=== PATIENT | male | born 1965 | race Two or more races ===

== ENCOUNTER → 2020-04-17 12:30 | Outpatient (BNVA) | payer MEDICARE, MEDICAID, SELFPAY | PROVIDERS: PCP Physician Assistant; Referring Provider Physician Assistant; Visit Provider Internal Medicine | DX: Z45.02 Encounter for adjustment and management of automatic implantable cardiac defibrillator (principal); I48.19 Other persistent atrial fibrillation; Z86.79 Personal history of other diseases of the circulatory system | CPT/HCPCS: 99212 ==

== ENCOUNTER 2020-05-18 08:01 | Outpatient (REF) | payer MEDICARE, MEDICAID, SELFPAY ==
[2020-05-18 09:14] LABS: Anion Gap 20 (12-20); Blood Urea Nitrogen 22 mg/dL (9-16); Calcium 8.1 mg/dL (8.4-10.2); Carbon Dioxide 22 mmol/L (22-29); Chloride 105 mmol/L (96-108); Estimated Glomerular Filt Rate 57; Potassium 4.5 mmol/l (3.3-5.1); Sodium 142 mmol/L (135-145); Total Protein 6.9 g/dL (6.5-8.0)
[2020-05-18 10:32] LABS: Creatinine Urine 186.35 mg/dL
== END 2020-05-18 08:02 | disposition home or self-care (01) ==
LOC: HO.LAB 08:01
PROVIDERS: PCP Physician Assistant; Visit Provider Internal Medicine Hypertension Specialist
DX: N18.30 Chronic kidney disease, stage 3 unspecified (principal)
CPT/HCPCS: 80051; 82310; 82565; 84155; 84520

== ENCOUNTER 2020-05-22 09:37 | Emergency (ER) | payer MEDICARE, MEDICAID, SELFPAY ==
[2020-05-22 09:56] VITALS: BP 128/76; PULSE 78; RESP 17; O2SAT 97; BMI 45.8
--- NOTE | 2020-05-22 10:46 | ED_ITS ---
HPI - Dental/Oral General Chief complaint: Dental/Oral Stated complaint: DENTAL PAIN Time Seen by Provider: 05/22/20 10:46 Source: patient Mode of arrival: ambulatory Limitations: language barrier History of Present Illness HPI Narrative: 54 y/o male with multiple medical conditions including DM, CMP s/p ICD placement, afib, HTN, HLD, obesity, neuropathy presenting with right sided upper and lower dental pain for the last 3 days. He thinks he cracked a lower right molar and he has had issues with that tooth several times in the past. He recently moved here and does not have a dentist. He has been taking Tylenol without relief. He was unable to sleep last night due to the pain. He denies fever, chills, difficulty swallowing, facial swelling. He states the pain is worse when trying to eat. MD Complaint: tooth pain Teeth map: 1. painful, cracked tooth 2. tender tooth Onset (ago): day(s) (3) Duration: constant Severity: severe Relieving factors: nothing Exacerbating factors: chewing Context: history of dental caries and poor dental care Treatment prior to arrival: none Related Data Home Medications Medication Instructions Recorded Confirmed cane #1 ea 03/23/20 04/17/20 albuterol sulfate 90 mcg/actuation INHALATION 04/17/20 05/03/20 aerosol inhaler albuterol sulfate 90 mcg/actuation 2 puff INHALATION Q6H PRN 05/03/20 05/03/20 aerosol inhaler insulin aspart U-100 100 unit/mL unit SUBCUT TID ml 05/03/20 05/03/20 (3 mL) subcutaneous pen insulin glargine U-300 conc 300 unit SUBCUT DAILY ml 05/03/20 05/03/20 unit/mL (1.5 mL) subcutaneous pen Previous Rx's Medication Instructions Recorded digoxin 250 mcg (0.25 mg) tablet 250 mcg PO DAILY 90 Days #90 tab 05/03/20 famotidine 20 mg tablet 20 mg PO DAILY 90 Days #90 tab 05/03/20 fluticasone 250 mcg-salmeterol 50 1 inh INHALATION BID 30 Days #60 ea 05/03/20 mcg/dose blistr powdr for inhalation furosemide 40 mg tablet 40 mg PO BID 90 Days #180 tab 05/03/20 gabapentin 300 mg capsule 300 mg PO QAM #90 cap 05/03/20 gabapentin 600 mg tablet 600 mg PO DAILY 90 Days #90 tab 05/03/20 lisinopril 20 mg tablet 20 mg PO DAILY 90 Days #90 tab 05/03/20 metoprolol succinate 50 mg 50 mg PO DAILY 90 Days #90 tab 05/03/20 tablet,extended release 24 hr miscellaneous medical supply 2 ea MISCELLANEOUS DAILY #2 ea 05/03/20 rivaroxaban 15 mg tablet 15 mg PO DAILY 90 Days #90 tab 05/03/20 atorvastatin 10 mg tablet 10 mg PO DAILY 90 Days #90 tab 05/08/20 blood sugar diagnostic #100 ea 05/16/20 comp.stocking,thigh,long,x-lrg #2 ea 05/16/20 acetaminophen [Tylenol Arthritis 650 mg PO Q8H PRN #30 tab 05/22/20 Pain] clindamycin HCl 300 mg PO Q8H #21 cap 05/22/20 tramadol 50 mg PO Q8H PRN #10 tab 05/22/20 Allergies Allergy/AdvReac Type Severity Reaction Status Date / Time Penicillins [PENICILLINS] Allergy Severe RASH Verified 05/03/20 17:59 penicillin V Allergy Unknown rash Verified 05/03/20 17:59 Review of Systems Review of Systems: Constitutional: No Fever, No Chills ENT/Mouth: No sore throat, No Rhinorrhea, No Swallowing Difficulty, +dental pain Cardiovascular: No Chest Pain, No SOB Respiratory: No Cough, No Sputum Gastrointestinal: No Nausea, No Vomiting Musculoskeletal: No joint pain, No Myalgias Skin: No Skin Lesions, No rash Neuro: No Weakness, No Numbness, No Dizziness, + Headache (from pain) Psych: No Anxiety/Panic, No Depression Heme/Lymph: No Lymphadenopathy PMFSH Past Medical History Attestation statement: The following information was validated with the patient. Medical History Asthma Chronic kidney disease, unspecified Essential hypertension GERD (gastroesophageal reflux disease) History of cardiomyopathy FAIZAN (obstructive sleep apnea) Persistent atrial fibrillation Type 2 diabetes mellitus with unspecified complications Surgical History Presence of implantable cardioverter-defibrillator (ICD) Family History Family History Father Cardiac disease Mother Cardiac disease Social History Social History Smoking Status: Current some day smoker Advance Directives: No Advance Directives Information Provided: No Physical Exam Vital Signs: Vital Signs: Last Vital Signs Pulse 78 05/22/20 09:56 Resp 17 05/22/20 09:56 BP 128/76 05/22/20 09:56 Pulse Ox 97 05/22/20 09:56 Body Mass Index 45.8 Appearance: Alert. Oriented X3. No acute distress. HEENT: normal facial inspection, no facial swelling. lower right molar with tenderness and mild gingival swelling, no palpable abscess, silver filling in place, no appreciated fracture. Upper right molars with tenderness, normal gingival. No abscess. Poor dentiion overall, moist mucus membranes, uvula midline. posterior oropharynx normal. Respiratory: No respiratory distress. Skin: Skin warm and dry. Normal skin color. Normal skin turgor. No rashes. Extremities: atraumatic, +LE edema Neuro: Oriented X 3. Non-focal. Course Course Course Narrative: 54 y/o presenting with upper and lower right sided dental pain - no appreciable abscess on exam but tenderness to upper and lower molars. Will give Tramadol and abx in the event infection is starting. He was given list of local dentists and expressed the importance of follow up with dental. He agrees to make calls today to be evaluated. Stable for d/c. MDM - Dental/Oral Differential Diagnosis Differential diagnosis: Likely gingival abscess, dental caries, toothache, dental abscess, fracture of tooth and aphthous ulcer Discharge Plan Discharge Clinical Impression: Toothache Patient Disposition: Home, Self-Care Instructions: Toothache (ED) Additional Instructions: It is important that you follow up with a dentist FABY. A list of local dentists has been provided to you. Take prescribed medications as needed for pain. If you develop facial swelling, fevers, worsening pain or any other concerning symptom come back to the ER for further evaluation. Prescriptions: New tramadol 50 mg tablet 50 mg PO Q8H PRN (Reason: pain) Qty: 10 RF: 0 clindamycin HCl 300 mg capsule 300 mg PO Q8H Qty: 21 RF: 0 acetaminophen [Tylenol Arthritis Pain] 650 mg tablet extended release 650 mg PO Q8H PRN (Reason: pain) Qty: 30 RF: 0 No Action (DME) cane Device See Rx Instructions .ROUTE .MEDSUPPLY Qty: 1 RF: 0 atorvastatin 10 mg tablet 10 mg PO DAILY 90 Days Qty: 90 RF: 1 (DME) FreeStyle Test Strip See Rx Instructions .ROUTE .MEDSUPPLY Qty: 100 RF: 0 (DME) comp.stocking,thigh,long,x-lrg Misc See Rx Instructions .ROUTE .MEDSUPPLY Qty: 2 RF: 0 albuterol sulfate [ProAir HFA] 90 mcg/actuation HFA aerosol inhaler 2 puff inhalation Q6H PRNRF: 0 miscellaneous medical supply Misc 2 ea miscellaneous DAILY Qty: 2 RF: 0 digoxin 250 mcg (0.25 mg) tablet 250 mcg PO DAILY 90 Days Qty: 90 RF: 1 famotidine 20 mg tablet 20 mg PO DAILY 90 Days Qty: 90 RF: 1 fluticasone propion-salmeterol [Advair Diskus] 250-50 mcg/dose blister with device 1 inh inhalation BID 30 Days Qty: 60 RF: 3 furosemide [Lasix] 40 mg tablet 40 mg PO BID 90 Days Qty: 180 RF: 1 gabapentin 600 mg tablet 600 mg PO DAILY 90 Days Qty: 90 RF: 1 gabapentin 300 mg capsule 300 mg PO QAM Qty: 90 RF: 1 lisinopril 20 mg tablet 20 mg PO DAILY 90 Days Qty: 90 RF: 1 metoprolol succinate 50 mg tablet extended release 24 hr 50 mg PO DAILY 90 Days Qty: 90 RF: 1 rivaroxaban 15 mg tablet 15 mg PO DAILY 90 Days Qty: 90 RF: 1 albuterol sulfate 90 mcg/actuation HFA aerosol inhaler inhalation RF: 0 insulin aspart U-100 100 unit/mL (3 mL) insulin pen subcut TID RF: 0 insulin glargine U-300 conc 300 unit/mL (1.5 mL) insulin pen subcut DAILY RF: 0 Print Language: Japanese
== END 2020-05-22 11:15 | disposition home or self-care (01) ==
PROVIDERS: Emergency Provider Emergency Medicine; PCP Physician Assistant
DX: K08.89 Other specified disorders of teeth and supporting structures (principal); E11.22 Type 2 diabetes mellitus with diabetic chronic kidney disease; I12.9 Hypertensive chronic kidney disease with stage 1 through stage 4 chronic kidney disease, or unspecified chronic kidney disease; N18.9 Chronic kidney disease, unspecified; Z95.810 Presence of automatic (implantable) cardiac defibrillator; Z79.4 Long term (current) use of insulin; Z79.899 Other long term (current) drug therapy; F17.200 Nicotine dependence, unspecified, uncomplicated
CPT/HCPCS: 99283

== ENCOUNTER → 2020-06-21 09:01 | Outpatient (REF) | payer MEDICARE, MEDICAID, SELFPAY ==
--- NOTE | 2020-06-21 09:28 | ECG_ITS ---
Hook-up date: 2020-06-21 10:55:00 Duration: 25:35:00 Test Indications: AFIB Medications: [id number] QRS complexes 2853 Ventricular ectopics which represent 2 % of total QRS comp. * Supraventricular ectopics which represent % of total QRS comp. * Paced QRS complexs which represent % of total QRS comp. VENTRICULAR ECTOPY 2312 Isolated 6 Bigeminal Cycles 177 Couplets 49 Runs 187 Beats in Runs 16 Beats LONGEST at 59 BPM at 07:41:52 2020-06-22 4 Beats FASTEST at 119 BPM at 23:13:12 2020-06-21 SUPRAVENTRICULAR ECTOPY * Isolated * Couplets * Runs * Beats in Runs * Beats LONGEST at * BPM at :: -- * Beats FASTEST at * BPM at :: -- HEART RATES 67 MIN at 05:01:46 2020-06-22 92 AVG 141 MAX at 11:16:41 2020-06-21 LONGEST RR 1.1600 secs at 05:35:55 2020-06-22 S-T LEVELS Channel 1 - 128 mm at 10:55:00 2020-06-21 - 128 mm at 10:55:00 2020-06-21 Channel 2 - 128 mm at 10:55:00 2020-06-21 - 128 mm at 10:55:00 2020-06-21 Channel 3 - 128 mm at 03:01:41 -- - 128 mm at 03:01:41 Underlying rhythm is atrial fibrillation; Average ventricular rate 92/min; range 67-141/min; About 22% of the time, rate >100/min; Occasional ventricular pacing noted (2%); some of these seem to be paced beats; no significant runs; Patient did not report any symptoms in the diary Referred By: Arielle Carrillo Overread By: ARIELLE CARRILLO
--- NOTE | 2020-06-21 09:28 | CA_ITS ---
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 Technically limited study despite use of definity 2. Normal LV systolic function 3. Limited evaluation of cardiac valves with normal cardiac valvular Doppler 4. Normal RV systolic pressure 5. No pericardial effusion Findings Left Ventricle The left ventricle was not well visualized. Normal left ventricular cavity size. The left ventricular systolic function is normal. The visually estimated ejection fraction is between 55-60%. Diastolic function is indeterminate on the basis of available data. Right Ventricle The right ventricle was not well visualized. Atria The left atrium is likely dilated. Interatrial shunt cannot be excluded. The right atrium was not well visualized. Aortic Valve The aortic valve was not well visualized. There is no aortic valve stenosis. There is no aortic valve regurgitation. Mitral Valve The mitral valve was not well visualized. There is no mitral valve regurgitation. There is no mitral valve stenosis. Pulmonic Valve The pulmonic valve was not well visualized. Tricuspid Valve The tricuspid valve was not well visualized. The right ventricular systolic pressure is normal. Great Vessels The aorta was not well visualized. The pulmonary artery was not well visualized. Venous The inferior vena cava is normal in size and collapses greater than 50% with inspiration. Pericardium/Pleural There is no evidence of pericardial effusion. Prior Study Comparison No significant change compared to prior study dated: 08/19/2019. Measurements 2D Linear Measurements IVSd: 1.06 0.6-0.9/0.6-1.0 cm LVIDd: 5.39 3.9-5.3/4.2-5.9 cm LVIDd Index: 2.16 2.4-3.2/2.2-3.1 cm/m2 LVIDs: 3.56 2.0-3.6 cm LVPWd: 1.07 0.7-1.1 cm Ao Root: 4.40 2.1-3.5 cm LA Diam: 3.80 2.7-3.8/3.0-4.0 cm LAIDs Index: 1.52 1.5-2.3 cm/m2 LV Mass: 279.41 67-162/88-224 g LV Mass Index: 111.77 43-95/49-115 g/m2 LVOT Diam: 2.40 3.0+(-)1.3 cm Mitral Valve MV Pk E: 0.66 MV Decel Time: 137.00 E'Lateral: 13.10 E'Medial: 6.48 E/E' Med: 10.10 E/E' Lat: 5.00 PHT: 40.00 MVA PHT: 5.50 Decel [place]: 4.77 Aortic Valve AoV Pk Cruz: 1.05 AoV Mn Cruz: 0.65 AoV VTI: 0.20 AoV Pk Grad: 4.00 Aov Mn Grad: 2.00 RHONDA Cont.VTI: 2.95 LVOT LVOT Pk Cruz: 0.52 LVOT Mn Cruz: 0.35 LVOT VTI: 0.13 LVOT Pk Grad: 1.00 LVOT Mn Grad: 1.00 LVOT Diam: 2.40 LVOT Area: 4.52 Diastolic Function MV Pk E: 0.66 E'Medial: 6.48 E/E' Med: 10.10 E' Laterial: 13.10 E/E' Lat: 5.00 Tricuspid Valve TR Pk Cruz: 1.87 TR Pk Grad: 14.00 RA Press: 3.00 RVSP: 17.00 Great Vessels Aorta Ao Root-2D: 4.40 2.0-3.7 cm Ao Asc: 3.80 2.1-3.4 cm Pulmonary Valve PV Pk Cruz: 0.77 Peak PV Grad: 2.00 Updated in Other Vendor System with Status of Final Juan José Rosado MD electronically signed on 06/21/2020 3:36:47 PM with status of Final
[2020-06-21 09:55] LABS: MANUAL DIFF FLAG NO
[2020-06-21 10:09] LABS: Basophils Absolute Auto 0.1 X10*3/uL (0.0-0.2); Basophils Percent Auto 0.9 % (0-2); Eosinophils Absolute Auto 0.4 X10*3/uL (0.0-0.4); Eosinophils Percent Auto 3.8 % (0-4); Hematocrit 47.8 % (42-52); Hemoglobin 15.8 g/dl (14.0-18.0); Imm Gran Abs Auto 0.06 X10*3/uL (0.00-0.03); Imm Gran Pct Auto 0.6 % (0.0-0.4); Lymphocytes Absolute Auto 2.8 X10*3/uL (1.2-4.9); Lymphocytes Percent Auto 29.4 % (20-40); Mean Corpuscular HGB Conc 33.1 g/dl (31.0-36.0); Mean Corpuscular Hemoglobin 31.9 pg (27.0-33.0); Mean Corpuscular Volume 96.6 fL (80-98); Mean Platelet Volume 10.3 fL (9.4-12.4); Monocytes Absolute Auto 0.8 X10*3/uL (0.1-1.2); Monocytes Percent Auto 8.7 % (2-11); Neutrophils Absolute Auto 5.4 X10*3/uL (2.0-8.3); Neutrophils Percent Auto 56.6 % (45-73); Platelet Count 293 X10*3/uL (160-400); Red Blood Count 4.95 X10*6/uL (4.60-5.80); Red Cell Distribution Width 12.6 % (11.0-16.0); White Blood Count 9.5 X10*3/uL (4.8-10.8)
[2020-06-21 11:07] LABS: Creatinine Urine 288.53 mg/dL; Protein/Creatinine Ratio, Ur 0.13 (<0.2); Total Protein Urine Random 37 mg/dL (<12)
[2020-06-21 11:12] LABS: Alanine Aminotransferase 24 U/L (0-40); Albumin Level 3.9 g/dL (3.5-5.0); Alkaline Phosphatase 81 U/L (39-117); Anion Gap 17 (12-20); Aspartate Amino Transferase 22 U/L (5-37); Bilirubin Total 0.8 mg/dL (0.0-1.0); Blood Urea Nitrogen 23 mg/dL (9-16); Calcium 8.7 mg/dL (8.4-10.2); Carbon Dioxide 26 mmol/L (22-29); Chloride 103 mmol/L (96-108); Cholesterol 124 mg/dL; Estimated Glomerular Filt Rate 55; Glucose Fasting 166 mg/dL (60-99); HDL Cholesterol 41 mg/dL; LDL Cholesterol Calculated 65 mg/dl; Potassium 4.5 mmol/l (3.3-5.1); Sodium 141 mmol/L (135-145); Triglycerides 90 mg/dL
[2020-06-21 11:31] LABS: TSH reflex Free T4 1.07 mIU/mL (0.32-4.0)
== END ==
LOC: HO.CARD 09:01
PROVIDERS: Absent Provider Physician Assistant; PCP Physician Assistant; Referring Provider Internal Medicine Hypertension Specialist; Visit Provider Internal Medicine
DX: N18.30 Chronic kidney disease, stage 3 unspecified (principal); I48.19 Other persistent atrial fibrillation
CPT/HCPCS: 36415; 80053; 80061; 84156; 84443; 85025; 93225; 93226; 93306; Q9957

== ENCOUNTER → 2020-07-17 13:27 | Outpatient (BNVA) | payer MEDICARE, MEDICAID, SELFPAY | PROVIDERS: PCP Physician Assistant; Visit Provider Internal Medicine | DX: I48.19 Other persistent atrial fibrillation (principal); I42.9 Cardiomyopathy, unspecified; Z95.810 Presence of automatic (implantable) cardiac defibrillator | CPT/HCPCS: 99212 ==

== ENCOUNTER → 2020-07-18 14:09 | Outpatient (BNVA) | payer MEDICARE, MEDICAID, SELFPAY | PROVIDERS: PCP Physician Assistant; Visit Provider Internal Medicine Endocrinology, Diabetes & Metabolism | DX: E11.65 Type 2 diabetes mellitus with hyperglycemia (principal); E11.42 Type 2 diabetes mellitus with diabetic polyneuropathy; E11.21 Type 2 diabetes mellitus with diabetic nephropathy; E11.22 Type 2 diabetes mellitus with diabetic chronic kidney disease; I12.9 Hypertensive chronic kidney disease with stage 1 through stage 4 chronic kidney disease, or unspecified chronic kidney disease; N18.30 Chronic kidney disease, stage 3 unspecified; Z79.4 Long term (current) use of insulin; E66.01 Morbid (severe) obesity due to excess calories; E78.2 Mixed hyperlipidemia; B35.3 Tinea pedis | CPT/HCPCS: 82947; 99202 ==

== ENCOUNTER → 2020-07-27 07:10 | Outpatient (REF) | payer MEDICARE, MEDICAID, SELFPAY ==
--- NOTE | ~2020-07-27 | NM_ITS ---
Myocardial perfusion study Indication: Cardiomyopathy to evaluate for myocardial ischemia Technique: The patient was brought in for a Lexiscan perfusion study on 07/27/2020. Patient performed low-level exercise and was injected 0.4 mg of Lexiscan intravenously. Within a minute of injection, 45 mCi of sestamibi was given intravenously. Images were obtained using the SPECT gamma camera interlaced with the gating device. Images were obtained in supine position. Resting perfusion study was performed on 07/28/2020. Patient was administered 45 mCi of sestamibi intravenously at rest. Images were then obtained in supine position. Images obtained with and without CT attenuation. Total DLP 185 mGy-cm. Images were processed with the software and compared side to side in short axis, horizontal long axis and vertical long axis views. Findings: The stress perfusion study showed non attenuated images show large area of moderate to severely reduced uptake in the inferior wall of the LV myocardium with absent uptake in the basal inferior wall of the LV myocardium. Attenuation corrected images show moderately reduced uptake in the distal anterior, apex and mildly reduced uptake in the distal septum of the LV myocardium.. The gated study shows mildly reduced LV systolic function with calculated LVEF of 48%. LV cavity is normal in size. The gated study shows normal systolic wall thickening and contraction of segments. Resting study shows non attenuated images show no changes in perfusion pattern. Attenuation corrected images show normal uptake of radiotracer in all segments of LV myocardium.. Gating at rest reveals systolic wall motion with ejection fraction at 50%. The findings are consistent with distal anterior, distal septal and apical reversible defect of moderate intensity ischemia.. NM/NM tameka perf SPECT rest & str Impression: 1. Myocardial perfusion imaging study shows distal anterior, distal septal and apical ischemia in mid to distal LAD territory 2. Gated LVEF is 48% 3. Transient ischemic dilatation not present EKG is nondiagnostic for ischemia
--- NOTE | 2020-07-27 07:16 | CA_ITS ---
Acquisition Time: 2020-07-27 07:52:43 Total Exercise Time: 00:02:00 Test Indications: HTN, DM Medications: SEE CHART Protocol: LEXISCAN Max HR: 109 BPM 66% of Pred: 165 BPM Max BP: 140/068 mmHG Max Work Load: 1.0 METS Pharmacological stress test using Lexiscan. Pt tolerated well denies any anginal sx. EKG wit A-fib and isolated PVC's. Non-diagnostic for ischemia. Nuclear images to follow. Normotensive response to exercise. Test reviewed with exercise. Referred By: Porfirio Engle Overread By: Aric Watts
== END ==
LOC: HO.CARD 07:10
PROVIDERS: PCP Physician Assistant; Visit Provider Internal Medicine
DX: I42.9 Cardiomyopathy, unspecified (principal)
CPT/HCPCS: 78452; 93017; A9500; J0280; J2785

== ENCOUNTER 2020-08-04 10:00 | Outpatient (REF) | payer MEDICARE, MEDICAID, SELFPAY ==
[2020-08-04 12:29] LABS: Free T4 (Free Thyroxine) 1.27 ng/dL (0.71-1.85); Vitamin D 25-OH Total 24.8 ng/mL (>30)
[2020-08-04 12:52] LABS: Alanine Aminotransferase 21 U/L (0-40); Albumin Level 4.4 g/dL (3.5-5.0); Alkaline Phosphatase 83 U/L (39-117); Anion Gap 16 (12-20); Aspartate Amino Transferase 17 U/L (5-37); Bilirubin Total 0.6 mg/dL (0.0-1.0); Blood Urea Nitrogen 32 mg/dL (9-16); Carbon Dioxide 25 mmol/L (22-29); Chloride 104 mmol/L (96-108); Estimated Glomerular Filt Rate 42; Glucose Fasting 179 mg/dL (60-99); Potassium 4.5 mmol/L (3.3-5.1); Sodium 140 mmol/L (135-145); Total Protein 7.8 g/dL (6.5-8.0)
[2020-08-04 13:00] LABS: Creatinine Urine 43.86 mg/dL; Microalbum/Creatinine Ratio Ur 11.3 ug/mg cr
[2020-08-04 14:16] LABS: Vitamin B12 757 pg/mL (200-900)
[2020-08-06 00:22] LABS: LDL Cholesterol Direct 66 mg/dL (<100)
== END 2020-08-04 10:01 | disposition home or self-care (01) ==
LOC: HO.LAB 10:00
PROVIDERS: Absent Provider Internal Medicine Endocrinology, Diabetes & Metabolism; PCP Physician Assistant; Visit Provider Nurse Practitioner Family
DX: E11.65 Type 2 diabetes mellitus with hyperglycemia (principal); R94.39 Abnormal result of other cardiovascular function study; I12.9 Hypertensive chronic kidney disease with stage 1 through stage 4 chronic kidney disease, or unspecified chronic kidney disease; E11.22 Type 2 diabetes mellitus with diabetic chronic kidney disease; N18.30 Chronic kidney disease, stage 3 unspecified; I48.91 Unspecified atrial fibrillation; E78.2 Mixed hyperlipidemia; Z95.810 Presence of automatic (implantable) cardiac defibrillator; Z86.79 Personal history of other diseases of the circulatory system
CPT/HCPCS: 36415; 80053; 82043; 82306; 82607; 83721; 84439; 84443; 99212

== ENCOUNTER 2020-08-11 06:15 | Outpatient (REF) | payer MEDICARE, MEDICAID, SELFPAY ==
[2020-08-11 07:21] LABS: MANUAL DIFF FLAG NO
[2020-08-11 07:27] LABS: Basophils Absolute Auto 0.1 X10*3/uL (0.0-0.2); Eosinophils Absolute Auto 0.4 X10*3/uL (0.0-0.4); Eosinophils Percent Auto 4.6 % (0-4); Hematocrit 52.8 % (42-52); Hemoglobin 16.8 g/dl (14.0-18.0); Imm Gran Abs Auto 0.04 X10*3/uL (0.00-0.03); Imm Gran Pct Auto 0.4 % (0.0-0.4); Lymphocytes Absolute Auto 3.1 X10*3/uL (1.2-4.9); Lymphocytes Percent Auto 32.5 % (20-40); Mean Corpuscular HGB Conc 31.8 g/dl (31.0-36.0); Mean Corpuscular Hemoglobin 30.9 pg (27.0-33.0); Mean Corpuscular Volume 97.1 fL (80-98); Mean Platelet Volume 10.3 fL (9.4-12.4); Monocytes Absolute Auto 0.9 X10*3/uL (0.1-1.2); Monocytes Percent Auto 9.7 % (2-11); Neutrophils Percent Auto 51.8 % (45-73); Platelet Count 276 X10*3/uL (160-400); Red Blood Count 5.44 X10*6/uL (4.60-5.80); Red Cell Distribution Width 12.4 % (11.0-16.0); White Blood Count 9.6 X10*3/uL (4.8-10.8)
[2020-08-11 07:45] LABS: INTERNATIONAL NORM RATIO 1.4 (0.9-1.1); Prothrombin Time 16.4 SEC (10.8-13.0)
[2020-08-11 08:27] LABS: Anion Gap 17 (12-20); Blood Urea Nitrogen 26 mg/dL (9-16); Calcium 9.1 mg/dL (8.4-10.2); Carbon Dioxide 26 mmol/L (22-29); Chloride 103 mmol/L (96-108); Estimated Glomerular Filt Rate 49; Glucose Random 169 mg/dL (60-115); Potassium 5.1 mmol/L (3.3-5.1); Sodium 141 mmol/L (135-145)
== END 2020-08-11 06:16 | disposition home or self-care (01) ==
LOC: HO.LAB 06:15
PROVIDERS: PCP Physician Assistant; Visit Provider Nurse Practitioner Family
DX: R94.39 Abnormal result of other cardiovascular function study (principal)
CPT/HCPCS: 36415; 80048; 85025; 85610

== ENCOUNTER 2020-08-29 07:33 | Outpatient (REF) | payer MEDICARE, MEDICAID, SELFPAY ==
[2020-08-29 08:42] LABS: MANUAL DIFF FLAG NO
[2020-08-29 08:48] LABS: Basophils Absolute Auto 0.1 X10*3/uL (0.0-0.2); Basophils Percent Auto 0.9 % (0-2); Eosinophils Absolute Auto 0.3 X10*3/uL (0.0-0.4); Eosinophils Percent Auto 3.3 % (0-4); Hematocrit 51.9 % (42-52); Hematocrit 52.4 % (42-52); Hemoglobin 17.1 g/dl (14.0-18.0); Imm Gran Abs Auto 0.04 X10*3/uL (0.00-0.03); Imm Gran Pct Auto 0.4 % (0.0-0.4); Lymphocytes Absolute Auto 3.2 X10*3/uL (1.2-4.9); Lymphocytes Percent Auto 32.5 % (20-40); Mean Corpuscular HGB Conc 32.4 g/dl (31.0-36.0); Mean Corpuscular HGB Conc 32.9 g/dl (31.0-36.0); Mean Corpuscular Hemoglobin 30.9 pg (27.0-33.0); Mean Corpuscular Hemoglobin 31.4 pg (27.0-33.0); Mean Corpuscular Volume 95.1 fL (80-98); Mean Corpuscular Volume 95.4 fL (80-98); Mean Platelet Volume 10.1 fL (9.4-12.4); Mean Platelet Volume 10.2 fL (9.4-12.4); Monocytes Percent Auto 10.2 % (2-11); Neutrophils Absolute Auto 5.1 X10*3/uL (2.0-8.3); Neutrophils Percent Auto 52.7 % (45-73); Platelet Count 315 X10*3/uL (160-400); Platelet Count 327 X10*3/uL (160-400); Red Blood Count 5.44 X10*6/uL (4.60-5.80); Red Blood Count 5.51 X10*6/uL (4.60-5.80); Red Cell Distribution Width 12.1 % (11.0-16.0); White Blood Count 9.6 X10*3/uL (4.8-10.8); White Blood Count 9.8 X10*3/uL (4.8-10.8)
[2020-08-29 08:54] LABS: INTERNATIONAL NORM RATIO 1.2 (0.9-1.1); Prothrombin Time 13.9 SEC (10.8-13.0)
[2020-08-29 09:20] LABS: Alanine Aminotransferase 17 U/L (0-40); Albumin Level 4.1 g/dL (3.5-5.0); Alkaline Phosphatase 80 U/L (39-117); Anion Gap 16 (12-20); Aspartate Amino Transferase 18 U/L (5-37); Bilirubin Total 0.9 mg/dL (0.0-1.0); Blood Urea Nitrogen 22 mg/dL (9-16); Calcium 8.7 mg/dL (8.4-10.2); Carbon Dioxide 23 mmol/L (22-29); Chloride 106 mmol/L (96-108); Cholesterol 126 mg/dL; Estimated Glomerular Filt Rate 52; Glucose Fasting 91 mg/dL (60-99); HDL Cholesterol 45 mg/dL; LDL Cholesterol Calculated 65 mg/dl; Potassium 4.9 mmol/L (3.3-5.1); Sodium 140 mmol/L (135-145); Total Protein 7.5 g/dL (6.5-8.0); Triglycerides 81 mg/dL
[2020-08-29 09:27] LABS: Creatinine Urine 212.12 mg/dL
== END 2020-08-29 07:34 | disposition home or self-care (01) ==
LOC: HO.LAB 07:33
PROVIDERS: Absent Provider Nurse Practitioner Family; PCP Physician Assistant; Referring Provider Internal Medicine Cardiovascular Disease; Visit Provider Physician Assistant
DX: Z01.818 Encounter for other preprocedural examination (principal); Z12.5 Encounter for screening for malignant neoplasm of prostate; I49.9 Cardiac arrhythmia, unspecified; I10 Essential (primary) hypertension; E11.8 Type 2 diabetes mellitus with unspecified complications
CPT/HCPCS: 36415; 80053; 80061; 82043; 84153; 85025; 85027; 85610

== ENCOUNTER 2020-09-11 12:00 | Day surgery (SDC) | payer MEDICARE, MEDICAID, SELFPAY ==
[2020-09-05 10:18] VITALS: BMI 44.1
--- NOTE | 2020-09-08 13:55 | P.CONAN_ITS ---
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 (Acute) Diabetes type 2, uncontrolled (Acute) FAIZAN (obstructive sleep apnea) (Acute) PVD (peripheral vascular disease) (Acute) Essential hypertension (Acute) Afib (Acute) HLD (hyperlipidemia) (Acute) Type 2 diabetes mellitus with unspecified complications (Acute) History of cardiomyopathy (Acute) Presence of implantable cardioverter-defibrillator (ICD) (Acute) Persistent atrial fibrillation (Acute) Knee osteoarthritis (Acute) Lower extremity edema (Acute) Neuropathy (Acute) Past Medical History Medical History Asthma Chronic kidney disease, unspecified CKD stage 3 due to type 2 diabetes mellitus Diabetes type 2, uncontrolled Diabetic nephropathy associated with type 2 diabetes mellitus Diabetic polyneuropathy associated with type 2 diabetes mellitus Essential hypertension GERD (gastroesophageal reflux disease) History of cardiomyopathy [facility] (current) use of insulin Morbid obesity FAIZAN (obstructive sleep apnea) Persistent atrial fibrillation Tinea pedis of both feet Type 2 diabetes mellitus with unspecified complications Family History Family History Father Cardiac disease Mother Cardiac disease Surgical History Surgical History Presence of implantable cardioverter-defibrillator (ICD) Social History Social History Smoking Status: Current some day smoker Advance Directives Information Provided: No Meds Allergies Allergy/AdvReac Type Severity Reaction Status Date / Time Penicillins [PENICILLINS] Allergy Severe RASH Verified 09/11/20 12:36 Home Medications Medication Instructions Recorded Confirmed Last Taken Type cane #1 ea 03/23/20 08/04/20 Unknown History albuterol sulfate 90 mcg/actuation INHALATION 04/17/20 08/04/20 Unknown History aerosol inhaler metoprolol succinate 50 mg 50 mg PO DAILY 06/15/20 09/05/20 Unknown History tablet,extended release 24 hr gabapentin 600 mg tablet 600 mg PO BEDTIME tab 07/18/20 09/05/20 Unknown History Exam Exam Date and Time: September 08, 2020 1355 Height,Weight and Vital Signs: Height 5 ft 11 in Weight 143.789 kg Pertinent Lab Results Pertinent Lab Results: Laboratory Tests 08/29/20 08/29/20 07:50 07:50 WBC 9.6 Hgb 17.1 Hct 51.9 Plt Count 327 Sodium 140 Potassium 4.9 Chloride 106 Carbon Dioxide 23 BUN 22 H Creatinine 1.42 H Narrative Narrative: EKG 07/2020 afib; LAD; non-specific ST-T wave abnormalities + stress 08/2020 -> Cath 08/16/20: Normal systemic pressures, No gradient was identified across aortic valve, Nml LVEDP, Coronary arteries are angiographically normal; false + stress test Echo 06/2020 Conclusions: - 1. Technically limited study despite use of definity 2. Normal LV systolic function 3. Limited evaluation of cardiac valves with normal cardiac valvular Doppler 4. Normal RV systolic pressure 5. No pericardial effusion Assessment and Plan Assessment Anesthesia Assessment: Chart Reviewed Documented by User: Kim Garza 09/11/20 13:06 [facility] Past Medical History Medical History Asthma Chronic kidney disease, unspecified CKD stage 3 due to type 2 diabetes mellitus Diabetes type 2, uncontrolled Diabetic nephropathy associated with type 2 diabetes mellitus Diabetic polyneuropathy associated with type 2 diabetes mellitus Essential hypertension GERD (gastroesophageal reflux disease) History of cardiomyopathy [facility] (current) use of insulin Morbid obesity FAIZAN (obstructive sleep apnea) Persistent atrial fibrillation Tinea pedis of both feet Type 2 diabetes mellitus with unspecified complications Family History Family History Father Cardiac disease Mother Cardiac disease Surgical History Surgical History Presence of implantable cardioverter-defibrillator (ICD) Social History Social History Smoking Status: Current some day smoker Advance Directives Information Provided: No Meds Allergies Allergy/AdvReac Type Severity Reaction Status Date / Time Penicillins [PENICILLINS] Allergy Severe RASH Verified 09/11/20 12:36 Home Medications Medication Instructions Recorded Confirmed Last Taken Type cane #1 ea 03/23/20 08/04/20 Unknown History albuterol sulfate 90 mcg/actuation INHALATION 04/17/20 08/04/20 Unknown History aerosol inhaler metoprolol succinate 50 mg 50 mg PO DAILY 06/15/20 09/05/20 Unknown History tablet,extended release 24 hr gabapentin 600 mg tablet 600 mg PO BEDTIME tab 07/18/20 09/05/20 Unknown History Exam Airway Mallampati Class: II TM Dist: >3cm Neck ROM: Limited Loose/Missing/Broken Teeth: No Heart: RRR Lungs: CTA Assessment and Plan Assessment Anesthesia Assessment: Anesthesia Plan Discussed and Chart Reviewed Final Anesthetic Review NPO: Yes ASA Class: III Final Preanesthetic Review: Meds/Allgs Chart Reviewed, Consent Obtained/Reviewed and Anes Risks/Benef Reviewed Patient Risk: Intermediate Procedure Risk: Low Anesthetic Plan Anesthetic Plan: MAC: Disposition: Standard PACU
[2020-09-11] VITALS (7 sets, daily range): BP systolic 97–112; BP diastolic 64–74; PULSE 82–96; RESP 16; TEMP 36.6–37; O2SAT 95–99
[2020-09-11 12:51] LABS: Glucose, Whole Blood 114 mg/dL (60-115)
[2020-09-11] MEDS: Lactated Ringers 1,000 ML 20 ML IVCONT (14:00)
--- NOTE | 2020-09-11 15:58 | P.OP_ITS ---
Operative Note Operative Note Date of Service: 09/11/20 Narrative: Date of Service: 08/14/20 Narrative: Procedure: Single chamber ICD implantation generator change Indication: secondary prevention with history of VT and VF, ANABELLA Procedure The risks, benefits, complications, alternatives and expected outcomes were discussed with the patient. Patient was prepped and draped in the usual sterile fashion. After the antibiotic was infused, lidocaine was infiltrated medial to the deltopectoral groove. An incision was made. The incision was extended to the prepectoral fascia using blunt dissection. The previously placed device was removed and the new device was attached to the existing lead. Lead measurements were rechecked. A left prepectoral pocket was fashioned. The lead was attached to the generator. The system was placed in the pocket. T The pin of the lead was beyond the set screws. Hemostasis was verified. The pocket was closed with 3 layers. Steristrips and tegaderm were applied [facility] [employer] Device: ICD Secura VR [id number] serial [id number] RV lead: [id number] [place] Quattro Secure serial [id number] Pacing impedance 475 ohms HV impedance RV 50 ohms HV SVC 60 ohms Threshold 0.75 V at 0.4 ms R waves 4.6 Programmed VVI 40 BPM VF therapy >200 BPM ATP during charging, 35Jx6 VT 171-200 BPM Burst x3, 20J, 35Jx4 Plan Discharge home after 1 hour. Ok to continue all medications and to start xarelto tomorrow evening Post-op Instructions: [facility] Dr. Douglas Rodriguez Pacemaker/ICD Instructions Site Care: Leave dressing on for 5 days. Do not shower or get the area wet for 5 days. Once you remove the dressing, there will be steri-strips in place. Do not peel off, they will fall off. Hand washing is a must when caring for your incision to prevent infections. Avoid touching your incision or using lotions, creams, or ointments until it is healed (2-4 weeks). Follow-up instructions: You have scheduled follow-up at [address] [place] [address] on August 29, 2020 at 10:20 AM. Please call [phone] for the [place] office if any questions Please keep the identification card for the device with you, it will be useful when you go through security during flights. Please plug in your home monitor and leave it at your bedside. Call device company if you need assistance plugging in the monitor. Please tell all your healthcare providers you have a pacemaker, especially before procedures or before a MRI. Call your doctor if you have any redness, swelling, pus from incision site, fever of 101 degrees. If you have any bleeding from the incision site, lie down and put pressure on the incision site for 30 minutes. If this does not resolve, please get transportation to the closest hospital but do not drive yourself.
--- NOTE | 2020-09-11 15:58 | PM.OP ---
Brief Operative Note Date of Service: 09/11/20 Surgeon: Douglas Rodriguez MD Estimated blood loss (mL): 50
== END 2020-09-11 18:32 | disposition home or self-care (01) ==
PROVIDERS: PCP Physician Assistant; Visit Provider Internal Medicine Cardiovascular Disease
PROC: 0JPT0PZ Removal of Cardiac Rhythm Related Device from Trunk Subcutaneous Tissue and Fascia, Open Approach (ICD-10-PCS; CPT 33262; principal; 2020-09-11 13:30)
DX: Z45.02 Encounter for adjustment and management of automatic implantable cardiac defibrillator (principal); I49.9 Cardiac arrhythmia, unspecified; I48.19 Other persistent atrial fibrillation; Z79.01 Long term (current) use of anticoagulants; E11.22 Type 2 diabetes mellitus with diabetic chronic kidney disease; I12.9 Hypertensive chronic kidney disease with stage 1 through stage 4 chronic kidney disease, or unspecified chronic kidney disease; N18.30 Chronic kidney disease, stage 3 unspecified; Z79.4 Long term (current) use of insulin; G47.33 Obstructive sleep apnea (adult) (pediatric); J45.909 Unspecified asthma, uncomplicated; Z79.899 Other long term (current) drug therapy
CPT/HCPCS: 33262; 82947; C1722; J1100; J2250; J2405; J3010; J3370

== ENCOUNTER → 2020-09-12 13:04 | Outpatient (BNVA) | payer MEDICARE, MEDICAID, SELFPAY | PROVIDERS: PCP Physician Assistant; Visit Provider Dietitian, Registered | DX: E11.65 Type 2 diabetes mellitus with hyperglycemia (principal) | CPT/HCPCS: 97802 ==

== ENCOUNTER → 2020-10-17 13:30 | Outpatient (BNVA) | payer MEDICARE, MEDICAID, SELFPAY | PROVIDERS: PCP Physician Assistant; Visit Provider Internal Medicine Endocrinology, Diabetes & Metabolism | DX: E11.65 Type 2 diabetes mellitus with hyperglycemia (principal); E11.21 Type 2 diabetes mellitus with diabetic nephropathy; E11.42 Type 2 diabetes mellitus with diabetic polyneuropathy; E11.22 Type 2 diabetes mellitus with diabetic chronic kidney disease; I12.9 Hypertensive chronic kidney disease with stage 1 through stage 4 chronic kidney disease, or unspecified chronic kidney disease; N18.30 Chronic kidney disease, stage 3 unspecified; Z79.4 Long term (current) use of insulin; E78.2 Mixed hyperlipidemia; E66.01 Morbid (severe) obesity due to excess calories | CPT/HCPCS: 82947; 99212 ==

== ENCOUNTER 2020-10-20 09:03 | Outpatient (REF) | payer MEDICARE, MEDICAID, SELFPAY ==
[2020-10-20 10:35] LABS: Hematocrit 48.8 % (42-52); Mean Corpuscular HGB Conc 32.8 g/dl (31.0-36.0); Mean Corpuscular Hemoglobin 30.5 pg (27.0-33.0); Platelet Count 305 X10*3/uL (160-400); Red Blood Count 5.25 X10*6/uL (4.60-5.80); Red Cell Distribution Width 12.6 % (11.0-16.0)
[2020-10-20 10:53] LABS: Alanine Aminotransferase 25 U/L (0-40); Albumin Level 4.2 g/dL (3.5-5.0); Alkaline Phosphatase 72 U/L (39-117); Anion Gap 14 (12-20); Aspartate Amino Transferase 17 U/L (5-37); Bilirubin Total 0.8 mg/dL (0.0-1.0); Blood Urea Nitrogen 30 mg/dL (9-16); Calcium 9.1 mg/dL (8.4-10.2); Carbon Dioxide 21 mmol/L (22-29); Chloride 107 mmol/L (96-108); Cholesterol 133 mg/dL; Estimated Glomerular Filt Rate 49; Glucose Fasting 93 mg/dL (60-99); HDL Cholesterol 46 mg/dL; LDL Cholesterol Calculated 73 mg/dl; Potassium 4.7 mmol/L (3.3-5.1); Sodium 137 mmol/L (135-145); Total Protein 7.3 g/dL (6.5-8.0); Triglycerides 73 mg/dL
== END 2020-10-20 09:04 | disposition home or self-care (01) ==
LOC: HO.LAB 09:03
PROVIDERS: Nurse Practitioner Family; PCP Physician Assistant; Visit Provider Physician Assistant
DX: I10 Essential (primary) hypertension (principal); E11.65 Type 2 diabetes mellitus with hyperglycemia
CPT/HCPCS: 36415; 80053; 80061; 85027

== ENCOUNTER → 2020-11-28 09:40 | Outpatient (BNVA) | payer MEDICARE, MEDICAID, SELFPAY | PROVIDERS: PCP Physician Assistant; Referring Provider Physician Assistant; Visit Provider Internal Medicine | DX: I48.19 Other persistent atrial fibrillation (principal); I42.8 Other cardiomyopathies; I95.9 Hypotension, unspecified; Z95.810 Presence of automatic (implantable) cardiac defibrillator | CPT/HCPCS: 99212 ==

== ENCOUNTER → 2020-12-05 10:11 | Outpatient (REF) | payer MEDICARE, MEDICAID, SELFPAY ==
--- NOTE | 2020-12-05 13:40 | ECG_ITS ---
Hook-up date: 2020-12-05 10:37:00 Duration: 46:46:00 Test Indications: PERSISTANT ATRIAL FIB Medications: [id number] QRS complexes 641 Ventricular ectopics which represent <1 % of total QRS comp. * Supraventricular ectopics which represent % of total QRS comp. * Paced QRS complexs which represent % of total QRS comp. VENTRICULAR ECTOPY 609 Isolated 0 Bigeminal Cycles 13 Couplets 2 Runs 6 Beats in Runs 3 Beats LONGEST at 77 BPM at 04:11:45 2020-12-06 3 Beats FASTEST at 77 BPM at 04:11:45 2020-12-06 SUPRAVENTRICULAR ECTOPY * Isolated * Couplets * Runs * Beats in Runs * Beats LONGEST at * BPM at :: -- * Beats FASTEST at * BPM at :: -- HEART RATES 65 MIN at 05:50:27 2020-12-06 103 AVG 175 MAX at 14:39:32 2020-12-05 LONGEST RR 1.1280 secs at 05:49:38 2020-12-06 S-T LEVELS Channel 1 - 128 mm at 10:37:00 2020-12-05 - 128 mm at 10:37:00 2020-12-05 Channel 2 - 128 mm at 10:37:00 2020-12-05 - 128 mm at 10:37:00 2020-12-05 Channel 3 - 128 mm at 02:95:61 -- - 128 mm at 02:95:61 Basic rhythm Atrial fibrillation Frequent Atrial fibrillation with rapid ventricular response , 59% of time HR > 100 bpm Occasional Premature ventricular complexes No diary submitted I was requested to read this study on 12/29/2020 Referred By: Porfirio Engle Overread By: VINNY CORONADO MD
== END ==
LOC: HO.CARD 10:11
PROVIDERS: PCP Physician Assistant; Referring Provider Physician Assistant; Visit Provider Internal Medicine
DX: I48.19 Other persistent atrial fibrillation (principal)
CPT/HCPCS: 93226

== ENCOUNTER 2020-12-13 09:37 | Outpatient (REF) | payer MEDICARE, MEDICAID, SELFPAY ==
[2020-12-13 10:43] LABS: Hemoglobin 15.5 g/dl (14.0-18.0); Mean Corpuscular Hemoglobin 30.8 pg (27.0-33.0); Mean Corpuscular Volume 93.3 fL (80-98); Mean Platelet Volume 9.9 fL (9.4-12.4); Platelet Count 286 X10*3/uL (160-400); Red Blood Count 5.04 X10*6/uL (4.60-5.80); Red Cell Distribution Width 13.5 % (11.0-16.0); White Blood Count 9.7 X10*3/uL (4.8-10.8)
[2020-12-13 11:07] LABS: Alanine Aminotransferase 22 U/L (0-40); Albumin Level 3.9 g/dL (3.5-5.0); Alkaline Phosphatase 76 U/L (39-117); Anion Gap 16 (12-20); Aspartate Amino Transferase 14 U/L (5-37); Bilirubin Total 0.7 mg/dL (0.0-1.0); Blood Urea Nitrogen 17 mg/dL (9-16); Calcium 9.3 mg/dL (8.4-10.2); Carbon Dioxide 22 mmol/L (22-29); Chloride 107 mmol/L (96-108); Cholesterol 140 mg/dL; Estimated Glomerular Filt Rate 59; Glucose Fasting 115 mg/dL (60-99); HDL Cholesterol 55 mg/dL; LDL Cholesterol Calculated 70 mg/dl; Potassium 4.6 mmol/L (3.3-5.1); Sodium 140 mmol/L (135-145); Triglycerides 79 mg/dL
[2020-12-13 11:28] LABS: TSH reflex Free T4 0.78 uIU/mL (0.32-4.0)
[2020-12-13 11:58] LABS: Digoxin < 0.3 ng/mL (0.8-2.0)
== END 2020-12-13 09:38 | disposition home or self-care (01) ==
LOC: HO.LAB 09:37
PROVIDERS: PCP Physician Assistant; Visit Provider Internal Medicine
DX: I48.19 Other persistent atrial fibrillation (principal); I10 Essential (primary) hypertension; E11.65 Type 2 diabetes mellitus with hyperglycemia; Z79.899 Other long term (current) drug therapy
CPT/HCPCS: 36415; 80053; 80061; 80162; 84443; 85027

== ENCOUNTER → 2021-01-08 10:04 | Outpatient (BNVA) | payer MEDICARE, MEDICAID, SELFPAY | PROVIDERS: PCP Physician Assistant; Referring Provider Physician Assistant; Visit Provider Internal Medicine | DX: I42.8 Other cardiomyopathies (principal); I48.19 Other persistent atrial fibrillation; I95.9 Hypotension, unspecified; E11.22 Type 2 diabetes mellitus with diabetic chronic kidney disease; E11.42 Type 2 diabetes mellitus with diabetic polyneuropathy; E11.21 Type 2 diabetes mellitus with diabetic nephropathy; I12.9 Hypertensive chronic kidney disease with stage 1 through stage 4 chronic kidney disease, or unspecified chronic kidney disease; N18.30 Chronic kidney disease, stage 3 unspecified; E66.01 Morbid (severe) obesity due to excess calories; Z68.41 Body mass index [BMI] 40.0-44.9, adult; Z95.810 Presence of automatic (implantable) cardiac defibrillator; Z88.0 Allergy status to penicillin; Z79.4 Long term (current) use of insulin; Z79.899 Other long term (current) drug therapy | CPT/HCPCS: 99212 ==

== ENCOUNTER 2021-02-01 18:17 | Emergency (ER) | payer MEDICARE, MEDICAID, SELFPAY ==
--- NOTE | ~2021-02-01 | XR_ITS ---
EXAMINATION: XR CHEST CLINICAL INFORMATION: Dyspnea. COMPARISON: Most recent chest radiograph dated 10/10/2019. TECHNIQUE: Frontal view of the chest was obtained. FINDINGS: Left chest wall AICD with its lead in the right heart. No airspace consolidation. No pleural effusion or pneumothorax. Stable cardiomediastinal silhouette. XR/XR chest 1V IMPRESSION: Unremarkable examination.
[2021-02-01 18:23] VITALS: BP 130/73; PULSE 87; RESP 16; TEMP 37; O2SAT 98; BMI 43.2
[2021-02-01 20:00] VITALS: BP 155/80; PULSE 84; RESP 16; TEMP 37; O2SAT 98
--- NOTE | 2021-02-01 20:10 | ECG_ITS ---
Test Reason : SOB Blood Pressure : / mmHG Vent. Rate : 082 BPM Atrial Rate : 078 BPM P-R Int : 000 ms QRS Dur : 090 ms QT Int : 360 ms P-R-T Axes : 000 -68 023 degrees QTc Int : 420 ms Undetermined rhythm Left axis deviation Nonspecific ST abnormality Abnormal ECG No previous ECGs available Referred By: Generic ED Physician Electronically Signed By:DALJIT TERRY
[2021-02-01 20:25] LABS: MANUAL DIFF FLAG NO
[2021-02-01 20:28] LABS: Basophils Absolute Auto 0.1 X10*3/uL (0.0-0.2); Eosinophils Absolute Auto 0.5 X10*3/uL (0.0-0.4); Hematocrit 48.1 % (42-52); Hemoglobin 16.1 g/dl (14.0-18.0); Imm Gran Abs Auto 0.08 X10*3/uL (0.00-0.03); Imm Gran Pct Auto 0.9 % (0.0-0.4); Lymphocytes Absolute Auto 2.2 X10*3/uL (1.2-4.9); Lymphocytes Percent Auto 24.5 % (20-40); Mean Corpuscular HGB Conc 33.5 g/dl (31.0-36.0); Mean Corpuscular Hemoglobin 31.6 pg (27.0-33.0); Mean Corpuscular Volume 94.5 fL (80-98); Mean Platelet Volume 9.7 fL (9.4-12.4); Monocytes Absolute Auto 1.4 X10*3/uL (0.1-1.2); Monocytes Percent Auto 15.3 % (2-11); Neutrophils Absolute Auto 4.7 X10*3/uL (2.0-8.3); Neutrophils Percent Auto 52.3 % (45-73); Platelet Count 251 X10*3/uL (160-400); Red Blood Count 5.09 X10*6/uL (4.60-5.80); Red Cell Distribution Width 13.8 % (11.0-16.0); White Blood Count 8.9 X10*3/uL (4.8-10.8)
[2021-02-01 20:39] VITALS: BP 122/71; PULSE 77; RESP 16; TEMP 37; O2SAT 99
[2021-02-01 20:49] LABS: COVID-19 Test Negative (Negative); IDNOW Serial# 9DD0AD1C
--- NOTE | 2021-02-01 21:10 | ED.SOB ---
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 In addition, patient denies any GI or symptoms. He states he has continued to use his inhalers as prescribed but notice that his breathing has decreased since ?the rain?. Related Data Home Medications Medication Instructions Recorded Confirmed cane #1 ea 03/23/20 01/08/21 Previous Rx's Medication Instructions Recorded miscellaneous medical supply 2 ea MISCELLANEOUS DAILY #2 ea 05/03/20 blood sugar diagnostic (FreeStyle #100 ea 05/16/20 Test) comp.stocking,thigh,long,x-lrg #2 ea 06/27/20 miscellaneous medical supply 2 ea MISCELLANEOUS DAILY 90 Days 06/27/20 #2 ea blood sugar diagnostic (FreeStyle #120 ea 10/17/20 Lite Strips) insulin aspart U-100 100 unit/mL See Rx Instructions SUBCUT TID 30 10/17/20 (3 mL) subcutaneous pen Days #15 ml insulin glargine U-300 conc 300 60 unit SUBCUT DAILY 30 Days #6 ml 10/17/20 unit/mL (3 mL) subcutaneous pen (Toujeo Max U-300 SoloStar) loperamide 2 mg capsule 2 mg PO BID PRN 30 Days #60 cap 10/24/20 acetaminophen 650 mg 650 mg PO Q8H PRN #30 tab 12/19/20 tablet,extended release (Tylenol Arthritis Pain) atorvastatin 10 mg tablet 10 mg PO DAILY 90 Days #90 tab 12/19/20 cholecalciferol (vitamin D3) 25 25 mcg PO DAILY 30 Days #30 cap 12/19/20 mcg (1,000 unit) capsule famotidine 20 mg tablet 20 mg PO DAILY 90 Days #90 tab 12/19/20 fluticasone 250 mcg-salmeterol 50 1 inh INHALATION BID 30 Days #60 ea 12/19/20 mcg/dose blistr powdr for inhalation (Advair Diskus) furosemide 40 mg tablet (Lasix) 40 mg PO BID 90 Days #180 tab 12/19/20 gabapentin 300 mg capsule 300 mg PO QAM #90 cap 12/19/20 gabapentin 600 mg tablet 600 mg PO BEDTIME 90 Days #90 tab 12/19/20 tramadol 50 mg tablet 50 mg PO Q8H PRN #10 tab 12/19/20 digoxin 125 mcg (0.125 mg) tablet 125 mcg PO DAILY #90 tab 01/11/21 (Digox) dulaglutide 0.75 mg/0.5 mL 0.75 mg SUBCUT QWEEK 30 Days #2.5 01/11/21 subcutaneous pen injector ml (Trulicity) metoprolol tartrate 25 mg tablet 12.5 mg PO BID 90 Days #45 tab 01/11/21 rivaroxaban 15 mg tablet 15 mg PO DAILY 90 Days #90 tab 01/11/21 albuterol sulfate 90 mcg/actuation 2 puff INHALATION Q6H PRN #8.5 g 02/01/21 aerosol inhaler (ProAir HFA) prednisone 20 mg tablet 40 mg PO DAILY 4 Days #8 tab 02/02/21 Allergies Allergy/AdvReac Type Severity Reaction Status Date / Time Penicillins [PENICILLINS] Allergy Severe RASH Verified 01/08/21 10:49 Review of Systems Review of Systems: Pertinent positives and negatives as stated in HPI 10 point review of systems is otherwise negative. FOR[facility], LATER [facility] Past Medical History Source: nursing notes reviewed Medical History Asthma Chronic kidney disease, unspecified CKD stage 3 due to type 2 diabetes mellitus Diabetes type 2, uncontrolled Diabetic nephropathy associated with type 2 diabetes mellitus Diabetic polyneuropathy associated with type 2 diabetes mellitus Essential hypertension GERD (gastroesophageal reflux disease) History of cardiomyopathy senior care (current) use of insulin Morbid obesity FAIZAN (obstructive sleep apnea) Persistent atrial fibrillation Tinea pedis of both feet Type 2 diabetes mellitus with unspecified complications Surgical History Presence of implantable cardioverter-defibrillator (ICD) Family History Family History Father Cardiac disease Mother Cardiac disease Social History Social History Alcohol intake: current Alcohol intake frequency: holidays/special occasions only Patient Tobacco Use Status: Former Tobacco user Use of substances other than those prescribed or required for medical reasons: No Advance Directives: No Advance Directives Information Provided: No Physical Exam Vital Signs: Vital Signs: Last Vital Signs Temp 99.1 F 02/01/21 22:33 Pulse 102 H 02/01/21 23:41 Resp 12 02/01/21 22:33 BP 141/66 H 02/01/21 22:33 Pulse Ox 96 02/01/21 22:33 Body Mass Index 43.2 VITAL SIGNS: Reviewed. GENERAL: Well developed, well nourished, in no acute distress. HEAD: Normocephalic/atraumatic EYES: PERRLA, EOMI OROPHARYNX: no oral lesions noted, posterior pharynx clear LUNGS: Poor air entry, scattered wheeze noted, no rhonchi appreciated. SpO2<99> CARDIOVASCULAR: Regular rate and rhythm without noted murmurs, no JVD or lower extremity edema. ABDOMEN: Obese, Soft, non-tender, non-distended with bowel sounds. MUSCULOSKELETAL: No tenderness, deformities, or effusions noted on gross inspection. EXTREMITIES: No cyanosis, clubbing or edema but stigmata of venous stasis with bronzing/skin thickening SKIN: Inspection of the skin reveals no rashes NEUROLOGIC: Alert and oriented x 4. Strength and sensation to light touch were grossly intact x 4. Course Course Course Narrative: 54-year-old male with history and clinical presentation consistent with asthma exacerbation and low clinical suspicion for CHF exacerbation although it is noted that the BNP is mildly elevated this is in the presence of underlying CKD. On review of all investigations there are no acute findings. Patient received prednisone as well as 2 5 mg albuterol treatments with significant subjective treatment as well as on reauscultation of his lungs there was improved air movement with minimal wheeze noted. Patient is otherwise discharged in stable condition on a short course of steroids, instructed to continue with his Ventolin inhaler over the next 24 hours and follow-up with his primary care provider for re-evaluation. MDM - SOB/Dyspnea Lab Data Result diagrams: 02/01/21 20:19 02/01/21 20:19 Labs: Lab Results 02/01/21 02/01/21 02/01/21 Range/Units 20:19 20:19 20:19 WBC 8.9 (4.8-10.8) X10*3/uL RBC 5.09 (4.60-5.80) X10*6/uL Hgb 16.1 (14.0-18.0) g/dl Hct 48.1 (42-52) % MCV 94.5 (80-98) fL MCH 31.6 (27.0-33.0) pg MCHC 33.5 (31.0-36.0) g/dl RDW 13.8 (11.0-16.0) % Plt Count 251 (160-400) X10*3/uL MPV 9.7 (9.4-12.4) fL Immature Gran % (Auto) 0.9 H (0.0-0.4) % Neut % (Auto) 52.3 (45-73) % Lymph % (Auto) 24.5 (20-40) % Spalding % (Auto) 15.3 H (2-11) % Eos % (Auto) 6.0 H (0-4) % Baso % (Auto) 1.0 (0-2) % Lymph # (Auto) 2.2 (1.2-4.9) X10*3/uL Spalding # (Auto) 1.4 H (0.1-1.2) X10*3/uL Eos # (Auto) 0.5 H (0.0-0.4) X10*3/uL Baso # (Auto) 0.1 (0.0-0.2) X10*3/uL Abs Immat Gran (auto) 0.08 H (0.00-0.03) X10*3/uL Absolute Neuts (auto) 4.7 (2.0-8.3) X10*3/uL Absolute Nucleated RBC 0.000 (0.0-0.012) X10*3/uL Nucleated RBC % (auto) 0.0 (0.0-0.2) /100WBC Sodium 144 (135-145) mmol/L Potassium 4.8 (3.3-5.1) mmol/L Chloride 104 (96-108) mmol/L Carbon Dioxide 32 H (22-29) mmol/L Anion Gap 13 (12-20) BUN 17 H (9-16) mg/dL Creatinine 1.48 H (0.5-1.4) mg/dL Estim Creat Clear Calc 80.9 Estimated GFR 49 Random Glucose 119 H (60-115) mg/dL Calcium 9.7 (8.4-10.2) mg/dL Troponin I High Sens 10.9 (<3.5-35.0) ng/L B-Natriuretic Peptide 121 H (<100) pg/mL COVID-19 (ROX) (Negative) COVID-19 Clin Com 02/01/21 Range/Units 20:19 WBC (4.8-10.8) X10*3/uL RBC (4.60-5.80) X10*6/uL Hgb (14.0-18.0) g/dl Hct (42-52) % MCV (80-98) fL MCH (27.0-33.0) pg MCHC (31.0-36.0) g/dl RDW (11.0-16.0) % Plt Count (160-400) X10*3/uL MPV (9.4-12.4) fL Immature Gran % (Auto) (0.0-0.4) % Neut % (Auto) (45-73) % Lymph % (Auto) (20-40) % Spalding % (Auto) (2-11) % Eos % (Auto) (0-4) % Baso % (Auto) (0-2) % Lymph # (Auto) (1.2-4.9) X10*3/uL Sp[place]ding # (Auto) (0.1-1.2) X10*3/uL Eos # (Auto) (0.0-0.4) X10*3/uL Baso # (Auto) (0.0-0.2) X10*3/uL Abs Immat Gran (auto) (0.00-0.03) X10*3/uL Absolute Neuts (auto) (2.0-8.3) X10*3/uL Absolute Nucleated RBC (0.0-0.012) X10*3/uL Nucleated RBC % (auto) (0.0-0.2) /100WBC Sodium (135-145) mmol/L Potassium (3.3-5.1) mmol/L Chloride (96-108) mmol/L Carbon Dioxide (22-29) mmol/L Anion Gap (12-20) BUN (9-16) mg/dL Creatinine (0.5-1.4) mg/dL Estim Creat Clear Calc Estimated GFR Random Glucose (60-115) mg/dL Calcium (8.4-10.2) mg/dL Troponin I High Sens (<3.5-35.0) ng/L B-Natriuretic Peptide (<100) pg/mL COVID-19 (ROX) Negative (Negative) COVID-19 Clin Com See Note ECG Data Attestation: I personally reviewed and interpreted this ECG as follows: Prior ECG tracings: available for review (07/27/2020 no acute changes on comparison) Interpretation: Atrial fibrillation, HR-82, no STEMI, QRS/QTC are within normal limits. Discharge Plan Discharge Clinical Impression: Asthma exacerbation Patient Disposition: Home, Self-Care Instructions: Prednisone (By mouth), Asthma (ED) Additional Instructions: 1. Reanude todos los medicamentos caseros seg?n lo prescrito. 2. Recomiende que jose cruz un seguimiento con guerra proveedor de atenci?n primaria llamando al consultorio por la ma?sergei para mihai reevaluaci?n y un tratamiento ambulatorio adicional. Regrese a la concepcion de emergencias si anca s?ntomas empeoran de manera aguda. Prescriptions: New prednisone 20 mg tablet 40 mg PO DAILY 4 Days Qty: 8 RF: 0 No Action (DME) cane Device See Rx Instructions .ROUTE .MEDSUPPLY Qty: 1 RF: 0 (DME) FreeStyle Test Strip See Rx Instructions .ROUTE .MEDSUPPLY Qty: 100 RF: 0 acetaminophen [Tylenol Arthritis Pain] 650 mg tablet extended release 650 mg PO Q8H PRN (Reason: pain) Qty: 30 RF: 2 atorvastatin 10 mg tablet 10 mg PO DAILY 90 Days Qty: 90 RF: 1 cholecalciferol (vitamin D3) 25 mcg (1,000 unit) capsule 25 mcg PO DAILY 30 Days Qty: 30 RF: 6 famotidine 20 mg tablet 20 mg PO DAILY 90 Days Qty: 90 RF: 1 fluticasone propion-salmeterol [Advair Diskus] 250-50 mcg/dose blister with device 1 inh inhalation BID 30 Days Qty: 60 RF: 3 furosemide [Lasix] 40 mg tablet 40 mg PO BID 90 Days Qty: 180 RF: 1 gabapentin 300 mg capsule 300 mg PO QAM Qty: 90 RF: 1 gabapentin 600 mg tablet 600 mg PO BEDTIME 90 Days Qty: 90 RF: 1 tramadol 50 mg tablet 50 mg PO Q8H PRN (Reason: pain) Qty: 10 RF: 0 digoxin [Digox] 125 mcg (0.125 mg) tablet 125 mcg PO DAILY Qty: 90 RF: 4 metoprolol tartrate 25 mg tablet 12.5 mg PO BID 90 Days Qty: 45 RF: 4 rivaroxaban 15 mg tablet 15 mg PO DAILY 90 Days Qty: 90 RF: 1 Trulicity 0.75 mg/0.5 mL pen injector 0.75 mg subcut QWEEK 30 Days Qty: 2.5 RF: 3 albuterol sulfate [ProAir HFA] 90 mcg/actuation HFA aerosol inhaler 2 puff inhalation Q6H PRN (Reason: shortness of breath or wheezing) Qty: 8.5 RF: 3 loperamide 2 mg capsule 2 mg PO BID PRN (Reason: loose stool) 30 Days Qty: 60 RF: 0 miscellaneous medical supply Misc 2 ea miscellaneous DAILY Qty: 2 RF: 0 (DME) comp.stocking,thigh,long,x-lrg Misc See Rx Instructions .ROUTE .MEDSUPPLY Qty: 2 RF: 0 miscellaneous medical supply Misc 2 ea miscellaneous DAILY 90 Days Qty: 2 RF: 0 (DME) FreeStyle Lite Strips Strip See Rx Instructions .ROUTE .MEDSUPPLY Qty: 120 RF: 9 insulin aspart U-100 100 unit/mL (3 mL) insulin pen See Rx Instructions subcut TID 30 Days Qty: 15 RF: 6 Toujeo Max U-300 SoloStar 300 unit/mL (3 mL) insulin pen 60 unit subcut DAILY 30 Days Qty: 6 RF: 6 Referrals: Adan Reynaga PA-C [Primary Care Provider] - 2 days Print Language: Telugu
[2021-02-01 21:21] LABS: Anion Gap 13 (12-20); Blood Urea Nitrogen 17 mg/dL (9-16); Calcium 9.7 mg/dL (8.4-10.2); Carbon Dioxide 32 mmol/L (22-29); Chloride 104 mmol/L (96-108); Creatinine Clr Calc Pharmacy 80.9; Estimated Glomerular Filt Rate 49; Glucose Random 119 mg/dL (60-115); Potassium 4.8 mmol/L (3.3-5.1); Sodium 144 mmol/L (135-145)
[2021-02-01 21:26] LABS: B Type Natriuretic Peptide 121 pg/mL (<100); Troponin-I High Sensitivity 10.9 ng/L (<3.5-35.0)
[2021-02-01 22:33] VITALS: BP 141/66; PULSE 82; RESP 12; TEMP 37.3; O2SAT 96
[2021-02-01 22:49] VITALS: PULSE 84; O2SAT 98
[2021-02-01] MEDS: Albuterol Sulfate (0.083%) 2.5 MG/3 ML VIAL.NEB 5 MG INHALE ×2 (22:49→23:40)
[2021-02-01 23:41] VITALS: PULSE 102; O2SAT 99
[2021-02-01] MEDS: predniSONE 20 MG TABLET 40 MG PO (23:50)
== END 2021-02-02 01:13 | disposition home or self-care (01) ==
PROVIDERS: Emergency Provider Student in an Organized Health Care Education/Training Program; PCP Physician Assistant
DX: J45.901 Unspecified asthma with (acute) exacerbation (principal); Z20.822 Contact with and (suspected) exposure to COVID-19; R50.9 Fever, unspecified; E11.22 Type 2 diabetes mellitus with diabetic chronic kidney disease; I12.9 Hypertensive chronic kidney disease with stage 1 through stage 4 chronic kidney disease, or unspecified chronic kidney disease; N18.30 Chronic kidney disease, stage 3 unspecified; I48.19 Other persistent atrial fibrillation; Z79.4 Long term (current) use of insulin
CPT/HCPCS: 36415; 71045; 80048; 83880; 84484; 85025; 87635; 93005; 94640; 94644; 94645; 99284

== ENCOUNTER 2021-02-06 08:39 | Outpatient (REF) | payer MEDICARE, MEDICAID, SELFPAY ==
[2021-02-06 10:37] LABS: Digoxin 0.5 ng/mL (0.8-2.0)
== END 2021-02-06 08:40 | disposition home or self-care (01) ==
LOC: HO.LAB 08:39
PROVIDERS: Absent Provider Internal Medicine; PCP Physician Assistant; Visit Provider Nurse Practitioner Family
DX: I48.19 Other persistent atrial fibrillation (principal); Z79.899 Other long term (current) drug therapy
CPT/HCPCS: 36415; 80162

== ENCOUNTER → 2021-02-16 12:11 | Outpatient (BNVA) | payer MEDICARE, MEDICAID, SELFPAY | PROVIDERS: PCP Physician Assistant; Visit Provider Nurse Practitioner Gerontology | DX: E11.65 Type 2 diabetes mellitus with hyperglycemia (principal); E11.21 Type 2 diabetes mellitus with diabetic nephropathy; E11.42 Type 2 diabetes mellitus with diabetic polyneuropathy; E11.22 Type 2 diabetes mellitus with diabetic chronic kidney disease; I12.9 Hypertensive chronic kidney disease with stage 1 through stage 4 chronic kidney disease, or unspecified chronic kidney disease; N18.30 Chronic kidney disease, stage 3 unspecified; E78.2 Mixed hyperlipidemia; E66.01 Morbid (severe) obesity due to excess calories; Z68.42 Body mass index [BMI] 45.0-49.9, adult; Z79.4 Long term (current) use of insulin | CPT/HCPCS: 82947; 99212 ==

== ENCOUNTER 2021-03-08 09:08 | Outpatient (REF) | payer MEDICARE, MEDICAID, SELFPAY ==
[2021-03-08 10:22] LABS: Anion Gap 12 (12-20); Blood Urea Nitrogen 14 mg/dL (9-16); Calcium 8.7 mg/dL (8.4-10.2); Carbon Dioxide 27 mmol/L (22-29); Chloride 105 mmol/L (96-108); Estimated Glomerular Filt Rate > 60; Glucose Random 116 mg/dL (60-115); Potassium 4.1 mmol/L (3.3-5.1); Sodium 140 mmol/L (135-145)
[2021-03-08 10:24] LABS: Creatinine Urine 245.28 mg/dL; Protein/Creatinine Ratio, Ur 0.15 (<0.2); Total Protein Urine Random 36 mg/dL (<12)
[2021-03-08 11:12] LABS: Prostate Specific Antigen 0.83 ng/mL (<0.05-4.0)
== END 2021-03-08 09:09 | disposition home or self-care (01) ==
LOC: HO.LAB 09:08
PROVIDERS: Nurse Practitioner Family; PCP Physician Assistant; Visit Provider Internal Medicine Hypertension Specialist
DX: E11.22 Type 2 diabetes mellitus with diabetic chronic kidney disease (principal); N18.30 Chronic kidney disease, stage 3 unspecified; Z12.5 Encounter for screening for malignant neoplasm of prostate
CPT/HCPCS: 36415; 80048; 84153; 84156

== ENCOUNTER → 2021-03-13 09:09 | Outpatient (BNVA) | payer MEDICARE, MEDICAID, SELFPAY | PROVIDERS: PCP Physician Assistant; Referring Provider Physician Assistant; Visit Provider Internal Medicine | DX: I48.19 Other persistent atrial fibrillation (principal); I42.8 Other cardiomyopathies; I95.9 Hypotension, unspecified; Z95.810 Presence of automatic (implantable) cardiac defibrillator | CPT/HCPCS: 99212 ==

== ENCOUNTER → 2021-04-13 08:49 | Outpatient (BNVA) | payer MEDICARE, MEDICAID, SELFPAY | PROVIDERS: PCP Physician Assistant; Referring Provider Physician Assistant; Visit Provider Internal Medicine ==

== ENCOUNTER 2021-04-18 08:08 | Day surgery (SDC) | payer MEDICARE, MEDICAID, SELFPAY ==
[2021-04-11 15:39] VITALS: BMI 43.9
--- NOTE | 2021-04-17 14:40 | HO.ANESPROP2 ---
Documented by User: Eunice Kapoor NP 04/17/21 14:47 HPI - Anesthesia Eval Consult details Narrative: 54yo M for Cardioversion Eliquis for afib s/p ICD gen change with MAC 09/2020 [facility] Active Problems Active Problems: All Active Problems (Updated 02/16/21 @ 13:30 by PSATOR Pires) Lower extremity edema (Acute) Knee osteoarthritis (Acute) HLD (hyperlipidemia) (Acute) Afib (Acute) PVD (peripheral vascular disease) (Acute) Abnormal nuclear stress test (Acute) Asthma (Acute) Type 2 diabetes mellitus with hyperglycemia (Acute) NICM (nonischemic cardiomyopathy) (Acute) Hypotension arterial (Acute) Adult general medical exam (Acute) Obesity, morbid, BMI 50 or higher (Acute) Obesity due to excess calories (Acute) Screening for prostate cancer (Acute) Tinea pedis of both feet (Acute) Diabetic polyneuropathy associated with type 2 diabetes mellitus (Acute) Morbid obesity (Acute) Diabetic nephropathy associated with type 2 diabetes mellitus (Acute) CKD stage 3 due to type 2 diabetes mellitus (Acute) jail (current) use of insulin (Acute) Diabetes type 2, uncontrolled (Acute) FAIZAN (obstructive sleep apnea) (Acute) Essential hypertension (Acute) Type 2 diabetes mellitus with unspecified complications (Acute) History of cardiomyopathy (Acute) Presence of implantable cardioverter-defibrillator (ICD) (Acute) Persistent atrial fibrillation (Acute) Past Medical History Medical History (Updated 02/16/21 @ 13:30 by PASTOR Pires) Asthma Chronic kidney disease, unspecified CKD stage 3 due to type 2 diabetes mellitus Diabetes type 2, uncontrolled Diabetic nephropathy associated with type 2 diabetes mellitus Diabetic polyneuropathy associated with type 2 diabetes mellitus Diarrhea Essential hypertension GERD (gastroesophageal reflux disease) History of cardiomyopathy jail (current) use of insulin Morbid obesity Neuropathy Obesity due to excess calories FAIZAN (obstructive sleep apnea) Persistent atrial fibrillation Screening for prostate cancer Tinea pedis of both feet Type 2 diabetes mellitus with unspecified complications Family History Family History Father Cardiac disease Mother Cardiac disease Surgical History Surgical History (Updated 04/11/21 @ 15:26 by Yamila Mendez RN) History of colonoscopy History of surgery Presence of implantable cardioverter-defibrillator (ICD) Social History Social History Housing: Apartment Are you a primary insurance healthcare representative to a significant other at home: No Alcohol intake: former Patient Tobacco Use Status: Former Tobacco user Quit Date: Two months ago Tobacco use type: Cigarette Use of substances other than those prescribed or required for medical reasons: No Have you been hit, kicked, punched, or otherwise hurt by someone within the past year? If so, by whom?: No Are you DNR?: No Advance Directives: No Advance Directives Information Provided: Yes (informational brochure mailed) Advance Directives on File: No Recently lost weight without trying: No Eating poorly because of decreased appetite: No Nutrition Risks: No Nutritional Risk service: No Current occupational status: disabled Meds Allergies Allergy/AdvReac Type Severity Reaction Status Date / Time Penicillins [PENICILLINS] Allergy Severe RASH Verified 04/18/21 08:29 Home Medications Medication Instructions Recorded Confirmed Last Taken Type cane #1 ea 03/23/20 03/13/21 Unknown History metoprolol succinate 25 mg 12.5 mg PO BID 03/13/21 04/11/21 Unknown History tablet,extended release 24 hr Exam Exam Date and Time: April 17, 2021 1440 Height,Weight and Vital Signs: Height 5 ft 11 in Weight 143 kg Pertinent Lab Results Pertinent Lab Results: Laboratory Tests 02/01/21 03/08/21 20:19 09:30 WBC 8.9 Hgb 16.1 Hct 48.1 Plt Count 251 Sodium 140 Potassium 4.1 Chloride 105 Carbon Dioxide 27 BUN 14 Creatinine 1.17 Narrative Narrative: EKG 04/13/21 afib @ 70 RAD low volt QRS Incomp RBBB cannot r/o anterior infarct Cardiac Device Check Details:?Date of service 03/02/2021;?Battery life >10 years; normal lead parameters; no treated VT/VF; atrial fibrillation noted;? normal ICD function. + stress 08/2020 -> Cath 08/16/20: Normal systemic pressures, No gradient was identified across aortic valve, Nml LVEDP, Coronary arteries are angiographically normal; false + stress test Echo 06/2020 Conclusions: - 1. Technically limited study despite use of definity? 2. Normal LV systolic function? 3. Limited evaluation of cardiac valves with normal cardiac ? ? valvular Doppler? 4. Normal RV systolic pressure? 5. No pericardial effusion? ? 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 mellitus Diabetes type 2, uncontrolled Diabetic nephropathy associated with type 2 diabetes mellitus Diabetic polyneuropathy associated with type 2 diabetes mellitus Diarrhea Essential hypertension GERD (gastroesophageal reflux disease) History of cardiomyopathy jail (current) use of insulin Morbid obesity Neuropathy Obesity due to excess calories FAIZAN (obstructive sleep apnea) Persistent atrial fibrillation Screening for prostate cancer Tinea pedis of both feet Type 2 diabetes mellitus with unspecified complications Family History Family History Father Cardiac disease Mother Cardiac disease Family history of problems with anesthesia: No Surgical History Surgical History (Updated 04/11/21 @ 15:26 by Yamila Mendez RN) History of colonoscopy History of surgery Presence of implantable cardioverter-defibrillator (ICD) History of Problems with Anesthesia: No Social History Social History Housing: Apartment Are you a primary insurance healthcare representative to a significant other at home: No Alcohol intake: former Patient Tobacco Use Status: Former Tobacco user Quit Date: Two months ago Tobacco use type: Cigarette Use of substances other than those prescribed or required for medical reasons: No Have you been hit, kicked, punched, or otherwise hurt by someone within the past year? If so, by whom?: No Are you DNR?: No Advance Directives: No Advance Directives Information Provided: Yes (informational brochure mailed) Advance Directives on File: No Recently lost weight without trying: No Eating poorly because of decreased appetite: No Nutrition Risks: No Nutritional Risk service: No Current occupational status: disabled Meds Allergies Allergy/AdvReac Type Severity Reaction Status Date / Time Penicillins [PENICILLINS] Allergy Severe RASH Verified 04/18/21 08:29 Home Medications Medication Instructions Recorded Confirmed Last Taken Type cane #1 ea 03/23/20 03/13/21 Unknown History metoprolol succinate 25 mg 12.5 mg PO BID 03/13/21 04/11/21 Unknown History tablet,extended release 24 hr Exam Airway Mallampati Class: III TM Dist: >3cm Neck ROM: Full Heart: irreg Lungs: cta Assessment and Plan Assessment Anesthesia Assessment: Anesthesia Plan Discussed and Chart Reviewed Final Anesthetic Review Family History of Problems with Anesthesia: No History of Problems with Anesthesia: No NPO: Yes ASA Class: III Final Preanesthetic Review: No Changes in Pt Med Stat, Meds/Allgs Chart Reviewed and Consent Obtained/Reviewed Patient Risk: Intermediate Procedure Risk: Intermediate Anesthetic Plan Anesthetic Plan: MAC: Disposition: Standard PACU
[2021-04-18 08:37] LABS: Glucose, Whole Blood 118 mg/dL (60-115)
[2021-04-18 08:47] VITALS: BP 152/88; PULSE 77; RESP 16; TEMP 36.5; O2SAT 97
[2021-04-18] MEDS: Lactated Ringers 1,000 ML 20 ML IVCONT (09:02)
--- NOTE | 2021-04-18 09:03 | HO.CARDIVERS ---
Cardioversion Procedure Note Cardioversion Date of Procedure: 04/18/2021 Ordering Provider: Anmol Engle Performing Provider: Anmol Engle Indication for Procedure: Atrial fibrillation, uncontrolled rates Pre-Op Diagnosis: Atrial fibrillation Post-Op Diagnosis: Atrial fibrillation History: Difficult to control atrial fibrillation with rapid rate. Due to low blood pressure, unable to titrate medications. Consent: Informed consent obtained. Procedure: After informed consent was obtained, patient was taken to the PACU. The patient was then positioned appropriately. The cardioversion pads were placed in anteroposterior position. Once under anesthesia, 120 joules of synchronized shock was administered. As he remained in atrial fibrillation, attempted again with 150 joules. Still in atrial fibrillation. No further attempts made. Complications: None Impression: Unsuccessful cardioversion. Recommendations: Continue amiodarone. Further plan to be decided.
--- NOTE | 2021-04-18 09:03 | MHC.SHP ---
Pre-Procedural Eval Section A Date of Service: 04/18/21 The patient is an INPATIENT: No Section B Chief Complaint: Afib Details of Present Illness: Uncontrolled atrial fibrillation with symptoms, hence scheduled for cardioversion Relevant Family History (Specify if Yes): No Relevant Social History: None Present Medications: see Short Stay Collaborative assessment Medical History: Significant History (AFib, ICD, cardiomyopathy) Allergies: Allergies Allergy/AdvReac Type Severity Reaction Status Date / Time Penicillins [PENICILLINS] Allergy Severe RASH Verified 04/18/21 08:29 Review of Systems Review of Systems Comment: ROS completed and -ve. Exam Exam Comment: Alert, awake, Oriented x 3; Normal heart/lung sounds; Abd- soft; Neuro intact Plan I have reviewed the history and physical and performed a pertinent physical examination on my patient. No changes have occurred unless specified.
[2021-04-18 09:24] VITALS: BP 113/81; PULSE 78; RESP 24; TEMP 37.1; O2SAT 95
[2021-04-18 09:29] VITALS: BP 132/93; PULSE 81; RESP 20; O2SAT 98
[2021-04-18 09:34] VITALS: BP 123/74; PULSE 77; RESP 20; O2SAT 98
[2021-04-18 09:39] VITALS: BP 112/65; PULSE 68; RESP 20; O2SAT 96
[2021-04-18 09:55] VITALS: BP 120/70; PULSE 71; RESP 17; TEMP 36.6; O2SAT 98
== END 2021-04-18 10:52 | disposition home or self-care (01) ==
PROVIDERS: PCP Physician Assistant; Visit Provider Internal Medicine
PROC: 5A2204Z Restoration of Cardiac Rhythm, Single (ICD-10-PCS; principal; 2021-04-18 09:00)
DX: I48.19 Other persistent atrial fibrillation (principal); Z79.01 Long term (current) use of anticoagulants; I42.8 Other cardiomyopathies; Z95.810 Presence of automatic (implantable) cardiac defibrillator; I95.9 Hypotension, unspecified; J45.909 Unspecified asthma, uncomplicated; E11.22 Type 2 diabetes mellitus with diabetic chronic kidney disease; I12.9 Hypertensive chronic kidney disease with stage 1 through stage 4 chronic kidney disease, or unspecified chronic kidney disease; N18.30 Chronic kidney disease, stage 3 unspecified; Z87.891 Personal history of nicotine dependence; E11.21 Type 2 diabetes mellitus with diabetic nephropathy; E11.42 Type 2 diabetes mellitus with diabetic polyneuropathy; Z79.4 Long term (current) use of insulin; E66.01 Morbid (severe) obesity due to excess calories; Z68.41 Body mass index [BMI] 40.0-44.9, adult; Z88.0 Allergy status to penicillin
CPT/HCPCS: 82947; 92960

== ENCOUNTER → 2021-05-01 09:18 | Outpatient (BNVA) | payer MEDICARE, MEDICAID, SELFPAY | PROVIDERS: PCP Physician Assistant; Referring Provider Physician Assistant; Visit Provider Internal Medicine | DX: I48.19 Other persistent atrial fibrillation (principal); I42.8 Other cardiomyopathies; I95.9 Hypotension, unspecified; G47.33 Obstructive sleep apnea (adult) (pediatric); Z99.89 Dependence on other enabling machines and devices; Z95.810 Presence of automatic (implantable) cardiac defibrillator | CPT/HCPCS: 93005; 99212 ==

== ENCOUNTER 2021-06-05 13:05 | Outpatient (REF) | payer MEDICARE, MEDICAID, SELFPAY ==
[2021-06-05 15:23] LABS: Creatinine Urine 240.09 mg/dL; Microalbum/Creatinine Ratio Ur 139.5 ug/mg cr
[2021-06-05 15:36] LABS: Digoxin 0.3 ng/mL (0.8-2.0)
[2021-06-05 15:53] LABS: Anion Gap 14 (12-20); Blood Urea Nitrogen 14 mg/dL (9-16); Calcium 9.2 mg/dL (8.4-10.2); Carbon Dioxide 25 mmol/L (22-29); Chloride 106 mmol/L (96-108); Estimated Glomerular Filt Rate > 60; Glucose Random 77 mg/dL (60-115); Potassium 4.3 mmol/L (3.3-5.1); Sodium 141 mmol/L (135-145)
== END 2021-06-05 13:06 | disposition home or self-care (01) ==
LOC: HO.LAB 13:05
PROVIDERS: PCP Physician Assistant; Visit Provider Internal Medicine Cardiovascular Disease
DX: I10 Essential (primary) hypertension (principal); E11.8 Type 2 diabetes mellitus with unspecified complications; I48.19 Other persistent atrial fibrillation
CPT/HCPCS: 36415; 80048; 80162; 82043

== ENCOUNTER → 2021-06-22 09:09 | Outpatient (BNVA) | payer MEDICARE, MEDICAID, SELFPAY | PROVIDERS: PCP Physician Assistant; Visit Provider Nurse Practitioner Gerontology | DX: E11.65 Type 2 diabetes mellitus with hyperglycemia (principal); E11.42 Type 2 diabetes mellitus with diabetic polyneuropathy; E11.21 Type 2 diabetes mellitus with diabetic nephropathy; E11.22 Type 2 diabetes mellitus with diabetic chronic kidney disease; I12.9 Hypertensive chronic kidney disease with stage 1 through stage 4 chronic kidney disease, or unspecified chronic kidney disease; N18.30 Chronic kidney disease, stage 3 unspecified; E78.2 Mixed hyperlipidemia; E66.01 Morbid (severe) obesity due to excess calories; Z68.42 Body mass index [BMI] 45.0-49.9, adult; Z79.4 Long term (current) use of insulin | CPT/HCPCS: 82947; 83036; 99212 ==

== ENCOUNTER 2021-09-06 06:51 | Outpatient (REF) | payer MEDICARE, MEDICAID, SELFPAY ==
[2021-09-06 07:21] LABS: Hematocrit 49.5 % (42.0-52.0); Hemoglobin 16.9 g/dl (14.0-18.0); Mean Corpuscular HGB Conc 34.1 g/dl (31.0-36.0); Mean Corpuscular Volume 90.8 fL (80.0-98.0); Mean Platelet Volume 9.7 fL (9.4-12.4); Platelet Count 258 X10*3/uL (160-400); Red Blood Count 5.45 X10*6/uL (4.60-5.80); Red Cell Distribution Width 13.1 % (11.0-16.0); White Blood Count 6.9 X10*3/uL (4.8-10.8)
[2021-09-06 07:43] LABS: Estimated Average Glucose 146 mg/dL; Hemoglobin A1c % 6.7 %
[2021-09-06 07:44] LABS: Alanine Aminotransferase 27 U/L (0-40); Albumin Level 4.1 g/dL (3.5-5.0); Alkaline Phosphatase 80 U/L (39-117); Anion Gap 13 (12-20); Aspartate Amino Transferase 23 U/L (5-37); Bilirubin Total 0.8 mg/dL (0.0-1.0); Blood Urea Nitrogen 14 mg/dL (9-16); Calcium 8.7 mg/dL (8.4-10.2); Carbon Dioxide 24 mmol/L (22-29); Chloride 106 mmol/L (96-108); Cholesterol 109 mg/dL; Estimated Glomerular Filt Rate 54; Glucose Fasting 108 mg/dL (60-99); HDL Cholesterol 37 mg/dL; LDL Cholesterol Calculated 57 mg/dl; Potassium 3.8 mmol/L (3.3-5.1); Sodium 139 mmol/L (135-145); Total Protein 7.3 g/dL (6.5-8.0); Triglycerides 78 mg/dL
[2021-09-06 08:04] LABS: TSH reflex Free T4 3.36 uIU/mL (0.32-4.0)
== END 2021-09-06 06:52 | disposition home or self-care (01) ==
LOC: HO.LAB 06:51
PROVIDERS: PCP Physician Assistant; Visit Provider Physician Assistant
DX: E11.8 Type 2 diabetes mellitus with unspecified complications (principal); I10 Essential (primary) hypertension; I48.91 Unspecified atrial fibrillation
CPT/HCPCS: 36415; 80053; 80061; 83036; 84443; 85027

== ENCOUNTER → 2021-09-21 08:59 | Outpatient (BNVA) | payer MEDICARE, MEDICAID, SELFPAY | PROVIDERS: PCP Physician Assistant; Visit Provider Nurse Practitioner Gerontology | DX: E11.65 Type 2 diabetes mellitus with hyperglycemia (principal); E11.42 Type 2 diabetes mellitus with diabetic polyneuropathy; E11.21 Type 2 diabetes mellitus with diabetic nephropathy; E11.22 Type 2 diabetes mellitus with diabetic chronic kidney disease; I12.9 Hypertensive chronic kidney disease with stage 1 through stage 4 chronic kidney disease, or unspecified chronic kidney disease; N18.30 Chronic kidney disease, stage 3 unspecified; E78.2 Mixed hyperlipidemia; E66.01 Morbid (severe) obesity due to excess calories; Z68.42 Body mass index [BMI] 45.0-49.9, adult; Z79.4 Long term (current) use of insulin | CPT/HCPCS: 82947; 99212 ==

== ENCOUNTER → 2021-10-17 08:00 | Outpatient (BNVA) | payer MEDICARE, MEDICAID, SELFPAY | PROVIDERS: PCP Physician Assistant; Referring Provider Physician Assistant; Visit Provider Internal Medicine | DX: I48.19 Other persistent atrial fibrillation (principal); I42.8 Other cardiomyopathies; I95.9 Hypotension, unspecified; G47.33 Obstructive sleep apnea (adult) (pediatric); Z95.810 Presence of automatic (implantable) cardiac defibrillator; Z99.89 Dependence on other enabling machines and devices | CPT/HCPCS: 93005; 99212 ==

== ENCOUNTER → 2021-10-23 10:15 | Outpatient (BNVA) | payer MEDICARE, MEDICAID, SELFPAY | PROVIDERS: PCP Physician Assistant; Visit Provider Internal Medicine | DX: G47.33 Obstructive sleep apnea (adult) (pediatric) (principal); J45.909 Unspecified asthma, uncomplicated; E66.01 Morbid (severe) obesity due to excess calories; Z99.89 Dependence on other enabling machines and devices; Z68.41 Body mass index [BMI] 40.0-44.9, adult | CPT/HCPCS: 99202 ==

== ENCOUNTER 2021-12-12 07:54 | Outpatient (REF) | payer MEDICARE, MEDICAID, SELFPAY ==
[2021-12-12 09:09] LABS: Hematocrit 47.3 % (42.0-52.0); Hemoglobin 15.7 g/dl (14.0-18.0); Mean Corpuscular HGB Conc 33.2 g/dl (31.0-36.0); Mean Corpuscular Hemoglobin 30.1 pg (27.0-33.0); Mean Corpuscular Volume 90.6 fL (80.0-98.0); Mean Platelet Volume 10.2 fL (9.4-12.4); Platelet Count 280 X10*3/uL (160-400); Red Blood Count 5.22 X10*6/uL (4.60-5.80); White Blood Count 9.2 X10*3/uL (4.8-10.8)
[2021-12-12 09:14] LABS: INTERNATIONAL NORM RATIO 1.3 (0.9-1.1); Prothrombin Time 14.6 SEC (10.0-13.1)
[2021-12-12 09:44] LABS: Alanine Aminotransferase 21 U/L (0-40); Albumin Level 4.1 g/dL (3.5-5.0); Alkaline Phosphatase 81 U/L (39-117); Anion Gap 13 (12-20); Aspartate Amino Transferase 20 U/L (5-37); Bilirubin Total 1.5 mg/dL (0.0-1.0); Blood Urea Nitrogen 16 mg/dL (9-16); Calcium 8.6 mg/dL (8.4-10.2); Carbon Dioxide 26 mmol/L (22-29); Chloride 106 mmol/L (96-108); Estimated Glomerular Filt Rate > 60; Glucose Fasting 108 mg/dL (60-99); Potassium 4.3 mmol/L (3.3-5.1); Sodium 141 mmol/L (135-145); Total Protein 7.2 g/dL (6.5-8.0)
[2021-12-12 10:08] LABS: TSH reflex Free T4 1.14 uIU/mL (0.32-4.0)
[2021-12-14 05:32] LABS: NT-proBNP 708 pg/mL
== END 2021-12-12 07:55 | disposition home or self-care (01) ==
LOC: HO.LAB 07:54
PROVIDERS: PCP Physician Assistant; Visit Provider Physician Assistant
DX: E11.65 Type 2 diabetes mellitus with hyperglycemia (principal); I48.11 Longstanding persistent atrial fibrillation; Z86.79 Personal history of other diseases of the circulatory system; Z79.4 Long term (current) use of insulin; Z79.01 Long term (current) use of anticoagulants
CPT/HCPCS: 36415; 80053; 83880; 84443; 85027; 85610

== ENCOUNTER → 2022-01-23 09:33 | Outpatient (BNVA) | payer MEDICARE, MEDICAID, SELFPAY | PROVIDERS: PCP Physician Assistant; Visit Provider Internal Medicine | DX: G47.33 Obstructive sleep apnea (adult) (pediatric) (principal); J45.909 Unspecified asthma, uncomplicated; E66.01 Morbid (severe) obesity due to excess calories; Z68.41 Body mass index [BMI] 40.0-44.9, adult; Z99.89 Dependence on other enabling machines and devices | CPT/HCPCS: 99212 ==

== ENCOUNTER 2022-03-15 07:44 | Outpatient (REF) | payer MEDICARE, MEDICAID, SELFPAY ==
[2022-03-15 08:32] LABS: Hematocrit 49.9 % (42.0-52.0); Hemoglobin 16.7 g/dl (14.0-18.0); Mean Corpuscular HGB Conc 33.5 g/dl (31.0-36.0); Mean Corpuscular Hemoglobin 30.4 pg (27.0-33.0); Mean Corpuscular Volume 90.9 fL (80.0-98.0); Mean Platelet Volume 10.1 fL (9.4-12.4); Platelet Count 285 X10*3/uL (160-400); Red Blood Count 5.49 X10*6/uL (4.60-5.80); Red Cell Distribution Width 12.5 % (11.0-16.0); White Blood Count 8.5 X10*3/uL (4.8-10.8)
[2022-03-15 08:38] LABS: Estimated Average Glucose 148 mg/dL; Hemoglobin A1c % 6.8 %
[2022-03-15 09:08] LABS: Alanine Aminotransferase 20 U/L (0-40); Albumin Level 4.1 g/dL (3.5-5.0); Alkaline Phosphatase 92 U/L (39-117); Anion Gap 18 (12-20); Aspartate Amino Transferase 21 U/L (5-37); Bilirubin Total 0.6 mg/dL (0.0-1.0); Blood Urea Nitrogen 19 mg/dL (9-16); Calcium 9.7 mg/dL (8.4-10.2); Carbon Dioxide 22 mmol/L (22-29); Chloride 105 mmol/L (96-108); Estimated Glomerular Filt Rate 60; Glucose Fasting 127 mg/dL (60-99); Potassium 4.6 mmol/L (3.3-5.1); Sodium 140 mmol/L (135-145); Total Protein 7.7 g/dL (6.5-8.0)
[2022-03-15 09:22] LABS: Prostate Specific Antigen 3.06 ng/mL (<0.05-4.0)
== END 2022-03-15 07:45 | disposition home or self-care (01) ==
LOC: HO.LAB 07:44
PROVIDERS: Nurse Practitioner Family; PCP Physician Assistant; Visit Provider Physician Assistant
DX: Z12.5 Encounter for screening for malignant neoplasm of prostate (principal); E11.65 Type 2 diabetes mellitus with hyperglycemia; N40.0 Benign prostatic hyperplasia without lower urinary tract symptoms; Z79.4 Long term (current) use of insulin
CPT/HCPCS: 36415; 80053; 83036; 84153; 85027

== ENCOUNTER → 2022-04-22 11:54 | Outpatient (BNVA) | payer MEDICARE, MEDICAID, SELFPAY | PROVIDERS: PCP Physician Assistant; Referring Provider Physician Assistant; Visit Provider Internal Medicine | DX: Z45.02 Encounter for adjustment and management of automatic implantable cardiac defibrillator (principal); I48.19 Other persistent atrial fibrillation; I42.8 Other cardiomyopathies; I95.9 Hypotension, unspecified; G47.33 Obstructive sleep apnea (adult) (pediatric); Z99.89 Dependence on other enabling machines and devices | CPT/HCPCS: 99212 ==

== ENCOUNTER 2022-04-23 07:43 | Outpatient (REF) | payer MEDICARE, MEDICAID, SELFPAY ==
[2022-04-23 08:22] LABS: Hematocrit 46.3 % (42.0-52.0); Hemoglobin 15.6 g/dl (14.0-18.0); Mean Corpuscular HGB Conc 33.7 g/dl (31.0-36.0); Mean Corpuscular Hemoglobin 30.4 pg (27.0-33.0); Mean Corpuscular Volume 90.1 fL (80.0-98.0); Mean Platelet Volume 9.5 fL (9.4-12.4); Platelet Count 298 X10*3/uL (160-400); Red Blood Count 5.14 X10*6/uL (4.60-5.80); Red Cell Distribution Width 12.9 % (11.0-16.0); White Blood Count 8.7 X10*3/uL (4.8-10.8)
[2022-04-23 08:53] LABS: Alanine Aminotransferase 25 U/L (0-40); Albumin Level 4.2 g/dL (3.5-5.0); Alkaline Phosphatase 83 U/L (39-117); Anion Gap 13 (12-20); Aspartate Amino Transferase 19 U/L (5-37); Bilirubin Total 0.6 mg/dL (0.0-1.0); Blood Urea Nitrogen 13 mg/dL (9-16); Calcium 9.4 mg/dL (8.4-10.2); Carbon Dioxide 27 mmol/L (22-29); Chloride 106 mmol/L (96-108); Cholesterol 130 mg/dL; Estimated Glomerular Filt Rate > 60; Glucose Fasting 156 mg/dL (60-99); HDL Cholesterol 44 mg/dL; LDL Cholesterol Calculated 61 mg/dl; Potassium 4.4 mmol/L (3.3-5.1); Sodium 142 mmol/L (135-145); Total Protein 7.5 g/dL (6.5-8.0); Triglycerides 127 mg/dL
[2022-04-23 09:06] LABS: Creatinine Urine 147.47 mg/dL; Microalbum/Creatinine Ratio Ur 192.5 ug/mg cr
[2022-04-23 09:16] LABS: TSH reflex Free T4 0.81 uIU/mL (0.32-4.0)
[2022-04-23 09:18] LABS: Digoxin < 0.3 ng/mL (0.8-2.0)
== END 2022-04-23 07:44 | disposition home or self-care (01) ==
LOC: HO.LAB 07:43
PROVIDERS: PCP Physician Assistant; Visit Provider Internal Medicine
DX: E11.42 Type 2 diabetes mellitus with diabetic polyneuropathy (principal); I48.19 Other persistent atrial fibrillation; E78.2 Mixed hyperlipidemia
CPT/HCPCS: 36415; 80053; 80061; 80162; 82043; 84443; 85027

== ENCOUNTER → 2022-07-12 10:01 | Outpatient (BNVA) | payer MEDICARE, MEDICAID, SELFPAY | PROVIDERS: PCP Physician Assistant; Visit Provider Dietitian, Registered | DX: E11.65 Type 2 diabetes mellitus with hyperglycemia (principal); Z79.4 Long term (current) use of insulin; Z71.3 Dietary counseling and surveillance | CPT/HCPCS: 97802 ==

== ENCOUNTER → 2022-07-25 10:18 | Outpatient (BNVA) | payer MEDICARE, MEDICAID, SELFPAY | PROVIDERS: PCP Physician Assistant; Visit Provider Internal Medicine | DX: G47.33 Obstructive sleep apnea (adult) (pediatric) (principal); J45.909 Unspecified asthma, uncomplicated; E66.01 Morbid (severe) obesity due to excess calories; Z99.89 Dependence on other enabling machines and devices; Z68.41 Body mass index [BMI] 40.0-44.9, adult | CPT/HCPCS: 99212 ==

== ENCOUNTER → 2022-08-23 08:53 | Outpatient (REF) | payer MEDICARE, MEDICAID, SELFPAY ==
--- NOTE | 2022-08-23 08:58 | CA_ITS ---
Transthoracic Echocardiogram Patient (Last, First, Middle): Dhaval Chinchilla R Gender: Male Date of : 05/12/1966 Age: 56 Procedure Date: 08/23/2022 Procedure Type: Transthoracic Echocardiogram Location: OP Height: 177.8 cm Weight: 136.08 kg BSA: 2.48 m2 Heart Rate: bpm BP: 114 / 62 mmHg Program Director Scouting: SB Referring MD: Porfirio Engle MD Symptoms: I48.19 - Other persistent atrial fibrillation Study Quality: Adequate w contrast Conclusions: - Normal left ventricular cavity size. There is mildly increased left ventricular wall thickness. The left ventricular systolic function is low normal. The visually estimated ejection fraction is between 50-55%. - The apex and apical anterior segments are hypokinetic. Wall motion can be due to RV pacing. - Moderately increased right ventricular cavity size. There is mildly decreased right ventricular systolic function. There is a pacemaker wire seen in the right ventricle. Findings Procedure Information Contrast agent, definity, is being given per protocol without apparent complications. The study quality is limited by patients body habitus. Left Ventricle Normal left ventricular cavity size. There is mildly increased left ventricular wall thickness. The left ventricular systolic function is low normal. The visually estimated ejection fraction is between 50-55%. There is evidence of regional wall motion abnormalities. Diastolic function is indeterminate on the basis of available data. Wall Motion Rest Echo Findings The apex and apical anterior segments are hypokinetic. Right Ventricle Moderately increased right ventricular cavity size. There is mildly decreased right ventricular systolic function. There is a pacemaker wire seen in the right ventricle. Atria The left atrium is mildly dilated. Aortic Valve There is a normal trileaflet aortic valve. There is mild calcification of the aortic valve. There is no aortic valve stenosis. There is no aortic valve regurgitation. Mitral Valve The mitral valve appears normal. There is no mitral valve regurgitation. There is no mitral valve stenosis. Pulmonic Valve The pulmonic valve is likely normal. Great Vessels There is mild dilatation of the sinuses of Valsalva measuring 4.00 cm and mild dilatation of the ascending aorta measuring 3.90 cm. Venous The inferior vena cava is normal in size and collapses greater than 50% with inspiration. Pericardium/Pleural There is no evidence of pericardial effusion. Prior Study Comparison Changes noted compared to prior study dated: 06/21/2020. Low normal LV, moderate RV dysfunction. Measurements 2D Linear Measurements IVSd: 1.33 0.6-0.9/0.6-1.0 cm LVIDd: 5.09 3.9-5.3/4.2-5.9 cm LVIDd Index: 2.05 2.4-3.2/2.2-3.1 cm/m2 LVIDs: 3.71 2.0-3.6 cm LVPWd: 0.99 0.7-1.1 cm LA Diam: 4.70 2.7-3.8/3.0-4.0 cm LAIDs Index: 1.90 1.5-2.3 cm/m2 LV Mass: 285.14 67-162/88-224 g LV Mass Index: 114.98 43-95/49-115 g/m2 LVOT Diam: 2.40 3.0+(-)1.3 cm 2D Systolic Function EF 4C: 47.80 >55% EF 2C: 60.80 >55% EF BiP: 56.00 >55% Mitral Valve MV Pk E: 0.77 Aortic Valve AoV Pk Cruz: 0.90 AoV Pk Grad: 3.00 RHONDA: 3.30 LVOT LVOT Pk Cruz: 0.67 LVOT Mn Cruz: 0.46 LVOT VTI: 0.12 LVOT Pk Grad: 2.00 LVOT Mn Grad: 1.00 LVOT Diam: 2.40 LVOT Area: 4.52 Diastolic Function MV Pk E: 0.77 Right Ventricle TAPSE (mm): 20.30 TVS' Cruz: 11.40 Tricuspid Valve RA Press: 3.00 Great Vessels Aorta Sinus of Valsalva: 4.00 2.0-3.5 cm Ao Asc: 3.90 2.1-3.4 cm Pulmonary Valve PV Pk Cruz: 0.74 Peak PV Grad: 2.00 Updated in Other Vendor System with Status of Final Ken Davis MD electronically signed on 08/26/2022 10:49:19 AM with status of Final
== END ==
LOC: HO.CARD 08:53
PROVIDERS: PCP Physician Assistant; Visit Provider Internal Medicine
DX: I48.19 Other persistent atrial fibrillation (principal)
CPT/HCPCS: 93306; Q9957

== ENCOUNTER 2022-10-04 07:46 | Outpatient (REF) | payer OTHER, SELFPAY ==
[2022-10-04 08:22] LABS: Hematocrit 47.9 % (42.0-52.0); Hemoglobin 15.8 g/dl (14.0-18.0); Mean Corpuscular Hemoglobin 30.2 pg (27.0-33.0); Mean Corpuscular Volume 91.4 fL (80.0-98.0); Mean Platelet Volume 10.1 fL (9.4-12.4); Platelet Count 250 X10*3/uL (160-400); Red Blood Count 5.24 X10*6/uL (4.60-5.80); Red Cell Distribution Width 12.8 % (11.0-16.0); White Blood Count 8.6 X10*3/uL (4.8-10.8)
[2022-10-04 08:44] LABS: Creatinine Urine 255.93 mg/dL; Microalbum/Creatinine Ratio Ur 27.7 ug/mg cr
[2022-10-04 09:19] LABS: Alanine Aminotransferase 23 U/L (0-40); Albumin Level 4.1 g/dL (3.5-5.0); Alkaline Phosphatase 73 U/L (39-117); Anion Gap 12 (12-20); Aspartate Amino Transferase 22 U/L (5-37); Bilirubin Total 1.8 mg/dL (0.0-1.0); Blood Urea Nitrogen 16 mg/dL (9-16); Calcium 8.9 mg/dL (8.4-10.2); Carbon Dioxide 26 mmol/L (22-29); Chloride 108 mmol/L (96-108); Cholesterol 109 mg/dL; Estimated Glomerular Filt Rate > 60; Glucose Fasting 73 mg/dL (60-99); HDL Cholesterol 43 mg/dL; LDL Cholesterol Calculated 53 mg/dl; Potassium 4.4 mmol/L (3.3-5.1); Sodium 142 mmol/L (135-145); Total Protein 7.2 g/dL (6.5-8.0); Triglycerides 65 mg/dL
[2022-10-04 10:58] LABS: Free T4 (Free Thyroxine) 1.57 ng/dL (0.71-1.85)
== END 2022-10-04 07:47 | disposition home or self-care (01) ==
LOC: HO.LAB 07:46
PROVIDERS: PCP Physician Assistant; Visit Provider Physician Assistant
DX: E11.65 Type 2 diabetes mellitus with hyperglycemia (principal); E78.2 Mixed hyperlipidemia; E66.01 Morbid (severe) obesity due to excess calories; Z79.4 Long term (current) use of insulin
CPT/HCPCS: 36415; 80053; 80061; 82043; 84439; 84443; 85027

== ENCOUNTER 2022-10-18 10:39 | Outpatient (REF) | payer OTHER, SELFPAY ==
[2022-10-18 12:24] LABS: TSH reflex Free T4 0.05 uIU/mL (0.32-4.0)
[2022-10-18 14:33] LABS: Free T4 (Free Thyroxine) 1.68 ng/dL (0.71-1.85)
== END 2022-10-18 10:40 | disposition home or self-care (01) ==
LOC: HO.LAB 10:39
PROVIDERS: PCP Physician Assistant; Visit Provider Physician Assistant
DX: R94.6 Abnormal results of thyroid function studies (principal)
CPT/HCPCS: 36415; 84439; 84443

== ENCOUNTER 2022-11-06 08:01 | Outpatient (REF) | payer OTHER, SELFPAY ==
--- NOTE | ~2022-11-06 | US_ITS ---
EXAMINATION: US THYROID CLINICAL INFORMATION: Low TSH. COMPARISON: None available. TECHNIQUE: Linear transducer grayscale and color Doppler examination with attention to the region of the thyroid. FINDINGS: SIZE: Measurements of the thyroid lobes and nodules are given in sagittal, anteroposterior and transverse dimensions respectively. Right Thyroid Lobe: 4.1 x 1.9 x 2.0 cm, volume 8.3 mL. Parenchyma: The gland echotexture is homogeneous. Thyroid vascularity is normal. Left Thyroid Lobe: 3.9 x 1.6 x 2.0 cm, volume 6.1 mL. Parenchyma: The gland echotexture is homogeneous. Thyroid vascularity is normal. Isthmus: 0.5 cm in maximum AP dimension. No focal thyroid nodule is seen. NODES: No lymphadenopathy is seen in the tissue surrounding the thyroid gland. US/US thyroid IMPRESSION: Normal sonographic examination of the thyroid gland.
== END 2022-11-06 08:02 | disposition home or self-care (01) ==
LOC: HO.US 08:01
PROVIDERS: PCP Physician Assistant; Visit Provider Physician Assistant
DX: R79.89 Other specified abnormal findings of blood chemistry (principal)
CPT/HCPCS: 76536

== ENCOUNTER 2022-12-19 11:23 | Emergency (ER) | payer OTHER, SELFPAY ==
--- NOTE | ~2022-12-19 | XR_ITS ---
EXAMINATION: THORACIC SPINE AND RIGHT SHOULDER CLINICAL INFORMATION: Pain status post fall from bed COMPARISON: None. TECHNIQUE: Three-view thoracic spine and three-view right shoulder. FINDINGS: There is calcific tendinitis of the right shoulder evident. No acute fracture or dislocation is seen. There is mild narrowing of the glenohumeral joint with marginal spurring. There is some mild right acromioclavicular joint soft tissue swelling with some narrowing of the joint and marginal spurring. No widening of the coracoclavicular space is seen. 3 views of the thoracic spine do not demonstrate any evidence of acute fracture. Pedicles intact. Disc spaces maintained. There is some anterior marginal spurring within the mid and distal thoracic spine. No paraspinal line bulge. AICD seen in place. There is some narrowing of the C4-C5 disc space. XR/XR shoulder RT min 2V IMPRESSION: Calcific tendinitis of the right shoulder with degenerative changes as described. Soft tissue prominence overlying the acromioclavicular joint without widening of the coracoclavicular space which may be related to acute acromioclavicular joint injury without widening of the coracoclavicular space. No significant thoracic spine abnormality appreciated.
--- NOTE | ~2022-12-19 | XR_ITS ---
EXAMINATION: THORACIC SPINE AND RIGHT SHOULDER CLINICAL INFORMATION: Pain status post fall from bed COMPARISON: None. TECHNIQUE: Three-view thoracic spine and three-view right shoulder. FINDINGS: There is calcific tendinitis of the right shoulder evident. No acute fracture or dislocation is seen. There is mild narrowing of the glenohumeral joint with marginal spurring. There is some mild right acromioclavicular joint soft tissue swelling with some narrowing of the joint and marginal spurring. No widening of the coracoclavicular space is seen. 3 views of the thoracic spine do not demonstrate any evidence of acute fracture. Pedicles intact. Disc spaces maintained. There is some anterior marginal spurring within the mid and distal thoracic spine. No paraspinal line bulge. AICD seen in place. There is some narrowing of the C4-C5 disc space. XR/XR thoracic spine 2V IMPRESSION: Calcific tendinitis of the right shoulder with degenerative changes as described. Soft tissue prominence overlying the acromioclavicular joint without widening of the coracoclavicular space which may be related to acute acromioclavicular joint injury without widening of the coracoclavicular space. No significant thoracic spine abnormality appreciated.
--- NOTE | 2022-12-19 12:05 | ED_ITS ---
HPI - General Adult General Chief complaint: Back Pain/Injury Stated complaint: pain back of neck r side shoulder pain Time Seen by Provider: 12/19/22 13:34 Source: patient, RN notes reviewed and old records reviewed Mode of arrival: ambulatory History of Present Illness HPI narrative: 56-year-old male with past medical history of asthma, CKD, diabetes, HTN, GERD, obesity, FAIZAN, AFib on Eliquis, presenting to the ED complaining of right-sided neck and shoulder pain s/p falling off bed 2 days ago after being tangled in CPAP machine. Denies head trauma or LOC. Reports pain with shoulder ROM. Denies urinary incontinence/retention, abdominal pain, chest pain/SOB Onset (ago): day(s) Related Data Previous Rx's Medication Instructions Recorded miscellaneous medical supply 2 ea miscellaneous DAILY #2 ea 05/03/20 comp.stocking,thigh,long,x-lrg #2 ea 06/27/20 miscellaneous medical supply 2 ea miscellaneous DAILY 90 days 06/27/20 #2 ea insulin aspart U-100 100 unit/mL See Rx Instructions subcut TID 30 09/21/21 (3 mL) subcutaneous pen days #15 mL cane #1 ea 10/09/21 Diabetic shoes & 3 pair inserts #1 ea 11/14/21 cholecalciferol (vitamin D3) 25 25 mcg PO DAILY #90 caps 12/13/21 mcg (1,000 unit) capsule tramadol 50 mg tablet 50 mg PO Q8H PRN pain 4 days #12 12/13/21 tabs dulaglutide 1.5 mg/0.5 mL 1.5 mg (0.5 mL) subcut QWEEK 28 07/29/22 subcutaneous pen injector days #2 mL (Trulicity) digoxin 125 mcg (0.125 mg) tablet 125 mcg PO DAILY #90 tabs 09/10/22 albuterol sulfate 90 mcg/actuation 2 puff inhalation Q6H PRN 09/11/22 aerosol inhaler (Ventolin HFA) shortness of breath or wheezing 30 days #8.5 grams clotrimazole 1 % topical cream 1 appl topical BID 30 days #45 09/11/22 grams acetaminophen 650 mg 650 mg PO Q8H pain 90 days #270 09/30/22 tablet,extended release (Tylenol tabs Arthritis Pain) apixaban 5 mg tablet (Eliquis) 5 mg PO BID 90 days #180 tabs 09/30/22 atorvastatin 10 mg tablet 10 mg PO DAILY #90 tabs 09/30/22 famotidine 20 mg tablet 20 mg PO DAILY #90 tabs 09/30/22 furosemide 40 mg tablet (Lasix) 40 mg PO BID 90 days #180 tabs 09/30/22 gabapentin 300 mg capsule 300 mg PO QAM #90 caps 09/30/22 gabapentin 600 mg tablet 600 mg PO BEDTIME 90 days #90 tabs 09/30/22 loperamide 2 mg capsule 2 mg PO BID PRN loose stool 30 09/30/22 days #60 caps metoprolol succinate 25 mg 12.5 mg PO BID #90 tabs 09/30/22 tablet,extended release 24 hr pen needle, diabetic 32 gauge x #100 ea 09/30/22 (BD Ultra-Fine Mara Pen Needle) blood sugar diagnostic (Internet BroadcastingTouch #100 ea 10/14/22 Ultra Test strips) blood-glucose meter (Internet BroadcastingTouch #1 ea 10/14/22 Ultra2 Meter kit) lancets ([employer] BroadcastingTouch UltraSoft #200 ea 10/14/22 Lancets) insulin glargine U-300 conc 300 60 unit (0.2 mL) subcut DAILY 30 11/07/22 unit/mL (3 mL) subcutaneous pen days #6 mL (Toujeo Max U-300 SoloStar) acetaminophen 500 mg tablet 500 mg PO Q6H PRN fever or pain 12/19/22 (Tylenol Extra Strength) #14 tabs cyclobenzaprine 5 mg tablet 5 mg PO Q8H PRN pain (scale score 12/19/22 7-10) 5 days #14 tabs lidocaine 5 % topical patch 1 patch topical DAILY PRN pain #30 12/19/22 (Lidoderm) ea Allergies Allergy/AdvReac Type Severity Reaction Status Date / Time Penicillins [PENICILLINS] Allergy Severe RASH Verified 09/30/22 14:31 Review of Systems Review of Systems: Constitutional: No Fever, No Chills ENT/Mouth: No Ear Pain, No Nasal Congestion, No sore throat, No Rhinorrhea, No Swallowing Difficulty Cardiovascular: No Chest Pain, No SOB Respiratory: No Cough, No Sputum, No Wheezing Gastrointestinal: No Nausea, No Vomiting, No Diarrhea, No Constipation, No Abdominal pain Genitourinary: No Dysuria, No Urinary Frequency, No Urinary Incontinence/retention, No Urgency, No Flank Pain Musculoskeletal: + joint pain, No Myalgias, + Joint Swelling Skin: No Skin Lesions, No rash Neuro: No Weakness, No Numbness, No Paresthesias Yes all other systems are reviewed and are negative Constitutional: Constitutional: Reports as per [facility] Past Medical History Attestation statement: The following information was validated with the patient. Source: old records reviewed Medical History Asthma Chronic kidney disease, unspecified CKD stage 3 due to type 2 diabetes mellitus Diabetes type 2, uncontrolled Diabetic nephropathy associated with type 2 diabetes mellitus Diabetic polyneuropathy associated with type 2 diabetes mellitus Diarrhea Essential hypertension GERD (gastroesophageal reflux disease) History of cardiomyopathy shelter (current) use of insulin Morbid obesity Morbid obesity Neuropathy Obesity due to excess calories FAIZAN (obstructive sleep apnea) Persistent atrial fibrillation Screening for prostate cancer Tinea pedis of both feet Type 2 diabetes mellitus with unspecified complications Surgical History History of colonoscopy History of surgery Presence of implantable cardioverter-defibrillator (ICD) Family History Family History Father Cardiac disease Mother Cardiac disease Social History Social History Housing: Apartment Are you a primary progressive care unit registered nurse to a significant other at home: No Alcohol intake: former Patient Tobacco Use Status: Former Tobacco user Quit Date: Two months ago Tobacco use type: Cigarette e-Cigarette/Vaping Use: Never Used Second Hand Smoke Exposure: No Advance Directives: No service: No Current occupational status: disabled Cognitive needs: Yes (cane) Hearing needs: No Vision needs: Yes (glasses) Physical Exam ED Vital Signs: Vital Signs - 24 hr 12/19/22 12:07 Temperature 97.8 F Pulse Rate 81 Respiratory Rate 18 Blood Pressure 121/77 Pulse Oximetry 97 BMI result Body Mass Index 41.1 Const General: cooperative and no acute distress Orientation/consciousness: patient oriented x3 Limitations: no limitations HENMT Head: Yes normal to inspection and Yes atraumatic Ears: hearing grossly normal bilaterally General nose exam: Normal external nose present Face and sinus: Yes normal facial exam Eyes General: appearance normal, both eyes and all related structures EOM: EOMs intact bilaterally Neck Other: No midline cervical spinous tenderness. Right-sided paraspinal and trapezius muscle tenderness to palpation reproducing subjective complaint Neck: Yes normal visual inspection, Yes no meningeal signs, No anterior neck swelling and No torticollis Chest Chest palpation & inspection: normal inspection of the chest, no crepitus and no tenderness Resp Effort & Inspection: normal respiratory effort and no respiratory distress Cardio Rate: regular rate Heart sounds: S1 normal heart sound present and S2 normal heart sound present Peripheral pulses: Peripheral pulses 2+ throughout GI Inspection: Yes normal to inspection Palpation (GI): Soft to palpation, nontender, no guarding and not rigid Back/Spine/Pelvis Other: No midline cervical/thoracic/lumbar spinous tenderness/step-off or deformity Skin Rashes: no rashes Wounds: no wounds Neuro General: patient oriented x3, tone normal and no meningeal signs Gait exam (Neuro): Normal gait present Extrem Other: Right shoulder with mild swelling, no appreciable deformity, + AC joint tenderness. Decreased abduction and internal rotation secondary to pain. NV intact distally Course Course Course Narrative: This is a rapid medical exam: Additional HPI, ROS, PE not included below will be deferred to primary provider. Patient is a 56-year-old male with history of BPH, FAIZAN, HLD, afib, PVD, asthma, T2DM, nonischemic cardiomyopathy, CKD stage 3, implanted ICD presenting to the emergency department with right lateral neck, shoulder, and upper back pain for 2 days after falling out of bed due to being tangled in CPAP machine. SO denies any loss of consciousness after fall. No midline c-spine or thoracic tenderness to palpation. Rigth paraspinal tenderness to palpation. Plan: x-ray -1426--XR shoulder RT min 2V/XR thoracic spine 2V IMPRESSION: Calcific tendinitis of the right shoulder with degenerative changes as described. ? Soft tissue prominence overlying the acromioclavicular joint without widening of the coracoclavicular space which may be related to acute acromioclavicular joint injury without widening of the coracoclavicular space. ? No significant thoracic spine abnormality appreciated. > sling applied for comfort, recommended follow-up with Orthopedics Procedures Orthopedic Splinting/Casting Injury #1: Side: right Upper Extremity Injury Location: shoulder Upper Extremity Immobilizer: sling/shoulder immobilizer Medical Decision Making Medical Decision Making MDM Narrative: 56-year-old male with past medical history of asthma, CKD, diabetes, HTN, GERD, obesity, FAIZAN, AFib on Eliquis, presenting to the ED complaining of right-sided neck and shoulder pain s/p falling off bed 2 days ago after being tangled in CPAP machine. On exam vital signs stable, NAD, nontoxic appearing, physical exam as noted above. No midline spinous tenderness throughout. Paraspinal tenderness and trapezius muscle tenderness noted. Right shoulder with AC joint tenderness and decreased ROM. Concern for strain vs tendinitis or AC joint separation/rotator cuff injury vs fracture. Low suspicion for ICH, cervical dissection, cauda equina/cord compression, rib fractures X-rays ordered in triage Please refer to course for remaining clinical decision making, interpretation of labs/imaging results, and discussions with consultants and/or family members. Differential Diagnosis Differential Diagnoses: The differential diagnosis associated with the presentation includes As above Independent Interpretation I performed an independent interpretation of an: Plain X-Ray Radiology Impression Discussion of test interpretation with radiology: I have reviewed the radiologist's reading. External Record Review External record reviewed: Inpatient record, Office record, Outpatient record, Prior outpatient labs, Prior outpatient radiology, Primary care record and Outside ED record Tests considered The following testing was considered but not selected: As above Prescription Management I considered prescription management with: Pain Medication Chronic Conditions Patient?s care impacted by: Diabetes, Hypertension and Other (FAIZAN on CPAP) Discharge Plan Discharge Clinical Impression: Calcific shoulder tendinitis, Acromioclavicular (AC) joint injury Patient Disposition: Home, Self-Care Instructions: How to Use a Sling (ED), Calcific Tendinitis (ED) Additional Instructions: Your x-ray shows calcific tendinitis of her shoulder as well as suspicion for an AC joint injury. Wear sling for comfort and stability Ice Take Tylenol for pain In addition Flexeril as a muscle relaxer, take at night as it makes you drowsy, do not drive, drink alcohol or operate machinery while taking Follow up with her doctor and Orthopedics Is symptoms persist or worsen return to the ED Sagastume radiograf?a muestra tendinitis calcificada de sagastume hombro, as? winston la sospecha de mihai lesi?n en la articulaci?n AC. Use un cabestrillo para mayor comodidad y estabilidad. Hielo Doyle Tylenol para el dolor Adem?s, Flexeril winston relajante muscular, t?spain por la noche ya que le provoca somnolencia, no conduzca, micheal alcohol ni maneje maquinaria mientras doyle Seguimiento con sagastume m?dico y Ortopedia Si los s?ntomas persisten o empeoran, regrese al servicio de urgencias. Prescriptions: New acetaminophen [Tylenol Extra Strength] 500 mg tablet 500 mg PO Q6H PRN (Reason: fever or pain) Qty: 14 0RF lidocaine [Lidoderm] 5 % adhesive patch,medicated 1 patch topical DAILY MDD remove after 12 hours PRN (Reason: pain) Qty: 30 0RF Rx Instructions: leave on most painful area for up to 12 hrs cyclobenzaprine 5 mg tablet 5 mg PO Q8H PRN (Reason: pain (scale score 7-10)) 5 Days Qty: 14 0RF No Action (DME) cane Device See Rx Instructions .ROUTE .MEDSUPPLY Qty: 1 0RF Rx Instructions: As directed (DME) Diabetic shoes & 3 pair inserts Diabetic shoes & 3 pair insert kit See Rx Instructions .ROUTE .MEDSUPPLY Qty: 1 0RF Rx Instructions: as directed Trulicity 1.5 mg/0.5 mL pen injector 1.5 mg subcut QWEEK 28 Days Qty: 2 6RF digoxin 125 mcg (0.125 mg) tablet 125 mcg PO DAILY Qty: 90 3RF albuterol sulfate [Ventolin HFA] 90 mcg/actuation HFA aerosol inhaler 2 puff inhalation Q6H PRN (Reason: shortness of breath or wheezing) 30 Days Qty: 8.5 6RF clotrimazole 1 % cream 1 appl topical BID 30 Days Qty: 45 3RF (DME) OneTouch Ultra Test Strip See Rx Instructions .Route Qty: 100 6RF Rx Instructions: As directed (DME) lancets [OneTouch UltraSoft Lancets] [facility] [place] See Rx Instructions .Route Qty: 200 3RF Rx Instructions: As directed (DME) blood-glucose meter [OneTouch Ultra2 Meter] Kit See Rx Instructions .Route Qty: 1 0RF Rx Instructions: As directed Toujeo Max U-300 SoloStar 300 unit/mL (3 mL) insulin pen 60 unit subcut DAILY 30 Days Qty: 6 6RF miscellaneous medical supply [facility] [place] 2 ea miscellaneous DAILY Qty: 2 0RF (DME) comp.stocking,thigh,long,x-lrg [facility] [place] See Rx Instructions .ROUTE .MEDSUPPLY Qty: 2 0RF Rx Instructions: As directed miscellaneous medical supply [facility] 2 ea miscellaneous DAILY 90 Days Qty: 2 0RF tramadol 50 mg tablet 50 mg PO Q8H PRN (Reason: pain) 4 Days Qty: 12 0RF cholecalciferol (vitamin D3) 25 mcg (1,000 unit) capsule 25 mcg PO DAILY Qty: 90 2RF Eliquis 5 mg tablet 5 mg PO BID 90 Days Qty: 180 3RF atorvastatin 10 mg tablet 10 mg PO DAILY Qty: 90 3RF acetaminophen [Tylenol Arthritis Pain] 650 mg tablet extended release 650 mg PO Q8H 90 Days Qty: 270 2RF famotidine 20 mg tablet 20 mg PO DAILY Qty: 90 1RF furosemide [Lasix] 40 mg tablet 40 mg PO BID 90 Days Qty: 180 1RF gabapentin 600 mg tablet 600 mg PO BEDTIME 90 Days Qty: 90 1RF gabapentin 300 mg capsule 300 mg PO QAM Qty: 90 1RF metoprolol succinate 25 mg tablet extended release 24 hr 12.5 mg PO BID Qty: 90 1RF loperamide 2 mg capsule 2 mg PO BID PRN (Reason: loose stool) 30 Days Qty: 60 3RF (DME) pen needle, diabetic [BD Ultra-Fine Mara Pen Needle] 32 gauge x 5/32 needle See Rx Instructions .ROUTE .MEDSUPPLY Qty: 100 4RF Rx Instructions: As directed insulin aspart U-100 100 unit/mL (3 mL) insulin pen See Rx Instructions subcut TID 30 Days Qty: 15 6RF Rx Instructions: 5-7 units before each meal subcut 3 times a day; Referrals: [facility] [place] Orthopedic Surgeons [Provider Group] - 1 week Adan Reynaga PA-C [Primary Care Provider] - Print Language: Norwegian
[2022-12-19 12:07] VITALS: BP 121/77; PULSE 81; RESP 18; TEMP 36.6; O2SAT 97; BMI 41.1
== END 2022-12-19 14:54 | disposition home or self-care (01) ==
PROVIDERS: Emergency Provider Emergency Medicine Emergency Medical Services; PCP Physician Assistant
DX: S49.91XA Unspecified injury of right shoulder and upper arm, initial encounter (principal); M75.31 Calcific tendinitis of right shoulder; M54.50 Low back pain, unspecified; M25.511 Pain in right shoulder; I48.91 Unspecified atrial fibrillation; M54.6 Pain in thoracic spine; X58.XXXA Exposure to other specified factors, initial encounter; Y93.9 Activity, unspecified; Y92.9 Unspecified place or not applicable; Y99.9 Unspecified external cause status; Z87.891 Personal history of nicotine dependence; Z79.899 Other long term (current) drug therapy; Z79.4 Long term (current) use of insulin; Z79.01 Long term (current) use of anticoagulants
CPT/HCPCS: 29105; 72070; 73030; 99283

== ENCOUNTER 2022-12-25 12:27 | Outpatient (AMB) | payer OTHER, SELFPAY ==
[2022-12-25 12:32] VITALS: BP 132/86; PULSE 83; BMI 41.0
--- NOTE | 2022-12-25 12:32 | A.OFFVIS_ITS ---
Intake Vital Signs 12/25/22 12:32 Height 5 ft 11 in Weight 293 lb 10.491 oz BMI 41.0 BP 132/86 Blood Pressure Location Lt brachial Position Sitting Pulse 83 Intake Visit Reasons: 6 mth f/u Intake Note: 6 month follow up w/ EKG Technical Administrator Required: Yes Technical Administrator Language: Glass Inserter Name: Prabhjot [id number] Accompanied by: Self / Same As Patient Allergies Penicillins [PENICILLINS] Allergy (Severe, Verified 12/25/22 12:35) RASH Medication List - Last Reconciled 12/25/22 by Porfirio Engle MD acetaminophen (Tylenol Extra Strength) 500 mg PO Q6H PRN acetaminophen ER (Tylenol Arthritis Pain) 650 mg PO Q8H 90 days albuterol sulfate 90 mcg/actuation (Ventolin HFA) 2 puffs inhalation Q6H PRN 30 days apixaban (Eliquis) 5 mg PO BID 90 days atorvastatin 10 mg PO DAILY blood sugar diagnostic ([employer] Ultra Test strips) As directed blood-glucose meter ([employer] Ultra2 Meter kit) As directed cane As directed cholecalciferol (vitamin D3) 25 mcg PO DAILY clotrimazole 1% 1 appl topical BID 30 days comp.stocking,thigh,long,x-lrg As directed cyclobenzaprine 5 mg PO Q8H PRN [Diabetic shoes & 3 pair inserts as directed] digoxin 125 mcg PO DAILY dulaglutide (Trulicity) 1.5 mg (0.5 mL) subcut QWEEK 28 days famotidine 20 mg PO DAILY furosemide (Lasix) 40 mg PO BID 90 days gabapentin 600 mg PO BEDTIME 90 days gabapentin 300 mg PO QAM insulin aspart U-100 5-7 units before each meal subcut 3 times a day; 30 days insulin glargine U-300 conc (Toujeo Max U-300 SoloStar) 60 units (0.2 mL) subcut DAILY 30 days lancets ([employer] UltraSoft Lancets) As directed lidocaine 5% (Lidoderm) 1 patch topical DAILY PRN MDD remove after 12 hours loperamide 2 mg PO BID PRN metoprolol succinate ER 12.5 mg (1/2 x 25 mg) PO BID miscellaneous medical supply 2 ea miscellaneous DAILY miscellaneous medical supply 2 ea miscellaneous DAILY 90 days pen needle, diabetic (BD Ultra-Fine Mara Pen Needle) As directed tramadol 50 mg PO Q8H PRN 4 days HPI HPI Comments History of Present Illness Details Dhaval returns for follow-up. He has a history of persistent atrial fibrillation. Also history of cardiomyopathy, but improved LVEF. Generally doing well. No complaints like angina or shortness of breath or in fact anything cardiac sounding. Seems to be getting along okay. Many comorbidities but overall stable. 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 Morbid obesity Morbid obesity Neuropathy Obesity due to excess calories FAIZAN (obstructive sleep apnea) Persistent atrial fibrillation Screening for prostate cancer Tinea pedis of both feet Type 2 diabetes mellitus with unspecified complications Surgical History History of colonoscopy History of surgery Presence of implantable cardioverter-defibrillator (ICD) Family History Father Cardiac disease Mother Cardiac disease Social History Housing: Apartment Are you a primary healthcare analyst to a significant other at home: No Alcohol intake: former Patient Tobacco Use Status: Former Tobacco user Quit Date: Two months ago Tobacco use type: Cigarette e-Cigarette/Vaping Use: Never Used Second Hand Smoke Exposure: No service: No Current occupational status: disabled Cognitive needs: Yes (cane) Hearing needs: No Vision needs: Yes (glasses) Review of Systems Const Denies weakness ENT Denies dizziness Card Denies chest pain, Denies chest pain with activity, Denies syncope, Denies rapid heart rate, Denies pedal edema, Denies edema, Denies leg edema, Denies lightheadedness, Denies palpitations, Denies dyspnea, Denies dyspnea on exertion and Denies orthopnea Resp Denies cough, Denies dyspnea and Denies dyspnea on exertion GI Denies hematochezia and Denies change in stool character Musc Denies abnormal gait, Denies muscle cramps, Denies muscle weakness, Denies numbness, Denies radiating pain into limb and Denies tingling Neuro Denies abnormal gait, Denies dizziness, Denies syncope, Denies numbness, Denies tingling and Denies weakness Endo Denies palpitations Physical Exam Vital Signs: Last Vital Signs Pulse 83 12/25/22 12:32 BP 132/86 12/25/22 12:32 BMI result Body Mass Index 41.0 Const General: comfortable and no acute distress Orientation/consciousness: patient oriented x3 HEENT Other: Unremarkable Head: Yes normal to inspection Neck Neck: Yes normal visual inspection Chest Chest palpation & inspection: normal inspection of the chest Resp Auscultation: clear to auscultation bilaterally Cardio Palpation: normal PMI Heart sounds: S1 normal heart sound present, S2 normal heart sound present, no gallops, no murmurs and no rubs GI Palpation (GI): Soft to palpation Back/Spine/Pelvis Other: unremarkable Skin General skin exam: no rashes or lesions noted Neuro General: patient oriented x3 Extrem General: Yes normal to inspection Psych Mental Status: mental status grossly normal Office Procedures EKG Details: EKG with atrial fibrillation at a rate of 83/Min. Incomplete bundle-branch block. Some V pacing. [id number], Complete Assessment & Plan Assessment & Plan (1) Persistent atrial fibrillation: Code(s): I48.19 - Other persistent atrial fibrillation Plan: Failed cardioversion in spite of amiodarone loading. Hence on rate control with low-dose beta-blockers/digoxin. He also has lowish blood pressures and hence not on a higher dose of beta- ann. Continue anticoagulation without changes. (2) NICM (nonischemic cardiomyopathy): Code(s): I42.8 - Other cardiomyopathies Plan: Cardiac catheterization with normal coronaries. In the most recent echocardiogram, LVEF 50-55%. Moderately increased right ventricular size. Mildly depressed function. (3) Hypotension arterial: Code(s): I95.9 - Hypotension, unspecified Plan: Stable. Off lisinopril. (4) Presence of implantable cardioverter-defibrillator (ICD): Code(s): Z95.810 - Presence of automatic (implantable) cardiac defibrillator Plan: Follow remotely. Normal function. (5) FAIZAN on CPAP: Comment: This gentleman does have a history of the obstructive sleep apnea. He is being treated with CPAP, pressure of 13 cm which seems to be adequate. According to his compliance report he is using it very well, There is a mild to moderate Air leak issue. Patient is instructed to tighten his straps and tubing connections at night. Code(s): G47.33 - Obstructive sleep apnea (adult) (pediatric); Z99.89 - Dependence on other enabling machines and devices Plan: Continue CPAP. Orders: Orders Digoxin Today I48.19 - Other persistent atrial fibrillation Medications: Changed From cyclobenzaprine 5 mg PO Q8H 5 days PRN 14 tabs 0RF pain (scale score 7-10) To cyclobenzaprine 5 mg PO Q8H PRN From loperamide 2 mg PO BID 30 days PRN 60 caps 3RF loose stool R19.7 - Diarrhea, unspecified To loperamide 2 mg PO BID PRN R19.7 - Diarrhea, unspecified Coding Level of Care Code Est Pt Level 4 (50785) Diagnoses Persistent atrial fibrillation I48.19 NICM (nonischemic cardiomyopathy) I42.8 Hypotension arterial I95.9 Presence of implantable cardioverter-defibrillator (ICD) Z95.810 FAIZAN on CPAP G47.33; Z99.89 CPT Codes EKG - CPT: 37842-[id number], Complete ([id number])
== END 2022-12-25 12:58 | disposition home or self-care (01) ==
PROVIDERS: Visit Provider Internal Medicine
DX: I48.19 Other persistent atrial fibrillation (principal); I42.8 Other cardiomyopathies; I95.9 Hypotension, unspecified; Z95.810 Presence of automatic (implantable) cardiac defibrillator; G47.33 Obstructive sleep apnea (adult) (pediatric); Z99.89 Dependence on other enabling machines and devices
CPT/HCPCS: 93010; 99214

== ENCOUNTER → 2022-12-25 12:27 | Outpatient (BNVA) | payer OTHER, SELFPAY | PROVIDERS: Visit Provider Internal Medicine | DX: I48.19 Other persistent atrial fibrillation (principal); I42.9 Cardiomyopathy, unspecified; I42.8 Other cardiomyopathies; I95.9 Hypotension, unspecified; G47.33 Obstructive sleep apnea (adult) (pediatric); Z95.810 Presence of automatic (implantable) cardiac defibrillator; Z99.89 Dependence on other enabling machines and devices | CPT/HCPCS: 93005; 99212 ==

== ENCOUNTER 2022-12-30 09:41 | Outpatient (REF) | payer OTHER, SELFPAY ==
[2022-12-30 10:43] LABS: Digoxin < 0.2 ng/mL (0.8-2.0)
== END 2022-12-30 09:42 | disposition home or self-care (01) ==
LOC: HO.LAB 09:41
PROVIDERS: PCP Physician Assistant; Visit Provider Internal Medicine
DX: I48.19 Other persistent atrial fibrillation (principal); Z79.899 Other long term (current) drug therapy
CPT/HCPCS: 36415; 80162

== ENCOUNTER → 2023-01-12 23:59 | Outpatient (BNV) | payer OTHER, SELFPAY ==
--- NOTE | 2023-01-14 13:25 | A.OFFVIS_ITS ---
Intake Intake Visit Reasons: Remote HF Monitoring- Medtronic Allergies Penicillins [PENICILLINS] Allergy (Severe, Verified 12/25/22 12:35) [facility]ASH [facility] Medical History Asthma Chronic kidney disease, unspecified CKD stage 3 due to type 2 diabetes mellitus Diabetes type 2, uncontrolled Diabetic nephropathy associated with type 2 diabetes mellitus Diabetic polyneuropathy associated with type 2 diabetes mellitus Diarrhea Essential hypertension GERD (gastroesophageal reflux disease) History of cardiomyopathy correction (current) use of insulin Morbid obesity Morbid obesity Neuropathy Obesity due to excess calories FAIZAN (obstructive sleep apnea) Persistent atrial fibrillation Screening for prostate cancer Tinea pedis of both feet Type 2 diabetes mellitus with unspecified complications Surgical History History of colonoscopy History of surgery Presence of implantable cardioverter-defibrillator (ICD) Family History Father Cardiac disease Mother Cardiac disease Social History Housing: Apartment Are you a primary director of patient care to a significant other at home: No Alcohol intake: former Patient Tobacco Use Status: Former Tobacco user Quit Date: Two months ago Tobacco use type: Cigarette e-Cigarette/Vaping Use: Never Used Second Hand Smoke Exposure: No service: No Current occupational status: disabled Cognitive needs: Yes (cane) Hearing needs: No Vision needs: Yes (glasses) Office Procedures Cardiac Device Check Cardiac Device Check Details: Date of service- 01/12/2023; based on impedance data and physiological variables, there is no evidence of worsening congestive heart failure. [id number] Cardiac Device Interrogation, cardio physiologic monitor Procedure code (CPT) selection complete Assessment & Plan Assessment & Plan (1) NICM (nonischemic cardiomyopathy): Code(s): I42.8 - Other cardiomyopathies Coding Level of Care Code Procedure Only Diagnoses NICM (nonischemic cardiomyopathy) I42.8 CPT Codes Cardiac Device Check - Cardiac Device 15: [id number] Cardiac Device Interrogation, cardio physiologic monitor ([id number])
== END ==
PROVIDERS: PCP Physician Assistant; Visit Provider Internal Medicine
DX: I42.8 Other cardiomyopathies (principal)
CPT/HCPCS: 93297

== ENCOUNTER → 2023-01-12 23:59 | Outpatient (BNV) | payer OTHER, SELFPAY ==
--- NOTE | 2023-01-14 13:22 | MHC.OFFVIS ---
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 Morbid obesity Morbid obesity Neuropathy Obesity due to excess calories FAIZAN (obstructive sleep apnea) Persistent atrial fibrillation Screening for prostate cancer Tinea pedis of both feet Type 2 diabetes mellitus with unspecified complications Surgical History History of colonoscopy History of surgery Presence of implantable cardioverter-defibrillator (ICD) Family History Father Cardiac disease Mother Cardiac disease Social History Housing: Apartment Are you a primary rn wound care to a significant other at home: No Alcohol intake: former Patient Tobacco Use Status: Former Tobacco user Quit Date: Two months ago Tobacco use type: Cigarette e-Cigarette/Vaping Use: Never Used Second Hand Smoke Exposure: No service: No Current occupational status: disabled Cognitive needs: Yes (cane) Hearing needs: No Vision needs: Yes (glasses) Office Procedures Cardiac Device Check Cardiac Device Check Details: Date of service 01/12/2023; Battery life >9 years; normal lead parameters; no treated VT/VF; listed NSVT episode is still AF/RVR; normal ICD function. [id number] Cardiac Interrogation, implant defibrillator w/interim Procedure code (CPT) selection complete Assessment & Plan Assessment & Plan (1) NICM (nonischemic cardiomyopathy): Code(s): I42.8 - Other cardiomyopathies Coding Level of Care Code Procedure Only Diagnoses NICM (nonischemic cardiomyopathy) I42.8 CPT Codes Cardiac Device Check - Cardiac Device 13: [id number] Cardiac Interrogation, implant defibrillator w/interim ([id number])
== END ==
PROVIDERS: PCP Physician Assistant; Visit Provider Internal Medicine
DX: I42.8 Other cardiomyopathies (principal)
CPT/HCPCS: 93295

== ENCOUNTER → 2023-02-13 23:59 | Outpatient (BNV) | payer OTHER, SELFPAY ==
--- NOTE | 2023-02-16 17:08 | A.OFFVIS_ITS ---
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 Morbid obesity Morbid obesity Neuropathy Obesity due to excess calories FAIZAN (obstructive sleep apnea) Persistent atrial fibrillation Screening for prostate cancer Tinea pedis of both feet Type 2 diabetes mellitus with unspecified complications Surgical History History of colonoscopy History of surgery Presence of implantable cardioverter-defibrillator (ICD) Family History Father Cardiac disease Mother Cardiac disease Social History Housing: Apartment Are you a primary health care aide to a significant other at home: No Alcohol intake: former Patient Tobacco Use Status: Former Tobacco user Quit Date: Two months ago Tobacco use type: Cigarette e-Cigarette/Vaping Use: Never Used Second Hand Smoke Exposure: No service: No Current occupational status: disabled Cognitive needs: Yes (cane) Hearing needs: No Vision needs: Yes (glasses) Office Procedures Cardiac Device Check Cardiac Device Check Details: Date of service- 02/13/2023; based on impedance data and physiological variables, there is no evidence of worsening congestive heart failure. [id number] Cardiac Device Interrogation, cardio physiologic monitor Procedure code (CPT) selection complete Assessment & Plan Assessment & Plan (1) NICM (nonischemic cardiomyopathy): Code(s): I42.8 - Other cardiomyopathies Coding Level of Care Code Procedure Only Diagnoses NICM (nonischemic cardiomyopathy) I42.8 CPT Codes Cardiac Device Check - Cardiac Device 15: [id number] Cardiac Device Interrogation, cardio physiologic monitor ([id number])
== END ==
PROVIDERS: PCP Physician Assistant; Visit Provider Internal Medicine
DX: I42.8 Other cardiomyopathies (principal); Z95.810 Presence of automatic (implantable) cardiac defibrillator
CPT/HCPCS: 93297

== ENCOUNTER 2023-02-19 14:22 | Outpatient (AMB) | payer OTHER, SELFPAY ==
--- NOTE | 2023-02-19 14:36 | A.OFFVIS_ITS ---
Intake Vital Signs 02/19/23 14:40 Height 5 ft 11 in Weight 297 lb BMI 41.4 BP 102/54 L Blood Pressure Location Lt brachial Position Sitting Pulse 78 Pulse Source Pulse Oximeter Pulse Oximetry (%) 98 Oxygen Delivery Method Room Air Intake Visit Reasons: Obstructive sleep apnea Intake Note: pt is here for follow up and states he is using cpap and does not need any supplies at this time, pt needs refill on medication for his nebulizer, he does not remember what this is, but he uses this when he gets increase of phelgm. Biomedical Engineering Technician Required: Yes Biomedical Engineering Technician Name: [id number] jose Allergies Penicillins [PENICILLINS] Allergy (Severe, Verified 02/19/23 15:00) RASH Medication List - Last Reconciled 02/19/23 by Paco Cagle MD acetaminophen (Tylenol Extra Strength) 500 mg PO Q6H PRN acetaminophen ER (Tylenol Arthritis Pain) 650 mg PO Q8H 90 days albuterol sulfate 90 mcg/actuation (Ventolin HFA) 2 puffs inhalation Q6H PRN 30 days apixaban (Eliquis) 5 mg PO BID 90 days atorvastatin 10 mg PO DAILY blood sugar diagnostic ([employer] Ultra Test strips) As directed blood-glucose meter ([employer] Ultra2 Meter kit) As directed cane As directed cholecalciferol (vitamin D3) 25 mcg PO DAILY clotrimazole 1% 1 appl topical BID 30 days comp.stocking,thigh,long,x-lrg As directed cyclobenzaprine 5 mg PO Q8H PRN [Diabetic shoes & 3 pair inserts as directed] digoxin 125 mcg PO DAILY dulaglutide (Trulicity) 1.5 mg (0.5 mL) subcut QWEEK 28 days famotidine 20 mg PO DAILY furosemide (Lasix) 40 mg PO BID 90 days gabapentin 600 mg PO BEDTIME 90 days gabapentin 300 mg PO QAM insulin aspart U-100 5-7 units before each meal subcut 3 times a day; 30 days insulin glargine U-300 conc (Toujeo Max U-300 SoloStar) 60 units (0.2 mL) subcut DAILY 30 days lancets ([employer] UltraSoft Lancets) As directed lidocaine 5% (Lidoderm) 1 patch topical DAILY PRN MDD remove after 12 hours loperamide 2 mg PO BID PRN metoprolol succinate ER 12.5 mg (1/2 x 25 mg) PO BID miscellaneous medical supply 2 ea miscellaneous DAILY miscellaneous medical supply 2 ea miscellaneous DAILY 90 days pen needle, diabetic (BD Ultra-Fine Mara Pen Needle) As directed tramadol 50 mg PO Q8H PRN 4 days Do you need a note to return to daycare/school/sports/work: No HPI Obstructive sleep apnea HPI Details THIS 56 YEARS OLD GENTLEMAN WHO IS MORBIDLY OBESE AND IS A KNOWN CASE OF OBSTRUCTIVE SLEEP APNEA. COMES AFTER 6 MONTHS FOR FOLLOW-UP. HE USES HIS CPAP VERY REGULARLY BUT SOMETIME WHEN HE IS OUT OF TOWN HE DOES NOT TAKE THE CPAP MACHINE WITH HIM. HE USES THE FOR MORE THAN 7 HOURS EVERY NIGHT AND SLEEPS WELL. DENIES DAYTIME SLEEPINESS. HE ALSO HAS VERY MILD INTERMITTENT BRONCHIAL ASTHMA. AND USES ALBUTEROL HFA OR ALBUTEROL SOLUTION BY NEBULIZER ONLY ONCE IN A WHILE. OVERALL HE IS STAYING STABLE, BUT HAS NOT LOST ANY WEIGHT. 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 Diabetes type 2, uncontrolled Asthma GERD (gastroesophageal reflux disease) History of cardiomyopathy FAIZAN (obstructive sleep apnea) Essential hypertension Type 2 diabetes mellitus with unspecified complications Chronic kidney disease, unspecified Persistent atrial fibrillation Neuropathy Surgical History History of surgery History of colonoscopy Presence of implantable cardioverter-defibrillator (ICD) Family History Father Cardiac disease Mother Cardiac disease Social History Housing: Apartment Are you a primary pet care associate to a significant other at home: No Alcohol intake: former Patient Tobacco Use Status: Former Tobacco user Quit Date: Two months ago Tobacco use type: Cigarette e-Cigarette/Vaping Use: Never Used Second Hand Smoke Exposure: No service: No Current occupational status: disabled Cognitive needs: Yes (cane) Hearing needs: No Vision needs: Yes (glasses) Review of Systems Const All systems reviewed & are unremarkable except as noted in HPI and below Eyes Reports no additional complaints ENT Reports no additional complaints Card Denies chest pain, Denies irregular heart rhythm and Denies leg edema Resp Denies cough and Denies wheezing GI Reports no additional complaints Reports no additional complaints Musc Reports back pain (mild) Skin/Breast Reports system reviewed and no additional complaints, except as documented Neuro Reports no additional complaints Aller/Immun Denies wheezing Physical Exam Vital Signs: Last Vital Signs Pulse 78 02/19/23 14:40 BP 102/54 L 02/19/23 14:40 Pulse Ox 98 02/19/23 14:40 Oxygen Delivery Method Room Air 02/19/23 14:40 BMI result Body Mass Index 41.4 Const General: healthy appearing (Except for being overweight), comfortable, no acute distress, alert and awake Orientation/consciousness: patient oriented x3 HEENT Head: Yes normal to inspection General nose exam: No nasal polyps present and No nasal discharge present Face and sinus: Yes sinuses nontender Mouth: oropharynx normal Throat: Yes posterior oropharynx normal Eyes General: appearance normal, both eyes and all related structures Neck Neck: Yes normal visual inspection, Yes no lymphadenopathy, Yes trachea midline and Yes no JVD Thyroid: Thyroid normal Chest Chest palpation & inspection: normal inspection of the chest, normal palpation of entire chest wall and no tenderness Resp Effort & Inspection: normal respiratory effort Auscultation: clear to auscultation bilaterally, no rhonchi and no wheezes Cardio Palpation: normal PMI Rate: regular rate Rhythm: regular rhythm Heart sounds: no gallops and no murmurs Peripheral pulses: Peripheral pulses 2+ throughout GI Palpation (GI): Soft to palpation, Tenderness to palpation present (GI), No hepatosplenomegaly present and Palpable mass present Auscultation: normal bowel sounds Back/Spine/Pelvis Thoracic/Lumbar Spine: thoracic and lumbar spine normal to inspection Skin General skin exam: no rashes or lesions noted Neuro General: patient oriented x3 and no focal motor deficits Cranial nerves: Yes CN's II-XII intact bilaterally Extrem General: Yes normal to inspection, Yes no clubbing, cyanosis or edema and Yes no calf tenderness Psych Appearance: grossly normal and well kempt Speech and movement: Normal speech and movement present Results Reviewed Results Reviewed: Compliance report is reviewed. He has used 26/30 nights, 87% of the nights. Average use per night 6 hours 28 minute. Pressure 13 cm, There is not much air leak. Residual AHI 4.0 Assessment & Plan Assessment & Plan (1) Morbid obesity: Comment: Patient is a known case of morbid obesity. Talked about weight reduction. He has multiple problems including diabetes mellitus. He has had dietary instructions from the dietitian and is trying to adhere to reduced calories intake. Add a good talk and him to try to keep losing weight Code(s): E66.01 - Morbid (severe) obesity due to excess calories (2) FAIZAN on CPAP: Comment: This gentleman does have a history of the obstructive sleep apnea. He is being treated with CPAP, pressure of 13 cm which seems to be adequate. According to his compliance report he is using it very well, There are no specific issues related to the mask or CPAP machine. Patient is instructed to tighten his straps and tubing connections at night. Code(s): G47.33 - Obstructive sleep apnea (adult) (pediatric); Z99.89 - Dependence on other enabling machines and devices (3) Asthma: Comment: History of mild intermittent bronchial asthma. However he denied any active symptoms at present. tx: He may use ProAir 2 puffs Q 4-6 hours p.r.n. Code(s): J45.909 - Unspecified asthma, uncomplicated Medications: New albuterol sulfate 2.5 mg (3 mL) inhalation Q4-6H PRN 90 mL 2RF shortness of breath or wheezing 30 days Coding Level of Care Code Est Pt Level 3 (46948) Diagnoses Morbid obesity E66.01 FAIZAN on CPAP G47.33; Z99.89 Asthma J45.909
[2023-02-19 14:40] VITALS: BP 102/54; PULSE 78; O2SAT 98; BMI 41.4
== END 2023-02-19 15:08 | disposition home or self-care (01) ==
PROVIDERS: PCP Physician Assistant; Visit Provider Internal Medicine
DX: E66.01 Morbid (severe) obesity due to excess calories (principal); G47.33 Obstructive sleep apnea (adult) (pediatric); Z99.89 Dependence on other enabling machines and devices; J45.909 Unspecified asthma, uncomplicated
CPT/HCPCS: 99213

== ENCOUNTER → 2023-02-19 14:22 | Outpatient (BNVA) | payer OTHER, SELFPAY | PROVIDERS: PCP Physician Assistant; Visit Provider Internal Medicine | DX: G47.33 Obstructive sleep apnea (adult) (pediatric) (principal); J45.909 Unspecified asthma, uncomplicated; E66.01 Morbid (severe) obesity due to excess calories; Z99.89 Dependence on other enabling machines and devices; Z68.41 Body mass index [BMI] 40.0-44.9, adult | CPT/HCPCS: 99212 ==

== ENCOUNTER → 2023-03-17 23:59 | Outpatient (BNV) | payer OTHER, SELFPAY ==
--- NOTE | 2023-03-25 13:42 | MHC.OFFVIS ---
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 Diabetes type 2, uncontrolled Asthma GERD (gastroesophageal reflux disease) History of cardiomyopathy FAIZAN (obstructive sleep apnea) Essential hypertension Type 2 diabetes mellitus with unspecified complications Chronic kidney disease, unspecified Persistent atrial fibrillation Neuropathy Surgical History History of surgery History of colonoscopy Presence of implantable cardioverter-defibrillator (ICD) Family History Father Cardiac disease Mother Cardiac disease Social History Housing: Apartment Are you a primary child day care center worker to a significant other at home: No Alcohol intake: former Patient Tobacco Use Status: Former Tobacco user Quit Date: Two months ago Tobacco use type: Cigarette e-Cigarette/Vaping Use: Never Used Second Hand Smoke Exposure: No service: No Current occupational status: disabled Cognitive needs: Yes (cane) Hearing needs: No Vision needs: Yes (glasses) Office Procedures Cardiac Device Check Cardiac Device Check Details: Date of service- 03/17/2023; based on impedance data and physiological variables, there is no evidence of worsening congestive heart failure. [id number] Cardiac Device Interrogation, cardio physiologic monitor Procedure code (CPT) selection complete Assessment & Plan Assessment & Plan (1) Persistent atrial fibrillation: Code(s): I48.19 - Other persistent atrial fibrillation (2) NICM (nonischemic cardiomyopathy): Code(s): I42.8 - Other cardiomyopathies Coding Level of Care Code Procedure Only Diagnoses Persistent atrial fibrillation I48.19 NICM (nonischemic cardiomyopathy) I42.8 CPT Codes Cardiac Device Check - Cardiac Device 15: [id number] Cardiac Device Interrogation, cardio physiologic monitor ([id number])
== END ==
PROVIDERS: PCP Physician Assistant; Visit Provider Internal Medicine
DX: I42.8 Other cardiomyopathies (principal); Z95.810 Presence of automatic (implantable) cardiac defibrillator
CPT/HCPCS: 93297

== ENCOUNTER 2023-03-28 09:09 | Outpatient (REF) | payer OTHER, SELFPAY ==
[2023-03-28 10:18] LABS: Hematocrit 47.4 % (42.0-52.0); Mean Corpuscular HGB Conc 33.8 g/dl (31.0-36.0); Mean Corpuscular Volume 91.9 fL (80.0-98.0); Mean Platelet Volume 10.1 fL (9.4-12.4); Platelet Count 285 X10*3/uL (160-400); Red Blood Count 5.16 X10*6/uL (4.60-5.80); Red Cell Distribution Width 12.3 % (11.0-16.0); White Blood Count 7.4 X10*3/uL (4.8-10.8)
[2023-03-28 10:58] LABS: Alanine Aminotransferase 22 U/L (0-40); Alkaline Phosphatase 73 U/L (39-117); Anion Gap 14 (12-20); Aspartate Amino Transferase 21 U/L (5-37); Blood Urea Nitrogen 15 mg/dL (9-16); Calcium 9.2 mg/dL (8.4-10.2); Carbon Dioxide 24 mmol/L (22-29); Chloride 106 mmol/L (96-108); Cholesterol 125 mg/dL (<200); Estimated Glomerular Filt Rate > 60; Glucose Fasting 120 mg/dL (60-99); HDL Cholesterol 50 mg/dL (>40); LDL Cholesterol Calculated 62 mg/dL (<100); Potassium 3.8 mmol/L (3.3-5.1); Sodium 140 mmol/L (135-145); Total Protein 7.3 g/dL (6.5-8.0); Triglycerides 68 mg/dL (<150)
[2023-03-28 11:03] LABS: Prostate Specific Antigen Scr 1.11 ng/mL (<0.05-4.0)
[2023-03-28 11:14] LABS: TSH reflex Free T4 1.86 uIU/mL (0.32-4.0)
== END 2023-03-28 09:10 | disposition home or self-care (01) ==
LOC: HO.LAB 09:09
PROVIDERS: PCP Physician Assistant; Visit Provider Physician Assistant
DX: E11.22 Type 2 diabetes mellitus with diabetic chronic kidney disease (principal); I12.9 Hypertensive chronic kidney disease with stage 1 through stage 4 chronic kidney disease, or unspecified chronic kidney disease; N18.30 Chronic kidney disease, stage 3 unspecified; E11.65 Type 2 diabetes mellitus with hyperglycemia; E78.2 Mixed hyperlipidemia; R94.6 Abnormal results of thyroid function studies; Z12.5 Encounter for screening for malignant neoplasm of prostate; Z79.4 Long term (current) use of insulin
CPT/HCPCS: 36415; 80053; 80061; 84153; 84443; 85027

== ENCOUNTER 2023-04-02 11:39 | Outpatient (AMB) | payer OTHER, MEDICAID, SELFPAY ==
--- NOTE | 2023-04-02 11:41 | MHC.PC.OV ---
Vital Signs 04/02/23 11:42 Height 5 ft 11 in Weight 295 lb 2 oz BMI 41.2 BP 110/78 Blood Pressure Location Lt brachial Position Sitting Respiration 17 Pulse 76 Pulse Source Pulse Oximeter Pulse Oximetry (%) 99 Oxygen Delivery Method Room Air Intake Visit Reasons: f/u DMII/ HTN Apartment Maintenance Supervisor Required: Yes Apartment Maintenance Supervisor Language: Wolof Accompanied by: Self / Same As Patient Allergies Penicillins [PENICILLINS] Allergy (Severe, Verified 04/02/23 12:03) RASH Medication List - Last Reconciled 04/02/23 by Adan Reynaga PA-C acetaminophen (Tylenol Extra Strength) 500 mg PO Q6H PRN acetaminophen ER (Tylenol Arthritis Pain) 650 mg PO Q8H 90 days albuterol sulfate 90 mcg/actuation (Ventolin HFA) 2 puffs inhalation Q6H PRN 30 days albuterol sulfate 2.5 mg (3 mL) inhalation Q4-6H PRN 30 days apixaban (Eliquis) 5 mg PO BID 90 days atorvastatin 10 mg PO DAILY blood sugar diagnostic ([employer] Ultra Test strips) As directed blood-glucose meter ([employer] Ultra2 Meter kit) As directed cane As directed cholecalciferol (vitamin D3) 25 mcg PO DAILY clotrimazole 1% 1 appl topical BID 30 days comp.stocking,thigh,long,x-lrg As directed cyclobenzaprine 5 mg PO Q8H PRN [Diabetic shoes & 3 pair inserts as directed] digoxin 125 mcg PO DAILY dulaglutide (Trulicity) 1.5 mg (0.5 mL) subcut QWEEK 28 days famotidine 20 mg PO DAILY furosemide (Lasix) 40 mg PO BID 90 days gabapentin 600 mg PO BEDTIME 90 days gabapentin 300 mg PO QAM insulin aspart U-100 5-7 units before each meal subcut 3 times a day; 30 days insulin glargine U-300 conc (Toujeo Max U-300 SoloStar) 84 units subcut DAILY lancets (Wave System[employer] UltraSoft Lancets) As directed lidocaine 5% (Lidoderm) 1 patch topical DAILY PRN MDD remove after 12 hours loperamide 2 mg PO BID PRN metoprolol succinate ER 12.5 mg (1/2 x 25 mg) PO BID miscellaneous medical supply 2 ea miscellaneous DAILY miscellaneous medical supply 2 ea miscellaneous DAILY 90 days pen needle, diabetic (BD Ultra-Fine Mara Pen Needle) As directed tramadol 50 mg PO Q8H PRN 4 days Tobacco use date assessed: 09/30/22 HPI f/u DMII/ HTN HPI Details Patient is a 56-year-old male here today for follow-up visit. .? Patient is Wolof-speaking only used an remote biometrics head. Patient has a past medical history significant for morbid obesity, hypertension, ICD implanted, AFIB, obstructive sleep apnea. .. CHRONIC MEDICAL CONDITIONS--> Obesity:? Has lost weight since last office visit. He reports he has been taking care of himself . ?He is now seeing a dietitian. ? . ? FAIZAN:? Currently using CPAP nightly with good effect.? He reports he is sleeping well at night and his Blood pressure are well controlled here in the office. . Hyperlipidemia: Patient continues on statin therapy without any side effect. Most recent lipid panel showing appropriate total cholesterol and LDL. ? .. ? DM2:? Has lost follow-up with endocrinology as his providers left practice..? Continues on Trulicity 1.5, Toujeo 84 units .?.? He reports his diet has been a bit better and eating late at night., Today's A1c elevated at 7.5 from 6.8. Will increase his Trulicity dose to 3 mg .. AFib:? Patient continues to be followed by Cardiology.??Continues on anticoagulation without any overt signs of bleeding. Patient has recently gotten pacemaker placed.? Denies any overt signs of bleeding or palpitations. 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 Diabetes type 2, uncontrolled Asthma GERD (gastroesophageal reflux disease) History of cardiomyopathy FAIZAN (obstructive sleep apnea) Essential hypertension Type 2 diabetes mellitus with unspecified complications Chronic kidney disease, unspecified Persistent atrial fibrillation Neuropathy Surgical History History of surgery History of colonoscopy Presence of implantable cardioverter-defibrillator (ICD) Family History Father Cardiac disease Mother Cardiac disease Social History Housing: Apartment Are you a primary home care nurse to a significant other at home: No Alcohol intake: former Patient Tobacco Use Status: Former Tobacco user Quit Date: Two months ago Tobacco use type: Cigarette e-Cigarette/Vaping Use: Never Used Second Hand Smoke Exposure: No service: No Current occupational status: disabled Cognitive needs: Yes (cane) Hearing needs: No Vision needs: Yes (glasses) Questionnaire Thrive Questionnaire Date Thrive assessed: 09/30/22 CAROLANN-7 AMB Questionnaire CAROLANN-7 Date CAROLANN - 7 assessed: 09/30/22 Source: Developed by Drs. Pedro Reid, Neeta Dorado, Jasper Bocanegra and colleagues, with an educational lonny from [employer]. Review of Systems Const Denies headache(s) Eyes Denies loss of vision ENT Denies vertigo, Denies dizziness, Denies headache(s) and Denies sore throat Card Denies chest pain, Denies leg edema and Denies lightheadedness Resp Denies cough, Denies hemoptysis and Denies wheezing GI Denies abdominal pain, Denies melena, Denies constipation, Denies diarrhea and Denies vomiting Denies dysuria, Denies urinary frequency and Denies urinary urgency Musc Denies arthralgias, Denies joint swelling, Denies numbness and Denies tingling Neuro Denies Abnormal speech present, Denies behavioral changes, Denies vertigo, Denies dizziness, Denies headache(s), Denies loss of vision, Denies memory loss, Denies numbness and Denies tingling Psych Denies anxiety, Denies behavioral changes, Denies depression, Denies memory loss and Denies panic attacks Basil/Lymph Denies easy bleeding and Denies easy bruising Aller/Immun Denies wheezing Physical exam (Primary Care) Vital Signs: Last Vital Signs Pulse 76 04/02/23 11:42 Resp 17 04/02/23 11:42 BP 110/78 04/02/23 11:42 Pulse Ox 99 04/02/23 11:42 Oxygen Delivery Method Room Air 04/02/23 11:42 BMI result Body Mass Index 41.2 BMI Assessment/Plan discussion: High Tobacco/Smoking Status: Tobacco use Status Tobacco use date assessed 09/30/22 04/02/23 11:41 Patient Tobacco Use Status Former Tobacco user 04/02/23 11:41 Tobacco use type Cigarette 04/02/23 11:41 e-Cigarette/Vaping Use Never Used 04/02/23 11:41 Thrive Assessment: Date of Thrive Assessment Date Thrive assessed 09/30/22 04/02/23 11:41 Const Other: OBESE General: healthy appearing, no acute distress, alert and awake Nutritional Appearance: well nourished Orientation/consciousness: oriented to person, oriented to place and oriented to time HENMT Ears: TM's normal bilaterally General nose exam: Normal nasal mucous membranes and turbinates present Eyes Conjunctivae: conjunctivae normal Sclerae: sclerae normal Pupils: Equal, round and reactive pupils present Neck Neck: Yes no lymphadenopathy and Yes no JVD Thyroid: Thyroid normal Carotids: no bruits Resp Effort & Inspection: normal respiratory effort and not tachypneic Auscultation: no crackles, no rales, no rhonchi and no wheezes Cardio Rate: regular rate Rhythm: regular rhythm Heart sounds: no murmurs and normal S1 and S2 GI Palpation (GI): Soft to palpation, nontender, no hepatomegaly and no splenomegaly Auscultation: normal bowel sounds Skin General skin exam: no rashes or lesions noted and dry skin Neuro General: oriented to person, oriented to place and oriented to time Cranial nerves: Yes Equal, round and reactive pupils present Speech: No Abnormal speech present Gait exam (Neuro): Normal gait present Motor exam (neuro): no tremor noted Extrem Right upper extremity: full ROM Left upper extremity: full ROM Right lower extremity: full ROM; no edema Left lower extremity: full ROM; no edema Psych Mental Status: mental status grossly normal Speech and movement: Normal speech and movement present Affect: normal affect Attitude: cooperative Thought process: Normal thought process present Results AMB Hemoglobin A1c AMB Hemoglobin A1c 7.5 % Last Edit by SELINA Gay on 04/02/23 11:55 Results Reviewed Results Reviewed: Laboratory Last Values Hgb A1c (Clinic) 7.5 % (4.0-6.0) H 04/02/23 11:50 Assessment and Plan Assessment & Plan (1) Type 2 diabetes mellitus with hyperglycemia: Code(s): E11.65 - Type 2 diabetes mellitus with hyperglycemia Qualifiers: Diabetes mellitus assisted insulin use: with assisted use Qualified Code(s): E11.65 - Type 2 diabetes mellitus with hyperglycemia; Z79.4 - MCFP (current) use of insulin Plan: Patient's type 2 diabetes suboptimally controlled. He does report some nighttime snacking. Will increase his Trulicity dose . Has been able to lose weight since last office visit. 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 Continues on anticoagulation without any overt signs of bleeding. He denies any chest discomfort, palpitations or dizziness. (3) Obese: Code(s): E66.9 - Obesity, unspecified Qualifiers: Body mass index: BMI 40.0-44.9 Obesity classification: adult class 3 (BMI >= 40) Obesity type: due to excess calories Serious obesity comorbidity presence: with serious comorbidity Qualified Code(s): E66.01 - Morbid (severe) obesity due to excess calories; Z68.41 - Body mass index [BMI] 40.0-44.9, adult Plan: Patient does understand his BMI is over 30 will continue to work on lifestyle modifications to reduce his weight. (4) FAIZAN on CPAP: Comment: This gentleman does have a history of the obstructive sleep apnea. He is being treated with CPAP, pressure of 13 cm which seems to be adequate. According to his compliance report he is using it very well, There are no specific issues related to the mask or CPAP machine. Patient is instructed to tighten his straps and tubing connections at night. Code(s): G47.33 - Obstructive sleep apnea (adult) (pediatric); Z99.89 - Dependence on other enabling machines and devices Plan: Continues with CPAP on a nightly basis with good effect on his sleep. (5) HLD (hyperlipidemia): Code(s): E78.5 - Hyperlipidemia, unspecified Qualifiers: Hyperlipidemia type: mixed hyperlipidemia Qualified Code(s): E78.2 - Mixed hyperlipidemia Plan: Patient's most recent lipid panel showing acceptable total cholesterol and LDL. Goal LDL to be below 100. Orders: Orders AMB Hemoglobin A1c Today E11.65 - Type 2 diabetes mellitus with hyperglycemia Medications: New dulaglutide (Trulicity) 3 mg (0.5 mL) subcut QWEEK 30 days 2 mL 3RF E11.65 - Type 2 diabetes mellitus with hyperglycemia, Z79.4 - MCFP (current) use of insulin Changed From insulin glargine U-300 conc (Toujeo Max U-300 SoloStar) 84 units subcut DAILY E11.65 - Type 2 diabetes mellitus with hyperglycemia To insulin glargine U-300 conc (Toujeo Max U-300 SoloStar) 84 units (0.28 mL) subcut DAILY 30 days 8.4 mL 3RF E11.65 - Type 2 diabetes mellitus with hyperglycemia From insulin aspart U-100 5-7 units before each meal subcut 3 times a day; 30 days 15 mL 6RF E11.65 - Type 2 diabetes mellitus with hyperglycemia To insulin aspart U-100 10 units (0.1 mL) subcut TID 30 days 15 mL 6RF E11.65 - Type 2 diabetes mellitus with hyperglycemia Refilled albuterol sulfate 2.5 mg (3 mL) inhalation Q4-6H 30 days PRN 90 mL 2RF shortness of breath or wheezing apixaban (Eliquis) 5 mg PO BID 90 days 180 tabs 3RF gabapentin 300 mg PO QAM 90 caps 1RF albuterol sulfate 90 mcg/actuation (Ventolin HFA) 2 puffs inhalation Q6H 30 days PRN 8.5 grams 6RF shortness of breath or wheezing J45.909 - Unspecified asthma, uncomplicated atorvastatin 10 mg PO DAILY 90 tabs 3RF E78.5 - Hyperlipidemia, unspecified furosemide (Lasix) 40 mg PO BID 90 days 180 tabs 1RF G62.9 - Polyneuropathy, unspecified, R60.0 - Localized edema famotidine 20 mg PO DAILY 90 tabs 1RF K21.9 - Gastro-esophageal reflux disease without esophagitis gabapentin 600 mg PO BEDTIME 90 days 90 tabs 1RF G62.9 - Polyneuropathy, unspecified Discontinued dulaglutide (Trulicity) Discontinued Reason: Doctor's Order 1.5 mg (0.5 mL) subcut QWEEK 28 days 2 mL 6RF Coding Level of Care Code Est Pt Level 4 (78520) Diagnoses Type 2 diabetes mellitus with hyperglycemia, with long-term current use of insulin E11.65; Z79.4 Diabetes mellitus assisted insulin use: with intermediate accountant use Longstanding persistent atrial fibrillation I48.11 Atrial fibrillation type: longstanding persistent Class 3 severe obesity due to excess calories with serious comorbidity and body mass index (BMI) of 40.0 to 44.9 in adult E66.01; Z68.41 Body mass index: BMI 40.0-44.9 Obesity classification: adult class 3 (BMI >= 40) Obesity type: due to excess calories Serious obesity comorbidity presence: with serious comorbidity FAIZAN on CPAP G47.33; Z99.89 Mixed hyperlipidemia E78.2 Hyperlipidemia type: mixed hyperlipidemia
[2023-04-02 11:42] VITALS: BP 110/78; PULSE 76; RESP 17; O2SAT 99; BMI 41.2
== END 2023-04-02 13:07 | disposition home or self-care (01) ==
PROVIDERS: Visit Provider Physician Assistant
DX: E11.65 Type 2 diabetes mellitus with hyperglycemia (principal); Z79.4 Long term (current) use of insulin; E66.01 Morbid (severe) obesity due to excess calories; Z68.41 Body mass index [BMI] 40.0-44.9, adult; I48.11 Longstanding persistent atrial fibrillation; G47.33 Obstructive sleep apnea (adult) (pediatric); Z99.89 Dependence on other enabling machines and devices; E78.2 Mixed hyperlipidemia
CPT/HCPCS: 83036; 99214

== ENCOUNTER → 2023-04-18 23:59 | Outpatient (BNV) | payer OTHER, MEDICAID, SELFPAY ==
--- NOTE | 2023-04-18 15:01 | A.OFFVIS_ITS ---
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 Diabetes type 2, uncontrolled Asthma GERD (gastroesophageal reflux disease) History of cardiomyopathy FAIZAN (obstructive sleep apnea) Essential hypertension Type 2 diabetes mellitus with unspecified complications Chronic kidney disease, unspecified Persistent atrial fibrillation Neuropathy Surgical History History of surgery History of colonoscopy Presence of implantable cardioverter-defibrillator (ICD) Family History Father Cardiac disease Mother Cardiac disease Social History Housing: Apartment Are you a primary complex care nurse practitioner to a significant other at home: No Alcohol intake: former Patient Tobacco Use Status: Former Tobacco user Quit Date: Two months ago Tobacco use type: Cigarette e-Cigarette/Vaping Use: Never Used Second Hand Smoke Exposure: No service: No Current occupational status: disabled Cognitive needs: Yes (cane) Hearing needs: No Vision needs: Yes (glasses) Office Procedures Cardiac Device Check Cardiac Device Check Details: Date of service- 04/18/2023; based on impedance data and physiological variables, there is no evidence of worsening congestive heart failure. [id number] Cardiac Device Interrogation, cardio physiologic monitor Procedure code (CPT) selection complete Assessment & Plan Assessment & Plan (1) Persistent atrial fibrillation: Code(s): I48.19 - Other persistent atrial fibrillation (2) NICM (nonischemic cardiomyopathy): Code(s): I42.8 - Other cardiomyopathies Coding Level of Care Code Procedure Only Diagnoses Persistent atrial fibrillation I48.19 NICM (nonischemic cardiomyopathy) I42.8 CPT Codes Cardiac Device Check - Cardiac Device 15: [id number] Cardiac Device Interrogation, cardio physiologic monitor ([id number])
== END ==
PROVIDERS: PCP Physician Assistant; Visit Provider Internal Medicine
DX: I42.8 Other cardiomyopathies (principal)
CPT/HCPCS: 93297

== ENCOUNTER → 2023-04-18 23:59 | Outpatient (BNV) | payer OTHER, MEDICAID, SELFPAY ==
--- NOTE | 2023-04-18 15:03 | A.OFFVIS_ITS ---
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 Diabetes type 2, uncontrolled Asthma GERD (gastroesophageal reflux disease) History of cardiomyopathy FAIZAN (obstructive sleep apnea) Essential hypertension Type 2 diabetes mellitus with unspecified complications Chronic kidney disease, unspecified Persistent atrial fibrillation Neuropathy Surgical History History of surgery History of colonoscopy Presence of implantable cardioverter-defibrillator (ICD) Family History Father Cardiac disease Mother Cardiac disease Social History Housing: Apartment Are you a primary career orientation teacher to a significant other at home: No Alcohol intake: former Patient Tobacco Use Status: Former Tobacco user Quit Date: Two months ago Tobacco use type: Cigarette e-Cigarette/Vaping Use: Never Used Second Hand Smoke Exposure: No service: No Current occupational status: disabled Cognitive needs: Yes (cane) Hearing needs: No Vision needs: Yes (glasses) Office Procedures Cardiac Device Check Cardiac Device Check Details: Date of service 04/18/2023; Battery life >9 years; normal lead parameters; no treated VT/VF; PETROLOGY TEACHER 32%; NSVT episodes are likely AFib only; normal ICD function. [id number] Cardiac Interrogation, implant defibrillator w/interim Procedure code (CPT) selection complete Assessment & Plan Assessment & Plan (1) NICM (nonischemic cardiomyopathy): Code(s): I42.8 - Other cardiomyopathies Coding Level of Care Code Procedure Only Diagnoses NICM (nonischemic cardiomyopathy) I42.8 CPT Codes Cardiac Device Check - Cardiac Device 13: [id number] Cardiac Interrogation, implant defibrillator w/interim ([id number])
== END ==
PROVIDERS: PCP Physician Assistant; Visit Provider Internal Medicine
DX: I42.8 Other cardiomyopathies (principal); Z95.810 Presence of automatic (implantable) cardiac defibrillator
CPT/HCPCS: 93295

== ENCOUNTER 2023-05-06 10:44 | Outpatient (AMB) | payer OTHER, SELFPAY ==
--- NOTE | 2023-05-06 10:59 | A.OFFVIS_ITS ---
Intake Vital Signs 05/06/23 11:00 Height 5 ft 11 in Weight 296 lb 4 oz BMI 41.3 BP 102/68 Blood Pressure Location Lt brachial Position Sitting Pulse 65 Pulse Source Pulse Oximeter Pulse Oximetry (%) 97 Oxygen Delivery Method Room Air Intake Visit Reasons: CKD Licensed Midwife Required: Yes Licensed Midwife Name: Jose Miguel [phone] Accompanied by: Spouse Allergies Penicillins [PENICILLINS] Allergy (Severe, Verified 05/06/23 11:11) RASH HPI HPI Comments History of Present Illness Details Middle aged man with obesity and diabetes mellitus with CKD is here for follow-up. In 2021 serum creatinine was 1.27. Overall is doing well. No new complaints today. No shortness of breath no urinary symptoms. No edema. He is compliant with all his medications. 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 Diabetes type 2, uncontrolled Asthma GERD (gastroesophageal reflux disease) History of cardiomyopathy FAIZAN (obstructive sleep apnea) Essential hypertension Type 2 diabetes mellitus with unspecified complications Chronic kidney disease, unspecified Persistent atrial fibrillation Neuropathy Surgical History History of surgery History of colonoscopy Presence of implantable cardioverter-defibrillator (ICD) Family History Father Cardiac disease Mother Cardiac disease Housing: Apartment Are you a primary home child care provider to a significant other at home: No Alcohol intake: former Patient Tobacco Use Status: Former Tobacco user Quit Date: Two months ago Tobacco use type: Cigarette e-Cigarette/Vaping Use: Never Used Second Hand Smoke Exposure: No service: No Current occupational status: disabled Cognitive needs: Yes (cane) Hearing needs: No Vision needs: Yes (glasses) Review of Systems Const Denies fever(s) and Denies weight loss Card Denies chest pain Resp Denies cough and Denies hemoptysis GI Denies abdominal pain, Denies diarrhea and Denies nausea Musc Denies back pain Neuro Denies focal weakness Physical Exam Vital Signs: Last Vital Signs Pulse 65 05/06/23 11:00 BP 102/68 05/06/23 11:00 Pulse Ox 97 05/06/23 11:00 Oxygen Delivery Method Room Air 05/06/23 11:00 BMI result Body Mass Index 41.3 Const General: comfortable Nutritional Appearance: obese Orientation/consciousness: patient oriented x3 Eyes General: appearance normal, both eyes and all related structures Visual Regalado: normal visual regalado by confrontation Neck Neck: Yes supple and Yes no JVD Resp Effort & Inspection: normal respiratory effort and respiratory effort not decreased Auscultation: rhonchi Cardio Palpation: no palpable S3 and no palpable S4 Heart sounds: no rubs GI Inspection: Yes normal to inspection Palpation (GI): Soft to palpation Percussion: Yes normal to percussion Auscultation: normal bowel sounds General: Yes no CVA tenderness Back/Spine/Pelvis Back: no CVA tenderness Skin General skin exam: no petechiae and no purpura Neuro General: patient oriented x3 and no focal motor deficits Extrem General: No clubbing and No edema Results Reviewed Results Reviewed: All results reviewed. Serum creatinine 0.9. Assessment & Plan Assessment & Plan (1) Obese: Code(s): E66.9 - Obesity, unspecified Qualifiers: Body mass index: BMI 40.0-44.9 Obesity classification: adult class 3 (BMI >= 40) Obesity type: due to excess calories Serious obesity comorbidity presence: with serious comorbidity Qualified Code(s): E66.01 - Morbid (severe) obesity due to excess calories; Z68.41 - Body mass index [BMI] 40.0-44.9, adult (2) FAIZAN on CPAP: Code(s): G47.33 - Obstructive sleep apnea (adult) (pediatric); Z99.89 - Dependence on other enabling machines and devices (3) Type 2 diabetes mellitus with hyperglycemia: Code(s): E11.65 - Type 2 diabetes mellitus with hyperglycemia Qualifiers: Diabetes mellitus continuous churn buttermaker insulin use: with continuous churn buttermaker use Qualified Code(s): E11.65 - Type 2 diabetes mellitus with hyperglycemia; Z79.4 - long term care phlebotomist (current) use of insulin (4) History of cardiomyopathy: Code(s): Z86.79 - Personal history of other diseases of the circulatory system Plan Middle-aged man with CKD in a setting obesity and diabetes mellitus. Back in 2021 he sustained SALEEM. Peak serum creatinine was 1.6. Recent serum creatinine 0.98. This is probably his baseline. He probably has mild CKD/stage II. Goal is to slow the progression of renal disease. Hemoglobin A1c should be maintained as an 7%. We discussed weight loss. Blood pressure be maintained less than 130/80. He should stay on low-sodium diet. We will continue to monitor urine protein excretion and maximize SIMBA inhibition Continue to avoid nephrotoxic agents including NSAIDs and hypotension. She will follow along with the team Coding Level of Care Code Tele New Pt Level 4 (25408) Diagnoses Class 3 severe obesity due to excess calories with serious comorbidity and body mass index (BMI) of 40.0 to 44.9 in adult E66.01; Z68.41 Body mass index: BMI 40.0-44.9 Obesity classification: adult class 3 (BMI >= 40) Obesity type: due to excess calories Serious obesity comorbidity presence: with serious comorbidity FAIZAN on CPAP G47.33; Z99.89 Type 2 diabetes mellitus with hyperglycemia, with long-term current use of insulin E11.65; Z79.4 Diabetes mellitus continuous churn buttermaker insulin use: with continuous churn buttermaker use History of cardiomyopathy Z86.79
[2023-05-06 11:00] VITALS: BP 102/68; PULSE 65; O2SAT 97; BMI 41.3
== END 2023-05-06 11:16 | disposition home or self-care (01) ==
PROVIDERS: PCP Physician Assistant; Visit Provider Internal Medicine Hypertension Specialist
DX: E66.01 Morbid (severe) obesity due to excess calories (principal); Z68.41 Body mass index [BMI] 40.0-44.9, adult; G47.33 Obstructive sleep apnea (adult) (pediatric); Z99.89 Dependence on other enabling machines and devices; E11.65 Type 2 diabetes mellitus with hyperglycemia; Z79.4 Long term (current) use of insulin; Z86.79 Personal history of other diseases of the circulatory system
CPT/HCPCS: 99204

== ENCOUNTER → 2023-05-06 10:44 | Outpatient (BNVA) | payer OTHER, MEDICAID, SELFPAY | PROVIDERS: PCP Physician Assistant; Visit Provider Internal Medicine Hypertension Specialist | DX: E11.22 Type 2 diabetes mellitus with diabetic chronic kidney disease (principal); I12.9 Hypertensive chronic kidney disease with stage 1 through stage 4 chronic kidney disease, or unspecified chronic kidney disease; N18.30 Chronic kidney disease, stage 3 unspecified; E66.01 Morbid (severe) obesity due to excess calories; G47.33 Obstructive sleep apnea (adult) (pediatric); E11.65 Type 2 diabetes mellitus with hyperglycemia; Z79.4 Long term (current) use of insulin; Z68.41 Body mass index [BMI] 40.0-44.9, adult; Z99.89 Dependence on other enabling machines and devices | CPT/HCPCS: 99202 ==

== ENCOUNTER → 2023-05-20 23:59 | Outpatient (BNV) | payer OTHER, SELFPAY ==
--- NOTE | 2023-05-20 18:26 | A.OFFVIS_ITS ---
Intake Intake Visit Reasons: Remote HF Monitoring- [employer] Allergies Penicillins [PENICILLINS] Allergy (Severe, Verified 05/06/23 11:11) RASH [facility] Medical History (Updated 05/06/23 @ 11:20 by Demond Bansal MD) Morbid obesity Obesity due to excess calories Screening for prostate cancer Diarrhea Tinea pedis of both feet Diabetic polyneuropathy associated with type 2 diabetes mellitus Morbid obesity Diabetic nephropathy associated with type 2 diabetes mellitus CKD stage 3 due to type 2 diabetes mellitus USP (current) use of insulin Diabetes type 2, uncontrolled Asthma GERD (gastroesophageal reflux disease) History of cardiomyopathy FAIZAN (obstructive sleep apnea) Essential hypertension Type 2 diabetes mellitus with unspecified complications Chronic kidney disease, unspecified Persistent atrial fibrillation Neuropathy Surgical History History of surgery History of colonoscopy Presence of implantable cardioverter-defibrillator (ICD) Family History Father Cardiac disease Mother Cardiac disease Social History Housing: Apartment Are you a primary career development manager to a significant other at home: No Alcohol intake: former Patient Tobacco Use Status: Former Tobacco user Quit Date: Two months ago Tobacco use type: Cigarette e-Cigarette/Vaping Use: Never Used Second Hand Smoke Exposure: No service: No Current occupational status: disabled Cognitive needs: Yes (cane) Hearing needs: No Vision needs: Yes (glasses) Office Procedures Cardiac Device Check Cardiac Device Check Details: Date of service- 05/20/2023; based on impedance data and physiological variables, there is possible optivol fluid accumulation 16 apr to 13 may 2023. [id number] Cardiac Device Interrogation, cardio physiologic monitor Procedure code (CPT) selection complete Assessment & Plan Assessment & Plan (1) Persistent atrial fibrillation: Code(s): I48.19 - Other persistent atrial fibrillation Plan x Coding Level of Care Code Procedure Only Diagnoses Persistent atrial fibrillation I48.19 CPT Codes Cardiac Device Check - Cardiac Device 15: [id number] Cardiac Device In [facility], cardio physiologic monitor ([id number])
== END ==
PROVIDERS: PCP Physician Assistant; Visit Provider Internal Medicine
DX: I48.19 Other persistent atrial fibrillation (principal); Z95.810 Presence of automatic (implantable) cardiac defibrillator
CPT/HCPCS: 93297

== ENCOUNTER 2023-06-08 10:27 | Emergency (ER) | payer OTHER, SELFPAY ==
[2023-06-08 10:34] VITALS: BP 133/77; PULSE 74; RESP 18; TEMP 36.6; O2SAT 96; BMI 41.5
--- NOTE | 2023-06-08 11:47 | ED_ITS ---
HPI - Back Pain/Injury General Chief Complaint: Back Pain/Injury Stated Complaint: Back pain Time Seen by Provider: 06/08/23 11:40 Source: patient, family, RN notes reviewed and old records reviewed Mode of arrival: ambulatory History of Present Illness HPI Narrative: 57-year-old male with a past medical history of obesity, CKD, asthma, GERD, FAIZAN, HTN, AFib on Eliquis, presenting to the ED complaining of low back pain > left with intermittent radiation down lower extremity x 4 days. Patient states he took a leftover tramadol at home without relief. Denies direct injury, trauma or fall numbness/tingling, weakness, incontinence/retention, abdominal pain MD elicited complaint: back pain Related Data Home Medications Medication Instructions Recorded Confirmed cyclobenzaprine 5 mg tablet 5 mg PO Q8H PRN pain (scale score 12/25/22 04/02/23 7-10) loperamide 2 mg capsule 2 mg PO BID PRN loose stool 12/25/22 04/02/23 Previous Rx's Medication Instructions Recorded miscellaneous medical supply 2 ea miscellaneous DAILY #2 ea 05/03/20 comp.stocking,thigh,long,x-lrg #2 ea 06/27/20 miscellaneous medical supply 2 ea miscellaneous DAILY 90 days 06/27/20 #2 ea cane #1 ea 10/09/21 Diabetic shoes & 3 pair inserts #1 ea 11/14/21 digoxin 125 mcg (0.125 mg) tablet 125 mcg PO DAILY #90 tabs 09/10/22 acetaminophen 650 mg 650 mg PO Q8H pain 90 days #270 09/30/22 tablet,extended release (Tylenol tabs Arthritis Pain) pen needle, diabetic 32 gauge x #100 ea 09/30/22/32 (BD Ultra-Fine Mara Pen Needle) blood-glucose meter (OneTouch #1 ea 10/14/22 Ultra2 Meter kit) lancets (OneTouch UltraSoft #200 ea 10/14/22 Lancets) acetaminophen 500 mg tablet 500 mg PO Q6H PRN fever or pain 12/19/22 (Tylenol Extra Strength) #14 tabs lidocaine 5 % topical patch 1 patch topical DAILY PRN pain #30 12/19/22 (Lidoderm) ea cholecalciferol (vitamin D3) 25 25 mcg PO DAILY #90 caps 01/19/23 mcg (1,000 unit) capsule tramadol 50 mg tablet 50 mg PO Q8H PRN pain 4 days #12 01/21/23 tabs clotrimazole 1 % topical cream 1 appl topical BID 30 days #45 01/23/23 grams albuterol sulfate 2.5 mg/3 mL 2.5 mg (3 mL) inhalation Q4-6H PRN 04/02/23 (0.083 %) solution for nebulization shortness of breath or wheezing 30 days #90 mL albuterol sulfate 90 mcg/actuation 2 puff inhalation Q6H PRN 04/02/23 aerosol inhaler (Ventolin HFA) shortness of breath or wheezing 30 days #8.5 grams apixaban 5 mg tablet (Eliquis) 5 mg PO BID 90 days #180 tabs 04/02/23 atorvastatin 10 mg tablet 10 mg PO DAILY #90 tabs 04/02/23 dulaglutide 3 mg/0.5 mL 3 mg (0.5 mL) subcut QWEEK 30 days 04/02/23 subcutaneous pen injector #2 mL ([facility]) famotidine 20 mg tablet 20 mg PO DAILY #90 tabs 04/02/23 furosemide 40 mg tablet (Lasix) 40 mg PO BID 90 days #180 tabs 04/02/23 gabapentin 300 mg capsule 300 mg PO QAM #90 caps 04/02/23 gabapentin 600 mg tablet 600 mg PO BEDTIME 90 days #90 tabs 04/02/23 insulin aspart U-100 100 unit/mL 10 unit (0.1 mL) subcut TID 30 04/02/23 (3 mL) subcutaneous pen days #15 mL insulin glargine U-300 conc 300 84 unit (0.28 mL) subcut DAILY 30 04/02/23 unit/mL (3 mL) subcutaneous pen days #8.4 mL (Toujeo Max U-300 SoloStar) metoprolol succinate 25 mg 12.5 mg (1/2 x 25 mg) PO BID #90 05/09/23 tablet,extended release 24 hr tabs blood sugar diagnostic (OneTouch #100 ea 05/16/23 Ultra Test strips) acetaminophen 500 mg tablet 500 mg PO Q6H PRN fever or pain 06/08/23 (Tylenol Extra Strength) #14 tabs cyclobenzaprine 10 mg tablet 10 mg PO TID PRN muscle spasm #14 06/08/23 tabs lidocaine 5 % topical patch 1 patch topical DAILY PRN pain #30 06/08/23 (Lidoderm) ea Allergies Allergy/AdvReac Type Severity Reaction Status Date / Time Penicillins [PENICILLINS] Allergy Severe RASH Verified 06/08/23 10:34 Review of Systems Review of Systems: Constitutional: No Fever, No Chills ENT/Mouth: No Ear Pain, No Nasal Congestion, No sore throat, No Rhinorrhea, No Swallowing Difficulty Cardiovascular: No Chest Pain, No SOB Respiratory: No Cough Gastrointestinal: No Nausea, No Vomiting, No Abdominal pain Genitourinary: No Dysuria, No Urinary Frequency, No Hematuria, No Urinary Inco ntinence/retention Musculoskeletal: +joint pain, No Myalgias, No Joint Swelling Skin: No Skin Lesions, No rash Neuro: No Weakness, No Numbness, No Paresthesias Yes all other systems are reviewed and are negative Constitutional: Constitutional: Reports as per [facility] Past Medical History Attestation statement: The following information was validated with the patient. 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 Diabetes type 2, uncontrolled Asthma GERD (gastroesophageal reflux disease) History of cardiomyopathy FAIZAN (obstructive sleep apnea) Essential hypertension Type 2 diabetes mellitus with unspecified complications Chronic kidney disease, unspecified Persistent atrial fibrillation Neuropathy Surgical History History of surgery History of colonoscopy Presence of implantable cardioverter-defibrillator (ICD) Family History Family History Father Cardiac disease Mother Cardiac disease Social History Social History Housing: Apartment Are you a primary care rep to a significant other at home: No Alcohol intake: former Patient Tobacco Use Status: Former Tobacco user Quit Date: Two months ago Tobacco use type: Cigarette e-Cigarette/Vaping Use: Never Used Second Hand Smoke Exposure: No Advance Directives: No Advance Directives Information Provided: Yes service: No Current occupational status: disabled Cognitive needs: Yes (cane) Hearing needs: No Vision needs: Yes (glasses) Physical Exam Vital Signs: Vital Signs: Last Vital Signs Temp 97.9 F 06/08/23 10:34 Pulse 74 06/08/23 10:34 Resp 18 06/08/23 10:34 BP 133/77 06/08/23 10:34 Pulse Ox 96 06/08/23 10:34 O2 Del Method Room Air 06/08/23 10:34 BMI result Body Mass Index 41.5 Const: General: cooperative, healthy appearing and no acute distress Orientation/consciousness: patient oriented x3 Limitations: no limitations HEENT: Head: Yes normal to inspection and Yes atraumatic Ears: hearing grossly normal bilaterally General nose exam: Normal external nose present Face and sinus: Yes normal facial exam Eyes: General: appearance normal, both eyes and all related structures EOM: EOMs intact bilaterally Neck: Neck: Yes normal visual inspection and Yes no meningeal signs Resp: Effort & Inspection: normal respiratory effort and no respiratory distress Cardio: Rate: regular rate GI: Inspection: Yes normal to inspection Palpation (GI): Soft to palpation, nontender, no guarding and not rigid : General: Yes no CVA tenderness Back/Spine/Pelvis: Other: No midline cervical/thoracic/lumbar spinous tenderness/step-off or deformity. + left-sided lumbar paraspinal/MSK tenderness palpation. No erythema/warmth or crepitus Back: no CVA tenderness Skin: Rashes: no rashes Wounds: no wounds Neuro: Other: Strength intact throughout. No saddle anesthesia. Sensation intact to light touch. Neurovascular intact distally General: patient oriented x3, gait normal, tone normal, moves all extremities and no meningeal signs Cranial nerves: Yes CN's II-XII intact bilaterally Gait exam (Neuro): Normal gait present Motor exam (neuro): 5/5 motor strength present throughout Extrem: General: Yes normal to inspection Medications Administered Discontinued Medications Generic Name Dose Route Start Last Admin Trade Name Freq PRN Reason Stop Dose Admin Cyclobenzaprine HCl 10 mg 06/08/23 12:15 06/08/23 12:36 Cyclobenzaprine Hcl 10 Mg Tablet PO 06/08/23 12:16 10 mg ONCE ONE Administration Lidocaine 1 patch 06/08/23 12:15 06/08/23 12:36 Lidocaine 4 % Patch Adh..Patch TRANSDERMA 06/08/23 12:16 1 patch ONCE ONE Administration Protocol Medical Decision Making Medical Decision Making MDM Narrative: 57-year-old male with a past medical history of obesity, CKD, asthma, GERD, FAIZAN, HTN, AFib on Eliquis, presenting to the ED complaining of low back pain > left with intermittent radiation down lower extremity x 4 days. On exam vital signs stable, NAD, nontoxic appearing, physical exam as noted above. No midline spinous tenderness or red flag symptoms. Concern for sciatica vs ? Herniated disc. Lower suspicion for cauda equina/cord compression, epidural abscess, renal stone/pyelo plan: Pain management, PCP follow-up Please refer to course for remaining clinical decision making, interpretation of labs/imaging results, and discussions with consultants and/or family members. Differential Diagnosis Differential Diagnoses: The differential diagnosis associated with the presentation includes As above External Record Review External record reviewed: Inpatient record, Office record, Outpatient record, Prior outpatient labs, Prior outpatient radiology, Primary care record and Outside ED record Tests considered The following testing was considered but not selected: As above Prescription Management I considered prescription management with: Pain Medication Discharge Plan Discharge Clinical Impression: Sciatica Patient Disposition: Home, Self-Care Instructions: Sciatica (ED) Additional Instructions: Your pain is likely musculoskeletal Flexeril is a muscle relaxer, take at night as it makes you drowsy, do not drive, drink alcohol, or operate machinery while taking it Lidoderm patches are numbing patches, apply to painful area In addition take Tylenol at home If symptoms persist or worsen, pain becomes unbearable, you developed urinary retention or incontinence, or weakness return to the ED Es probable que guerra dolor sea musculoesquel?kieran. Flexeril es un relajante muscular, t?spain por la noche ya que produce somnolencia, no conduzca, micheal alcohol ni opere maquinaria mientras lo doyle. Los parches de Lidoderm son parches adormecedores, se aplican en el ?han dolorida. Adem?s, tome Tylenol en casa. Si los s?ntomas persisten o empeoran, el dolor se vuelve insoportable, usted desarrolla retenci?n urinaria o incontinencia, o debilidad, regrese al servicio de urgencias. Prescriptions: New cyclobenzaprine 10 mg tablet 10 mg PO TID PRN (Reason: muscle spasm) Qty: 14 0RF acetaminophen [Tylenol Extra Strength] 500 mg tablet 500 mg PO Q6H PRN (Reason: fever or pain) Qty: 14 0RF lidocaine [Lidoderm] 5 % adhesive patch,medicated 1 patch topical DAILY MDD remove after 12 hours PRN (Reason: pain) Qty: 30 0RF Rx Instructions: leave on most painful area for up to 12 hrs No Action (DME) cane Device See Rx Instructions .ROUTE .MEDSUPPLY Qty: 1 0RF Rx Instructions: As directed (DME) Diabetic shoes & 3 pair inserts Diabetic shoes & 3 pair insert kit See Rx Instructions .ROUTE .MEDSUPPLY Qty: 1 0RF Rx Instructions: as directed digoxin 125 mcg (0.125 mg) tablet 125 mcg PO DAILY Qty: 90 3RF (DME) lancets [OneTouch UltraSoft Lancets] Misc See Rx Instructions .Route Qty: 200 3RF Rx Instructions: As directed (DME) blood-glucose meter [OneTouch Ultra2 Meter] Kit See Rx Instructions .Route Qty: 1 0RF Rx Instructions: As directed cholecalciferol (vitamin D3) 25 mcg (1,000 unit) capsule 25 mcg PO DAILY Qty: 90 2RF tramadol 50 mg tablet 50 mg PO Q8H PRN (Reason: pain) 4 Days Qty: 12 0RF clotrimazole 1 % cream 1 appl topical BID 30 Days Qty: 45 3RF metoprolol succinate 25 mg tablet extended release 24 hr 12.5 mg PO BID Qty: 90 1RF (DME) OneTouch Ultra Test Strip See Rx Instructions .Route Qty: 100 6RF Rx Instructions: As directed acetaminophen [Tylenol Extra Strength] 500 mg tablet 500 mg PO Q6H PRN (Reason: fever or pain) Qty: 14 0RF lidocaine [Lidoderm] 5 % adhesive patch,medicated 1 patch topical DAILY MDD remove after 12 hours PRN (Reason: pain) Qty: 30 0RF Rx Instructions: leave on most painful area for up to 12 hrs miscellaneous medical supply [facility] [place] 2 ea miscellaneous DAILY Qty: 2 0RF (DME) comp.stocking,thigh,long,x-lrg [facility] [place] See Rx Instructions .ROUTE .MEDSUPPLY Qty: 2 0RF Rx Instructions: As directed miscellaneous medical supply [facility] [place] 2 ea miscellaneous DAILY 90 Days Qty: 2 0RF Toujeo Max U-300 SoloStar 300 unit/mL (3 mL) insulin pen 84 unit subcut DAILY 30 Days Qty: 8.4 3RF Trulicity 3 mg/0.5 mL pen injector 3 mg subcut QWEEK 30 Days Qty: 2 3RF albuterol sulfate [Ventolin HFA] 90 mcg/actuation HFA aerosol inhaler 2 puff inhalation Q6H PRN (Reason: shortness of breath or wheezing) 30 Days Qty: 8.5 6RF albuterol sulfate 2.5 mg /3 mL (0.083 %) solution for nebulization 2.5 mg inhalation Q4-6H PRN (Reason: shortness of breath or wheezing) 30 Days Qty: 90 2RF Eliquis 5 mg tablet 5 mg PO BID 90 Days Qty: 180 3RF atorvastatin 10 mg tablet 10 mg PO DAILY Qty: 90 3RF furosemide [Lasix] 40 mg tablet 40 mg PO BID 90 Days Qty: 180 1RF famotidine 20 mg tablet 20 mg PO DAILY Qty: 90 1RF gabapentin 600 mg tablet 600 mg PO BEDTIME 90 Days Qty: 90 1RF gabapentin 300 mg capsule 300 mg PO QAM Qty: 90 1RF insulin aspart U-100 100 unit/mL (3 mL) insulin pen 10 unit subcut TID 30 Days Qty: 15 6RF acetaminophen [Tylenol Arthritis Pain] 650 mg tablet extended release 650 mg PO Q8H 90 Days Qty: 270 2RF (DME) pen needle, diabetic [BD Ultra-Fine Mara Pen Needle] 32 gauge x 5/32 needle See Rx Instructions .ROUTE .MEDSUPPLY Qty: 100 4RF Rx Instructions: As directed cyclobenzaprine 5 mg tablet 5 mg PO Q8H PRN (Reason: pain (scale score 7-10)) loperamide 2 mg capsule 2 mg PO BID PRN (Reason: loose stool) Referrals: [facility] [place] [facility] [place] [facility] Sur[facility] [Provider Group] (as needed) Adan Reynaga PA-C [Primary Care Provider] - 1 week Interventions: ED Discharge Assessment Last Done: 06/08/23 12:54 Discharge Date/Time: 06/08/23 12:54 Print Language: Japanese
[2023-06-08] MEDS: Cyclobenzaprine HCl 10 MG TABLET PO (12:36)
[2023-06-08] MEDS: Lidocaine 4 % Patch ADH..PATCH 1 PATCH TRANSDERMA (12:36)
== END 2023-06-08 12:54 | disposition home or self-care (01) ==
PROVIDERS: Emergency Provider Emergency Medicine; PCP Physician Assistant
DX: M54.30 Sciatica, unspecified side (principal); I12.9 Hypertensive chronic kidney disease with stage 1 through stage 4 chronic kidney disease, or unspecified chronic kidney disease; E11.22 Type 2 diabetes mellitus with diabetic chronic kidney disease; N18.9 Chronic kidney disease, unspecified; I48.91 Unspecified atrial fibrillation; Z79.01 Long term (current) use of anticoagulants; Z79.4 Long term (current) use of insulin
CPT/HCPCS: 99283

== ENCOUNTER → 2023-06-21 23:59 | Outpatient (BNV) | payer OTHER, SELFPAY ==
--- NOTE | 2023-06-23 19:36 | MHC.OFFVIS ---
Intake Intake Visit Reasons: Remote HF Monitoring- [employer] Allergies Penicillins [PENICILLINS] Allergy (Severe, Verified 06/08/23 10:34) [facility] Medical History Morbid obesity Obesity due to excess calories Screening for prostate cancer Diarrhea Tinea pedis of both feet Diabetic polyneuropathy associated with type 2 diabetes mellitus Morbid obesity Diabetic nephropathy associated with type 2 diabetes mellitus CKD stage 3 due to type 2 diabetes mellitus nursing home (current) use of insulin Diabetes type 2, uncontrolled Asthma GERD (gastroesophageal reflux disease) History of cardiomyopathy FAIZAN (obstructive sleep apnea) Essential hypertension Type 2 diabetes mellitus with unspecified complications Chronic kidney disease, unspecified Persistent atrial fibrillation Neuropathy Surgical History History of surgery History of colonoscopy Presence of implantable cardioverter-defibrillator (ICD) Family History Father Cardiac disease Mother Cardiac disease Social History Housing: Apartment Are you a primary intensive care anaesthetist to a significant other at home: No Alcohol intake: former Patient Tobacco Use Status: Former Tobacco user Quit Date: Two months ago Tobacco use type: Cigarette e-Cigarette/Vaping Use: Never Used Second Hand Smoke Exposure: No Advance Directives: No Advance Directives Information Provided: Yes service: No Current occupational status: disabled Cognitive needs: Yes (cane) Hearing needs: No Vision needs: Yes (glasses) Office Procedures Cardiac Device Check Cardiac Device Check Details: Date of service- 06/21/2023; based on impedance data and physiological variables, there is no evidence of worsening congestive heart failure. [id number] Cardiac Device Interrogation, cardio physiologic monitor Procedure code (CPT) selection complete Assessment & Plan Assessment & Plan (1) NICM (nonischemic cardiomyopathy): Code(s): I42.8 - Other cardiomyopathies Plan x Coding Level of Care Code Procedure Only Diagnoses NICM (nonischemic cardiomyopathy) I42.8 CPT Codes Cardiac Device Check - Cardiac Device 15: [id number] Cardiac Device Interrogation, cardio physiologic monitor ([id number])
== END ==
PROVIDERS: PCP Physician Assistant; Visit Provider Internal Medicine
DX: I42.8 Other cardiomyopathies (principal); Z95.810 Presence of automatic (implantable) cardiac defibrillator
CPT/HCPCS: 93297

== ENCOUNTER 2023-07-03 09:48 | Outpatient (AMB) | payer OTHER, MEDICAID, SELFPAY ==
[2023-07-03 09:57] VITALS: BP 106/70; PULSE 54; O2SAT 96; BMI 41.0
--- NOTE | 2023-07-03 09:57 | A.OFFPC_ITS ---
Vital Signs 3 07/03/23 09:57 Height 5 ft 11 in Weight 294 lb 4 oz BMI 41.0 BP 106/70 Blood Pressure Location Lt brachial Position Sitting Pulse 54 Pulse Source Pulse Oximeter Pulse Oximetry (%) 96 Oxygen Delivery Method Room Air Intake Visit Reasons: 3mth f/u Intake Note: The patient is present for a follow-up on DMII and is requesting a referral due to neuropathic pain in the lower extremities. Ice Cream Dispenser Required: Yes Ice Cream Dispenser Language: Mongolian Accompanied by: Spouse Allergies Penicillins [PENICILLINS] Allergy (Severe, Verified 07/03/23 10:23) RASH Medication List - Last Reconciled 07/03/23 by Adan Reynaga PA-C acetaminophen (Tylenol Extra Strength) 500 mg PO Q6H PRN acetaminophen (Tylenol Extra Strength) 500 mg PO Q6H PRN acetaminophen ER (Tylenol Arthritis Pain) 650 mg PO Q8H 90 days albuterol sulfate 90 mcg/actuation (Ventolin HFA) 2 puffs inhalation Q6H PRN 30 days albuterol sulfate 2.5 mg (3 mL) inhalation Q4-6H PRN apixaban (Eliquis) 5 mg PO BID 90 days atorvastatin 10 mg PO DAILY blood-glucose meter (Anda Ultra2 Meter kit) As directed cane As directed cholecalciferol (vitamin D3) 25 mcg PO DAILY clotrimazole 1% 1 appl topical BID 30 days comp.stocking,thigh,long,x-lrg As directed cyclobenzaprine 10 mg PO TID PRN cyclobenzaprine 5 mg PO Q8H PRN [Diabetic shoes & 3 pair inserts as directed] digoxin 125 mcg PO DAILY dulaglutide (Trulicity) 3 mg (0.5 mL) subcut QWEEK 30 days famotidine 20 mg PO DAILY furosemide (Lasix) 40 mg PO BID 90 days gabapentin 300 mg PO QAM gabapentin 600 mg PO BEDTIME 90 days insulin aspart U-100 10 units (0.1 mL) subcut TID 30 days insulin glargine U-300 conc (Toujeo Max U-300 SoloStar) 84 units (0.28 mL) subcut DAILY 30 days lancets (Filip TechnologiesTouch Delica Plus Lancet) test 3 times per day lidocaine 5% (Lidoderm) 1 patch topical DAILY PRN MDD remove after 12 hours lidocaine 5% (Lidoderm) 1 patch topical DAILY PRN 30 days MDD remove after 12 hours loperamide 2 mg PO BID PRN metoprolol succinate ER 12.5 mg (1/2 x 25 mg) PO BID miscellaneous medical supply 2 ea miscellaneous DAILY miscellaneous medical supply 2 ea miscellaneous DAILY 90 days pen needle, diabetic (BD Ultra-Fine Mara Pen Needle) As directed tramadol 50 mg PO Q8H PRN 4 days Tobacco use date assessed: 07/03/23 Dental Screening Dental Screen Date: 07/03/23 Did you have a dental visit in the last 12 months?: No Did you have a dental problem in the last 6 months where you did not have access to dental care?: No Was dental information given to patient?: Yes HPI 3mth f/u 2 HPI0 Details Patient is a 57-year-old male here today for follow-up visit. .? 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 Patient has a past medical history significant for morbid obesity, hypertension, ICD implanted, AFIB, obstructive sleep apnea. .. CHRONIC MEDICAL CONDITIONS--> Obesity:? Has lost weight since last office visit. He reports he has been taking care of himself . ?Seeing a dietitian. ? . ? FAIZAN:? Currently using CPAP nightly with good effect.? He reports he is sleeping well at night and his Blood pressure are well controlled here in the office. . Hyperlipidemia: Patient continues on statin therapy without any side effect. Most recent lipid panel showing appropriate total cholesterol and LDL. ? .. ? DM2:? Has lost follow-up with endocrinology as his providers left practice..? Continues on Trulicity 3mg, Toujeo 84 units .?.? He reports his diet has been a bit better and eating late at night., Today's A1c elevated at 7.3. Continues to have bilateral lower extremity burning and tingling. He is interested in treatment for his diabetic neuropathy. .. AFib:? Patient continues to be followed by Cardiology.??Continues on anticoagulation without any overt signs of bleeding. Patient has recently gotten pacemaker placed.? Denies any overt signs of bleeding or palpitations. [facility] Medical History (Updated 07/03/23 @ 10:37 by Adan Reynaga PA-C) Obesity, morbid, BMI 50 or higher Morbid obesity Obesity due to excess calories Screening for prostate cancer Diarrhea Tinea pedis of both feet Diabetic polyneuropathy associated with type 2 diabetes mellitus Morbid obesity Diabetic nephropathy associated with type 2 diabetes mellitus CKD stage 3 due to type 2 diabetes mellitus senior care (current) use of insulin Diabetes type 2, uncontrolled Asthma GERD (gastroesophageal reflux disease) History of cardiomyopathy FAIZAN (obstructive sleep apnea) Essential hypertension Type 2 diabetes mellitus with unspecified complications Chronic kidney disease, unspecified Persistent atrial fibrillation Neuropathy Surgical History History of surgery History of colonoscopy Presence of implantable cardioverter-defibrillator (ICD) Family History Father Cardiac disease Mother Cardiac disease Social History Housing: Apartment Are you a primary acute care certified nursing assistant to a significant other at home: No Alcohol intake: former Patient Tobacco Use Status: Former Tobacco user Quit Date: Two months ago Tobacco use type: Cigarette e-Cigarette/Vaping Use: Never Used Second Hand Smoke Exposure: No service: No Current occupational status: disabled Cognitive needs: Yes (cane) Hearing needs: No Vision needs: Yes (glasses) Questionnaire PHQ-9 Over the last 2 weeks, how often have you been bothered by any of the following problems? 1. Little interest or pleasure in doing things: not at all 2. Feeling down, depressed, or hopeless: not at all 3. Trouble falling or staying asleep, or sleeping too much: not at all 4. Feeling tired or having little energy: not at all 5. Poor appetite or overeating: not at all 6. Feeling bad about yourself - or that you are a failure or have let yourself or your family down: not at all 7. Trouble concentrating on things, such as reading the newspaper or watching television: not at all 8. Moving or speaking so slowly that other people could have noticed. Or the opposite - being so fidgety or restless that you have been moving around a lot more than usual: not at all 9. Thoughts that you would be better off or of hurting yourself in some way: not at all Total score: 0 Depression Screening Interpretation: Negative Depression Screening Done: Yes 58503 - PHQ-9 Billing: Yes Source: Developed by Drs. Pedro Reid, Jasper Howell and colleagues, with an educational lonny from [employer]. Thrive Questionnaire Date Thrive assessed: 07/03/23 I am a: Patient What is your living situation today?: I have a steady place to live Within the past 12 months, did the food you bought not last and you didn't have the money to get more?: Never true Within the past 12 months, did you worry whether your food would run out before you got money to buy more?: Never true Do you have trouble paying for medicines?: No Do you have trouble getting transportation to medical appointments?: No Do you have trouble paying your heating and electricity bill?: No Do you have trouble taking care of your child, family member or friend?: No Do you have trouble with day-to-day activities such as bathing, preparing meals, shopping, managing finances, etc.?: No Are you currently unemployed and looking for a job?: No Are you interested in more education?: No Please select the resources that you would like help with: None Currently or been in a relationship where the following occur: no concerns reported THRIVE Score: 0 AUDIT C Alcohol Use Questionnaire (AUDIT-C) 1. How often do you have a drink containing alcohol?: Never Total Score: 0 CAROLANN-7 AMB Questionnaire CAROLANN-7 Date CAROLANN - 7 assessed: 07/03/23 Feeling nervous, anxious, or on edge: 0 = Not at all Not being able to stop or control worryin = Not at all Worrying too much about different things: 0 = Not at all Trouble relaxin = Not at all Being so restless that it is hard to sit still: 0 = Not at all Becoming easily annoyed or irritable: 0 = Not at all Feeling afraid as if something awful might happen: 0 = Not at all Total CAROLANN-7 score (0-4 normal; 5-9 mild; 10-14 moderate; 15-21 severe): 0 Source: Developed by Neeta Mtz Kurt Kroenke and colleagues, with an educational lonny from [employer]. CAROLANN-7 Assessment Billing CAROLANN-7 Assessment Tool: CAROLANN-7 Assessment 37941 Review of Systems Const Denies headache(s) Eyes Denies loss of vision ENT Denies vertigo, Denies dizziness, Denies headache(s) and Denies sore throat Card Denies chest pain, Denies leg edema and Denies lightheadedness Resp Denies cough, Denies hemoptysis and Denies wheezing GI Denies abdominal pain, Denies melena, Denies constipation, Denies diarrhea and Denies vomiting Denies dysuria, Denies urinary frequency and Denies urinary urgency Musc Denies arthralgias, Denies joint swelling, Denies numbness and Denies tingling Neuro Denies Abnormal speech present, Denies behavioral changes, Denies vertigo, Denies dizziness, Denies headache(s), Denies loss of vision, Denies memory loss, Denies numbness and Denies tingling Psych Denies anxiety, Denies behavioral changes, Denies depression, Denies memory loss and Denies panic attacks Basil/Lymph Denies easy bleeding and Denies easy bruising Aller/Immun Denies wheezing Physical exam (Primary Care) Vital Signs: Last Vital Signs Pulse 54 07/03/23 09:57 BP 106/70 07/03/23 09:57 Pulse Ox 96 07/03/23 09:57 Oxygen Delivery Method Room Air 07/03/23 09:57 BMI result Body Mass Index 41.0 BMI Assessment/Plan discussion: High Tobacco/Smoking Status: Tobacco use Status Tobacco use date assessed 07/03/23 07/03/23 10:06 Patient Tobacco Use Status Former Tobacco user 07/03/23 10:06 Tobacco use type Cigarette 07/03/23 10:06 e-Cigarette/Vaping Use Never Used 07/03/23 10:06 PHQ-9: PHQ-9 Score PHQ-9: Total score 0 07/03/23 10:25 Depression Screening Interpretation: Negative Thrive Assessment: Date of Thrive Assessment Date Thrive assessed 07/03/23 07/03/23 10:06 Currently or been in a relationship where the following occur: no concerns reported Const General: healthy appearing, no acute distress, alert and awake Nutritional Appearance: well nourished Orientation/consciousness: oriented to person, oriented to place and oriented to time HENMT Ears: TM's normal bilaterally General nose exam: Normal nasal mucous membranes and turbinates present Eyes Conjunctivae: conjunctivae normal Sclerae: sclerae normal Pupils: Equal, round and reactive pupils present Neck Neck: Yes no lymphadenopathy and Yes no JVD Thyroid: Thyroid normal Carotids: no bruits Resp Effort & Inspection: normal respiratory effort and not tachypneic Auscultation: no crackles, no rales, no rhonchi and no wheezes Cardio Rate: regular rate Rhythm: regular rhythm Heart sounds: no murmurs and normal S1 and S2 GI Palpation (GI): Soft to palpation, nontender, no hepatomegaly and no splenomegaly Auscultation: normal bowel sounds Skin General skin exam: no rashes or lesions noted and dry skin Neuro General: oriented to person, oriented to place and oriented to time Cranial nerves: Yes Equal, round and reactive pupils present Speech: No Abnormal speech present Gait exam (Neuro): Normal gait present Motor exam (neuro): no tremor noted Extrem Right upper extremity: full ROM Left upper extremity: full ROM Right lower extremity: full ROM; no edema Left lower extremity: full ROM; no edema Ankle/foot/toe images: 2 1. NOTED BILATERAL LOWER EXTREMITY SKIN DISCOLORATION CONSISTENT WITH PVD Psych Mental Status: mental status grossly normal Speech and movement: Normal speech and movement present Affect: normal affect Attitude: cooperative Thought process: Normal thought process present Results AMB Hemoglobin A1c 2 AMB Hemoglobin A1c 7.3 % Last Edit by SELINA Gay on 07/03/23 10:19 Results Reviewed Results Reviewed: Laboratory Last Values Hgb A1c (Clinic) 7.3 % (4.0-6.0) H 07/03/23 09:56 Assessment and Plan Assessment & Plan (1) Type 2 diabetes mellitus with hyperglycemia: Code(s): E11.65 - Type 2 diabetes mellitus with hyperglycemia Qualifiers: Diabetes mellitus director long term care insulin use: with retirement use Qualified Code(s): E11.65 - Type 2 diabetes mellitus with hyperglycemia; Z79.4 - advanced practice psychiatric nurse (current) use of insulin Plan: Patient's type 2 diabetes suboptimally controlled. A1c today is 7.3 from 7.5. He does report some nighttime snacking. Will not make any adjustments in diabetic medication will continue working on diabetic dietary modifications . 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 Continues on anticoagulation without any overt signs of bleeding. He denies any chest discomfort, palpitations or dizziness. (3) FAIZAN on CPAP: Code(s): G47.33 - Obstructive sleep apnea (adult) (pediatric); Z99.89 - Dependence on other enabling machines and devices Plan: Continues with CPAP on a nightly basis with good effect on his sleep. (4) HLD (hyperlipidemia): Code(s): E78.5 - Hyperlipidemia, unspecified Qualifiers: Hyperlipidemia type: mixed hyperlipidemia Qualified Code(s): E78.2 - Mixed hyperlipidemia Plan: Patient's most recent lipid panel showing acceptable total cholesterol and LDL. Goal LDL to be below 100. (5) Diabetic polyneuropathy associated with type 2 diabetes mellitus: Code(s): E11.42 - Type 2 diabetes mellitus with diabetic polyneuropathy Plan: He does report signs symptoms consistent with diabetic polyneuropathy and [place] extremities. He is willing to see pain management for perhaps trying topical capsaicin treatment (6) Lower extremity edema: Code(s): R60.0 - Localized edema Plan: Does have trace lower extremity edema and discoloration of his skin. Does have peripheral vascular disease. Will supply patient with compression socks (7) NICM (nonischemic cardiomyopathy): Code(s): I42.8 - Other cardiomyopathies Plan: Patient continues follow-up with Cardiology. (8) Sciatica of right side: Code(s): M54.31 - Sciatica, right side Plan: Recently seen at the ER for acute lower back pain with radiculopathy down right lower extremity consistent with right-sided sciatica. Has been using tramadol for his pain with decent relief. Advised on try physical therapy and he agrees and understands (9) Morbid obesity: Comment: Patient is a known case of morbid obesity. Talked about weight reduction. He has multiple problems including diabetes mellitus. He has had dietary instructions from the dietitian and is trying to adhere to reduced calories intake. Add a good talk and him to try to keep losing weight Code(s): E66.01 - Morbid (severe) obesity due to excess calories Plan: He does understand his BMI is over 40 will continue working on dietary modifications to lose weight. Orders: Orders 2 Comprehensive Fritch. Panel Fast Today E11.65 - Type 2 diabetes mellitus with hyperglycemia, Z79.4 - senior care (current) use of insulin Prostate Specific Antigen Scr Today I42.8 - Other cardiomyopathies, Z12.5 - Encounter for screening for malignant neoplasm of prostate PT Evaluation and Treatment Today M54.31 - Sciatica, right side, M54.50 - Low back pain, unspecified AMB Hemoglobin A1c Today E11.65 - Type 2 diabetes mellitus with hyperglycemia Lipid Panel Today I42.8 - Other cardiomyopathies Microalbumin, Random (w Creat) Today E11.65 - Type 2 diabetes mellitus with hyperglycemia, Z79.4 - advanced practice psychiatric nurse (current) use of insulin Referrals 2 Pain Management Referral E11.21 - Type 2 diabetes mellitus with diabetic nephropathy Medications: New 2 compr.stocking,knee,long,x-lrg As directed 2 ea 0RF I73.9 - Peripheral vascular disease, unspecified, R60.0 - Localized edema Coding Level of Care Code Est Pt Level 4 (28266) Diagnoses Type 2 diabetes mellitus with hyperglycemia, with long-term current use of insulin E11.65; Z79.4 Diabetes mellitus director long term care insulin use: with director long term care use Longstanding persistent atrial fibrillation I48.11 Atrial fibrillation type: longstanding persistent FAIZAN on CPAP G47.33; Z99.89 Mixed hyperlipidemia E78.2 Hyperlipidemia type: mixed hyperlipidemia Diabetic polyneuropathy associated with type 2 diabetes mellitus E11.42 Lower extremity edema R60.0 NICM (nonischemic cardiomyopathy) I42.8 Sciatica of right side M54.31 Morbid obesity E66.01 Additional Codes CAROLANN-7 Assessment Billing - CAROLANN-7 Assessment Tool: CAROLANN-7 Assessment [id number] ([id number])
== END 2023-07-03 10:36 | disposition home or self-care (01) ==
PROVIDERS: PCP Physician Assistant; Visit Provider Physician Assistant
DX: E11.65 Type 2 diabetes mellitus with hyperglycemia (principal); Z79.4 Long term (current) use of insulin; I48.11 Longstanding persistent atrial fibrillation; E11.42 Type 2 diabetes mellitus with diabetic polyneuropathy; I42.8 Other cardiomyopathies; E66.01 Morbid (severe) obesity due to excess calories; G47.33 Obstructive sleep apnea (adult) (pediatric); Z99.89 Dependence on other enabling machines and devices; E78.2 Mixed hyperlipidemia; R60.0 Localized edema; M54.31 Sciatica, right side
CPT/HCPCS: 83036; 99214

== ENCOUNTER 2023-07-17 08:51 | Outpatient (AMB) | payer OTHER, SELFPAY ==
--- NOTE | 2023-07-17 08:52 | A.OFFVIS_ITS ---
Intake Vital Signs 07/17/23 09:00 Height 5 ft 11 in Weight 298 lb BMI 41.6 BP 134/76 Blood Pressure Location Lt brachial Position Sitting Respiration 16 Pulse 71 Pulse Source Pulse Oximeter Pulse Oximetry (%) 98 Oxygen Delivery Method Room Air Intake Visit Reasons: Type 2 Diabetes Mellitus W/Diabetic Neuropathy Intake Note: Patient comes in for initial visit was referred by primary care. Reports pain 8/10. Allergies Penicillins [PENICILLINS] Allergy (Severe, Verified 07/17/23 08:52) [facility] HPI HPI Comments History of Present Illness Details Dhaval is very pleasant Telugu speaking 57 years old gentleman who presents in my office with complains on pain in the central lumbar spine with radiation to the right buttock right hip and right thigh to the level of the knee not below that level. He reports that he is suffering from low back pain for many years at least 2 years. He reports that last exacerbation happened 1 month ago when he was carrying on the 2nd floor heavy loads. He is morbidly obese. He reports that laying down aggravates his pain. He reports that when he sits up his pain becomes better. Standing increases his pain. Bending forward aggravates his pain. Bending backwards increase his pain minimally. Because of his pain he can not sleep normally can not do activities of daily living can not take care of himself and can not function normally. He is on permanent disability and run last day of work was 2000. He reports that movements aggravate his pain. Topical medications lidocaine patch and cyclobenzaprine make his pain little bit better. His pain is worse at night and less severe in the morning. In terms of tissue damage he reports his pain is stabbing, searing, hurting, healing sensation. He reports that he had x-ray of the spine but it was x-ray of the thoracic spine he never had an x-ray of the lumbar spine. He never had physical therapy. He never had any injections. His past medical history significant for morbid obesity diabetic polyneuropathy associated with type 2 diabetes chronic kidney insufficiency secondary to diabetes he is on insulin history of asthma, GERD history of cardiomyopathy obstructive sleep apnea essential hypertension atrial fibrillation. He is on Eliquis 5 mg p.o. b.i.d.. Surgical history is significant for implantation of cardioverter defibrillator open (ICD). Social history he lives in apartment denies drinking alcohol former alcohol drinker denies smoking cigarettes quit 2 months ago denies recreational drugs. 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 Diabetes type 2, uncontrolled Asthma GERD (gastroesophageal reflux disease) History of cardiomyopathy FAIZAN (obstructive sleep apnea) Essential hypertension Type 2 diabetes mellitus with unspecified complications Chronic kidney disease, unspecified Persistent atrial fibrillation Neuropathy Surgical History History of surgery History of colonoscopy Presence of implantable cardioverter-defibrillator (ICD) Family History Father Cardiac disease Mother Cardiac disease Social History Housing: Apartment Are you a primary primary care coordinator to a significant other at home: No Alcohol intake: former Patient Tobacco Use Status: Former Tobacco user Quit Date: Two months ago Tobacco use type: Cigarette e-Cigarette/Vaping Use: Never Used Second Hand Smoke Exposure: No service: No Current occupational status: disabled Cognitive needs: Yes (cane) Hearing needs: No Vision needs: Yes (glasses) Review of Systems Const Denies headache(s) Eyes Denies loss of vision ENT Reports Normal hearing present, Denies vertigo, Denies dizziness, Denies headache(s) and Denies sore throat Card Denies chest pain, Denies leg edema and Denies lightheadedness Resp Denies cough, Denies hemoptysis and Denies wheezing GI Denies abdominal pain, Denies melena, Denies constipation, Denies diarrhea and Denies vomiting Denies dysuria, Denies urinary frequency and Denies urinary urgency Musc Denies arthralgias, Denies joint swelling, Denies numbness and Denies tingling Neuro Reports Normal hearing present, Denies Abnormal speech present, Denies behavioral changes, Denies confusion, Denies vertigo, Denies dizziness, Denies headache(s), Denies loss of vision, Denies memory loss, Denies numbness, Denies Sensory deficit (Neuro) and Denies tingling Psych Denies anxiety, Denies behavioral changes, Denies confusion, Denies depression, Denies memory loss and Denies panic attacks Basil/Lymph Denies easy bleeding and Denies easy bruising Aller/Immun Denies wheezing Physical Exam Vital Signs: Last Vital Signs Pulse 71 07/17/23 09:00 Resp 16 07/17/23 09:00 BP 134/76 07/17/23 09:00 Pulse Ox 98 07/17/23 09:00 Oxygen Delivery Method Room Air 07/17/23 09:00 BMI result Body Mass Index 41.6 Const General: no acute distress; No confusion Nutritional Appearance: obese morbidly obese Orientation/consciousness: patient oriented x3 and No confusion Eyes General: appearance normal, both eyes and all related structures Pupils: Equal, round and reactive pupils present EOM: EOMs intact bilaterally Neck Neck: Yes full ROM Chest Chest palpation & inspection: normal inspection of the chest Resp Effort & Inspection: normal respiratory effort, able to speak in complete sentences, normal respiratory pattern, no audible wheezes and no cough GI Inspection: Yes normal to inspection Back/Spine/Pelvis Other: Flexing forward aggravates his pain more than flexing backwards. Loading test is positive bilaterally. Kevyn test is positive on the right. Gaenslen test is positive on the right. Stinchfield test is positive on the right. Fourteen finger test is positive on the right. Able to stand on bilateral tiptoes and bilateral heels without difficulty. Good range of motion of bilateral lower extremities. Wears compression stocking on bilateral lower extremities. Neuro General: patient oriented x3, gait normal and No confusion Cranial nerves: Yes CN's II-XII intact bilaterally, Yes Equal, round and reactive pupils present, Yes Normal hearing present and Yes Ability to bila terally elevate shoulders present Speech: No Abnormal speech present Gait exam (Neuro): Normal gait present Motor exam (neuro): 5/5 motor strength present throughout Sensory Exam: No Sensory deficit (Neuro) Extrem General: No pedal edema Psych Speech and movement: Normal speech and movement present Affect: normal affect Attitude: cooperative Thought process: Normal thought process present Thought content: Normal thought content present Insight: Good insight present (Psych) Judgement: Good judgement present (Psych) Assessment & Plan Assessment & Plan (1) Sciatica of right side: Code(s): M54.31 - Sciatica, right side (2) Spondylosis of lumbar region without myelopathy or radiculopathy: Code(s): M47.816 - Spondylosis without myelopathy or radiculopathy, lumbar region (3) Sacroiliitis: Code(s): M46.1 - Sacroiliitis, not elsewhere classified (4) Chronic right SI joint pain: Code(s): M53.3 - Sacrococcygeal disorders, not elsewhere classified; G89.29 - Other chronic pain (5) Chronic pain syndrome: Code(s): G89.4 - Chronic pain syndrome Plan I will schedule this patient for diagnostic right sacroiliac joint injection. I will see him after the diagnostic SI joint injection. He never had physical therapy. I will schedule him for physical therapy. I explained to him that he needs to apply hard to home exercise program after physical therapy which is only a teaching session. He never had an x-ray of the lumbar spine. I will schedule him for x-ray of the lumbar spine. He would need to do it madeline. If the diagnostic sacroiliac joint injection would not help his pain I will schedule him for MRI of the lumbar spine. He was referred to my office for discussion of diabetic polyneuropathy however he chose to discuss his sciatica pain. Orders: Orders XR lumbar spine 4V min Today M47.816 - Spondylosis without myelopathy or radiculopathy, lumbar region, M54.31 - Sciatica, right side PT Evaluation and Treatment Today G89.29 - Other chronic pain, M46.1 - Sacroiliitis, not elsewhere classified, M47.816 - Spondylosis without myelopathy or radiculopathy, lumbar region, M53.3 - Sacrococcygeal disorders, not elsewhere classified, M54.31 - Sciatica, right side Patient Instructions: I here by testify that I spent 45 minutes in conversation with this patient as well as evaluating his prior records and planning his care and organizing his note. Coding Level of Care Code New Pt Level 4 (73684) Diagnoses Sciatica of right side M54.31 Spondylosis of lumbar region without myelopathy or radiculopathy M47.816 Sacroiliitis M46.1 Chronic right SI joint pain M53.3; G89.29 Chronic pain syndrome G89.4
[2023-07-17 09:00] VITALS: BP 134/76; PULSE 71; RESP 16; O2SAT 98; BMI 41.6
== END 2023-07-17 09:34 | disposition home or self-care (01) ==
PROVIDERS: PCP Physician Assistant; Referring Provider Physician Assistant; Visit Provider Anesthesiology
DX: M54.31 Sciatica, right side (principal); M47.816 Spondylosis without myelopathy or radiculopathy, lumbar region; M46.1 Sacroiliitis, not elsewhere classified; M53.3 Sacrococcygeal disorders, not elsewhere classified; G89.29 Other chronic pain; G89.4 Chronic pain syndrome
CPT/HCPCS: 99204

== ENCOUNTER → 2023-07-17 08:51 | Outpatient (BNVA) | payer OTHER, SELFPAY | PROVIDERS: PCP Physician Assistant; Referring Provider Physician Assistant; Visit Provider Anesthesiology | DX: M54.31 Sciatica, right side (principal); M47.816 Spondylosis without myelopathy or radiculopathy, lumbar region; M46.1 Sacroiliitis, not elsewhere classified; M53.3 Sacrococcygeal disorders, not elsewhere classified; G89.29 Other chronic pain | CPT/HCPCS: 99202 ==

== ENCOUNTER 2023-07-18 08:41 | Outpatient (REF) | payer OTHER, SELFPAY ==
--- NOTE | ~2023-07-18 | XR_ITS ---
EXAMINATION: XR LUMBOSACRAL SPINE WITH OBLIQUES CLINICAL INFORMATION: Low back pain, sciatica right side. COMPARISON: Thoracic spine 12/19/2022. TECHNIQUE: AP, both oblique, and lateral views of the lumbar spine. Lateral view of the lumbosacral junction. 5 views total. FINDINGS: Mild leftward curvature of the lumbar spine. Moderate degenerative changes in the bilateral sacroiliac joints. Degenerative changes on very limited views of the bilateral hips. Sclerotic focus overlying the left femoral head incompletely imaged, possibly related to a soft tissue calcification versus a bony lesion such as a bone island could be evaluated with dedicated views of the left hip. Straightening of the normal lumbar lordosis. Degenerative changes in the imaged lower thoracic spine. Facet arthritis in the lower lumbar spine. The bones are diffusely demineralized. Moderate multilevel lumbar spondylosis. Grade 1 retrolisthesis of L5 on S1 with hypertrophic change and loss of disc space height as well as possible spondylolysis. XR/XR lumbar spine 4V min IMPRESSION: 1. Moderate multilevel lumbar spondylosis. Grade 1 retrolisthesis of L5 on S1 with hypertrophic change and loss of disc space height as well as possible spondylolysis. 2. Facet arthritis in the lower lumbar spine. 3. Sclerotic focus overlying the left femoral head incompletely imaged, possibly related to a soft tissue calcification versus a bony lesion such as a bone island could be evaluated with dedicated views of the left hip.
== END 2023-07-18 08:42 | disposition home or self-care (01) ==
LOC: HO.XRAY 08:41
PROVIDERS: PCP Physician Assistant; Referring Provider Nurse Practitioner Family; Visit Provider Anesthesiology
DX: M54.31 Sciatica, right side (principal); M47.816 Spondylosis without myelopathy or radiculopathy, lumbar region
CPT/HCPCS: 72110

== ENCOUNTER → 2023-07-22 23:59 | Outpatient (BNV) | payer OTHER, SELFPAY ==
--- NOTE | 2023-07-23 11:59 | MHC.OFFVIS ---
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 Diabetes type 2, uncontrolled Asthma GERD (gastroesophageal reflux disease) History of cardiomyopathy FAIZAN (obstructive sleep apnea) Essential hypertension Type 2 diabetes mellitus with unspecified complications Chronic kidney disease, unspecified Persistent atrial fibrillation Neuropathy Surgical History History of surgery History of colonoscopy Presence of implantable cardioverter-defibrillator (ICD) Family History Father Cardiac disease Mother Cardiac disease Social History Housing: Apartment Are you a primary palliative care coordinator to a significant other at home: No Alcohol intake: former Patient Tobacco Use Status: Former Tobacco user Quit Date: Two months ago Tobacco use type: Cigarette e-Cigarette/Vaping Use: Never Used Second Hand Smoke Exposure: No service: No Current occupational status: disabled Cognitive needs: Yes (cane) Hearing needs: No Vision needs: Yes (glasses) Office Procedures Cardiac Device Check Cardiac Device Check Details: Date of service- 07/22/2023; based on impedance data and physiological variables, there is no evidence of worsening congestive heart failure. [id number] Cardiac Device Interrogation, cardio physiologic monitor Procedure code (CPT) selection complete Assessment & Plan Assessment & Plan (1) NICM (nonischemic cardiomyopathy): Code(s): I42.8 - Other cardiomyopathies Plan x Coding Level of Care Code Procedure Only Diagnoses NICM (nonischemic cardiomyopathy) I42.8 CPT Codes Cardiac Device Check - Cardiac Device 15: [id number] Cardiac Device Interrogation, cardio physiologic monitor ([id number])
== END ==
PROVIDERS: PCP Physician Assistant; Visit Provider Internal Medicine
DX: I42.8 Other cardiomyopathies (principal); Z95.810 Presence of automatic (implantable) cardiac defibrillator
CPT/HCPCS: 93297

== ENCOUNTER → 2023-07-22 23:59 | Outpatient (BNV) | payer OTHER, SELFPAY ==
--- NOTE | 2023-07-23 11:55 | MHC.OFFVIS ---
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 Diabetes type 2, uncontrolled Asthma GERD (gastroesophageal reflux disease) History of cardiomyopathy FAIZAN (obstructive sleep apnea) Essential hypertension Type 2 diabetes mellitus with unspecified complications Chronic kidney disease, unspecified Persistent atrial fibrillation Neuropathy Surgical History History of surgery History of colonoscopy Presence of implantable cardioverter-defibrillator (ICD) Family History Father Cardiac disease Mother Cardiac disease Social History Housing: Apartment Are you a primary personal care worker to a significant other at home: No Alcohol intake: former Patient Tobacco Use Status: Former Tobacco user Quit Date: Two months ago Tobacco use type: Cigarette e-Cigarette/Vaping Use: Never Used Second Hand Smoke Exposure: No service: No Current occupational status: disabled Cognitive needs: Yes (cane) Hearing needs: No Vision needs: Yes (glasses) Office Procedures Cardiac Device Check Cardiac Device Check Details: Date of service 07/22/2023; Battery life >9 years; normal lead parameters; no treated VT/VF; in atrial fibrillation; SHARE HOLDER 31%; normal ICD function. [id number] Cardiac Interrogation, implant defibrillator w/interim Procedure code (CPT) selection complete Assessment & Plan Assessment & Plan (1) NICM (nonischemic cardiomyopathy): Code(s): I42.8 - Other cardiomyopathies (2) Afib: Code(s): I48.91 - Unspecified atrial fibrillation Qualifiers: Atrial fibrillation type: longstanding persistent Qualified Code(s): I48.11 - Longstanding persistent atrial fibrillation Plan x Coding Level of Care Code Procedure Only Diagnoses NICM (nonischemic cardiomyopathy) I42.8 Longstanding persistent atrial fibrillation I48.11 Atrial fibrillation type: longstanding persistent CPT Codes Cardiac Device Check - Cardiac Device 13: [id number] Cardiac Interrogation, implant defibrillator w/interim ([id number])
== END ==
PROVIDERS: PCP Physician Assistant; Visit Provider Internal Medicine
DX: I48.11 Longstanding persistent atrial fibrillation (principal); Z95.810 Presence of automatic (implantable) cardiac defibrillator
CPT/HCPCS: 93295

== ENCOUNTER → 2023-08-22 23:59 | Outpatient (BNV) | payer OTHER, SELFPAY ==
--- NOTE | 2023-08-22 12:41 | A.OFFVIS_ITS ---
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 Diabetes type 2, uncontrolled Asthma GERD (gastroesophageal reflux disease) History of cardiomyopathy FAIZAN (obstructive sleep apnea) Essential hypertension Type 2 diabetes mellitus with unspecified complications Chronic kidney disease, unspecified Persistent atrial fibrillation Neuropathy Surgical History History of surgery History of colonoscopy Presence of implantable cardioverter-defibrillator (ICD) Family History Father Cardiac disease Mother Cardiac disease Social History Housing: Apartment Are you a primary progressive care manager to a significant other at home: No Alcohol intake: former Patient Tobacco Use Status: Former Tobacco user Quit Date: Two months ago Tobacco use type: Cigarette e-Cigarette/Vaping Use: Never Used Second Hand Smoke Exposure: No service: No Current occupational status: disabled Cognitive needs: Yes (cane) Hearing needs: No Vision needs: Yes (glasses) Office Procedures Cardiac Device Check Cardiac Device Check Details: Date of service- 08/22/2023; based on impedance data and physiological variables, there is no evidence of worsening congestive heart failure. [id number] Cardiac Device Interrogation, cardio physiologic monitor Procedure code (CPT) selection complete Assessment & Plan Assessment & Plan (1) NICM (nonischemic cardiomyopathy): Code(s): I42.8 - Other cardiomyopathies Plan x Coding Level of Care Code Procedure Only Diagnoses NICM (nonischemic cardiomyopathy) I42.8 CPT Codes Cardiac Device Check - Cardiac Device 15: [id number] Cardiac Device Interrogation, cardio physiologic monitor ([id number])
== END ==
PROVIDERS: PCP Physician Assistant; Visit Provider Internal Medicine
DX: I42.8 Other cardiomyopathies (principal)
CPT/HCPCS: 93297

== ENCOUNTER 2023-09-15 09:57 | Outpatient (AMB) | payer OTHER, SELFPAY ==
--- NOTE | 2023-09-15 10:05 | MHC.OFFVIS ---
"Intake Vital Signs 09/15/23 10:06 Height 5 ft 11 in Weight 302 lb 0.533 oz BMI 42.1 BP 110/64 Blood Pressure Location Lt brachial Position Sitting Pulse 67 Pulse Source Pulse Oximeter Pulse Oximetry (%) 99 Oxygen Delivery Method Room Air Intake Visit Reasons: aamir Intake Note: pt is here for follow up and states he is feeling good, using cpap Vmware Architect Required: No Allergies Penicillins [PENICILLINS] Allergy (Severe, Verified 09/15/23 10:10) RASH Medication List - Last Reconciled 09/15/23 by Paco Cagle MD acetaminophen ER (Tylenol Arthritis Pain) 650 mg PO Q8H 90 days albuterol sulfate 90 mcg/actuation (Ventolin HFA) 2 puffs inhalation Q6H PRN 30 days albuterol sulfate 2.5 mg (3 mL) inhalation Q4-6H PRN apixaban (Eliquis) 5 mg PO BID 90 days atorvastatin 10 mg PO DAILY blood-glucose meter ([employer] Ultra2 Meter kit) As directed cane As directed cholecalciferol (vitamin D3) 25 mcg PO DAILY clotrimazole 1% 1 appl topical BID 30 days compr.stocking,knee,long,x-lrg As directed cyclobenzaprine 5 mg PO Q8H PRN [Diabetic shoes & 3 pair inserts as directed] digoxin 125 mcg PO DAILY dulaglutide (Trulicity) 3 mg (0.5 mL) subcut QWEEK 30 days famotidine 20 mg PO DAILY furosemide (Lasix) 40 mg PO BID 90 days gabapentin 300 mg PO QAM gabapentin 600 mg PO BEDTIME 90 days insulin aspart U-100 10 units (0.1 mL) subcut TID 30 days insulin glargine U-300 conc (Toujeo Max U-300 SoloStar) 84 units (0.28 mL) subcut DAILY 30 days lancets (SL8Z | [employer] Delica Plus Lancet) test 3 times per day lidocaine 5% (Lidoderm) 1 patch topical DAILY PRN 30 days MDD remove after 12 hours loperamide 2 mg PO BID PRN metoprolol succinate ER 12.5 mg (1/2 x 25 mg) PO BID miscellaneous medical supply 2 ea miscellaneous DAILY miscellaneous medical supply 2 ea miscellaneous DAILY 90 days pen needle, diabetic (BD Ultra-Fine Mara Pen Needle) As directed tramadol 50 mg PO Q8H PRN 4 days Do you need a note to return to daycare/school/sports/work: No HPI aamir HPI Details THIS 57 YEARS OLD GENTLEMAN WITH MORBID OBESITY AND OBSTRUCTIVE SLEEP APNEA IS HERE FOR 6 MONTHS FOLLOW-UP. HE USES CPAP VERY REGULARLY EVERY NIGHT AND SLEEPS WELL. HE HAS NO ISSUES WITH THE CPAP USAGE. WEIGHT HAS NOT CHANGE, BECAUSE HE DOES NOT DO MUCH EXERCISE. BREATHING GOLDMAN HAS REMAINED VERY STABLE, HE USES ALBUTEROL ABOUT ONCE OR TWICE A WEEK AT THE MOST. BECAUSE HE DOES NOT WALK FAST SO HE HAS NO SHORTNESS OF BREATH ON EXERTION. [facility] Medical History Obesity, morbid, BMI 50 or higher Morbid obesity Obesity due to excess calories Screening for prostate cancer Diarrhea Tinea pedis of both feet Diabetic polyneuropathy associated with type 2 diabetes mellitus Morbid obesity Diabetic nephropathy associated with type 2 diabetes mellitus CKD stage 3 due to type 2 diabetes mellitus intermediate (current) use of insulin Diabetes type 2, uncontrolled Asthma GERD (gastroesophageal reflux disease) History of cardiomyopathy AAMIR (obstructive sleep apnea) Essential hypertension Type 2 diabetes mellitus with unspecified complications Chronic kidney disease, unspecified Persistent atrial fibrillation Neuropathy Surgical History History of surgery History of colonoscopy Presence of implantable cardioverter-defibrillator (ICD) Family History Father Cardiac disease Mother Cardiac disease Social History Housing: Apartment Are you a primary youth care professional to a significant other at home: No Alcohol intake: former Patient Tobacco Use Status: Former Tobacco user Quit Date: Two months ago Tobacco use type: Cigarette e-Cigarette/Vaping Use: Never Used Second Hand Smoke Exposure: No service: No Current occupational status: disabled Cognitive needs: Yes (cane) Hearing needs: No Vision needs: Yes (glasses) Review of Systems Const All systems reviewed & are unremarkable except as noted in HPI and below Eyes Reports no additional complaints ENT Reports no additional complaints Card Denies chest pain, Denies irregular heart rhythm and Denies leg edema Resp Denies cough and Denies wheezing GI Reports no additional complaints Reports no additional complaints Musc Reports back pain (mild) Skin/Breast Reports system reviewed and no additional complaints, except as documented Neuro Reports no additional complaints Aller/Immun Denies wheezing Physical Exam Const General: healthy appearing (Except for being overweight), comfortable, no acute distress, alert and awake Orientation/consciousness: patient oriented x3 HEENT Head: Yes normal to inspection General nose exam: No nasal polyps present and No nasal discharge present Face and sinus: Yes sinuses nontender Mouth: oropharynx normal Throat: Yes posterior oropharynx normal Eyes General: appearance normal, both eyes and all related structures Neck Neck: Yes normal visual inspection, Yes no lymphadenopathy, Yes trachea midline and Yes no JVD Thyroid: Thyroid normal Chest Chest palpation & inspection: normal inspection of the chest, normal palpation of entire chest wall and no tenderness Resp Effort & Inspection: normal respiratory effort Auscultation: clear to auscultation bilaterally, no rhonchi and no wheezes Cardio Palpation: normal PMI Rate: regular rate Rhythm: regular rhythm Heart sounds: no gallops and no murmurs Peripheral pulses: Peripheral pulses 2+ throughout GI Palpation (GI): Soft to palpation, Tenderness to palpation present (GI), No hepatosplenomegaly present and Palpable mass present Auscultation: normal bowel sounds Back/Spine/Pelvis Thoracic/Lumbar Spine: thoracic and lumbar spine normal to inspection Skin General skin exam: no rashes or lesions noted Neuro General: patient oriented x3 and no focal motor deficits Cranial nerves: Yes CN's II-XII intact bilaterally Extrem General: Yes normal to inspection, Yes no clubbing, cyanosis or edema and Yes no calf tenderness Psych Appearance: grossly normal and well kempt Speech and movement: Normal speech and movement present Results Reviewed Results Reviewed: COMPLIANCE REPORT FOR THE LAST 30 NIGHTS IS REVIEWED. HIS USAGE IS 30/30 NIGHTS,. 100% AVERAGE USE PER NIGHT 7 HOURS 7 MINUTES. .RESIDUAL AHI 1.7 THERE IS SOME AIR LEAK AND PATIENT IS ALERTED TO THAT. Assessment & Plan Assessment & Plan (1) Morbid obesity: Comment: Patient is a known case of morbid obesity. Talked about weight reduction. He has multiple problems including diabetes mellitus. He has had dietary instructions from the dietitian and is trying to adhere to reduced calories intake. Code(s): E66.01 - Morbid (severe) obesity due to excess calories Plan: ONCE AGAIN HAD A GOOD TALK ABOUT THE DIET AND NEED TO DO SOME EXERCISE. HOWEVER HE IS NOT ABLE TO DO MUCH WALKING OR EXERCISE BECAUSE OF HIS ONGOING CHRONIC BACK PAIN (2) AAMIR on CPAP: Comment: THIS GENTLEMAN IS A KNOWN CASE OF OBSTRUCTIVE SLEEP APNEA. IT IS WELL TREATED WITH THE USE OF CPAP, HE IS VERY COMPLIANT. Code(s): G47.33 - Obstructive sleep apnea (adult) (pediatric); Z99.89 - Dependence on other enabling machines and devices Plan: COMMENDED FOR GOOD COMPLIANCE. ADVISED TO TIGHTEN THE STRAPS TO AVOID MUCH AIR LEAK. ORDERED FOR NEW SUPPLIES. IS SENT (3) Asthma: Comment: History of mild intermittent bronchial asthma. However he denied any active symptoms at present. Code(s): J45.909 - Unspecified asthma, uncomplicated Plan: TX : He may use ProAir 2 puffs Q 4-6 hours p.r.n. Coding Level of Care Code Est Pt Level 3 (99404) Diagnoses Morbid obesity E66.01 AAMIR on CPAP G47.33; Z99.89 Asthma J45.909"
[2023-09-15 10:06] VITALS: BP 110/64; PULSE 67; O2SAT 99; BMI 42.1
== END 2023-09-15 10:16 | disposition home or self-care (01) ==
PROVIDERS: PCP Physician Assistant; Visit Provider Internal Medicine
DX: E66.01 Morbid (severe) obesity due to excess calories (principal); G47.33 Obstructive sleep apnea (adult) (pediatric); Z99.89 Dependence on other enabling machines and devices; J45.909 Unspecified asthma, uncomplicated
CPT/HCPCS: 99213

== ENCOUNTER → 2023-09-15 09:57 | Outpatient (BNVA) | payer OTHER, SELFPAY | PROVIDERS: PCP Physician Assistant; Visit Provider Internal Medicine | DX: J45.909 Unspecified asthma, uncomplicated (principal); G47.33 Obstructive sleep apnea (adult) (pediatric); E66.01 Morbid (severe) obesity due to excess calories; Z99.89 Dependence on other enabling machines and devices; Z68.41 Body mass index [BMI] 40.0-44.9, adult | CPT/HCPCS: 99212 ==

== ENCOUNTER → 2023-09-23 23:59 | Outpatient (BNV) | payer OTHER, SELFPAY ==
--- NOTE | 2023-09-28 12:29 | A.OFFVIS_ITS ---
Intake Visit Reasons: Remote HF monitoring- [employer] Allergies Penicillins [PENICILLINS] Allergy (Severe, Verified 09/15/23 10:10) RASH [facility] Medical History Obesity, morbid, BMI 50 or higher Morbid obesity Obesity due to excess calories Screening for prostate cancer Diarrhea Tinea pedis of both feet Diabetic polyneuropathy associated with type 2 diabetes mellitus Morbid obesity Diabetic nephropathy associated with type 2 diabetes mellitus CKD stage 3 due to type 2 diabetes mellitus skilled nursing (current) use of insulin Diabetes type 2, uncontrolled Asthma GERD (gastroesophageal reflux disease) History of cardiomyopathy FAIZAN (obstructive sleep apnea) Essential hypertension Type 2 diabetes mellitus with unspecified complications Chronic kidney disease, unspecified Persistent atrial fibrillation Neuropathy Surgical History History of surgery History of colonoscopy Presence of implantable cardioverter-defibrillator (ICD) Family History Father Cardiac disease Mother Cardiac disease Social History Housing: Apartment Are you a primary urgent care physician assistant to a significant other at home: No Alcohol intake: former Patient Tobacco Use Status: Former Tobacco user Quit Date: Two months ago Tobacco use type: Cigarette e-Cigarette/Vaping Use: Never Used Second Hand Smoke Exposure: No service: No Current occupational status: disabled Cognitive needs: Yes (cane) Hearing needs: No Vision needs: Yes (glasses) Office Procedures Cardiac Device Check Cardiac Device Check Details: Date of service- 09/23/2023; based on impedance data and physiological variables, there is no evidence of worsening congestive heart failure. [id number] Cardiac Device Interrogation, cardio physiologic monitor Procedure code (CPT) selection complete Assessment & Plan Assessment & Plan (1) NICM (nonischemic cardiomyopathy): Code(s): I42.8 - Other cardiomyopathies Category: Medical Plan x
== END ==
PROVIDERS: PCP Physician Assistant; Visit Provider Internal Medicine
DX: I42.8 Other cardiomyopathies (principal); Z95.810 Presence of automatic (implantable) cardiac defibrillator
CPT/HCPCS: 93297

== ENCOUNTER 2023-10-03 08:14 | Outpatient (REF) | payer OTHER, SELFPAY ==
[2023-10-03 09:24] LABS: Alanine Aminotransferase 19 U/L (0-40); Albumin Level 4.2 g/dL (3.5-5.0); Alkaline Phosphatase 89 U/L (39-117); Anion Gap 16 (12-20); Aspartate Amino Transferase 27 U/L (5-37); Bilirubin Total 1.4 mg/dL (0.0-1.0); Blood Urea Nitrogen 18 mg/dL (9-16); Calcium 9.4 mg/dL (8.4-10.2); Carbon Dioxide 27 mmol/L (22-29); Chloride 103 mmol/L (96-108); Cholesterol 115 mg/dL (<200); Estimated Glomerular Filt Rate > 60; Glucose Fasting 89 mg/dL (60-99); HDL Cholesterol 41 mg/dL (>40); LDL Cholesterol Calculated 62 mg/dL (<100); Potassium 4.7 mmol/L (3.3-5.1); Sodium 141 mmol/L (135-145); Total Protein 8.5 g/dL (6.5-8.0); Triglycerides 60 mg/dL (<150)
[2023-10-03 09:46] LABS: Prostate Specific Antigen Scr 1.22 ng/mL (<0.05-4.0)
[2023-10-03 10:07] LABS: Microalbum/Creatinine Ratio Ur 46.5 ug/mg cr (<30)
== END 2023-10-03 08:15 | disposition home or self-care (01) ==
LOC: HO.LAB 08:14
PROVIDERS: PCP Physician Assistant; Visit Provider Physician Assistant
DX: Z12.5 Encounter for screening for malignant neoplasm of prostate (principal); I42.8 Other cardiomyopathies; E11.65 Type 2 diabetes mellitus with hyperglycemia; Z79.4 Long term (current) use of insulin
CPT/HCPCS: 36415; 80053; 80061; 82043; 82570; 84153

== ENCOUNTER 2023-10-06 08:45 | Outpatient (AMB) | payer OTHER, SELFPAY ==
[2023-10-06 08:48] VITALS: BP 110/64; PULSE 63; O2SAT 96; BMI 41.1
--- NOTE | 2023-10-06 08:48 | A.OFFPC_ITS ---
Vital Signs 3 10/06/23 08:48 Height 5 ft 11 in Weight 295 lb BMI 41.1 BP 110/64 Blood Pressure Location Lt brachial Position Sitting Pulse 63 Pulse Source Pulse Oximeter Pulse Oximetry (%) 96 Oxygen Delivery Method Room Air Intake Visit Reasons: 3 month f/u Manager Banking Required: No Watch Manufacturing Supervisor: Not Required per policy Accompanied by: Self / Same As Patient Allergies Penicillins [PENICILLINS] Allergy (Severe, Verified 10/06/23 08:56) RASH Medication List - Last Reconciled 10/06/23 by Adan Reynaga PA-C acetaminophen ER (Tylenol Arthritis Pain) 650 mg PO Q8H 90 days albuterol sulfate 90 mcg/actuation (Ventolin HFA) 2 puffs inhalation Q6H PRN 30 days albuterol sulfate 2.5 mg (3 mL) inhalation Q4-6H PRN apixaban (Eliquis) 5 mg PO BID 90 days atorvastatin 10 mg PO DAILY blood-glucose meter ([employer] Ultra2 Meter kit) As directed cane As directed cholecalciferol (vitamin D3) 25 mcg PO DAILY clotrimazole 1% 1 appl topical BID 30 days compr.stocking,knee,long,x-lrg As directed cyclobenzaprine 5 mg PO Q8H PRN [Diabetic shoes & 3 pair inserts as directed] digoxin 125 mcg PO DAILY dulaglutide (Trulicity) 3 mg (0.5 mL) subcut QWEEK 30 days famotidine 20 mg PO DAILY furosemide (Lasix) 40 mg PO BID 90 days gabapentin 300 mg PO QAM gabapentin 600 mg PO BEDTIME 90 days insulin aspart U-100 10 units (0.1 mL) subcut TID 30 days insulin glargine U-300 conc (Toujeo Max U-300 SoloStar) 84 units (0.28 mL) subcut DAILY 30 days lancets ([employer] Delica Plus Lancet) test 3 times per day lidocaine 5% (Lidoderm) 1 patch topical DAILY PRN 30 days MDD remove after 12 hours loperamide 2 mg PO BID PRN metoprolol succinate ER 12.5 mg (1/2 x 25 mg) PO BID miscellaneous medical supply 2 ea miscellaneous DAILY miscellaneous medical supply 2 ea miscellaneous DAILY 90 days pen needle, diabetic (BD Ultra-Fine Mara Pen Needle) As directed tramadol 50 mg PO Q8H PRN 4 days Tobacco use date assessed: 07/03/23 Dental Screening Dental Screen Date: 07/03/23 HPI 3 month f/u 2 HPI0 Details Patient is a 57-year-old male here today for follow-up visit. .? 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 Patient has a past medical history significant for morbid obesity, hypertension, ICD implanted, AFIB, obstructive sleep apnea. .. CHRONIC MEDICAL CONDITIONS--> Obesity:? Has lost weight since last office visit. He reports he has been taking care of himself . ?Seeing a dietitian. ? . ? FAIZAN:? Currently using CPAP nightly with good effect.? He reports he is sleeping well at night and his Blood pressure are well controlled here in the office. . Hyperlipidemia: Patient continues on statin therapy without any side effect. Most recent lipid panel showing appropriate total cholesterol and LDL. ? .. ? DM2:? Has lost follow-up with endocrinology as his providers left practice..? Continues on Trulicity 3mg, Toujeo 84 units .?.? He reports his diet has been a bit better and eating late at night., Today's A1c elevated at 6.9 Continues to have bilateral lower extremity burning and tingling. He is interested in new pair of diabetic shoes. .. AFib:? Patient continues to be followed by Cardiology.??Continues on anticoagulation without any overt signs of bleeding. Patient has recently gotten pacemaker placed.? Denies any overt signs of bleeding or palpitations Laboratory Tests 10/04/22 03/28/23 04/02/23 07:51 09:36 11:50 Creatinine Fasting Glucose 120 H Hgb A1c (Clinic) 7.5 H Cholesterol PSA Screen 1.11 Urine Microalbumin 71.0 07/03/23 10/03/23 10/03/23 09:56 08:30 08:36 Creatinine 1.16 Fasting Glucose Hgb A1c (Clinic) 7.3 H Cholesterol 115 PSA Screen 1.22 Urine Microalbumin 116.0 [facility] Medical History (Updated 10/07/23 @ 07:21 by Adan Reynaga PA-C) PVD (peripheral vascular disease) Obesity, morbid, BMI 50 or higher Morbid obesity Obesity due to excess calories Screening for prostate cancer Diarrhea Tinea pedis of both feet Diabetic polyneuropathy associated with type 2 diabetes mellitus Diabetic nephropathy associated with type 2 diabetes mellitus CKD stage 3 due to type 2 diabetes mellitus Asthma GERD (gastroesophageal reflux disease) History of cardiomyopathy FAIZAN (obstructive sleep apnea) Essential hypertension Chronic kidney disease, unspecified Neuropathy Surgical History History of surgery History of colonoscopy Presence of implantable cardioverter-defibrillator (ICD) Family History Father Cardiac disease Mother Cardiac disease Social History Housing: Apartment Are you a primary adult care manager to a significant other at home: No Alcohol intake: former Patient Tobacco Use Status: Former Tobacco user Quit Date: Two months ago Tobacco use type: Cigarette e-Cigarette/Vaping Use: Never Used Second Hand Smoke Exposure: No service: No Current occupational status: disabled Cognitive needs: Yes (cane) Hearing needs: No Vision needs: Yes (glasses) Questionnaire Thrive Questionnaire Date Thrive assessed: 07/03/23 CAROLANN-7 AMB Questionnaire CAROLANN-7 Date CAROLANN - 7 assessed: 07/03/23 Source: Developed by Drs. Pedro Reid, Neeta Dorado, Jasper Bocanegra and colleagues, with an educational lonny from [employer]. Review of Systems Const Denies headache(s) Eyes Denies loss of vision ENT Denies vertigo, Denies dizziness, Denies headache(s) and Denies sore throat Card Denies chest pain, Denies leg edema and Denies lightheadedness Resp Denies cough, Denies hemoptysis and Denies wheezing GI Denies abdominal pain, Denies melena, Denies constipation, Denies diarrhea and Denies vomiting Denies dysuria, Denies urinary frequency and Denies urinary urgency Musc Denies arthralgias, Denies joint swelling, Denies numbness and Denies tingling Neuro Denies Abnormal speech present, Denies behavioral changes, Denies vertigo, Denies dizziness, Denies headache(s), Denies loss of vision, Denies memory loss, Denies numbness and Denies tingling Psych Denies anxiety, Denies behavioral changes, Denies depression, Denies memory loss and Denies panic attacks Basil/Lymph Denies easy bleeding and Denies easy bruising Aller/Immun Denies wheezing Physical exam (Primary Care) Vital Signs: Last Vital Signs Pulse 63 10/06/23 08:48 BP 110/64 10/06/23 08:48 Pulse Ox 96 10/06/23 08:48 Oxygen Delivery Method Room Air 10/06/23 08:48 BMI result Body Mass Index 41.1 Tobacco/Smoking Status: Tobacco use Status Tobacco use date assessed 07/03/23 10/06/23 08:50 Patient Tobacco Use Status Former Tobacco user 10/06/23 08:50 Tobacco use type Cigarette 10/06/23 08:50 e-Cigarette/Vaping Use Never Used 10/06/23 08:50 Thrive Assessment: Date of Thrive Assessment Date Thrive assessed 07/03/23 10/06/23 08:50 Const General: healthy appearing, no acute distress, alert and awake Nutritional Appearance: well nourished Orientation/consciousness: oriented to person, oriented to place and oriented to time HENMT Ears: TM's normal bilaterally General nose exam: Normal nasal mucous membranes and turbinates present Eyes Conjunctivae: conjunctivae normal Sclerae: sclerae normal Pupils: Equal, round and reactive pupils present Neck Neck: Yes no lymphadenopathy and Yes no JVD Thyroid: Thyroid normal Carotids: no bruits Resp Effort & Inspection: normal respiratory effort and not tachypneic Auscultation: no crackles, no rales, no rhonchi and no wheezes Cardio Rate: regular rate Rhythm: regular rhythm Heart sounds: no murmurs and normal S1 and S2 GI Palpation (GI): Soft to palpation, nontender, no hepatomegaly and no splenomegaly Auscultation: normal bowel sounds Skin General skin exam: no rashes or lesions noted and dry skin Neuro General: oriented to person, oriented to place and oriented to time Cranial nerves: Yes Equal, round and reactive pupils present Speech: No Abnormal speech present Gait exam (Neuro): Normal gait present Motor exam (neuro): no tremor noted Extrem Right upper extremity: full ROM Left upper extremity: full ROM Right lower extremity: full ROM; no edema Left lower extremity: full ROM; no edema Ankle/foot/toe images: 2 1. NO NOTABLE EDEMA OR SKIN BREAKDOWN OR ULCERATIONS. NO CALLUSES, GOOD SENSATION TO LIGHT TOUCH Psych Mental Status: mental status grossly normal Speech and movement: Normal speech and movement present Affect: normal affect Attitude: cooperative Thought process: Normal thought process present Results AMB Hemoglobin A1c 2 AMB Hemoglobin A1c 6.9 % Last Edit by RYAN Vincent on 10/06/23 09:16 Results Reviewed Results Reviewed: Laboratory Last Values Hgb A1c (Clinic) 6.9 % (4.0-6.0) H 10/06/23 09:05 Assessment and Plan Assessment & Plan (1) Type 2 diabetes mellitus with hyperglycemia: Code(s): E11.65 - Type 2 diabetes mellitus with hyperglycemia Qualifiers: Diabetes mellitus group home insulin use: with long term care administrator use Qualified Code(s): E11.65 - Type 2 diabetes mellitus with hyperglycemia; Z79.4 - terminal superintendent (current) use of insulin Plan: Patient's type 2 diabetes suboptimally controlled. A1c today is 6.9.. He does report some nighttime snacking. Will not make any adjustments in diabetic medication will continue working on diabetic dietary modifications . Goal A1c to be below 7.0 (2) Afib: Code(s): I48.91 - Unspecified atrial fibrillation Qualifiers: Atrial fibrillation type: longstanding persistent Qualified Code(s): I 48.11 - Longstanding persistent atrial fibrillation Plan: Patient continues to follow cardiology, has implantable D fib placed and has it checked regularly by his ab initio etl developer. Continues on anticoagulation without any overt signs of bleeding. He denies any chest discomfort, palpitations or dizziness. (3) FAIZAN on CPAP: Comment: THIS GENTLEMAN IS A KNOWN CASE OF OBSTRUCTIVE SLEEP APNEA. IT IS WELL TREATED WITH THE USE OF CPAP, HE IS VERY COMPLIANT. Code(s): G47.33 - Obstructive sleep apnea (adult) (pediatric); Z99.89 - Dependence on other enabling machines and devices Plan: Continues with CPAP on a nightly basis with good effect on his sleep. (4) HLD (hyperlipidemia): Code(s): E78.5 - Hyperlipidemia, unspecified Qualifiers: Hyperlipidemia type: mixed hyperlipidemia Qualified Code(s): E78.2 - Mixed hyperlipidemia Plan: Patient's most recent lipid panel showing acceptable total cholesterol and LDL. Goal LDL to be below 100. (5) Diabetic polyneuropathy associated with type 2 diabetes mellitus: Code(s): E11.42 - Type 2 diabetes mellitus with diabetic polyneuropathy Plan: He does report signs symptoms consistent with diabetic polyneuropathy. Will provide him new script for diabetic shoes. (6) NICM (nonischemic cardiomyopathy): Code(s): I42.8 - Other cardiomyopathies Plan: Patient continues follow-up with Cardiology. (7) CKD stage 3 due to type 2 diabetes mellitus: Code(s): E11.22 - Type 2 diabetes mellitus with diabetic chronic kidney disease; N18.30 - Chronic kidney disease, stage 3 unspecified Plan: Renal function is much improved since better control of his type 2 diabetes. Most recent GFR above 60. Will continue to controlled type 2 diabetes and stay away from any nephrotoxins. Orders: Orders 2 Comprehensive [place]. Panel Fast 3 Months E11.65 - Type 2 diabetes mellitus with hyperglycemia, Z79.4 - half-way (current) use of insulin Hemoglobin A1c 3 Months E11.65 - Type 2 diabetes mellitus with hyperglycemia, Z79.4 - terminal superintendent (current) use of insulin Complete Blood Count no Diff 3 Months E11.65 - Type 2 diabetes mellitus with hyperglycemia, Z79.4 - half-way (current) use of insulin AMB Hemoglobin A1c 10/06/23 E11.65 - Type 2 diabetes mellitus with hyperglycemia, Z79.4 - terminal superintendent (current) use of insulin Medications: New 2 blood-glucose sensor (FreeStyle Tigist 3 Sensor device) As directed 1 ea 6RF E11.65 - Type 2 diabetes mellitus with hyperglycemia, Z79.4 - terminal superintendent (current) use of insulin blood-glucose meter,continuous (FreeStyle Tigist 3 [place]) As directed 1 ea 0RF E11.65 - Type 2 diabetes mellitus with hyperglycemia, Z79.4 - half-way (current) use of insulin Refilled 2 insulin glargine U-300 conc (Toujeo Max U-300 SoloStar) 84 units (0.28 mL) subcut DAILY 30 days 8.4 mL 3RF E11.65 - Type 2 diabetes mellitus with hyperglycemia [Diabetic shoes & 3 pair inserts] as directed 1 ea 0RF E11.42 - Type 2 diabetes mellitus with diabetic polyneuropathy Patient Instructions: Goals: A1c to remain below 7.0 Barriers: Adherence to healthy eating habits and physical activity Coding Level of Care Code Est Pt Level 4 (47069) Diagnoses Type 2 diabetes mellitus with hyperglycemia, with long-term current use of insulin E11.65; Z79.4 Diabetes mellitus group home insulin use: with group home use Longstanding persistent atrial fibrillation I48.11 Atrial fibrillation type: longstanding persistent FAIZAN on CPAP G47.33; Z99.89 Mixed hyperlipidemia E78.2 Hyperlipidemia type: mixed hyperlipidemia Diabetic polyneuropathy associated with type 2 diabetes mellitus E11.42 NICM (nonischemic cardiomyopathy) I42.8 CKD stage 3 due to type 2 diabetes mellitus E11.22; N18.30
== END 2023-10-06 09:20 | disposition home or self-care (01) ==
PROVIDERS: PCP Physician Assistant; Visit Provider Physician Assistant
DX: E11.65 Type 2 diabetes mellitus with hyperglycemia (principal); Z79.4 Long term (current) use of insulin
CPT/HCPCS: 83036; 99214

== ENCOUNTER → 2023-10-25 23:59 | Outpatient (BNV) | payer OTHER, SELFPAY ==
--- NOTE | 2023-11-03 12:09 | MHC.OFFVIS ---
Intake Visit Reasons: Remote ICD check- [employer] Allergies Penicillins [PENICILLINS] Allergy (Severe, Verified 10/06/23 08:56) [facility] Medical History (Updated 10/07/23 @ 07:21 by Adan Reynaga PA-C) PVD (peripheral vascular disease) Obesity, morbid, BMI 50 or higher Morbid obesity Obesity due to excess calories Screening for prostate cancer Diarrhea Tinea pedis of both feet Diabetic polyneuropathy associated with type 2 diabetes mellitus Diabetic nephropathy associated with type 2 diabetes mellitus CKD stage 3 due to type 2 diabetes mellitus Asthma GERD (gastroesophageal reflux disease) History of cardiomyopathy FAIZAN (obstructive sleep apnea) Essential hypertension Chronic kidney disease, unspecified Neuropathy Surgical History History of surgery History of colonoscopy Presence of implantable cardioverter-defibrillator (ICD) Family History Father Cardiac disease Mother Cardiac disease Social History Housing: Apartment Are you a primary managed care liaison to a significant other at home: No Alcohol intake: former Patient Tobacco Use Status: Former Tobacco user Quit Date: Two months ago Tobacco use type: Cigarette e-Cigarette/Vaping Use: Never Used Second Hand Smoke Exposure: No service: No Current occupational status: disabled Cognitive needs: Yes (cane) Hearing needs: No Vision needs: Yes (glasses) Office Procedures Cardiac Device Check Cardiac Device Check Details: Date of service ; Battery life >8 years; normal lead parameters; no treated VT/VF; normal ICD function. [id number] Cardiac Interrogation, implant defibrillator w/interim Procedure code (CPT) selection complete Assessment & Plan Assessment & Plan (1) NICM (nonischemic cardiomyopathy): Code(s): I42.8 - Other cardiomyopathies Category: Medical Plan x Coding Level of Care Code Procedure Only Diagnoses NICM (nonischemic cardiomyopathy) I42.8 CPT Codes Cardiac Device Check - Cardiac Device 13: [id number] Cardiac Interrogation, implant defibrillator w/interim ([id number])
== END ==
PROVIDERS: PCP Physician Assistant; Visit Provider Internal Medicine
DX: I42.8 Other cardiomyopathies (principal); Z95.810 Presence of automatic (implantable) cardiac defibrillator
CPT/HCPCS: 93295

== ENCOUNTER → 2023-10-25 23:59 | Outpatient (BNV) | payer OTHER, SELFPAY ==
--- NOTE | 2023-11-03 12:08 | MHC.OFFVIS ---
Intake Visit Reasons: Remote HF monitoring- [employer] Allergies Penicillins [PENICILLINS] Allergy (Severe, Verified 10/06/23 08:56) [facility], [facility] Medical History (Updated 10/07/23 @ 07:21 by Adan Reynaga PA-C) PVD (peripheral vascular disease) Obesity, morbid, BMI 50 or higher Morbid obesity Obesity due to excess calories Screening for prostate cancer Diarrhea Tinea pedis of both feet Diabetic polyneuropathy associated with type 2 diabetes mellitus Diabetic nephropathy associated with type 2 diabetes mellitus CKD stage 3 due to type 2 diabetes mellitus Asthma GERD (gastroesophageal reflux disease) History of cardiomyopathy FAIZAN (obstructive sleep apnea) Essential hypertension Chronic kidney disease, unspecified Neuropathy Surgical History History of surgery History of colonoscopy Presence of implantable cardioverter-defibrillator (ICD) Family History Father Cardiac disease Mother Cardiac disease Social History Housing: Apartment Are you a primary medicare specialist to a significant other at home: No Alcohol intake: former Patient Tobacco Use Status: Former Tobacco user Quit Date: Two months ago Tobacco use type: Cigarette e-Cigarette/Vaping Use: Never Used Second Hand Smoke Exposure: No service: No Current occupational status: disabled Cognitive needs: Yes (cane) Hearing needs: No Vision needs: Yes (glasses) Office Procedures Cardiac Device Check Cardiac Device Check Details: Date of service- 10/25/2023; based on impedance data and physiological variables, there is no evidence of worsening congestive heart failure. [id number] Cardiac Device Interrogation, cardio physiologic monitor Procedure code (CPT) selection complete Assessment & Plan Assessment & Plan (1) NICM (nonischemic cardiomyopathy): Code(s): I42.8 - Other cardiomyopathies Category: Medical Plan x Coding Level of Care Code Procedure Only Diagnoses NICM (nonischemic cardiomyopathy) I42.8 CPT Codes Cardiac Device Check - Cardiac Device 15: [id number] Cardiac Device Interrogation, cardio physiologic monitor ([id number])
== END ==
PROVIDERS: PCP Physician Assistant; Visit Provider Internal Medicine
DX: I42.8 Other cardiomyopathies (principal); Z95.818 Presence of other cardiac implants and grafts
CPT/HCPCS: 93297

== ENCOUNTER 2023-11-04 11:02 | Outpatient (AMB) | payer OTHER, MEDICAID, SELFPAY ==
[2023-11-04 11:04] VITALS: BP 110/72; PULSE 71; O2SAT 97; BMI 41.3
--- NOTE | 2023-11-04 11:04 | HO.NEPHOV_ITS ---
Vital Signs 11/04/23 11:04 Height 5 ft 11 in Weight 296 lb BMI 41.3 BP 110/72 Blood Pressure Location Lt brachial Position Sitting Pulse 71 Pulse Source Pulse Oximeter Pulse Oximetry (%) 97 Oxygen Delivery Method Room Air Intake Visit Reasons: 6 mo f/u CKD/ Confirmed Workforce Planner Required: Yes Workforce Planner Name: Daniel [id number] Accompanied by: Spouse Allergies Penicillins [PENICILLINS] Allergy (Severe, Verified 11/04/23 11:07) RASH HPI Comments Details: Middle aged man with obesity and diabetes mellitus with CKD is here for follow- up. In 2021 serum creatinine was 1.27. Overall is doing well. No new complaints today. No shortness of breath no urinary symptoms. No edema. He is compliant with all his medications. Workforce Planner services was used [facility] Medical History (Updated 11/04/23 @ 11:12 by Demond Bansal MD) PVD (peripheral vascular disease) Obesity, morbid, BMI 50 or higher Morbid obesity Obesity due to excess calories Screening for prostate cancer Diarrhea Tinea pedis of both feet Diabetic polyneuropathy associated with type 2 diabetes mellitus Diabetic nephropathy associated with type 2 diabetes mellitus CKD stage 3 due to type 2 diabetes mellitus Asthma GERD (gastroesophageal reflux disease) History of cardiomyopathy FAIZAN (obstructive sleep apnea) Essential hypertension Chronic kidney disease, unspecified Neuropathy Surgical History History of surgery History of colonoscopy Presence of implantable cardioverter-defibrillator (ICD) Family History Father Cardiac disease Mother Cardiac disease Social History Housing: Apartment Are you a primary youth career specialist to a significant other at home: No Alcohol intake: former Patient Tobacco Use Status: Former Tobacco user Quit Date: Two months ago Tobacco use type: Cigarette e-Cigarette/Vaping Use: Never Used Second Hand Smoke Exposure: No service: No Current occupational status: disabled Cognitive needs: Yes (cane) Hearing needs: No Vision needs: Yes (glasses) Physical Exam Vital Signs: Last Vital Signs Pulse 71 11/04/23 11:04 BP 110/72 11/04/23 11:04 Pulse Ox 97 11/04/23 11:04 Oxygen Delivery Method Room Air 11/04/23 11:04 BMI result Body Mass Index 41.3 Const General: comfortable Nutritional Appearance: obese Orientation/consciousness: patient oriented x3 Eyes General: appearance normal, both eyes and all related structures Visual Regalado: normal visual regalado by confrontation Neck Neck: Yes supple and Yes no JVD Resp Effort & Inspection: normal respiratory effort and respiratory effort not decreased Auscultation: rhonchi Cardio Palpation: no palpable S3 and no palpable S4 Heart sounds: no rubs GI Inspection: Yes normal to inspection Palpation (GI): Soft to palpation Percussion: Yes normal to percussion Auscultation: normal bowel sounds General: Yes no CVA tenderness Back/Spine/Pelvis Back: no CVA tenderness Skin General skin exam: no petechiae and no purpura Neuro General: patient oriented x3 and no focal motor deficits Extrem General: No clubbing and No edema Results Reviewed Nephrology Results: Sodium 141 mmol/L (135-145) 10/03/23 Potassium 4.7 mmol/L (3.3-5.1) 10/03/23 Chloride 103 mmol/L (96-108) 10/03/23 Carbon Dioxide 27 mmol/L (22-29) 10/03/23 BUN 18 mg/dL (9-16) H 10/03/23 Creatinine 1.16 mg/dL (0.5-1.4) 10/03/23 Calcium 9.4 mg/dL (8.4-10.2) 10/03/23 Urine Creatinine 249.00 mg/dL 10/03/23 Assessment & Plan Assessment & Plan (1) Chronic kidney disease, unspecified: Code(s): N18.9 - Chronic kidney disease, unspecified Category: Medical (2) Obese: Code(s): E66.9 - Obesity, unspecified Category: Medical Qualifiers: Body mass index: BMI 40.0-44.9 Obesity classification: adult class 3 (BMI >= 40) Obesity type: due to excess calories Serious obesity comorbidity presence: with serious comorbidity Qualified Code(s): E66.01 - Morbid (severe) obesity due to excess calories; Z68.41 - Body mass index [BMI] 40.0-44.9, adult (3) Type 2 diabetes mellitus with hyperglycemia: Code(s): E11.65 - Type 2 diabetes mellitus with hyperglycemia Category: Medical Plan Middle-aged man with CKD in a setting obesity and diabetes mellitus. Back in 2021 he sustained SALEEM. Peak serum creatinine was 1.6. Recent serum creatinine 1.1. This is probably his baseline. He probably has mild CKD/stage II. Goal is to slow the progression of renal disease. Hemoglobin A1c should be maintained as an 7%. We discussed weight loss. Blood pressure be maintained less than 130/80. He should stay on low-sodium diet. We will continue to monitor urine protein excretion and maximize SIMBA inhibition Continue to avoid nephrotoxic agents including NSAIDs and hypotension. No changes were made She will follow along with the team Orders: Orders Basic Metabolic Panel 6 Months N18.9 - Chronic kidney disease, unspecified Total Protein Urine Random 6 Months N18.9 - Chronic kidney disease, unspecified Creatinine Urine 6 Months N18.9 - Chronic kidney disease, unspecified Coding Level of Care Code Est Pt Level 4 (45113) Diagnoses Chronic kidney disease, unspecified N18.9 Class 3 severe obesity due to excess calories with serious comorbidity and body mass index (BMI) of 40.0 to 44.9 in adult E66.01; Z68.41 Body mass index: BMI 40.0-44.9 Obesity classification: adult class 3 (BMI >= 40) Obesity type: due to excess calories Serious obesity comorbidity presence: with serious comorbidity Type 2 diabetes mellitus with hyperglycemia E11.65
== END 2023-11-04 11:19 | disposition home or self-care (01) ==
PROVIDERS: PCP Physician Assistant; Visit Provider Internal Medicine Hypertension Specialist
DX: N18.9 Chronic kidney disease, unspecified (principal); E66.01 Morbid (severe) obesity due to excess calories; Z68.41 Body mass index [BMI] 40.0-44.9, adult; E11.65 Type 2 diabetes mellitus with hyperglycemia
CPT/HCPCS: 99214

== ENCOUNTER → 2023-11-04 11:02 | Outpatient (BNVA) | payer OTHER, MEDICAID, SELFPAY | PROVIDERS: PCP Physician Assistant; Visit Provider Internal Medicine Hypertension Specialist | DX: E11.65 Type 2 diabetes mellitus with hyperglycemia (principal); E11.42 Type 2 diabetes mellitus with diabetic polyneuropathy; N18.9 Chronic kidney disease, unspecified; E11.21 Type 2 diabetes mellitus with diabetic nephropathy; E11.22 Type 2 diabetes mellitus with diabetic chronic kidney disease; I12.9 Hypertensive chronic kidney disease with stage 1 through stage 4 chronic kidney disease, or unspecified chronic kidney disease; N18.30 Chronic kidney disease, stage 3 unspecified; E66.01 Morbid (severe) obesity due to excess calories; Z68.41 Body mass index [BMI] 40.0-44.9, adult | CPT/HCPCS: 99212 ==

== ENCOUNTER → 2023-11-26 23:59 | Outpatient (BNV) | payer OTHER, MEDICAID, SELFPAY ==
--- NOTE | 2023-12-07 14:31 | A.OFFVIS_ITS ---
Intake Visit Reasons: Remote HF monitoring- [employer] Allergies Penicillins [PENICILLINS] Allergy (Severe, Verified 11/04/23 11:07) [facility] Medical History (Updated 11/04/23 @ 11:12 by Demond Bansal MD) PVD (peripheral vascular disease) Obesity, morbid, BMI 50 or higher Morbid obesity Obesity due to excess calories Screening for prostate cancer Diarrhea Tinea pedis of both feet Diabetic polyneuropathy associated with type 2 diabetes mellitus Diabetic nephropathy associated with type 2 diabetes mellitus CKD stage 3 due to type 2 diabetes mellitus Asthma GERD (gastroesophageal reflux disease) History of cardiomyopathy FAIZAN (obstructive sleep apnea) Essential hypertension Chronic kidney disease, unspecified Neuropathy Surgical History History of surgery History of colonoscopy Presence of implantable cardioverter-defibrillator (ICD) Family History Father Cardiac disease Mother Cardiac disease Social History Housing: Apartment Are you a primary medicare sales executive to a significant other at home: No Alcohol intake: former Patient Tobacco Use Status: Former Tobacco user Tobacco use type: Cigarette e-Cigarette/Vaping Use: Never Used Second Hand Smoke Exposure: No service: No Current occupational status: disabled Cognitive needs: Yes (cane) Hearing needs: No Vision needs: Yes (glasses) Office Procedures Cardiac Device Check Cardiac Device Check Details: Date of service- 11/26/2023; based on impedance data and physiological variables, there is no evidence of worsening congestive heart failure. [id number] Cardiac Device Interrogation, cardio physiologic monitor Procedure code (CPT) selection complete Assessment & Plan Assessment & Plan (1) NICM (nonischemic cardiomyopathy): Code(s): I42.8 - Other cardiomyopathies Category: Medical Plan x Coding Level of Care Code Procedure Only Diagnoses NICM (nonischemic cardiomyopathy) I42.8 CPT Codes Cardiac Device Check - Cardiac Device 15: [id number] Cardiac Device Interrogation, cardio physiologic monitor ([id number])
== END ==
PROVIDERS: PCP Physician Assistant; Visit Provider Internal Medicine
DX: I42.8 Other cardiomyopathies (principal); Z95.0 Presence of cardiac pacemaker
CPT/HCPCS: 93297

== ENCOUNTER 2023-12-15 12:43 | Outpatient (AMB) | payer OTHER, SELFPAY ==
[2023-12-15 12:53] VITALS: BP 108/66; PULSE 79; BMI 41.7
--- NOTE | 2023-12-15 12:53 | MHC.OFFVIS ---
Vital Signs 12/15/23 12:53 Height 5 ft 11 in Weight 298 lb 15.149 oz BMI 41.7 BP 108/66 Blood Pressure Location Lt brachial Position Sitting Pulse 79 Intake Visit Reasons: 1 year follow up Bagger And Stock Handler Helper Required: No Bagger And Stock Handler Helper Services: Bagger And Stock Handler Helper Present Bagger And Stock Handler Helper Name: Julissa/Spouse Accompanied by: Spouse Allergies Penicillins [PENICILLINS] Allergy (Severe, Verified 11/04/23 11:07) RASH Medication List - Last Reconciled 12/15/23 by Porfirio Engle MD acetaminophen ER (Tylenol Arthritis Pain) 650 mg PO Q8H 90 days albuterol sulfate 90 mcg/actuation (Ventolin HFA) 2 puffs inhalation Q6H PRN 30 days albuterol sulfate 2.5 mg (3 mL) inhalation Q4-6H PRN apixaban (Eliquis) 5 mg PO BID 90 days atorvastatin 10 mg PO DAILY blood-glucose meter (The Kernel Ultra2 Meter kit) As directed blood-glucose meter,continuous (FreeStyle Tigist 3 Whiteface) As directed blood-glucose sensor (FreeStyle Tigist 3 Sensor device) As directed cane As directed cholecalciferol (vitamin D3) 25 mcg PO DAILY clotrimazole 1% 1 appl topical BID 30 days compr.stocking,knee,long,x-lrg As directed cyclobenzaprine 5 mg PO Q8H PRN [Diabetic shoes & 3 pair inserts as directed] digoxin 125 mcg PO DAILY dulaglutide (Trulicity) 3 mg (0.5 mL) subcut QWEEK 30 days famotidine 40 mg PO BID PRN furosemide (Lasix) 40 mg PO BID 90 days gabapentin 300 mg PO QAM gabapentin 600 mg PO BEDTIME 90 days insulin aspart U-100 10 units (0.1 mL) subcut TID 30 days insulin glargine U-300 conc (Toujeo Max U-300 SoloStar) 84 units (0.28 mL) subcut DAILY 30 days lancets (Windsor Circleuch Delica Plus Lancet) test 3 times per day lidocaine 5% (Lidoderm) 1 patch topical DAILY PRN 30 days MDD remove after 12 hours loperamide 2 mg PO BID PRN metoprolol succinate ER 12.5 mg (1/2 x 25 mg) PO BID miscellaneous medical supply 2 ea miscellaneous DAILY miscellaneous medical supply 2 ea miscellaneous DAILY 90 days pen needle, diabetic (BD Ultra-Fine Mara Pen Needle) As directed tramadol 50 mg PO Q8H PRN 4 days HPI Comments Details: Dhaval returns for follow-up. He has a history of persistent atrial fibrillation. Also history of cardiomyopathy, but improved LVEF. Generally doing well. No complaints like angina or shortness of breath or in fact anything cardiac sounding. Seems to be getting along okay. Many comorbidities but overall stable[facility] History (Updated 11/04/23 @ 11:12 by Demond Bansal MD) PVD (peripheral vascular disease) Obesity, morbid, BMI 50 or higher Morbid obesity Obesity due to excess calories Screening for prostate cancer Diarrhea Tinea pedis of both feet Diabetic polyneuropathy associated with type 2 diabetes mellitus Diabetic nephropathy associated with type 2 diabetes mellitus CKD stage 3 due to type 2 diabetes mellitus Asthma GERD (gastroesophageal reflux disease) History of cardiomyopathy FAIZAN (obstructive sleep apnea) Essential hypertension Chronic kidney disease, unspecified Neuropathy Surgical History History of surgery History of colonoscopy Presence of implantable cardioverter-defibrillator (ICD) Family History Father Cardiac disease Mother Cardiac disease Social History Housing: Apartment Are you a primary assistant child care teacher to a significant other at home: No Alcohol intake: former Patient Tobacco Use Status: Former Tobacco user Tobacco use type: Cigarette e-Cigarette/Vaping Use: Never Used Second Hand Smoke Exposure: No service: No Current occupational status: disabled Cognitive needs: Yes (cane) Hearing needs: No Vision needs: Yes (glasses) Review of Systems Const All systems reviewed & are unremarkable except as noted in HPI and below Denies chills, Denies fatigue, Denies fever(s), Denies weight gain and Denies weight loss Eyes Reports as per HPI and Denies no additional complaints ENT Denies no additional complaints and Reports as per HPI Card Denies chest pain, Denies leg edema, Denies lightheadedness, Denies palpitations, Denies dyspnea on exertion and Denies orthopnea Resp Denies cough and Denies dyspnea on exertion GI Denies hematochezia and Denies change in stool character Reports no additional complaints and Reports as per HPI Musc Denies muscle weakness and Denies radiating pain into limb Skin/Breast Reports system reviewed and no additional complaints, except as documented Neuro Reports no additional complaints and Reports as per HPI Psych Reports no additional complaints and Reports as per HPI Endo Denies fatigue and Denies palpitations Basil/Lymph Reports no additional complaints and Reports as per HPI Aller/Immun Reports no additional complaints and Reports as per HPI Physical Exam Vital Signs: Last Vital Signs Pulse 79 12/15/23 12:53 BP 108/66 12/15/23 12:53 BMI result Body Mass Index 41.7 Const General: comfortable and no acute distress Orientation/consciousness: patient oriented x3 HEENT Other: Unremarkable Head: Yes normal to inspection Neck Neck: Yes normal visual inspection Chest Chest palpation & inspection: normal inspection of the chest Resp Auscultation: clear to auscultation bilaterally Cardio Palpation: normal PMI Heart sounds: S1 normal heart sound present, S2 normal heart sound present, no gallops, no murmurs and no rubs GI Palpation (GI): Soft to palpation Back/Spine/Pelvis Other: unremarkable Skin General skin exam: no rashes or lesions noted Neuro General: patient oriented x3 Extrem General: Yes normal to inspection Psych Mental Status: mental status grossly normal Office Procedures Cardiac Device Check Cardiac Device Check Details: ICD interrogated today. Single-chamber device. Battery life 8.8 years. Programmed VVI. Ventricular pacing 28.5%. No treated episodes. Time in atrial fibrillation 60% but suspect underestimation. Otherwise, overall normal device function. [id number] Cardiac Device Check, single lead implantable defibrillator Procedure code (CPT) selection complete EKG Details: EKG with atrial fibrillation at 79/Min; PVC versus aberrant conduction. [id number], Complete Assessment & Plan Assessment & Plan (1) Persistent atrial fibrillation: Code(s): I48.19 - Other persistent atrial fibrillation Category: Medical Plan: Failed cardioversion in spite of amiodarone loading. Hence on rate control with low-dose beta-blockers/digoxin. He also has lowish blood pressures and hence not on a higher dose of beta-ann. Check digoxin levels. Continue anticoagulation without changes. (2) NICM (nonischemic cardiomyopathy): Code(s): I42.8 - Other cardiomyopathies Category: Medical Plan: Cardiac catheterization with normal coronaries. In the most recent echocardiogram, LVEF 50-55%. Moderately increased right ventricular size. Mildly depressed function. (3) Hypotension arterial: Code(s): I95.9 - Hypotension, unspecified Category: Medical Plan: Stable. Off lisinopril. (4) Presence of implantable cardioverter-defibrillator (ICD): Code(s): Z95.810 - Presence of automatic (implantable) cardiac defibrillator Category: Surgical Plan: Follow remotely. Normal function. (5) FAIZAN on CPAP: Comment: THIS GENTLEMAN IS A KNOWN CASE OF OBSTRUCTIVE SLEEP APNEA. IT IS WELL TREATED WITH THE USE OF CPAP, HE IS VERY COMPLIANT. Code(s): G47.33 - Obstructive sleep apnea (adult) (pediatric); Z99.89 - Dependence on other enabling machines and devices Category: Medical Plan: Continue CPAP. Orders: Orders Digoxin Today I48.19 - Other persistent atrial fibrillation Coding Level of Care Code Est Pt Level 4 (66760) Diagnoses Persistent atrial fibrillation I48.19 NICM (nonischemic cardiomyopathy) I42.8 Hypotension arterial I95.9 Presence of implantable cardioverter-defibrillator (ICD) Z95.810 FAIZAN on CPAP G47.33; Z99.89 CPT Codes Cardiac Device Check - Cardiac Device 4: [id number] Cardiac Device Check, single lead implantable defibrillator ([id number]) EKG - CPT: 59916-Kxdrrvsniaguitfvp, Complete ([id number])
== END 2023-12-15 13:29 | disposition home or self-care (01) ==
PROVIDERS: PCP Physician Assistant; Visit Provider Internal Medicine
DX: I48.19 Other persistent atrial fibrillation (principal); I42.8 Other cardiomyopathies; I95.9 Hypotension, unspecified; Z95.810 Presence of automatic (implantable) cardiac defibrillator; G47.33 Obstructive sleep apnea (adult) (pediatric); Z99.89 Dependence on other enabling machines and devices
CPT/HCPCS: 93010; 93282; 99214

== ENCOUNTER → 2023-12-15 12:43 | Outpatient (BNVA) | payer OTHER, SELFPAY | PROVIDERS: PCP Physician Assistant; Visit Provider Internal Medicine | DX: I48.19 Other persistent atrial fibrillation (principal); I42.8 Other cardiomyopathies; I95.9 Hypotension, unspecified; G47.33 Obstructive sleep apnea (adult) (pediatric); Z79.01 Long term (current) use of anticoagulants; Z79.899 Other long term (current) drug therapy; Z99.89 Dependence on other enabling machines and devices; Z45.02 Encounter for adjustment and management of automatic implantable cardiac defibrillator | CPT/HCPCS: 93005; 99212 ==

== ENCOUNTER → 2023-12-29 23:59 | Outpatient (BNV) | payer OTHER, SELFPAY ==
--- NOTE | 2024-01-03 14:24 | MHC.OFFVIS ---
Intake Visit Reasons: Remote HF monitoring- [employer] Allergies Penicillins [PENICILLINS] Allergy (Severe, Verified 11/04/23 11:07) [facility] Medical History (Updated 11/04/23 @ 11:12 by Demond Bansal MD) PVD (peripheral vascular disease) Obesity, morbid, BMI 50 or higher Morbid obesity Obesity due to excess calories Screening for prostate cancer Diarrhea Tinea pedis of both feet Diabetic polyneuropathy associated with type 2 diabetes mellitus Diabetic nephropathy associated with type 2 diabetes mellitus CKD stage 3 due to type 2 diabetes mellitus Asthma GERD (gastroesophageal reflux disease) History of cardiomyopathy FAIZAN (obstructive sleep apnea) Essential hypertension Chronic kidney disease, unspecified Neuropathy Surgical History History of surgery History of colonoscopy Presence of implantable cardioverter-defibrillator (ICD) Family History Father Cardiac disease Mother Cardiac disease Social History Housing: Apartment Are you a primary interior plant caretaker to a significant other at home: No Alcohol intake: former Patient Tobacco Use Status: Former Tobacco user Tobacco use type: Cigarette e-Cigarette/Vaping Use: Never Used Second Hand Smoke Exposure: No service: No Current occupational status: disabled Cognitive needs: Yes (cane) Hearing needs: No Vision needs: Yes (glasses) Office Procedures Cardiac Device Check Cardiac Device Check Details: Date of service- 12/29/2023; based on impedance data and physiological variables, there is no evidence of worsening congestive heart failure. [id number] Cardiac Device Interrogation, cardio physiologic monitor Procedure code (CPT) selection complete Assessment & Plan Assessment & Plan (1) NICM (nonischemic cardiomyopathy): Code(s): I42.8 - Other cardiomyopathies Category: Medical Plan x Coding Level of Care Code Procedure Only Diagnoses NICM (nonischemic cardiomyopathy) I42.8 CPT Codes Cardiac Device Check - Cardiac Device 15: [id number] Cardiac Device Interrogation, cardio physiologic monitor ([id number])
== END ==
PROVIDERS: PCP Physician Assistant; Visit Provider Internal Medicine
DX: I42.8 Other cardiomyopathies (principal); Z95.0 Presence of cardiac pacemaker
CPT/HCPCS: 93297

== ENCOUNTER → 2024-01-30 23:59 | Outpatient (BNV) | payer OTHER, SELFPAY ==
--- NOTE | 2024-02-05 10:13 | A.OFFVIS_ITS ---
Intake Visit Reasons: Remote HF monitoring- [employer] Allergies Penicillins [PENICILLINS] Allergy (Severe, Verified 11/04/23 11:07) [facility] Medical History (Updated 11/04/23 @ 11:12 by Demond Bansal MD) PVD (peripheral vascular disease) Obesity, morbid, BMI 50 or higher Morbid obesity Obesity due to excess calories Screening for prostate cancer Diarrhea Tinea pedis of both feet Diabetic polyneuropathy associated with type 2 diabetes mellitus Diabetic nephropathy associated with type 2 diabetes mellitus CKD stage 3 due to type 2 diabetes mellitus Asthma GERD (gastroesophageal reflux disease) History of cardiomyopathy FAIZAN (obstructive sleep apnea) Essential hypertension Chronic kidney disease, unspecified Neuropathy Surgical History History of surgery History of colonoscopy Presence of implantable cardioverter-defibrillator (ICD) Family History Father Cardiac disease Mother Cardiac disease Social History Housing: Apartment Are you a primary critical care nurse to a significant other at home: No Alcohol intake: former Patient Tobacco Use Status: Former Tobacco user Tobacco use type: Cigarette e-Cigarette/Vaping Use: Never Used Second Hand Smoke Exposure: No service: No Current occupational status: disabled Cognitive needs: Yes (cane) Hearing needs: No Vision needs: Yes (glasses) Office Procedures Cardiac Device Check Cardiac Device Check Details: Date of service- 01/30/2024; based on impedance data and physiological variables, there is no evidence of worsening congestive heart failure. [id number] Cardiac Device Interrogation, cardio physiologic monitor Procedure code (CPT) selection complete Assessment & Plan Assessment & Plan (1) NICM (nonischemic cardiomyopathy): Code(s): I42.8 - Other cardiomyopathies Category: Medical Plan x Coding Level of Care Code Procedure Only Diagnoses NICM (nonischemic cardiomyopathy) I42.8 CPT Codes Cardiac Device Check - Cardiac Device 15: [id number] Cardiac Device Interrogation, cardio physiologic monitor ([id number])
== END ==
PROVIDERS: PCP Physician Assistant; Visit Provider Internal Medicine
DX: I42.8 Other cardiomyopathies (principal); Z95.810 Presence of automatic (implantable) cardiac defibrillator
CPT/HCPCS: 93297

== ENCOUNTER → 2024-01-30 23:59 | Outpatient (BNV) | payer OTHER, SELFPAY ==
--- NOTE | 2024-02-05 11:52 | MHC.OFFVIS ---
Intake Visit Reasons: Remote ICD monitoring- Medtronic Allergies Penicillins [PENICILLINS] Allergy (Severe, Verified 11/04/23 11:07) [facility] Medical History (Updated 11/04/23 @ 11:12 by Demond Bansal MD) PVD (peripheral vascular disease) Obesity, morbid, BMI 50 or higher Morbid obesity Obesity due to excess calories Screening for prostate cancer Diarrhea Tinea pedis of both feet Diabetic polyneuropathy associated with type 2 diabetes mellitus Diabetic nephropathy associated with type 2 diabetes mellitus CKD stage 3 due to type 2 diabetes mellitus Asthma GERD (gastroesophageal reflux disease) History of cardiomyopathy FAIZAN (obstructive sleep apnea) Essential hypertension Chronic kidney disease, unspecified Neuropathy Surgical History History of surgery History of colonoscopy Presence of implantable cardioverter-defibrillator (ICD) Family History Father Cardiac disease Mother Cardiac disease Social History Housing: Apartment Are you a primary early breastfeeding care specialist to a significant other at home: No Alcohol intake: former Patient Tobacco Use Status: Former Tobacco user Tobacco use type: Cigarette e-Cigarette/Vaping Use: Never Used Second Hand Smoke Exposure: No service: No Current occupational status: disabled Cognitive needs: Yes (cane) Hearing needs: No Vision needs: Yes (glasses) Office Procedures Cardiac Device Check Cardiac Device Check Details: Date of service 01/30/2024; Battery life >8 years; normal lead parameters; no treated VT/VF; some atrial fibrillation with rapid rate; ventricular pacing 36%; normal ICD function. [id number] Cardiac Interrogation, implant defibrillator w/interim Procedure code (CPT) selection complete Assessment & Plan Assessment & Plan (1) NICM (nonischemic cardiomyopathy): Code(s): I42.8 - Other cardiomyopathies Category: Medical Plan x Coding Level of Care Code Procedure Only Diagnoses NICM (nonischemic cardiomyopathy) I42.8 CPT Codes Cardiac Device Check - Cardiac Device 13: [id number] Cardiac Interrogation, implant defibrillator w/interim ([id number])
== END ==
PROVIDERS: PCP Physician Assistant; Visit Provider Internal Medicine
DX: I42.8 Other cardiomyopathies (principal); Z95.810 Presence of automatic (implantable) cardiac defibrillator
CPT/HCPCS: 93295

== ENCOUNTER 2024-02-06 08:20 | Outpatient (REF) | payer OTHER, SELFPAY ==
[2024-02-06 09:33] LABS: Estimated Average Glucose 163 mg/dL; Hemoglobin A1c % 7.3 % (<6.0)
[2024-02-06 09:35] LABS: Hematocrit 43.9 % (42.0-52.0); Hemoglobin 14.8 g/dl (14.0-18.0); Mean Corpuscular HGB Conc 33.7 g/dl (31.0-36.0); Mean Corpuscular Hemoglobin 30.7 pg (27.0-33.0); Mean Corpuscular Volume 91.1 fL (80.0-98.0); Mean Platelet Volume 10.2 fL (9.4-12.4); Platelet Count 283 X10*3/uL (160-400); Red Blood Count 4.82 X10*6/uL (4.60-5.80); Red Cell Distribution Width 13.1 % (11.0-16.0); White Blood Count 8.4 X10*3/uL (4.8-10.8)
[2024-02-06 09:53] LABS: Alanine Aminotransferase 18 U/L (0-40); Albumin Level 3.9 g/dL (3.5-5.0); Alkaline Phosphatase 92 U/L (39-117); Anion Gap 10 (12-20); Aspartate Amino Transferase 20 U/L (5-37); Bilirubin Total 1.1 mg/dL (0.0-1.0); Blood Urea Nitrogen 13 mg/dL (9-16); Calcium 9.1 mg/dL (8.4-10.2); Carbon Dioxide 27 mmol/L (22-29); Chloride 107 mmol/L (96-108); Estimated Glomerular Filt Rate > 60; Glucose Fasting 84 mg/dL (60-99); Potassium 3.6 mmol/L (3.3-5.1); Sodium 140 mmol/L (135-145); Total Protein 7.3 g/dL (6.5-8.0)
== END 2024-02-06 08:21 | disposition home or self-care (01) ==
LOC: HO.LAB 08:20
PROVIDERS: PCP Physician Assistant; Visit Provider Physician Assistant
DX: E11.65 Type 2 diabetes mellitus with hyperglycemia (principal); Z79.4 Long term (current) use of insulin
CPT/HCPCS: 36415; 80053; 83036; 85027

== ENCOUNTER 2024-02-10 09:18 | Outpatient (AMB) | payer OTHER, SELFPAY ==
--- NOTE | 2024-02-10 09:37 | A.OFFPC_ITS ---
Vital Signs 02/10/24 09:47 Height 5 ft 11 in Weight 297 lb BMI 41.4 BP 116/60 Blood Pressure Location Lt brachial Position Sitting Pulse 60 Pulse Source Pulse Oximeter Pulse Oximetry (%) 95 Oxygen Delivery Method Room Air Intake Visit Reasons: f/u DMII Intake Note: The patient is here for Type 2 Diabetes management and expresses concern about neuropathy pain and numbness in the lower extremities, which limits his ability to walk long distances. He is requesting further testing for potential blood clots. 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: No Accompanied by: Spouse Allergies Penicillins [PENICILLINS] Allergy (Severe, Verified 02/10/24 10:05) [facility] Medication List - Last Reconciled 02/10/24 by Adan Reynaga PA-C acetaminophen ER (Tylenol Arthritis Pain) 650 mg PO Q8H 90 days albuterol sulfate 90 mcg/actuation (Ventolin HFA) 2 puffs inhalation Q6H PRN 30 days albuterol sulfate 2.5 mg (3 mL) inhalation Q4-6H PRN apixaban (Eliquis) 5 mg PO BID 90 days atorvastatin 10 mg PO DAILY blood-glucose meter ([employer] Ultra2 Meter kit) As directed blood-glucose meter,continuous (FreeStyle Tigist 3 Aspers) As directed blood-glucose sensor (FreeStyle Tigist 3 Sensor device) As directed cane As directed cholecalciferol (vitamin D3) 25 mcg PO DAILY clotrimazole 1% 1 appl topical BID 30 days compr.stocking,knee,long,x-lrg As directed cyclobenzaprine 5 mg PO Q8H PRN [Diabetic shoes & 3 pair inserts as directed] digoxin 125 mcg PO DAILY famotidine 40 mg (2 x 20 mg) PO BID PRN furosemide (Lasix) 40 mg PO BID 90 days gabapentin 300 mg PO QAM gabapentin 600 mg PO BEDTIME 90 days insulin aspart U-100 10 units (0.1 mL) subcut TID 30 days insulin glargine U-300 conc (Toujeo Max U-300 SoloStar) 84 units (0.28 mL) subcut DAILY 30 days lancets ([employer] Delica Plus Lancet) test 3 times per day lidocaine 5% (Lidoderm) 1 patch topical DAILY PRN 30 days MDD remove after 12 hours loperamide 2 mg PO BID PRN metoprolol succinate ER 12.5 mg (1/2 x 25 mg) PO BID miscellaneous medical supply 2 ea miscellaneous DAILY miscellaneous medical supply 2 ea miscellaneous DAILY 90 days pen needle, diabetic (BD Ultra-Fine Mara Pen Needle) As directed tirzepatide (Mounjaro) 7.5 mg (0.5 mL) subcut QWEEK 4 weeks tramadol 50 mg PO Q8H PRN 4 days Tobacco use date assessed: 07/03/23 Dental Screening Dental Screen Date: 07/03/23 HPI f/u DMII HPI Details Patient is a 57-year-old male here today for follow-up visit. .? 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 Patient has a past medical history significant for morbid obesity, hypertension, ICD implanted, AFIB, obstructive sleep apnea. .. CHRONIC MEDICAL CONDITIONS--> ? . ? FAIZAN:? Currently using CPAP nightly with good effect.? He reports he is sleeping well at night and his Blood pressure are well controlled here in the office. . Hyperlipidemia: Patient continues on statin therapy without any side effect. Most recent lipid panel showing appropriate total cholesterol and LDL. ? .. ? DM2:? Has lost follow-up with endocrinology as his providers left practice, now has PCP managing his type 2 diabetes. His A1c has crept up to 7.3 from 6.9.. Continues on Trulicity 3mg, Toujeo 84 units .?.? He reports his diet has been a bit better and eating late at night., Today's A1c elevated at 6.9 Continues to have bilateral lower extremity burning and tingling. He is interested in further workup on his diabetic neuropathy. He is interested changing his GLP 1 to Ozempic for weight loss .. AFib:? Patient continues to be followed by Cardiology.??Continues on anticoagulation without any overt signs of bleeding. Patient has recently gotten pacemaker placed.? Denies any overt signs of bleeding or palpitations [facility] Medical History PVD (peripheral vascular disease) Obesity, morbid, BMI 50 or higher Morbid obesity Obesity due to excess calories Screening for prostate cancer Diarrhea Tinea pedis of both feet Diabetic polyneuropathy associated with type 2 diabetes mellitus Diabetic nephropathy associated with type 2 diabetes mellitus CKD stage 3 due to type 2 diabetes mellitus Asthma GERD (gastroesophageal reflux disease) History of cardiomyopathy FAIZAN (obstructive sleep apnea) Essential hypertension Chronic kidney disease, unspecified Neuropathy Surgical History History of surgery History of colonoscopy Presence of implantable cardioverter-defibrillator (ICD) Family History Father Cardiac disease Mother Cardiac disease Social History Housing: Apartment Are you a primary care aid to a significant other at home: No Alcohol intake: former Patient Tobacco Use Status: Former Tobacco user Tobacco use type: Cigarette e-Cigarette/Vaping Use: Never Used Second Hand Smoke Exposure: No service: No Current occupational status: disabled Cognitive needs: Yes (cane) Hearing needs: No Vision needs: Yes (glasses) Questionnaire Thrive Questionnaire Date Thrive assessed: 07/03/23 CAROLANN-7 AMB Questionnaire CAROLANN-7 Date CAROLANN - 7 assessed: 07/03/23 Source: Developed by Drs. Pedro Reid, Neeta Dorado, Jasper Bocanegra and colleagues, with an educational lonny from [employer]. Review of Systems Const Denies headache(s) Eyes Denies loss of vision ENT Denies vertigo, Denies dizziness, Denies headache(s) and Denies sore throat Card Denies chest pain, Denies leg edema and Denies lightheadedness Resp Denies cough, Denies hemoptysis and Denies wheezing GI Denies abdominal pain, Denies melena, Denies constipation, Denies diarrhea and Denies vomiting Denies dysuria, Denies urinary frequency and Denies urinary urgency Musc Denies arthralgias, Denies joint swelling, Denies numbness and Denies tingling Neuro Denies Abnormal speech present, Denies behavioral changes, Denies vertigo, Denies dizziness, Denies headache(s), Denies loss of vision, Denies memory loss, Denies numbness and Denies tingling Psych Denies anxiety, Denies behavioral changes, Denies depression, Denies memory loss and Denies panic attacks Basil/Lymph Denies easy bleeding and Denies easy bruising Aller/Immun Denies wheezing Physical exam (Primary Care) Vital Signs: Last Vital Signs Pulse 60 02/10/24 09:47 BP 116/60 02/10/24 09:47 Pulse Ox 95 02/10/24 09:47 Oxygen Delivery Method Room Air 02/10/24 09:47 BMI result Body Mass Index 41.4 Tobacco/Smoking Status: Tobacco use Status Tobacco use date assessed 07/03/23 02/10/24 09:37 Patient Tobacco Use Status Former Tobacco user 02/10/24 09:37 Tobacco use type Cigarette 02/10/24 09:37 e-Cigarette/Vaping Use Never Used 02/10/24 09:37 Thrive Assessment: Date of Thrive Assessment Date Thrive assessed 07/03/23 02/10/24 09:37 Const General: healthy appearing, no acute distress, alert and awake Nutritional Appearance: well nourished Orientation/consciousness: oriented to person, oriented to place and oriented to time HENMT Ears: TM's normal bilaterally General nose exam: Normal nasal mucous membranes and turbinates present Eyes Conjunctivae: conjunctivae normal Sclerae: sclerae normal Pupils: Equal, round and reactive pupils present Neck Neck: Yes no lymphadenopathy and Yes no JVD Thyroid: Thyroid normal Carotids: no bruits Resp Effort & Inspection: normal respiratory effort and not tachypneic Auscultation: no crackles, no rales, no rhonchi and no wheezes Cardio Rate: regular rate Rhythm: regular rhythm Heart sounds: no murmurs and normal S1 and S2 GI Palpation (GI): Soft to palpation, nontender, no hepatomegaly and no splenomegaly Auscultation: normal bowel sounds Skin General skin exam: no rashes or lesions noted and dry skin Neuro General: oriented to person, oriented to place and oriented to time Cranial nerves: Yes Equal, round and reactive pupils present Speech: No Abnormal speech present Gait exam (Neuro): Normal gait present Motor exam (neuro): no tremor noted Extrem Other: NOTED TRACE BILATERAL LOWER EXTREMITY EDEMA TO THE LEVEL OF MID TAVARES. DOES HAVE HYPERPIGMENTATION SKIN CHANGES Right upper extremity: full ROM Left upper extremity: full ROM Right lower extremity: full ROM and edema Left lower extremity: full ROM and edema Psych Mental Status: mental status grossly normal Speech and movement: Normal speech and movement present Affect: normal affect Attitude: cooperative Thought process: Normal thought process present Assessment and Plan Assessment & Plan (1) Type 2 diabetes mellitus with hyperglycemia: Code(s): E11.65 - Type 2 diabetes mellitus with hyperglycemia Qualifiers: Diabetes mellitus long chain beamer insulin use: with [facility] use Qualified Code(s): E11.65 - Type 2 diabetes mellitus with hyperglycemia; Z79.4 - 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 He is interested in changing his GLP 1 from Trulicity to Ozempic for added benefit of weight loss. Will not make any adjustments in insulin therapy will continue working on diabetic dietary modifications . Goal A1c to be below 7.0 (2) Afib: Code(s): I48.91 - Unspecified atrial fibrillation Qualifiers: Atrial fibrillation type: longstanding persistent Qualified Code(s): I48.11 - Longstanding persistent atrial fibrillation Plan: Patient continues to follow cardiology, has implantable D fib placed and has it checked regularly by his director cardiac. Continues on anticoagulation without any overt signs of bleeding. He denies any chest discomfort, palpitations or dizziness. (3) FAIZAN on CPAP: Comment: THIS GENTLEMAN IS A KNOWN CASE OF OBSTRUCTIVE SLEEP APNEA. IT IS WELL TREATED WITH THE USE OF CPAP, HE IS VERY COMPLIANT. Code(s): G47.33 - Obstructive sleep apnea (adult) (pediatric); Z99.89 - Dependence on other enabling machines and devices Plan: Continues with CPAP on a nightly basis with good effect on his sleep. (4) HLD (hyperlipidemia): Code(s): E78.5 - Hyperlipidemia, unspecified Qualifiers: Hyperlipidemia type: mixed hyperlipidemia Qualified Code(s): E78.2 - Mixed hyperlipidemia Plan: Patient's most recent lipid panel showing acceptable total cholesterol and LDL. Goal LDL to be below 100. (5) Diabetic polyneuropathy associated with type 2 diabetes mellitus: Code(s): E11.42 - Type 2 diabetes mellitus with diabetic polyneuropathy Plan: Continues to report symptoms consistent with diabetic polyneuropathy. Offered him referral to pain management for topical capsaicin treatments though declines at this time. He is interested in further workup such as ultrasound and EMG testing of his extremities. Will increase his gabapentin to 600 t.i.d. for better control of his neuropathic symptoms. (6) CKD stage 3 due to type 2 diabetes mellitus: Code(s): E11.22 - Type 2 diabetes mellitus with diabetic chronic kidney disease; N18.30 - Chronic kidney disease, stage 3 unspecified Plan: Renal function is much improved since better control of his type 2 diabetes. Most recent GFR above 60. Will continue to controlled type 2 diabetes and stay away from any nephrotoxins. (7) Vascular insufficiency of extremity: Code(s): I99.8 - Other disorder of circulatory system Plan: Patient does have intermittent swelling and bilateral lower extremities, does have skin changes such as hyperpigmentation in his lower extremities. Will send for bilateral lower extremity vascular ultrasound to evaluate for venous insufficiency. Orders: Orders US venous duplex LE BI 02/10/24 I99.8 - Other disorder of circulatory system NE electromyogram (EMG) 02/10/24 E11.21 - Type 2 diabetes mellitus with diabetic nephropathy Complete Blood Count no Diff 02/10/24 E11.65 - Type 2 diabetes mellitus with hyperglycemia Comprehensive [place]. Panel Fast 02/10/24 E11.65 - Type 2 diabetes mellitus with hyperglycemia Hemoglobin A1c 02/10/24 E11.65 - Type 2 diabetes mellitus with hyperglycemia Medications: New gabapentin 600 mg PO TID 90 tabs 3RF 30 days E11.21 - Type 2 diabetes mellitus with diabetic nephropathy semaglutide (Ozempic) 1 mg (0.75 mL) subcut QWEEK 3 mL 1RF 4 weeks E11.65 - Type 2 diabetes mellitus with hyperglycemia Discontinued gabapentin Discontinued Reason: Doctor's Order 300 mg PO QAM 90 caps 1RF gabapentin Discontinued Reason: Doctor's Order 600 mg PO BEDTIME 90 days 90 tabs 2RF G62.9 - Polyneuropathy, unspecified tirzepatide (Mounjaro) Discontinued Reason: Doctor's Order 7.5 mg (0.5 mL) subcut QWEEK 4 weeks 2 mL 2RF E11.65 - Type 2 diabetes mellitus with hyperglycemia Coding Level of Care Code Est Pt Level 4 (16384) Diagnoses Type 2 diabetes mellitus with hyperglycemia, with long-term current use of ins ulin E11.65; Z79.4 Diabetes mellitus [facility] insulin use: with [facility] use Longstanding persistent atrial fibrillation I48.11 Atrial fibrillation type: longstanding persistent FAIZAN on CPAP G47.33; Z99.89 Mixed hyperlipidemia E78.2 Hyperlipidemia type: mixed hyperlipidemia Diabetic polyneuropathy associated with type 2 diabetes mellitus E11.42 CKD stage 3 due to type 2 diabetes mellitus E11.22; N18.30 Vascular insufficiency of extremity I99.8
[2024-02-10 09:47] VITALS: BP 116/60; PULSE 60; O2SAT 95; BMI 41.4
== END 2024-02-10 10:28 | disposition home or self-care (01) ==
PROVIDERS: PCP Physician Assistant; Visit Provider Physician Assistant
DX: E11.65 Type 2 diabetes mellitus with hyperglycemia (principal); Z79.4 Long term (current) use of insulin; I48.11 Longstanding persistent atrial fibrillation; E11.42 Type 2 diabetes mellitus with diabetic polyneuropathy; E11.22 Type 2 diabetes mellitus with diabetic chronic kidney disease; N18.30 Chronic kidney disease, stage 3 unspecified; G47.33 Obstructive sleep apnea (adult) (pediatric); Z99.89 Dependence on other enabling machines and devices; E78.2 Mixed hyperlipidemia; I99.8 Other disorder of circulatory system
CPT/HCPCS: 99214

== ENCOUNTER 2024-02-16 10:12 | Outpatient (REF) | payer OTHER, SELFPAY ==
--- NOTE | ~2024-02-16 | US_ITS ---
EXAMINATION: US LOWER EXTREMITY VENOUS (REFLUX EXAM), BILATERAL CLINICAL INFORMATION: Chronic venous insufficiency with lower extremity swelling and hyperpigmentation COMPARISON: None. TECHNIQUE: Color flow triplex imaging and compression Doppler was performed to evaluate both the deep and the superficial systems bilaterally. To evaluate the superficial system, the examination was performed in the upright position. Color-flow Doppler ultrasound and compression ultrasound were utilized. In addition, maneuvers were utilized to demonstrate reflux. FINDINGS: 1. DEEP VENOUS ULTRASOUND OF THE RIGHT LOWER EXTREMITY: Common Femoral Vein: Compressible, normal respiratory variation and augmented flow. Femoral Vein: Compressible, normal color flow and augmentation. Popliteal Vein: Compressible, normal augmentation. Deep Reflux: There is no evidence of reflux in the deep system in either the common femoral vein, superficial femoral or the popliteal vein. There is no evidence of a Xiong's cyst. 2. SUPERFICIAL ULTRASOUND WITH DOPPLER OF RIGHT LOWER EXTREMITY: GREAT SAPHENOUS VEIN: Saphenofemoral Junction: 0.5 cm; Reflux: 0 ms Proximal Thigh: 0.4 cm; Reflux: 0 ms Mid Thigh: 0.1 cm; Reflux: 2884 ms Distal Thigh: 0.3 cm; Reflux: 0 ms At Knee: 0.2 cm; Reflux: 0 ms Proximal Calf: 0.2 cm; Reflux: 0 ms Mid Calf: 0.3 cm; Reflux: 0 ms Distal Calf: 0.4 cm; Reflux: 0 ms DUPLICATED MEDIAL GREAT SAPHENOUS VEIN: Diameter: None imaged Reflux: NA DUPLICATED LATERAL GREAT SAPHENOUS VEIN: Diameter: 0.2 cm Reflux: None SMALL SAPHENOUS VEIN: Saphenopopliteal Junction: 0.2 cm; Reflux: 0 ms Proximal: 0.2 cm; Reflux: 0 ms Distal: 0.3 cm; Reflux: 0 ms VEIN OF GIACOMINI: Size: NA Reflux: NA PERFORATORS: Location: Posterior calf into the small saphenous vein, medial thigh, medial calf Size: 0.2 to 0.4 cm Reflux: None VARICOSITIES: Location: Posterior calf of the small saphenous vein, proximal and distal thigh of the great saphenous vein Size: 0.3 cm Reflux: None 3. DEEP VENOUS ULTRASOUND OF THE LEFT LOWER EXTREMITY: Common Femoral Vein: Compressible, normal respiratory variation and augmented flow. Femoral Vein: Compressible, normal color flow and augmentation. Popliteal Vein: Compressible, normal augmentation. Deep Reflux: There is no evidence of reflux in the deep system in either the common femoral vein, superficial femoral or the popliteal vein. There is no evidence of a Xiong's cyst. 4. SUPERFICIAL ULTRASOUND WITH DOPPLER OF LEFT LOWER EXTREMITY: GREAT SAPHENOUS VEIN: Saphenofemoral Junction: 0.7 cm; Reflux: 0 ms Proximal Thigh: 0.3 cm; Reflux: 0 ms Mid Thigh: 0.2 cm; Reflux: 0 ms Distal Thigh: 0.1 cm; Reflux: 0 ms At Knee: 0.1 cm; Reflux: 0 ms Proximal Calf: 0.2 cm; Reflux: 2532 ms Mid Calf: 0.2 cm; Reflux: 2268 ms Distal Calf: 0.3 cm; Reflux: 836 ms DUPLICATED MEDIAL GREAT SAPHENOUS VEIN: Diameter: None imaged Reflux: NA DUPLICATED LATERAL GREAT SAPHENOUS VEIN: Diameter: 0.2 cm Reflux: None SMALL SAPHENOUS VEIN: Saphenopopliteal Junction: 0.2 cm; Reflux: 0 ms Proximal: 0.2 cm; Reflux: 0 ms Distal: 0.3 cm; Reflux: 0 ms VEIN OF GIACOMINI: Size: NA Reflux: NA PERFORATORS: Location: Mid calf Size: 0.3 cm Reflux: 2468 ms VARICOSITIES: Location: Medial mid thigh, medial calf Size: 0.2 to 0.4 cm Reflux: 2268 ms US/US venous duplex LE BI IMPRESSION: 1. Right: Focal reflux in the great saphenous vein in the mid thigh. Multiple perforators and varicosities as described above. 2. Left: Focal reflux in the great saphenous vein in the calf. Multiple perforators and varicosities as described above. Electronically signed by: Go Bridges MD 02/19/2024 01:33 PM EDT
== END 2024-02-16 10:13 | disposition home or self-care (01) ==
LOC: HO.US 10:12
PROVIDERS: PCP Physician Assistant; Visit Provider Physician Assistant
DX: I99.8 Other disorder of circulatory system (principal); I87.2 Venous insufficiency (chronic) (peripheral)
CPT/HCPCS: 93970

== ENCOUNTER 2024-02-17 08:55 | Outpatient (REF) | payer OTHER, SELFPAY ==
--- NOTE | 2024-02-17 08:58 | EMG_ITS ---
Bilateral tibial and peroneal motor studies were performed. Bilateral superficial peroneal, sural, and median and later plantar sensory studies were performed. Tibial H reflexes were obtained. Needle examination was performed. IMPRESSION: Mild to moderate, somewhat patchy sensory motor peripheral neuropathy. MD DEBRA Cruz/TIKA / [id number]
== END 2024-02-17 08:56 | disposition home or self-care (01) ==
LOC: HO.NEURO 08:55
PROVIDERS: PCP Physician Assistant; Visit Provider Physician Assistant
DX: E11.42 Type 2 diabetes mellitus with diabetic polyneuropathy (principal)
CPT/HCPCS: 95886; 95913

== ENCOUNTER → 2024-03-02 23:59 | Outpatient (BNV) | payer OTHER, SELFPAY ==
--- NOTE | 2024-03-07 12:48 | MHC.OFFVIS ---
Intake Visit Reasons: Remote HF monitoring- [employer] Allergies Penicillins [PENICILLINS] Allergy (Severe, Verified 02/10/24 10:05) [facility] Medical History PVD (peripheral vascular disease) Obesity, morbid, BMI 50 or higher Morbid obesity Obesity due to excess calories Screening for prostate cancer Diarrhea Tinea pedis of both feet Diabetic polyneuropathy associated with type 2 diabetes mellitus Diabetic nephropathy associated with type 2 diabetes mellitus CKD stage 3 due to type 2 diabetes mellitus Asthma GERD (gastroesophageal reflux disease) History of cardiomyopathy FAIZAN (obstructive sleep apnea) Essential hypertension Chronic kidney disease, unspecified Neuropathy Surgical History History of surgery History of colonoscopy Presence of implantable cardioverter-defibrillator (ICD) Family History Father Cardiac disease Mother Cardiac disease Social History Housing: Apartment Are you a primary medicare biller to a significant other at home: No Alcohol intake: former Patient Tobacco Use Status: Former Tobacco user Tobacco use type: Cigarette e-Cigarette/Vaping Use: Never Used Second Hand Smoke Exposure: No service: No Current occupational status: disabled Cognitive needs: Yes (cane) Hearing needs: No Vision needs: Yes (glasses) Office Procedures Cardiac Device Check Cardiac Device Check Details: Date of service- 03/02/2024; based on impedance data and physiological variables, there is possible OptiVol fluid accumulation from 03 February to 11 of February. [id number] Cardiac Device Interrogation, cardio physiologic monitor Procedure code (CPT) selection complete Assessment & Plan Assessment & Plan (1) ICD (implantable cardioverter-defibrillator) in place: Code(s): Z95.810 - Presence of automatic (implantable) cardiac defibrillator Category: Medical (2) NICM (nonischemic cardiomyopathy): Code(s): I42.8 - Other cardiomyopathies Category: Medical Plan x Coding Level of Care Code Procedure Only Diagnoses ICD (implantable cardioverter-defibrillator) in place Z95.810 NICM (nonischemic cardiomyopathy) I42.8 CPT Codes Cardiac Device Check - Cardiac Device 15: [id number] Cardiac Device Interrogation, cardio physiologic monitor ([id number])
== END ==
PROVIDERS: PCP Physician Assistant; Visit Provider Internal Medicine
DX: I42.8 Other cardiomyopathies (principal); Z95.810 Presence of automatic (implantable) cardiac defibrillator
CPT/HCPCS: 93297

== ENCOUNTER 2024-03-18 10:08 | Outpatient (AMB) | payer OTHER, SELFPAY ==
--- NOTE | 2024-03-18 10:13 | MHC.OFFVIS ---
Vital Signs 03/18/24 10:15 Height 5 ft 11 in Weight 284 lb 6.341 oz BMI 39.7 BP 110/60 Blood Pressure Location Lt brachial Position Sitting Pulse 63 Pulse Source Pulse Oximeter Pulse Oximetry (%) 98 Oxygen Delivery Method Room Air Intake Visit Reasons: Obstructive sleep apnea Intake Note: pt is here for faizan follow up Utility Division Project Manager Required: Yes Utility Division Project Manager Services: Utility Division Project Manager Present Utility Division Project Manager Name: / [id number] kristie Allergies Penicillins [PENICILLINS] Allergy (Severe, Verified 03/18/24 10:22) RASH Medication List - Last Reconciled 03/18/24 by Paco Cagle MD acetaminophen ER (Tylenol Arthritis Pain) 650 mg PO Q8H 90 days albuterol sulfate 90 mcg/actuation (Ventolin HFA) 2 puffs inhalation Q6H PRN 30 days albuterol sulfate 2.5 mg (3 mL) inhalation Q4-6H PRN apixaban (Eliquis) 5 mg PO BID 90 days atorvastatin 10 mg PO DAILY blood-glucose meter ([employer] Ultra2 Meter kit) As directed blood-glucose meter,continuous (iLinkStyle Tigist 3 [place]) As directed blood-glucose sensor (FreeStyle Tigist 3 Sensor device) As directed cane As directed cholecalciferol (vitamin D3) 25 mcg PO DAILY clotrimazole 1% 1 appl topical BID 30 days compr.stocking,knee,long,x-lrg As directed cyclobenzaprine 5 mg PO Q8H PRN [Diabetic shoes & 3 pair inserts as directed] digoxin 125 mcg PO DAILY famotidine 40 mg (2 x 20 mg) PO BID PRN furosemide (Lasix) 40 mg PO BID 90 days gabapentin 600 mg PO TID 30 days insulin aspart U-100 10 units (0.1 mL) subcut TID 30 days insulin glargine U-300 conc (Toujeo Max U-300 SoloStar) 84 units (0.28 mL) subcut DAILY 30 days lancets ([employer] Delica Plus Lancet) test 3 times per day lidocaine 5% (Lidoderm) 1 patch topical DAILY PRN 30 days MDD remove after 12 hours loperamide 2 mg PO BID PRN metoprolol succinate ER 12.5 mg (1/2 x 25 mg) PO BID miscellaneous medical supply 2 ea miscellaneous DAILY miscellaneous medical supply 2 ea miscellaneous DAILY 90 days pen needle, diabetic (BD Ultra-Fine Mara Pen Needle) As directed semaglutide (Ozempic) 1 mg (0.75 mL) subcut QWEEK 4 weeks tramadol 50 mg PO Q8H PRN 4 days Do you need a note to return to daycare/school/sports/work: No HPI HPI Obstructive sleep apnea: Details: This 57 years old Lao-speaking gentleman comes after 6 months for his routine follow-up. For his obstructive sleep apnea he uses CPAP regularly every night and sleeps well. CPAP device is working well he has some issue with the CPAP mask, and there is some air leak problem. Breathing has been very stable using albuterol nebulizer or the inhaler about once or twice a week. During the daytime he gets around without much shortness of breath. Weight is still unchanged but he has been started on Ozempic injections every week. [facility] Medical History PVD (peripheral vascular disease) Obesity, morbid, BMI 50 or higher Morbid obesity Obesity due to excess calories Screening for prostate cancer Diarrhea Tinea pedis of both feet Diabetic polyneuropathy associated with type 2 diabetes mellitus Diabetic nephropathy associated with type 2 diabetes mellitus CKD stage 3 due to type 2 diabetes mellitus Asthma GERD (gastroesophageal reflux disease) History of cardiomyopathy FAIZAN (obstructive sleep apnea) Essential hypertension Chronic kidney disease, unspecified Neuropathy Surgical History History of surgery History of colonoscopy Presence of implantable cardioverter-defibrillator (ICD) Family History Father Cardiac disease Mother Cardiac disease Social History Housing: Apartment Are you a primary child care team lead to a significant other at home: No Alcohol intake: former Patient Tobacco Use Status: Former Tobacco user Tobacco use type: Cigarette e-Cigarette/Vaping Use: Never Used Second Hand Smoke Exposure: No service: No Current occupational status: disabled Cognitive needs: Yes (cane) Hearing needs: No Vision needs: Yes (glasses) Review of Systems Const All systems reviewed & are unremarkable except as noted in HPI and below Eyes Reports no additional complaints ENT Reports no additional complaints Card Denies chest pain, Denies irregular heart rhythm and Denies leg edema Resp Denies cough and Denies wheezing GI Reports no additional complaints Reports no additional complaints Musc Reports back pain (mild) Skin/Breast Reports system reviewed and no additional complaints, except as documented Neuro Reports no additional complaints Aller/Immun Denies wheezing Physical Exam Vital Signs: Last Vital Signs Pulse 63 03/18/24 10:15 BP 110/60 03/18/24 10:15 Pulse Ox 98 03/18/24 10:15 Oxygen Delivery Method Room Air 03/18/24 10:15 BMI result Body Mass Index 39.7 Const General: healthy appearing (Except for being overweight), comfortable, no acute distress, alert and awake Orientation/consciousness: patient oriented x3 HEENT Head: Yes normal to inspection General nose exam: No nasal polyps present and No nasal discharge present Face and sinus: Yes sinuses nontender Mouth: oropharynx normal Throat: Yes posterior oropharynx normal Eyes General: appearance normal, both eyes and all related structures Neck Neck: Yes normal visual inspection, Yes no lymphadenopathy, Yes trachea midline and Yes no JVD Thyroid: Thyroid normal Chest Chest palpation & inspection: normal inspection of the chest, normal palpation of entire chest wall and no tenderness Resp Effort & Inspection: normal respiratory effort Auscultation: clear to auscultation bilaterally, no rhonchi and no wheezes Cardio Palpation: normal PMI Rate: regular rate Rhythm: regular rhythm Heart sounds: no gallops and no murmurs GI Palpation (GI): Soft to palpation, Tenderness to palpation present (GI), No hepatosplenomegaly present and Palpable mass present Auscultation: normal bowel sounds Back/Spine/Pelvis Thoracic/Lumbar Spine: thoracic and lumbar spine normal to inspection Skin General skin exam: no rashes or lesions noted Neuro General: patient oriented x3 and no focal motor deficits Cranial nerves: Yes CN's II-XII intact bilaterally Extrem General: Yes normal to inspection, Yes no clubbing, cyanosis or edema and Yes no calf tenderness Psych Appearance: grossly normal and well kempt Speech and movement: Normal speech and movement present Results Reviewed Results Reviewed: COMPLIANCE REPORT REVIEWED AND HE HAS USED 30/30 NIGHTS, 100%. AVERAGE USE IT PER NIGHT 6 HOURS 8 MINUTES. A FEW NIGHTS DURING THE MONTH HE USES ONLY FOR A FEW HOURS. THERE IS SOME AIR LEAK PROBLEM WITH MAXIMUM OF 108 L PER MINUTE, RESIDUAL AHI 2.1 Assessment & Plan Assessment & Plan (1) Morbid obesity: Comment: Patient is a known case of morbid obesity. Talked about weight reduction. He has multiple problems including diabetes mellitus. He has had dietary instructions from the dietitian and is trying to adhere to reduced calories intake. Currently he is on treatment with Ozempic injection 1 mg Q 1 week. Code(s): E66.01 - Morbid (severe) obesity due to excess calories Category: Medical Plan: Continue to watch diet and follow instructions by the dietitian (2) FAIZAN on CPAP: Comment: THIS GENTLEMAN IS A KNOWN CASE OF OBSTRUCTIVE SLEEP APNEA. IT IS WELL TREATED WITH THE USE OF CPAP, HE IS VERY COMPLIANT, and except for the worn out mask he has no issues with the machine. Code(s): G47.33 - Obstructive sleep apnea (adult) (pediatric); Z99.89 - Dependence on other enabling machines and devices Category: Medical Plan: Commended for good compliance and advised to continue using the CPAP every night. He should contact the DME supplier for the supplies and to get a new mask. Make sure that the straps are tight enough. (3) Asthma: Comment: History of mild intermittent bronchial asthma. However he denied any active symptoms at present. Code(s): J45.909 - Unspecified asthma, uncomplicated Category: Medical Plan: Use albuterol solution in the nebulizer when at home only p.r.n. and when outdoors he can use albuterol inhaler 2 puffs Q 6 hours p.r.n.. Coding Level of Care Code Est Pt Level 3 (78442) Diagnoses Morbid obesity E66.01 FAIZAN on CPAP G47.33; Z99.89 Asthma J45.909
[2024-03-18 10:15] VITALS: BP 110/60; PULSE 63; O2SAT 98; BMI 39.7
== END 2024-03-18 10:31 | disposition home or self-care (01) ==
PROVIDERS: PCP Physician Assistant; Visit Provider Internal Medicine
DX: E66.01 Morbid (severe) obesity due to excess calories (principal); G47.33 Obstructive sleep apnea (adult) (pediatric); Z99.89 Dependence on other enabling machines and devices; J45.909 Unspecified asthma, uncomplicated
CPT/HCPCS: 99213

== ENCOUNTER → 2024-03-18 10:08 | Outpatient (BNVA) | payer OTHER, SELFPAY | PROVIDERS: PCP Physician Assistant; Visit Provider Internal Medicine | DX: G47.33 Obstructive sleep apnea (adult) (pediatric) (principal); J45.909 Unspecified asthma, uncomplicated; E66.01 Morbid (severe) obesity due to excess calories; Z68.39 Body mass index [BMI] 39.0-39.9, adult; Z99.89 Dependence on other enabling machines and devices | CPT/HCPCS: 99212 ==

== ENCOUNTER → 2024-04-03 23:59 | Outpatient (BNV) | payer OTHER, SELFPAY ==
--- NOTE | 2024-04-18 10:36 | MHC.OFFVIS ---
Intake Visit Reasons: Remote HF monitoring- [employer] Allergies Penicillins [PENICILLINS] Allergy (Severe, Verified 03/18/24 10:22) RASH [facility] Medical History PVD (peripheral vascular disease) Obesity, morbid, BMI 50 or higher Morbid obesity Obesity due to excess calories Screening for prostate cancer Diarrhea Tinea pedis of both feet Diabetic polyneuropathy associated with type 2 diabetes mellitus Diabetic nephropathy associated with type 2 diabetes mellitus CKD stage 3 due to type 2 diabetes mellitus Asthma GERD (gastroesophageal reflux disease) History of cardiomyopathy FAIZAN (obstructive sleep apnea) Essential hypertension Chronic kidney disease, unspecified Neuropathy Surgical History History of surgery History of colonoscopy Presence of implantable cardioverter-defibrillator (ICD) Family History Father Cardiac disease Mother Cardiac disease Social History Housing: Apartment Are you a primary patient care manager to a significant other at home: No Alcohol intake: former Patient Tobacco Use Status: Former Tobacco user Tobacco use type: Cigarette e-Cigarette/Vaping Use: Never Used Second Hand Smoke Exposure: No service: No Current occupational status: disabled Cognitive needs: Yes (cane) Hearing needs: No Vision needs: Yes (glasses) Office Procedures Cardiac Device Check Cardiac Device Check Details: Date of service- 04/03/2024; based on impedance data and physiological variables, there is possible optivol fluid accumulation from Mar to . [id number] Cardiac Device Interrogation, cardio physiologic monitor Procedure code (CPT) selection complete Assessment & Plan Assessment & Plan (1) ICD (implantable cardioverter-defibrillator) in place: Code(s): Z95.810 - Presence of automatic (implantable) cardiac defibrillator Category: Medical (2) NICM (nonischemic cardiomyopathy): Code(s): I42.8 - Other cardiomyopathies Category: Medical Plan x Coding Level of Care Code Procedure Only Diagnoses ICD (implantable cardioverter-defibrillator) in place Z95.810 NICM (nonischemic cardiomyopathy) I42.8 CPT Codes Cardiac Device Check - Cardiac Device 15: [id number] Cardiac Device Interrogation, cardio physiologic monitor ([id number])
== END ==
PROVIDERS: PCP Physician Assistant; Visit Provider Internal Medicine
DX: I42.8 Other cardiomyopathies (principal); Z95.810 Presence of automatic (implantable) cardiac defibrillator
CPT/HCPCS: 93297

== ENCOUNTER 2024-05-05 09:43 | Outpatient (REF) | payer OTHER, SELFPAY ==
[2024-05-05 11:27] LABS: Anion Gap 14 (12-20); Blood Urea Nitrogen 14 mg/dL (9-16); Calcium 8.5 mg/dL (8.4-10.2); Carbon Dioxide 24 mmol/L (22-29); Chloride 108 mmol/L (96-108); Estimated Glomerular Filt Rate > 60; Glucose Random 122 mg/dL (60-115); Potassium 3.6 mmol/L (3.3-5.1); Sodium 142 mmol/L (135-145)
[2024-05-05 12:02] LABS: Creatinine Urine 122.05 mg/dL; Total Protein Urine Random 13 mg/dL (<12)
== END 2024-05-05 09:44 | disposition home or self-care (01) ==
LOC: HO.LAB 09:43
PROVIDERS: PCP Physician Assistant; Visit Provider Internal Medicine Hypertension Specialist
DX: N18.9 Chronic kidney disease, unspecified (principal)
CPT/HCPCS: 36415; 80048; 82570; 84156

== ENCOUNTER → 2024-05-05 23:59 | Outpatient (BNV) | payer OTHER, SELFPAY ==
--- NOTE | 2024-05-23 10:20 | A.OFFVIS_ITS ---
Intake Visit Reasons: Remote HF monitoring-Medtronic Allergies Penicillins [PENICILLINS] Allergy (Severe, Verified 05/11/24 10:38) [facility] Medical History (Updated 05/11/24 @ 11:07 by Adan Reynaga PA-C) PVD (peripheral vascular disease) Obesity, morbid, BMI 50 or higher Morbid obesity Obesity due to excess calories Screening for prostate cancer Diarrhea Tinea pedis of both feet Diabetic polyneuropathy associated with type 2 diabetes mellitus CKD stage 3 due to type 2 diabetes mellitus Asthma GERD (gastroesophageal reflux disease) History of cardiomyopathy FAIZAN (obstructive sleep apnea) Essential hypertension Chronic kidney disease, unspecified Neuropathy Surgical History History of surgery History of colonoscopy Presence of implantable cardioverter-defibrillator (ICD) Family History Father Cardiac disease Mother Cardiac disease Social History Housing: Apartment Are you a primary health care assistant to a significant other at home: No Alcohol intake: former Patient Tobacco Use Status: Former Tobacco user Tobacco use type: Cigarette e-Cigarette/Vaping Use: Never Used Second Hand Smoke Exposure: No service: No Current occupational status: disabled Cognitive needs: Yes (cane) Hearing needs: No Vision needs: Yes (glasses) Office Procedures Cardiac Device Check Cardiac Device Check Details: Date of service- 05/05/2024; based on impedance data and physiological variables, there [place] . [id number] Cardiac Device Interrogation, cardio physiologic monitor Procedure code (CPT) selection complete Assessment & Plan Assessment & Plan (1) ICD (implantable cardioverter-defibrillator) in place: Code(s): Z95.810 - Presence of automatic (implantable) cardiac defibrillator Category: Medical (2) NICM (nonischemic cardiomyopathy): Code(s): I42.8 - Other cardiomyopathies Category: Medical Plan x Coding Level of Care Code Procedure Only Diagnoses ICD (implantable cardioverter-defibrillator) in place Z95.810 NICM (nonischemic cardiomyopathy) I42.8 CPT Codes Cardiac Device Check - Cardiac Device 15: [id number] Cardiac Device Interrogation, cardio physiologic monitor ([id number])
== END ==
PROVIDERS: PCP Physician Assistant; Visit Provider Internal Medicine
DX: I42.8 Other cardiomyopathies (principal); Z95.810 Presence of automatic (implantable) cardiac defibrillator
CPT/HCPCS: 93297

== ENCOUNTER → 2024-05-05 23:59 | Outpatient (BNV) | payer OTHER, SELFPAY ==
--- NOTE | 2024-05-23 10:22 | MHC.OFFVIS ---
Intake Visit Reasons: Remote ICD monitoring- Medtronic Allergies Penicillins [PENICILLINS] Allergy (Severe, Verified 05/11/24 10:38) [facility] Medical History (Updated 05/11/24 @ 11:07 by Adan Reynaga PA-C) PVD (peripheral vascular disease) Obesity, morbid, BMI 50 or higher Morbid obesity Obesity due to excess calories Screening for prostate cancer Diarrhea Tinea pedis of both feet Diabetic polyneuropathy associated with type 2 diabetes mellitus CKD stage 3 due to type 2 diabetes mellitus Asthma GERD (gastroesophageal reflux disease) History of cardiomyopathy FAIZAN (obstructive sleep apnea) Essential hypertension Chronic kidney disease, unspecified Neuropathy Surgical History History of surgery History of colonoscopy Presence of implantable cardioverter-defibrillator (ICD) Family History Father Cardiac disease Mother Cardiac disease Social History Housing: Apartment Are you a primary personal care service provider to a significant other at home: No Alcohol intake: former Patient Tobacco Use Status: Former Tobacco user Tobacco use type: Cigarette e-Cigarette/Vaping Use: Never Used Second Hand Smoke Exposure: No service: No Current occupational status: disabled Cognitive needs: Yes (cane) Hearing needs: No Vision needs: Yes (glasses) Office Procedures Cardiac Device Check Cardiac Device Check Details: Date of service 05/05/2024; Battery life >8 years; normal lead parameters; no treated VT/VF; ; normal ICD function. [id number] Cardiac Interrogation, implant defibrillator w/interim Procedure code (CPT) selection complete Assessment & Plan Assessment & Plan (1) ICD (implantable cardioverter-defibrillator) in place: Code(s): Z95.810 - Presence of automatic (implantable) cardiac defibrillator Category: Medical (2) NICM (nonischemic cardiomyopathy): Code(s): I42.8 - Other cardiomyopathies Category: Medical Plan x Coding Level of Care Code Procedure Only Diagnoses ICD (implantable cardioverter-defibrillator) in place Z95.810 NICM (nonischemic cardiomyopathy) I42.8 CPT Codes Cardiac Device Check - Cardiac Device 13: [id number] Cardiac Interrogation, implant defibrillator w/interim ([id number])
== END ==
PROVIDERS: PCP Physician Assistant; Visit Provider Internal Medicine
DX: I42.8 Other cardiomyopathies (principal); Z95.810 Presence of automatic (implantable) cardiac defibrillator
CPT/HCPCS: 93295

== ENCOUNTER 2024-05-07 11:10 | Outpatient (REF) | payer OTHER, SELFPAY ==
[2024-05-07 12:05] LABS: Hematocrit 46.3 % (42.0-52.0); Mean Corpuscular HGB Conc 34.6 g/dl (31.0-36.0); Mean Corpuscular Hemoglobin 31.7 pg (27.0-33.0); Mean Corpuscular Volume 91.9 fL (80.0-98.0); Mean Platelet Volume 10.3 fL (9.4-12.4); Platelet Count 222 X10*3/uL (160-400); Red Blood Count 5.04 X10*6/uL (4.60-5.80); Red Cell Distribution Width 13.2 % (11.0-16.0); White Blood Count 7.2 X10*3/uL (4.8-10.8)
[2024-05-07 12:17] LABS: Estimated Average Glucose 154 mg/dL; Hemoglobin A1C 207.3823 umol/L; Total Hemoglobin (HGBA1C) 3944.1532 umol/L
[2024-05-07 12:28] LABS: Digoxin 0.3 ng/mL (0.8-2.0)
[2024-05-07 13:25] LABS: Alanine Aminotransferase 22 U/L (0-40); Albumin Level 3.9 g/dL (3.5-5.0); Alkaline Phosphatase 74 U/L (39-117); Anion Gap 18 (12-20); Aspartate Amino Transferase 25 U/L (5-37); Bilirubin Total 1.3 mg/dL (0.0-1.0); Blood Urea Nitrogen 14 mg/dL (9-16); Carbon Dioxide 22 mmol/L (22-29); Chloride 106 mmol/L (96-108); Estimated Glomerular Filt Rate > 60; Glucose Fasting 129 mg/dL (60-99); Potassium 3.8 mmol/L (3.3-5.1); Sodium 142 mmol/L (135-145); Total Protein 7.2 g/dL (6.5-8.0)
== END 2024-05-07 11:11 | disposition home or self-care (01) ==
LOC: HO.LAB 11:10
PROVIDERS: Internal Medicine; PCP Physician Assistant; Visit Provider Physician Assistant
DX: E11.65 Type 2 diabetes mellitus with hyperglycemia (principal); I48.19 Other persistent atrial fibrillation
CPT/HCPCS: 36415; 80053; 80162; 83036; 85027

== ENCOUNTER 2024-05-10 14:43 | Outpatient (AMB) | payer OTHER, MEDICAID, SELFPAY ==
[2024-05-10 14:46] VITALS: BP 110/64; PULSE 78; O2SAT 96; BMI 39.6
--- NOTE | 2024-05-10 14:46 | HO.NEPHOV ---
Vital Signs 05/10/24 14:46 Height 5 ft 11 in Weight 284 lb BMI 39.6 BP 110/64 Blood Pressure Location Lt brachial Position Sitting Pulse 78 Pulse Source Pulse Oximeter Pulse Oximetry (%) 96 Oxygen Delivery Method Room Air Intake Visit Reasons: 6 mon follow up/ Conf Strategic Marketing Specialist Required: Yes Strategic Marketing Specialist Services: Strategic Marketing Specialist Offered & Declined Accompanied by: Spouse Allergies Penicillins [PENICILLINS] Allergy (Severe, Verified 05/10/24 14:49) RASH Medication List - Last Reconciled 05/10/24 by Demond Bansal MD acetaminophen ER (Tylenol Arthritis Pain) 650 mg PO Q8H 90 days albuterol sulfate 90 mcg/actuation (Ventolin HFA) 2 puffs inhalation Q6H PRN 30 days albuterol sulfate 2.5 mg (3 mL) inhalation Q4-6H PRN apixaban (Eliquis) 5 mg PO BID 90 days atorvastatin 10 mg PO DAILY blood-glucose meter ([employer] Ultra2 Meter kit) As directed blood-glucose meter,continuous (FreeStyle Tigist 3 [place]) As directed blood-glucose sensor (FreeStyle Tigist 3 Sensor device) As directed cane As directed cholecalciferol (vitamin D3) 25 mcg PO DAILY clotrimazole 1% 1 appl topical BID 30 days compr.stocking,knee,long,x-lrg As directed cyclobenzaprine 5 mg PO Q8H PRN [Diabetic shoes & 3 pair inserts as directed] digoxin 125 mcg PO DAILY famotidine 40 mg (2 x 20 mg) PO BID PRN furosemide (Lasix) 40 mg PO BID 90 days gabapentin 600 mg PO TID 30 days insulin aspart U-100 10 units (0.1 mL) subcut TID 30 days insulin glargine U-300 conc (Toujeo Max U-300 SoloStar) 84 units (0.28 mL) subcut DAILY 30 days lancets ([employer] Delica Plus Lancet) test 3 times per day lidocaine 5% (Lidoderm) 1 patch topical DAILY PRN 30 days MDD remove after 12 hours loperamide 2 mg PO BID PRN metoprolol succinate ER 12.5 mg (1/2 x 25 mg) PO BID miscellaneous medical supply 2 ea miscellaneous DAILY miscellaneous medical supply 2 ea miscellaneous DAILY 90 days pen needle, diabetic (BD Ultra-Fine Mara Pen Needle) As directed semaglutide (Ozempic) 1 mg (0.75 mL) subcut QWEEK 4 weeks tramadol 50 mg PO Q8H PRN 4 days HPI Comments Details: Middle aged man with obesity and diabetes mellitus with CKD is here for follow-up. In 2021 serum creatinine was 1.27. Overall is doing well. No new complaints today. No shortness of breath no urinary symptoms. No edema. He is compliant with all his medications. Strategic Marketing Specialist services was used [facility] Medical History PVD (peripheral vascular disease) Obesity, morbid, BMI 50 or higher Morbid obesity Obesity due to excess calories Screening for prostate cancer Diarrhea Tinea pedis of both feet Diabetic polyneuropathy associated with type 2 diabetes mellitus Diabetic nephropathy associated with type 2 diabetes mellitus CKD stage 3 due to type 2 diabetes mellitus Asthma GERD (gastroesophageal reflux disease) History of cardiomyopathy FAIZAN (obstructive sleep apnea) Essential hypertension Chronic kidney disease, unspecified Neuropathy Surgical History History of surgery History of colonoscopy Presence of implantable cardioverter-defibrillator (ICD) Family History Father Cardiac disease Mother Cardiac disease Social History Housing: Apartment Are you a primary personal care service provider to a significant other at home: No Alcohol intake: former Patient Tobacco Use Status: Former Tobacco user Tobacco use type: Cigarette e-Cigarette/Vaping Use: Never Used Second Hand Smoke Exposure: No service: No Current occupational status: disabled Cognitive needs: Yes (cane) Hearing needs: No Vision needs: Yes (glasses) Physical Exam Vital Signs: Last Vital Signs Pulse 78 05/10/24 14:46 BP 110/64 05/10/24 14:46 Pulse Ox 96 05/10/24 14:46 Oxygen Delivery Method Room Air 05/10/24 14:46 BMI result Body Mass Index 39.6 Comfortable Neck supple no JVD. Lungs entry equal no rales. Heart S1-S2 heard no gallop or rub. Abdomen soft nontender. Neuro alert awake oriented. No asterixis. Extremities no edema. Results Reviewed Nephrology Results: Hgb 16.0 g/dl (14.0-18.0) 05/07/24 WBC 7.2 X10*3/uL (4.8-10.8) 05/07/24 Plt Count 222 X10*3/uL (160-400) 05/07/24 Sodium 142 mmol/L (135-145) 05/07/24 Potassium 3.8 mmol/L (3.3-5.1) 05/07/24 Chloride 106 mmol/L (96-108) 05/07/24 Carbon Dioxide 22 mmol/L (22-29) 05/07/24 BUN 14 mg/dL (9-16) 05/07/24 Creatinine 1.16 mg/dL (0.5-1.4) 05/07/24 Calcium 9.0 mg/dL (8.4-10.2) 05/07/24 Urine Creatinine 122.05 mg/dL 05/05/24 Assessment & Plan Assessment & Plan (1) Chronic kidney disease, unspecified: Code(s): N18.9 - Chronic kidney disease, unspecified Category: Medical (2) Obese: Code(s): E66.9 - Obesity, unspecified Category: Medical Qualifiers: Obesity type: due to excess calories Obesity classification: adult class 3 (BMI >= 40) Serious obesity comorbidity presence: with serious comorbidity Body mass index: BMI 40.0-44.9 Qualified Code(s): E66.01 - Morbid (severe) obesity due to excess calories; Z68.41 - Body mass index [BMI] 40.0-44.9, adult (3) Type 2 diabetes mellitus with hyperglycemia: Code(s): E11.65 - Type 2 diabetes mellitus with hyperglycemia Category: Medical Qualifiers: Diabetes mellitus shelter insulin use: with filler leaf cutter long use Qualified Code(s): E11.65 - Type 2 diabetes mellitus with hyperglycemia; Z79.4 - terminal supervisor (current) use of insulin Plan Middle-aged man with CKD in a setting obesity and diabetes mellitus. Back in 2021 he sustained SALEEM. Peak serum creatinine was 1.6. Recent serum creatinine 1.06. This is probably his baseline. He probably has mild CKD/stage II. Goal is to slow the progression of renal disease. Hemoglobin A1c should be maintained as an 7%. We discussed weight loss. Blood pressure be maintained less than 130/80. He should stay on low-sodium diet. We will continue to monitor urine protein excretion and maximize SIMBA inhibition Continue to avoid nephrotoxic agents including NSAIDs and hypotension. No changes were made . Orders: Orders Basic Metabolic Panel 6 Months N18.9 - Chronic kidney disease, unspecified Total Protein Urine Random 6 Months N18.9 - Chronic kidney disease, unspecified UA and rflx microscopic 6 Months N18.9 - Chronic kidney disease, unspecified Creatinine Urine 6 Months N18.9 - Chronic kidney disease, unspecified Coding Level of Care Code Est Pt Level 4 (72700) Diagnoses Chronic kidney disease, unspecified N18.9 Class 3 severe obesity due to excess calories with serious comorbidity and body mass index (BMI) of 40.0 to 44.9 in adult E66.01; Z68.41 Obesity type: due to excess calories Obesity classification: adult class 3 (BMI >= 40) Serious obesity comorbidity presence: with serious comorbidity Body mass index: BMI 40.0-44.9 Type 2 diabetes mellitus with hyperglycemia, with long-term current use of insulin E11.65; Z79.4 Diabetes mellitus shelter insulin use: with shelter use
== END 2024-05-10 14:59 | disposition home or self-care (01) ==
PROVIDERS: PCP Physician Assistant; Visit Provider Internal Medicine Hypertension Specialist
DX: E11.22 Type 2 diabetes mellitus with diabetic chronic kidney disease (principal); N18.2 Chronic kidney disease, stage 2 (mild); E66.01 Morbid (severe) obesity due to excess calories; Z68.41 Body mass index [BMI] 40.0-44.9, adult; Z79.4 Long term (current) use of insulin
CPT/HCPCS: 99214

== ENCOUNTER → 2024-05-10 14:43 | Outpatient (BNVA) | payer OTHER, MEDICAID, SELFPAY | PROVIDERS: PCP Physician Assistant; Visit Provider Internal Medicine Hypertension Specialist | DX: E66.01 Morbid (severe) obesity due to excess calories (principal); E11.22 Type 2 diabetes mellitus with diabetic chronic kidney disease; E11.65 Type 2 diabetes mellitus with hyperglycemia; N18.9 Chronic kidney disease, unspecified; Z79.4 Long term (current) use of insulin; Z68.41 Body mass index [BMI] 40.0-44.9, adult | CPT/HCPCS: 99212 ==

== ENCOUNTER 2024-05-11 10:25 | Outpatient (AMB) | payer OTHER, SELFPAY ==
--- NOTE | 2024-05-11 10:27 | A.OFFPC_ITS ---
Vital Signs 05/11/24 10:28 Height 5 ft 11 in Weight 283 lb 8 oz BMI 39.5 BP 122/70 Blood Pressure Location Lt brachial Position Sitting Pulse 65 Pulse Source Pulse Oximeter Pulse Oximetry (%) 95 Oxygen Delivery Method Room Air Intake Visit Reasons: 3 mth f/u Programming Coordinator Required: No Accompanied by: Spouse Allergies Penicillins [PENICILLINS] Allergy (Severe, Verified 05/11/24 10:38) [facility] Medication List - Last Reconciled 05/11/24 by Adan Reynaga PA-C acetaminophen ER (Tylenol Arthritis Pain) 650 mg PO Q8H 90 days albuterol sulfate 90 mcg/actuation (Ventolin HFA) 2 puffs inhalation Q6H PRN 30 days albuterol sulfate 2.5 mg (3 mL) inhalation Q4-6H PRN apixaban (Eliquis) 5 mg PO BID 90 days atorvastatin 10 mg PO DAILY blood sugar diagnostic (i-nexus Ultra Test strips) Test glucose level TID blood-glucose meter (i-nexus Ultra2 Meter kit) As directed blood-glucose meter,continuous (CosmEthicsStyle Tigist 3 [place]) As directed blood-glucose sensor (FreeStyle Tigist 3 Sensor device) As directed cane As directed cholecalciferol (vitamin D3) 25 mcg PO DAILY clotrimazole 1% 1 appl topical BID 30 days compr.stocking,knee,long,x-lrg As directed cyclobenzaprine 5 mg PO Q8H PRN [Diabetic shoes & 3 pair inserts as directed] digoxin 125 mcg PO DAILY famotidine 40 mg (2 x 20 mg) PO BID PRN furosemide (Lasix) 40 mg PO BID 90 days gabapentin 600 mg PO TID 30 days insulin aspart U-100 10 units (0.1 mL) subcut TID 30 days insulin glargine U-300 conc (Toujeo Max U-300 SoloStar) 84 units (0.28 mL) subcut DAILY 30 days lancets (Vaultus Mobileuch Delica Plus Lancet) test 3 times per day lidocaine 5% (Lidoderm) 1 patch topical DAILY PRN 30 days MDD remove after 12 hours loperamide 2 mg PO BID PRN metoprolol succinate ER 12.5 mg (1/2 x 25 mg) PO BID miscellaneous medical supply 2 ea miscellaneous DAILY miscellaneous medical supply 2 ea miscellaneous DAILY 90 days pen needle, diabetic (BD Ultra-Fine Mara Pen Needle) As directed semaglutide (Ozempic) 1 mg (0.75 mL) subcut QWEEK 4 weeks tramadol 50 mg PO Q8H PRN 4 days Tobacco use date assessed: 07/03/23 Dental Screening Dental Screen Date: 07/03/23 HPI 3 mth f/u HPI Details Patient is a 57-year-old male here today for follow-up visit. .? Patient is Guinean-speaking only used an remote medical interpreter. Patient has a past medical history significant for morbid obesity, hypertension, ICD implanted, AFIB, obstructive sleep apnea. .. CHRONIC MEDICAL CONDITIONS--> ? . ? FAIZAN:? Currently using CPAP nightly with good effect.? He reports he is sleeping well at night and his Blood pressure are well controlled here in the office. . Hyperlipidemia: Patient continues on statin therapy without any side effect. Most recent lipid panel showing appropriate total cholesterol and LDL. ? .. ? DM2:? Has lost follow-up with endocrinology as his providers left practice, now has PCP managing his type 2 diabetes. Most recent A1c acceptable 7.0. Continues on Ozempic 1 mg, Toujeo 84 units .?.? He reports his diet has been a bit better and eating late at night., Today's A1c acceptable at 6.9. He does continue to wear lower extremity compression socks. .. AFib:? Patient continues to be followed by Cardiology.??Continues on anticoagulation without any overt signs of bleeding. Patient has recently gotten pacemaker placed and is interrogated quite often thought any cardiac events. ? Denies any overt signs of bleeding or palpitations. Laboratory Tests 10/03/23 10/06/23 02/06/24 08:36 09:05 08:40 RBC 4.82 Hgb 14.8 Creatinine 1.04 Hgb A1c (Clinic) 6.9 H Hemoglobin A1c % 7.3 H LDL Cholesterol, C alc 62 Digoxin 05/07/24 11:26 RBC 5.04 Hgb Creatinine Hgb A1c (Clinic) Hemoglobin A1c % 7.0 H LDL Cholesterol, C alc Digoxin 0.3 L [facility] Medical History (Updated 05/11/24 @ 11:07 by Adan Reynaga PA-C) PVD (peripheral vascular disease) Obesity, morbid, BMI 50 or higher Morbid obesity Obesity due to excess calories Screening for prostate cancer Diarrhea Tinea pedis of both feet Diabetic polyneuropathy associated with type 2 diabetes mellitus CKD stage 3 due to type 2 diabetes mellitus Asthma GERD (gastroesophageal reflux disease) History of cardiomyopathy FAIZAN (obstructive sleep apnea) Essential hypertension Chronic kidney disease, unspecified Neuropathy Surgical History History of surgery History of colonoscopy Presence of implantable cardioverter-defibrillator (ICD) Family History Father Cardiac disease Mother Cardiac disease Social History Housing: Apartment Are you a primary daycare teacher to a significant other at home: No Alcohol intake: former Patient Tobacco Use Status: Former Tobacco user Tobacco use type: Cigarette e-Cigarette/Vaping Use: Never Used Second Hand Smoke Exposure: No service: No Current occupational status: disabled Cognitive needs: Yes (cane) Hearing needs: No Vision needs: Yes (glasses) Questionnaire Thrive Questionnaire Date Thrive assessed: 07/03/23 AUDIT C Alcohol Use Questionnaire (AUDIT-C) 3. How often do you have six or more drinks on one occasion?: Never Total Score: 0 CAROLANN-7 AMB Questionnaire CAROLANN-7 Date CAROLANN - 7 assessed: 07/03/23 Source: Developed by Drs. Pedro Reid, Neeta Dorado, Jasper Bocanegra and colleagues, with an educational lonny from [employer]. Review of Systems Const Denies headache(s) Eyes Denies loss of vision ENT Denies vertigo, Denies dizziness, Denies headache(s) and Denies sore throat Card Denies chest pain, Denies leg edema and Denies lightheadedness Resp Denies cough, Denies hemoptysis and Denies wheezing GI Denies abdominal pain, Denies melena, Denies constipation, Denies diarrhea and Denies vomiting Denies dysuria, Denies urinary frequency and Denies urinary urgency Musc Denies arthralgias, Denies joint swelling, Denies numbness and Denies tingling Neuro Denies Abnormal speech present, Denies behavioral changes, Denies vertigo, Denies dizziness, Denies headache(s), Denies loss of vision, Denies memory loss, Denies numbness and Denies tingling Psych Denies anxiety, Denies behavioral changes, Denies depression, Denies memory loss and Denies panic attacks Basil/Lymph Denies easy bleeding and Denies easy bruising Aller/Immun Denies wheezing Physical exam (Primary Care) Vital Signs: Last Vital Signs Pulse 65 05/11/24 10:28 BP 122/70 05/11/24 10:28 Pulse Ox 95 05/11/24 10:28 Oxygen Delivery Method Room Air 05/11/24 10:28 BMI result Body Mass Index 39.5 Tobacco/Smoking Status: Tobacco use Status Tobacco use date assessed 07/03/23 05/11/24 10:28 Patient Tobacco Use Status Former Tobacco user 05/11/24 10:28 Tobacco use type Cigarette 05/11/24 10:28 e-Cigarette/Vaping Use Never Used 05/11/24 10:28 Thrive Assessment: Date of Thrive Assessment Date Thrive assessed 07/03/23 05/11/24 10:28 Const General: healthy appearing, no acute distress, alert and awake Nutritional Appearance: well nourished Orientation/consciousness: oriented to person, oriented to place and oriented to time HENMT Ears: TM's normal bilaterally General nose exam: Normal nasal mucous membranes and turbinates present Eyes Conjunctivae: conjunctivae normal Sclerae: sclerae normal Pupils: Equal, round and reactive pupils present Neck Neck: Yes no lymphadenopathy and Yes no JVD Thyroid: Thyroid normal Carotids: no bruits Resp Effort & Inspection: normal respiratory effort and not tachypneic Auscultation: no crackles, no rales, no rhonchi and no wheezes Cardio Rate: regular rate Rhythm: regular rhythm Heart sounds: no murmurs and normal S1 and S2 GI Palpation (GI): Soft to palpation, nontender, no hepatomegaly and no splenomegaly Auscultation: normal bowel sounds Skin General skin exam: no rashes or lesions noted and dry skin Neuro General: oriented to person, oriented to place and oriented to time Cranial nerves: Yes Equal, round and reactive pupils present Speech: No Abnormal speech present Gait exam (Neuro): Normal gait present Motor exam (neuro): no tremor noted Extrem Right upper extremity: full ROM Left upper extremity: full ROM Right lower extremity: full ROM and edema Left lower extremity: full ROM and edema Psych Mental Status: mental status grossly normal Speech and movement: Normal speech and movement present Affect: normal affect Attitude: cooperative Thought process: Normal thought process present Coding Level of Care Code Est Pt Level 4 (82212) Diagnoses Type 2 diabetes mellitus with hyperglycemia, with long-term current use of insulin E11.65; Z79.4 Diabetes mellitus jail insulin use: with jail use Longstanding persistent atrial fibrillation I48.11 Atrial fibrillation type: longstanding persistent Mixed hyperlipidemia E78.2 Hyperlipidemia type: mixed hyperlipidemia CKD stage 3 due to type 2 diabetes mellitus E11.22; N18.30 Vascular insufficiency of extremity I99.8 Assessment & Plan Assessment & Plan (1) Type 2 diabetes mellitus with hyperglycemia: Code(s): E11.65 - Type 2 diabetes mellitus with hyperglycemia Category: Medical Qualifiers: 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 Goal A1c is to remain below 7.0 (2) Afib: Code(s): I48.91 - Unspecified atrial fibrillation Category: Medical Qualifiers: Atrial fibrillation type: longstanding persistent Qualified Code(s): I48.11 - Longstanding persistent atrial fibrillation Plan: As per HPI. Continues to follow cardiology. Does have an ICD placed at gets interrogated quite often. (3) HLD (hyperlipidemia): Code(s): E78.5 - Hyperlipidemia, unspecified Category: Medical Qualifiers: Hyperlipidemia type: mixed hyperlipidemia Qualified Code(s): E78.2 - Mixed hyperlipidemia Plan: Patient's most recent lipid panel showing good control of his total cholesterol and LDL. He will continue on statin therapy with goal LDL to remain below 100. (4) CKD stage 3 due to type 2 diabetes mellitus: Code(s): E11.22 - Type 2 diabetes mellitus with diabetic chronic kidney disease; N18.30 - Chronic kidney disease, stage 3 unspecified Category: Medical Plan: Patient continues to follow Nephrology. Does have CKD secondary to his type 2 diabetes. Will continue to avoid any nephrotoxic medication. (5) Vascular insufficiency of extremity: Code(s): I99.8 - Other disorder of circulatory system Category: Medical Plan: Has chronic lower extremity trace edema to which he uses compression socks with good effect. Needs new script for compression socks. Orders: Orders TSH reflex Free T4 Today R79.89 - Other specified abnormal findings of blood chemistry Lipid Panel Today E78.2 - Mixed hyperlipidemia Comprehensive [place]. Panel Fast Today E11.65 - Type 2 diabetes mellitus with hyperglycemia, Z79.4 - detention (current) use of insulin Complete Blood Count no Diff Today E11.65 - Type 2 diabetes mellitus with hyperglycemia, Z79.4 - detention (current) use of insulin Prostate Specific Antigen Scr Today E11.65 - Type 2 diabetes mellitus with hyperglycemia, Z12.5 - Encounter for screening for malignant neoplasm of prostate, Z79.4 - detention (current) use of insulin Medications: New blood sugar diagnostic (Vaultus Mobileuch Ultra Test strips) Test glucose level TID 100 ea 6RF E11.65 - Type 2 diabetes mellitus with hyperglycemia, Z79.4 - detention (current) use of insulin Refilled cane As directed 1 ea 0RF M17.10 - Unilateral primary osteoarthritis, unspecified knee compr.stocking,knee,long,x-lrg As directed 2 ea 0RF I73.9 - Peripheral vascular disease, unspecified, R60.0 - Localized edema
[2024-05-11 10:28] VITALS: BP 122/70; PULSE 65; O2SAT 95; BMI 39.5
== END 2024-05-11 10:51 | disposition home or self-care (01) ==
PROVIDERS: PCP Physician Assistant; Visit Provider Physician Assistant
DX: E11.65 Type 2 diabetes mellitus with hyperglycemia (principal); Z79.4 Long term (current) use of insulin; I48.11 Longstanding persistent atrial fibrillation; E11.22 Type 2 diabetes mellitus with diabetic chronic kidney disease; N18.30 Chronic kidney disease, stage 3 unspecified; E78.2 Mixed hyperlipidemia; I99.8 Other disorder of circulatory system

== ENCOUNTER → 2024-05-11 10:25 | Outpatient (BNVA) | payer OTHER, SELFPAY | PROVIDERS: PCP Physician Assistant; Visit Provider Physician Assistant | DX: E11.65 Type 2 diabetes mellitus with hyperglycemia (principal); I48.11 Longstanding persistent atrial fibrillation; E78.2 Mixed hyperlipidemia; E11.22 Type 2 diabetes mellitus with diabetic chronic kidney disease; N18.30 Chronic kidney disease, stage 3 unspecified; I99.8 Other disorder of circulatory system; Z79.4 Long term (current) use of insulin | CPT/HCPCS: 99212 ==

== ENCOUNTER 2024-05-31 09:41 | Outpatient (AMB) | payer OTHER, SELFPAY ==
--- NOTE | 2024-05-31 09:43 | MHC.OFFVIS ---
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 Patient states when he stands his legs feel like they're falling asleep Says his feet swell. Also feels cramps. 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 We utilized Alejandra for interpretation. Complaints include pain, swelling of lower extremities particularly at night, cramping, fatigue, and heaviness of the lower extremities. It has been affecting their daily activities including standing and walking. It is noted in bilateral legs, not complaining of one leg more than the other. He is not a smoker. He is a diabetic, last A1c on 05/07 was 7.0%. Patient denies any previous venous surgery or injections. Patient denies any history of DVT/ PE. Patient denies any history of phlebitis. Trial of compression includes - compression stockings; he has not been elevating his legs They now present for vascular evaluation regarding their varicose veins. COUNTS INCLUDE 234 BEDS AT THE [facility] Medical History (Updated 05/31/24 @ 09:59 by Hyacinth Gomez PA-C) Varicose veins of both lower extremities with inflammation PVD (peripheral vascular disease) Obesity, morbid, BMI 50 or higher Morbid obesity Obesity due to excess calories Screening for prostate cancer Diarrhea Tinea pedis of both feet Diabetic polyneuropathy associated with type 2 diabetes mellitus CKD stage 3 due to type 2 diabetes mellitus Asthma GERD (gastroesophageal reflux disease) History of cardiomyopathy FAIZAN (obstructive sleep apnea) Essential hypertension Chronic kidney disease, unspecified Neuropathy Surgical History History of surgery History of colonoscopy Presence of implantable cardioverter-defibrillator (ICD) Family History Father Cardiac disease Mother Cardiac disease Social History Housing: Apartment Are you a primary wound care physician to a significant other at home: No Alcohol intake: former Patient Tobacco Use Status: Former Tobacco user Tobacco use type: Cigarette e-Cigarette/Vaping Use: Never Used Second Hand Smoke Exposure: No service: No Current occupational status: disabled Cognitive needs: Yes (cane) Hearing needs: No Vision needs: Yes (glasses) Review of Systems Const Reports as per HPI and Denies weakness ENT Reports Normal hearing present and Denies dizziness Card Reports as per HPI, Denies chest pain, Denies chest pain at rest, Denies chest pain with activity, Denies dyspnea and Denies dyspnea on exertion Resp Reports as per HPI, Denies cough, Denies dyspnea and Denies dyspnea on exertion GI Reports as per HPI, Denies abdominal pain, Denies nausea and Denies vomiting Musc Denies numbness Skin/Breast Reports as per HPI, Denies erythema and Denies wounds Neuro Reports Normal hearing present, Denies dizziness, Denies numbness, Denies Sensory deficit (Neuro) and Denies weakness Psych Reports no additional complaints Endo Reports no additional complaints Physical Exam Const General: healthy appearing and no acute distress Orientation/consciousness: patient oriented x3 HEENT Head: Yes normal to inspection Ears: hearing grossly normal bilaterally Mouth: Normal oral and palatal mucosa present Resp Effort & Inspection: normal respiratory effort and able to speak in complete sentences Auscultation: clear to auscultation bilaterally Cardio Jugular venous distension: no JVD Rate: regular rate Rhythm: regular rhythm Heart sounds: S1 normal heart sound present and S2 normal heart sound present Bruits: no abdominal aortic bruits, no carotid bruits, no femoral bruits and no renal bruits Peripheral pulses: Peripheral pulses 2+ throughout GI Inspection: Yes normal to inspection Palpation (GI): No Abdominal aortic bruit present Skin General skin exam: no rashes or lesions noted Wounds: no wounds Hair: normal Neuro General: patient oriented x3 Cranial nerves: Yes Normal hearing present Cognition (Neuro): normal cognition Gait exam (Neuro): Normal gait present Motor exam (neuro): 5/5 motor strength present throughout Sensory Exam: No Sensory deficit (Neuro) Extrem Other: Bilateral lower extremities: discoloration noted from the mid elizalde to the ankles. 1+ peripheral edema noted. Palpable DP pulses. No varicosities noted. CEAP: C - 4 E - primary A - superficial P - reflux General: Yes normal to inspection, Yes full ROM, Yes capillary refill normal and Yes normal gait Assessment & Plan Assessment & Plan (1) Varicose veins of both lower extremities with inflammation: Code(s): I83.11 - Varicose veins of right lower extremity with inflammation; I83.12 - Varicose veins of left lower extremity with inflammation Category: Medical Plan: Dhaval is presenting today as a referral from his PCP for bilateral lower extremity swelling and discoloration. In short, the patient has evidence of venous insufficiency. I have discussed the pathophysiology with the patient. In addition I have provided informational material regarding venous disease to the patient. We have discussed conservative measures including compression, elevation, and exercise. We discussed the importance of continuing to wear compression stockings and to elevate his extremities whenever possible, including at night, with pillows. I have taken the liberty of ordering venous insufficiency testing with the patient. They will follow up with me after testing. The patient had an opportunity to ask questions regarding the treatment plan. All questions were answered. Imaging studies, laboratory studies and physical exam results were discussed and reviewed in detail. No major barriers to understanding were identified. The patient expressed understanding and agreement with the above treatment plan. The patient is aware they should contact our office by phone for worsening of the current condition or the appearance of new symptoms. Thank you for allowing me to participate in the vascular care of this patient. If you have any questions or concerns regarding the treatment for the above condition please do not hesitate to contact me. The office telephone contact is [phone]. This note is constructed using voice recognition software. While every effort has been made to ensure accuracy, it applications analyst errors may have been included. Thank you for allowing me to participate in the care of your patient. Yours sincerely, WILFRID Leger Orders: Orders US venous duplex LE BI 1 Week I83.11 - Varicose veins of right lower extremity with inflammation, I83.12 - Varicose veins of left lower extremity with inflammation Coding Level of Care Code New Pt Level 4 (62187) Diagnoses Varicose veins of both lower extremities with inflammation I83.11; I83.12
== END 2024-05-31 09:54 | disposition home or self-care (01) ==
PROVIDERS: PCP Physician Assistant; Visit Provider Physician Assistant Surgical
DX: I83.11 Varicose veins of right lower extremity with inflammation (principal); I83.12 Varicose veins of left lower extremity with inflammation
CPT/HCPCS: 99204

== ENCOUNTER → 2024-05-31 09:41 | Outpatient (BNVA) | payer OTHER, SELFPAY | PROVIDERS: PCP Physician Assistant; Visit Provider Physician Assistant Surgical | DX: I83.11 Varicose veins of right lower extremity with inflammation (principal); I83.12 Varicose veins of left lower extremity with inflammation | CPT/HCPCS: 99202 ==

== ENCOUNTER → 2024-06-06 23:59 | Outpatient (BNV) | payer OTHER, SELFPAY ==
--- NOTE | 2024-06-13 18:12 | A.OFFVIS_ITS ---
Intake Visit Reasons: REmote HF monitoring- Medtronic Allergies Penicillins [PENICILLINS] Allergy (Severe, Verified 05/31/24 09:46) RASH [facility] Medical History (Updated 05/31/24 @ 09:59 by Hyacinth Gomez PA-C) Varicose veins of both lower extremities with inflammation PVD (peripheral vascular disease) Obesity, morbid, BMI 50 or higher Morbid obesity Obesity due to excess calories Screening for prostate cancer Diarrhea Tinea pedis of both feet Diabetic polyneuropathy associated with type 2 diabetes mellitus CKD stage 3 due to type 2 diabetes mellitus Asthma GERD (gastroesophageal reflux disease) History of cardiomyopathy FAIZAN (obstructive sleep apnea) Essential hypertension Chronic kidney disease, unspecified Neuropathy Surgical History History of surgery History of colonoscopy Presence of implantable cardioverter-defibrillator (ICD) Family History Father Cardiac disease Mother Cardiac disease Social History Housing: Apartment Are you a primary children's zoo caretaker to a significant other at home: No Alcohol intake: former Patient Tobacco Use Status: Former Tobacco user Tobacco use type: Cigarette e-Cigarette/Vaping Use: Never Used Second Hand Smoke Exposure: No service: No Current occupational status: disabled Cognitive needs: Yes (cane) Hearing needs: No Vision needs: Yes (glasses) Office Procedures Cardiac Device Check Cardiac Device Check Details: Date of service- 06/06/2024; based on impedance data and physiological variables, there is possible optivol fluid accumulation from Mar to ongoing. [id number] Cardiac Device Interrogation, cardio physiologic monitor Procedure code (CPT) selection complete Assessment & Plan Assessment & Plan (1) NICM (nonischemic cardiomyopathy): Code(s): I42.8 - Other cardiomyopathies Category: Medical (2) Presence of implantable cardioverter-defibrillator (ICD): Code(s): Z95.810 - Presence of automatic (implantable) cardiac defibrillator Category: Surgical Plan x Coding Level of Care Code Procedure Only Diagnoses NICM (nonischemic cardiomyopathy) I42.8 Presence of implantable cardioverter-defibrillator (ICD) Z95.810 CPT Codes Cardiac Device Check - Cardiac Device 15: [id number] Cardiac Device Interrogation, cardio physiologic monitor ([id number])
== END ==
PROVIDERS: PCP Physician Assistant; Visit Provider Internal Medicine
DX: I42.8 Other cardiomyopathies (principal); Z95.810 Presence of automatic (implantable) cardiac defibrillator
CPT/HCPCS: 93297

== ENCOUNTER 2024-06-18 10:14 | Outpatient (REF) | payer OTHER, SELFPAY | END 2024-06-18 10:15 | disposition home or self-care (01) | LOC: HO.US 10:14 | PROVIDERS: PCP Physician Assistant; Visit Provider Physician Assistant Surgical | DX: Z13.89 Encounter for screening for other disorder (principal) ==

== ENCOUNTER → 2024-07-08 23:59 | Outpatient (BNV) | payer OTHER, SELFPAY ==
--- NOTE | 2024-07-19 09:43 | A.OFFVIS_ITS ---
Intake Visit Reasons: Remote HF monitoring- Medtronic Allergies Penicillins [PENICILLINS] Allergy (Severe, Verified 05/31/24 09:46) RASH [facility] Medical History (Updated 05/31/24 @ 09:59 by Hyacinth Gomez PA-C) Varicose veins of both lower extremities with inflammation PVD (peripheral vascular disease) Obesity, morbid, BMI 50 or higher Morbid obesity Obesity due to excess calories Screening for prostate cancer Diarrhea Tinea pedis of both feet Diabetic polyneuropathy associated with type 2 diabetes mellitus CKD stage 3 due to type 2 diabetes mellitus Asthma GERD (gastroesophageal reflux disease) History of cardiomyopathy FAIZAN (obstructive sleep apnea) Essential hypertension Chronic kidney disease, unspecified Neuropathy Surgical History History of surgery History of colonoscopy Presence of implantable cardioverter-defibrillator (ICD) Family History Father Cardiac disease Mother Cardiac disease Social History Housing: Apartment Are you a primary acute care nurse practitioner to a significant other at home: No Alcohol intake: former Patient Tobacco Use Status: Former Tobacco user Tobacco use type: Cigarette e-Cigarette/Vaping Use: Never Used Second Hand Smoke Exposure: No service: No Current occupational status: disabled Cognitive needs: Yes (cane) Hearing needs: No Vision needs: Yes (glasses) Office Procedures Cardiac Device Check Cardiac Device Check Details: Date of service- 07/08/2024; based on impedance data and physiological variables, there is possible optivol fluid accumulation from 03/30/2024 to 06/16/2024. [id number] Cardiac Device Interrogation, cardio physiologic monitor Procedure code (CPT) selection complete Assessment & Plan Assessment & Plan (1) ICD (implantable cardioverter-defibrillator) in place: Code(s): Z95.810 - Presence of automatic (implantable) cardiac defibrillator Category: Medical (2) NICM (nonischemic cardiomyopathy): Code(s): I42.8 - Other cardiomyopathies Category: Medical Plan x Coding Level of Care Code Procedure Only Diagnoses ICD (implantable cardioverter-defibrillator) in place Z95.810 NICM (nonischemic cardiomyopathy) I42.8 CPT Codes Cardiac Device Check - Cardiac Device 15: [id number] Cardiac Device Interrogation, cardio physiologic monitor ([id number])
== END ==
PROVIDERS: PCP Physician Assistant; Visit Provider Internal Medicine
DX: I42.8 Other cardiomyopathies (principal); Z95.810 Presence of automatic (implantable) cardiac defibrillator
CPT/HCPCS: 93297

== ENCOUNTER → 2024-08-08 23:59 | Outpatient (BNV) | payer OTHER, SELFPAY ==
--- NOTE | 2024-08-10 12:33 | MHC.OFFVIS ---
Intake Visit Reasons: REmote HF monitoring- Medtr[employer] Allergies Penicillins [PENICILLINS] Allergy (Severe, Verified 05/31/24 09:46) RASH [facility] Medical History (Updated 05/31/24 @ 09:59 by Hyacinth Gomez PA-C) Varicose veins of both lower extremities with inflammation PVD (peripheral vascular disease) Obesity, morbid, BMI 50 or higher Morbid obesity Obesity due to excess calories Screening for prostate cancer Diarrhea Tinea pedis of both feet Diabetic polyneuropathy associated with type 2 diabetes mellitus CKD stage 3 due to type 2 diabetes mellitus Asthma GERD (gastroesophageal reflux disease) History of cardiomyopathy FAIZAN (obstructive sleep apnea) Essential hypertension Chronic kidney disease, unspecified Neuropathy Surgical History History of surgery History of colonoscopy Presence of implantable cardioverter-defibrillator (ICD) Family History Father Cardiac disease Mother Cardiac disease Social History Housing: Apartment Are you a primary primary care nurse to a significant other at home: No Alcohol intake: former Patient Tobacco Use Status: Former Tobacco user Tobacco use type: Cigarette e-Cigarette/Vaping Use: Never Used Second Hand Smoke Exposure: No service: No Current occupational status: disabled Cognitive needs: Yes (cane) Hearing needs: No Vision needs: Yes (glasses) Office Procedures Cardiac Device Check Cardiac Device Check Details: Date of service- 08/08/2024; based on impedance data and physiological variables, there is no evidence of worsening congestive heart failure. [id number] Cardiac Device Interrogation, cardio physiologic monitor Procedure code (CPT) selection complete Assessment & Plan Assessment & Plan (1) ICD (implantable cardioverter-defibrillator) in place: Code(s): Z95.810 - Presence of automatic (implantable) cardiac defibrillator Category: Medical (2) NICM (nonischemic cardiomyopathy): Code(s): I42.8 - Other cardiomyopathies Category: Medical Plan x Coding Level of Care Code Procedure Only Diagnoses ICD (implantable cardioverter-defibrillator) in place Z95.810 NICM (nonischemic cardiomyopathy) I42.8 CPT Codes Cardiac Device Check - Cardiac Device 15: [id number] Cardiac Device Interrogation, cardio physiologic monitor ([id number])
== END ==
PROVIDERS: PCP Physician Assistant; Visit Provider Internal Medicine
DX: I42.8 Other cardiomyopathies (principal); Z95.810 Presence of automatic (implantable) cardiac defibrillator
CPT/HCPCS: 93297

== ENCOUNTER → 2024-08-08 23:59 | Outpatient (BNV) | payer OTHER, SELFPAY ==
--- NOTE | 2024-08-12 12:37 | MHC.OFFVIS ---
Intake Visit Reasons: Remote ICD monitoring- Medtronic Allergies Penicillins [PENICILLINS] Allergy (Severe, Verified 05/31/24 09:46) RASH [facility] Medical History (Updated 05/31/24 @ 09:59 by Hyacinth Gomez PA-C) Varicose veins of both lower extremities with inflammation PVD (peripheral vascular disease) Obesity, morbid, BMI 50 or higher Morbid obesity Obesity due to excess calories Screening for prostate cancer Diarrhea Tinea pedis of both feet Diabetic polyneuropathy associated with type 2 diabetes mellitus CKD stage 3 due to type 2 diabetes mellitus Asthma GERD (gastroesophageal reflux disease) History of cardiomyopathy FAIZAN (obstructive sleep apnea) Essential hypertension Chronic kidney disease, unspecified Neuropathy Surgical History History of surgery History of colonoscopy Presence of implantable cardioverter-defibrillator (ICD) Family History Father Cardiac disease Mother Cardiac disease Social History Housing: Apartment Are you a primary manager primary care to a significant other at home: No Alcohol intake: former Patient Tobacco Use Status: Former Tobacco user Tobacco use type: Cigarette e-Cigarette/Vaping Use: Never Used Second Hand Smoke Exposure: No service: No Current occupational status: disabled Cognitive needs: Yes (cane) Hearing needs: No Vision needs: Yes (glasses) Office Procedures Cardiac Device Check Cardiac Device Check Details: Date of service 08/08/2024; Battery life >7 years; normal lead parameters; no treated VT/VF; normal ICD function. [id number] Cardiac Interrogation, implant defibrillator w/interim Procedure code (CPT) selection complete Assessment & Plan Assessment & Plan (1) Presence of implantable cardioverter-defibrillator (ICD): Code(s): Z95.810 - Presence of automatic (implantable) cardiac defibrillator Category: Surgical (2) NICM (nonischemic cardiomyopathy): Code(s): I42.8 - Other cardiomyopathies Category: Medical Plan x Coding Level of Care Code Procedure Only Diagnoses Presence of implantable cardioverter-defibrillator (ICD) Z95.810 NICM (nonischemic cardiomyopathy) I42.8 CPT Codes Cardiac Device Check - Cardiac Device 13: [id number] Cardiac Interrogation, implant defibrillator w/interim ([id number])
== END ==
PROVIDERS: PCP Physician Assistant; Visit Provider Internal Medicine
DX: I42.8 Other cardiomyopathies (principal); Z95.810 Presence of automatic (implantable) cardiac defibrillator
CPT/HCPCS: 93295

== ENCOUNTER → 2024-09-09 23:59 | Outpatient (BNV) | payer OTHER, SELFPAY ==
--- NOTE | 2024-09-16 11:58 | MHC.OFFVIS ---
Intake Visit Reasons: Remote HF monitoring- Medtr[employer] Allergies Penicillins [PENICILLINS] Allergy (Severe, Verified 09/15/24 10:44) RASH [facility] Medical History Varicose veins of both lower extremities with inflammation PVD (peripheral vascular disease) Obesity, morbid, BMI 50 or higher Morbid obesity Obesity due to excess calories Screening for prostate cancer Diarrhea Tinea pedis of both feet Diabetic polyneuropathy associated with type 2 diabetes mellitus CKD stage 3 due to type 2 diabetes mellitus Asthma GERD (gastroesophageal reflux disease) History of cardiomyopathy FAIZAN (obstructive sleep apnea) Essential hypertension Chronic kidney disease, unspecified Neuropathy Surgical History History of surgery History of colonoscopy Presence of implantable cardioverter-defibrillator (ICD) Family History Father Cardiac disease Mother Cardiac disease Social History Housing: Apartment Are you a primary day care supervisor to a significant other at home: No Alcohol intake: former Patient Tobacco Use Status: Former Tobacco user Tobacco use type: Cigarette e-Cigarette/Vaping Use: Never Used Second Hand Smoke Exposure: No service: No Current occupational status: disabled Cognitive needs: Yes (cane) Hearing needs: No Vision needs: Yes (glasses) Office Procedures Cardiac Device Check Cardiac Device Check Details: Date of service- 09/09/2024; based on impedance data and physiological variables, there is no evidence of worsening congestive heart failure. [id number] Cardiac Device Interrogation, cardio physiologic monitor Procedure code (CPT) selection complete Assessment & Plan Assessment & Plan (1) ICD (implantable cardioverter-defibrillator) in place: Code(s): Z95.810 - Presence of automatic (implantable) cardiac defibrillator Category: Medical (2) NICM (nonischemic cardiomyopathy): Code(s): I42.8 - Other cardiomyopathies Category: Medical Plan x Coding Level of Care Code Procedure Only Diagnoses ICD (implantable cardioverter-defibrillator) in place Z95.810 NICM (nonischemic cardiomyopathy) I42.8 CPT Codes Cardiac Device Check - Cardiac Device 15: [id number] Cardiac Device Interrogation, cardio physiologic monitor ([id number])
== END ==
PROVIDERS: PCP Physician Assistant; Visit Provider Internal Medicine
DX: I42.8 Other cardiomyopathies (principal); Z95.810 Presence of automatic (implantable) cardiac defibrillator
CPT/HCPCS: 93297

== ENCOUNTER 2024-09-15 10:26 | Outpatient (AMB) | payer OTHER, SELFPAY ==
[2024-09-15 10:35] VITALS: BP 102/60; PULSE 70; O2SAT 98; BMI 38.6
--- NOTE | 2024-09-15 10:35 | A.OFFVIS_ITS ---
Vital Signs 09/15/24 10:35 Height 5 ft 11 in Weight 276 lb 10.882 oz BMI 38.6 BP 102/60 Blood Pressure Location Lt brachial Position Sitting Pulse 70 Pulse Source Pulse Oximeter Pulse Oximetry (%) 98 Oxygen Delivery Method Room Air Intake Visit Reasons: faizan Intake Note: pt is here for follow up and states he is using cpap, we will try for replacement cpap. Rooms Director Required: Yes Rooms Director Services: Rooms Director Present Rooms Director Name: [id number] Allergies Penicillins [PENICILLINS] Allergy (Severe, Verified 09/15/24 10:44) RASH Medication List - Last Reconciled 09/15/24 by Paco Cagle MD acetaminophen ER (Tylenol Arthritis Pain) 650 mg PO Q8H 90 days albuterol sulfate 2.5 mg (3 mL) inhalation Q4-6H PRN albuterol sulfate 90 mcg/actuation (Ventolin HFA) 2 puffs inhalation Q6H PRN 30 days apixaban (Eliquis) 5 mg PO BID 90 days atorvastatin 10 mg PO DAILY blood sugar diagnostic (Electron Database Ultra Test strips) Test glucose level TID blood-glucose meter As directed blood-glucose sensor (SNOBSWAPyle Tigist 3 Sensor device) As directed blood-glucose,sheet fed printer,cont (FreeStyle Tigist 3 [place]) As directed cane As directed cholecalciferol (vitamin D3) 25 mcg PO DAILY clotrimazole 1% 1 appl topical BID 30 days compr.stocking,knee,long,x-lrg As directed cyclobenzaprine 5 mg PO Q8H PRN [Diabetic shoes & 3 pair inserts as directed] digoxin 125 mcg PO DAILY famotidine 40 mg (2 x 20 mg) PO BID PRN furosemide (Lasix) 40 mg PO BID 90 days gabapentin 600 mg PO TID 30 days insulin aspart U-100 10 units (0.1 mL) subcut TID 30 days insulin glargine U-300 conc (Toujeo Max U-300 SoloStar) 84 units (0.28 mL) subcut DAILY 30 days lancets ([employer] solutions to transform citiesuch Delica Plus Lancet) test 3 times per day lidocaine 5% (Lidoderm) 1 patch topical DAILY PRN 30 days MDD remove after 12 hours loperamide 2 mg PO BID PRN metoprolol succinate ER 12.5 mg (1/2 x 25 mg) PO BID miscellaneous medical supply 2 ea miscellaneous DAILY miscellaneous medical supply 2 ea miscellaneous DAILY 90 days pen needle, diabetic (BD Ultra-Fine Mara Pen Needle) As directed semaglutide (Ozempic) 1 mg (0.75 mL) subcut QWEEK 4 weeks tramadol 50 mg PO Q8H PRN 4 days Do you need a note to return to daycare/school/sports/work: No HPI HPI faizan: Details: 58 years old gentleman, Libyan-speaking, grossly obese and has diagnosis of obstructive sleep apnea in addition to multiple comorbidities. He was diagnosed to have obstructive sleep apnea back in 2020, and since then has been using CPAP regularly. He is on CPAP with pressure setting of 13 cm. Has no issue with the CPAP mask or CPAP machine, except that machine is 5 years old and makes some noise . He denies daytime sleepiness as long as he continues to use the CPAP. Weight remains high but he is currently on Ozempic injections and since his last visit has lost 7 lb of weight. He has only mild intermittent bronchial asthma for which he uses albuterol only p.r.n.. [facility] Medical History Varicose veins of both lower extremities with inflammation PVD (peripheral vascular disease) Obesity, morbid, BMI 50 or higher Morbid obesity Obesity due to excess calories Screening for prostate cancer Diarrhea Tinea pedis of both feet Diabetic polyneuropathy associated with type 2 diabetes mellitus CKD stage 3 due to type 2 diabetes mellitus Asthma GERD (gastroesophageal reflux disease) History of cardiomyopathy FAIZAN (obstructive sleep apnea) Essential hypertension Chronic kidney disease, unspecified Neuropathy Surgical History History of surgery History of colonoscopy Presence of implantable cardioverter-defibrillator (ICD) Family History Father Cardiac disease Mother Cardiac disease Social History Housing: Apartment Are you a primary disabilities caregiver to a significant other at home: No Alcohol intake: former Patient Tobacco Use Status: Former Tobacco user Tobacco use type: Cigarette e-Cigarette/Vaping Use: Never Used Second Hand Smoke Exposure: No service: No Current occupational status: disabled Cognitive needs: Yes (cane) Hearing needs: No Vision needs: Yes (glasses) Review of Systems Const All systems reviewed & are unremarkable except as noted in HPI and below Eyes Reports no additional complaints ENT Reports no additional complaints Card Denies chest pain, Denies irregular heart rhythm and Denies leg edema Resp Denies cough and Denies wheezing GI Reports no additional complaints Reports no additional complaints Musc Reports back pain (mild) Skin/Breast Reports system reviewed and no additional complaints, except as documented Neuro Reports no additional complaints Aller/Immun Denies wheezing Physical Exam Vital Signs: Last Vital Signs Pulse 70 09/15/24 10:35 BP 102/60 09/15/24 10:35 Pulse Ox 98 09/15/24 10:35 Oxygen Delivery Method Room Air 09/15/24 10:35 BMI result Body Mass Index 38.6 Const General: healthy appearing (Except for being overweight), comfortable, no acute distress, alert and awake Orientation/consciousness: patient oriented x3 HEENT Head: Yes normal to inspection General nose exam: No nasal polyps present and No nasal discharge present Face and sinus: Yes sinuses nontender Mouth: oropharynx normal Throat: Yes posterior oropharynx normal Eyes General: appearance normal, both eyes and all related structures Neck Neck: Yes normal visual inspection, Yes no lymphadenopathy, Yes trachea midline and Yes no JVD Thyroid: Thyroid normal Chest Chest palpation & inspection: normal inspection of the chest, normal palpation of entire chest wall and no tenderness Resp Effort & Inspection: normal respiratory effort Auscultation: clear to auscultation bilaterally, no rhonchi and no wheezes Cardio Palpation: normal PMI Rate: regular rate Rhythm: regular rhythm Heart sounds: no gallops and no murmurs GI Palpation (GI): Soft to palpation, Tenderness to palpation present (GI), No hepatosplenomegaly present and Palpable mass present Auscultation: normal bowel sounds Back/Spine/Pelvis Thoracic/Lumbar Spine: thoracic and lumbar spine normal to inspection Skin General skin exam: no rashes or lesions noted Neuro General: patient oriented x3 and no focal motor deficits Cranial nerves: Yes CN's II-XII intact bilaterally Extrem General: Yes normal to inspection, Yes no clubbing, cyanosis or edema and Yes no calf tenderness Psych Appearance: grossly normal and well kempt Speech and movement: Normal speech and movement present Results Reviewed Results Reviewed: Compliance report for the last 30 nights is reviewed. He has used 30/30 nights,. 100% Average use it per night 6 hours 19 minutes. There is some air leak with maximum 106.8 L/minute. Residual AHI 1.9 Assessment & Plan Assessment & Plan (1) Morbid obesity: Comment: Patient is a known case of morbid obesity. Talked about weight reduction. He has multiple problems including diabetes mellitus. He has had dietary instructions from the dietitian and is trying to adhere to reduced calories intake. Currently he is on treatment with Ozempic injection 1 mg Q 1 week. And has lost about 7 lb of weight since last visit. Code(s): E66.01 - Morbid (severe) obesity due to excess calories Category: Medical Plan: Advised to continue following the directions by dietitian. Continue with Ozempic injections. Walk daily at least 2-3 miles a day . (2) FAIZAN on CPAP: Comment: HE IS A KNOWN CASE OF OBSTRUCTIVE SLEEP APNEA. IT IS WELL TREATED WITH THE USE OF CPAP, HE IS VERY COMPLIANT, HIS CPAP DEVICE IS 5 YEARS OLD , HE MAY NEED A NEW CPAP DEVICE. Code(s): G47.33 - Obstructive sleep apnea (adult) (pediatric); Z99.89 - Dependence on other enabling machines and devices Category: Medical Plan: COMMENDED FOR GOOD COMPLIANCE, ADVISED TO CONTINUE USING CPAP REGULARLY EVERY NIGHT. ORDER FOR A NEW CPAP DEVICE HAS BEEN SENT. (3) Asthma: Comment: History of mild intermittent bronchial asthma. However he denied any active symptoms at present. Code(s): J45.909 - Unspecified asthma, uncomplicated Category: Medical Plan: USE ALBUTEROL HFA 2 PUFFS Q 6 HOURS ONLY P.R.N./ ALTERNATIVELY MAY USE ALBUTEROL SOLUTION IN THE NEBULIZER Q 6 HOURS P.R.N. . Coding Level of Care Code Est Pt Level 3 (64426) Diagnoses Morbid obesity E66.01 FAIZAN on CPAP G47.33; Z99.89 Asthma J45.909
--- OUTSIDE RECORDS SUMMARY | 2024-09-15 11:55 | XMS_ITS | Clinical Summary ---
Author Organization [facility] Address [address] [place] [address] Phone Care Team Providers Care Associate Professor Of Chemistry Name Role Phone Adan Reynaga Primary Care Provider [phone] Allergies Active Allergy Reactions Criticality Noted Date Comments Penicillins Other (see comments) 10/13/2020 Medications albuterol HFA (PROVENTIL HFA;VENTOLIN HFA) 108 (90 Base) MCG/ACT inhaler Inhale 2 puffs 4 (four) times a day Active atorvastatin (LIPITOR) 10 MG tablet Take 1 tablet by mouth 1 (one) time each day Active fluticasone-maryanne meterol (Advair HFA) 230-21 MCG/ACT inhaler 1 puff by Other route 1 (one) time each day Active gabapentin (NEURONTIN) 600 MG tablet Take 1.5 capsules by mouth 1 (one) time each day 01/31/2020 Active insulin aspart (NovoLOG FLEXPEN) 100 UNIT/ML injection Inject 30 Units under the skin 1 (one) time each day Active Insulin Glargine, 1 Unit Dial, ([place] SoloStar) 300 UNIT/ML solution pen-injector Inject 96 Units under the skin 1 (one) time each day Active D3-1000 25 MCG (1000 UT) capsule Take 1,000 Units by mouth 1 (one) time each day 08/07/2020 Active Trulicity 0.75 MG/0.5ML solution pen-injector 10/12/2020 Active Eliquis 5 MG tablet Take 1 tablet by mouth 2 (two) times a day 03/13/2021 Active digoxin (LANOXIN) 125 MCG tablet Take 125 mcg by mouth 08/30/2021 Active metoprolol succinate XL (TOPROL XL) 25 MG 24 hr tablet Take 12.5 mg by mouth 07/24/2021 Active furosemide (LASIX) 40 MG tablet Take 2 tablets by mouth 1 (one) time each day 03/24/2022 Active Active Problems Problem Noted Date Diagnosed Date Chronic kidney disease stage 3 10/13/2020 Family History Medical History Relation Comments Diabetes Father Heart disease Father Hypertension Father Kidney disease Father Diabetes Mother Heart disease Mother Hypertension Mother Stroke Mother Relation Status Comments Father Mother Social History Tobacco Use Types Packs/Day Years Used Date Smoking Tobacco: Never Smokeless Tobacco: Never Tobacco Cessation:Counseling Given: Not Answered Alcohol Use Standard Drinks/Week Comments No 0 (1 standard drink = 0.6 oz pur e alcohol) Sex and Gender Information Value Date Recorded Sex Assigned at Not on file Legal Sex Male 4:57 PM EST Gender Identity Not on file Sexual Orientation Not on file Last Filed Vital Signs Vital Sign Reading Time Taken Comments Blood Pressure 132/80 10/07/2022 3:41 PM EDT Pulse 82 10/07/2022 3:41 PM EDT Temperature - - Respiratory Rate - - Oxygen Saturation 97% 10/07/2022 3:41 PM EDT Inhaled Oxygen Concentration - - Weight 133 kg (293 lb 3.2 oz) 10/07/2022 3:41 PM EDT Height 180.3 cm (5' 11 ) 10/07/2022 3:41 PM EDT Body Mass Index 40.89 10/07/2022 3:41 PM EDT Plan of Treatment Health Maintenance Due Date Last Done Comments Pneumococcal Vaccine: Pediat rics (0 to 5 Years) and At-Risk Patients (6 to 64 Years) (1 of 2 - PCV) 05/12/1972 Hepatitis B Vaccine (1 of 3 - 19+ 3-dose series) 05/12 Colorectal Cancer Screening: Annual FOBT 05/12/2014 Colorectal Cancer Screening: Colonoscopy 05/12/2014 Colorectal Cancer Screening: Sigmoidoscopy 05/12/2014 Influenza Vaccine (Season Ended) [address] [place] [address] ([id number]) [facility] ([id number]) Care Teams Associate Professor Of Chemistry Relationship Specialty Start Date End Date Adan Reynaga PA [address] [place] [address] PCP - General Physician Tanker Serviceman 03/15/21
== END 2024-09-15 10:51 | disposition home or self-care (01) ==
LOC: HO.HPS 10:27
PROVIDERS: PCP Physician Assistant; Visit Provider Internal Medicine
DX: E66.01 Morbid (severe) obesity due to excess calories (principal); G47.33 Obstructive sleep apnea (adult) (pediatric); Z99.89 Dependence on other enabling machines and devices; J45.909 Unspecified asthma, uncomplicated
CPT/HCPCS: 99213

== ENCOUNTER → 2024-09-15 10:26 | Outpatient (BNVA) | payer OTHER, SELFPAY | PROVIDERS: PCP Physician Assistant; Visit Provider Internal Medicine | DX: G47.33 Obstructive sleep apnea (adult) (pediatric) (principal); J45.909 Unspecified asthma, uncomplicated; E66.01 Morbid (severe) obesity due to excess calories; Z68.38 Body mass index [BMI] 38.0-38.9, adult; Z87.891 Personal history of nicotine dependence; Z99.89 Dependence on other enabling machines and devices | CPT/HCPCS: 99212 ==

== ENCOUNTER → 2024-10-11 23:59 | Outpatient (BNV) | payer OTHER, SELFPAY ==
--- NOTE | 2024-10-18 14:30 | A.OFFVIS_ITS ---
Intake Visit Reasons: Remote HF monitoring- [employer] Allergies Penicillins [PENICILLINS] Allergy (Severe, Verified 09/15/24 10:44) [facility] FORMERLY [facility], [facility]–1983 Medical History Varicose veins of both lower extremities with inflammation PVD (peripheral vascular disease) Obesity, morbid, BMI 50 or higher Morbid obesity Obesity due to excess calories Screening for prostate cancer Diarrhea Tinea pedis of both feet Diabetic polyneuropathy associated with type 2 diabetes mellitus CKD stage 3 due to type 2 diabetes mellitus Asthma GERD (gastroesophageal reflux disease) History of cardiomyopathy FAIZAN (obstructive sleep apnea) Essential hypertension Chronic kidney disease, unspecified Neuropathy Surgical History History of surgery History of colonoscopy Presence of implantable cardioverter-defibrillator (ICD) Family History Father Cardiac disease Mother Cardiac disease Social History Housing: Apartment Are you a primary career advisor to a significant other at home: No Alcohol intake: former Patient Tobacco Use Status: Former Tobacco user Tobacco use type: Cigarette e-Cigarette/Vaping Use: Never Used Second Hand Smoke Exposure: No service: No Current occupational status: disabled Cognitive needs: Yes (cane) Hearing needs: No Vision needs: Yes (glasses) Office Procedures Cardiac Device Check Cardiac Device Check Details: Date of service- 10/11/2024; based on impedance data and physiological variables, there is no evidence of worsening congestive heart failure. [id number] Cardiac Device Interrogation, cardio physiologic monitor Procedure code (CPT) selection complete Assessment & Plan Assessment & Plan (1) Presence of implantable cardioverter-defibrillator (ICD): Code(s): Z95.810 - Presence of automatic (implantable) cardiac defibrillator Category: Surgical (2) NICM (nonischemic cardiomyopathy): Code(s): I42.8 - Other cardiomyopathies Category: Medical (3) Afib: Code(s): I48.91 - Unspecified atrial fibrillation Category: Medical Qualifiers: Atrial fibrillation type: longstanding persistent Qualified Code(s): I48.11 - Longstanding persistent atrial fibrillation Plan x Coding Level of Care Code Procedure Only Diagnoses Presence of implantable cardioverter-defibrillator (ICD) Z95.810 NICM (nonischemic cardiomyopathy) I42.8 Longstanding persistent atrial fibrillation I48.11 Atrial fibrillation type: longstanding persistent CPT Codes Cardiac Device Check - Cardiac Device 15: [id number] Cardiac Device Interrogation, cardio physiologic monitor ([id number])
== END ==
PROVIDERS: PCP Physician Assistant; Visit Provider Internal Medicine
DX: I42.8 Other cardiomyopathies (principal); Z95.810 Presence of automatic (implantable) cardiac defibrillator; I48.11 Longstanding persistent atrial fibrillation
CPT/HCPCS: 93297

== ENCOUNTER 2024-11-08 09:08 | Outpatient (REF) | payer OTHER, SELFPAY ==
--- OUTSIDE RECORDS SUMMARY | 2024-11-08 09:43 | XMS_ITS | Clinical Summary ---
Author Organization [facility] Address [address] [place] [address] Phone Care Team Providers Care On Site Construction Superintendent Name Role Phone Adan Reynaga Primary Care Provider [phone] Allergies Active Allergy Reactions Criticality Noted Date [...] Health Maintenance Due Date Last Done Comments Hepatitis B Vaccine (1 of 3 - 19+ 3-dose series) 05/12 Pneumococcal Vaccine: 50+ Years (1 of 2 - PCV) 984 Colorectal Cancer Screening: Annual FOBT 05/12/2014 Colorectal Cancer Screening: Colonoscopy 05/12/2014 Colorectal Cancer Screening: Sigmoidoscopy 05/12/2014 Influenza Vaccine (Season Ended) 2025 Insurance [facility] ([id number]) [place] [address] ([id number]) Care Teams On Site Construction Superintendent Relationship Specialty Start Date End Date Adan Reynaga PA [address] [place] [address], [address] [place], [place] [id number] PCP - General Physician Biomass Plant Manager 03/15/21
[2024-11-08 10:07] LABS: Appearance Urine Clear; Color Urine Yellow; Glucose Urine UA Negative (Negative); Leukocyte Esterase Urine Negative (Negative); Nitrite Urine Negative (Negative); PH 5.5 (5.0-9.0); Specific Gravity - Urine 1.015 (1.005-1.025); Urine Blood Negative (Negative); Urine Ketones Negative (Negative); Urine Protein Negative (Neg-Trace)
[2024-11-08 10:48] LABS: Anion Gap 11 (12-20); Blood Urea Nitrogen 14 mg/dL (9-16); Calcium 8.8 mg/dL (8.4-10.2); Carbon Dioxide 28 mmol/L (22-29); Chloride 108 mmol/L (96-108); Estimated Glomerular Filt Rate > 60; Glucose Random 95 mg/dL (60-115); Sodium 143 mmol/L (135-145)
[2024-11-08 10:52] LABS: Creatinine Urine 100.84 mg/dL; Total Protein Urine Random 9 mg/dL (<12)
== END 2024-11-08 09:09 | disposition home or self-care (01) ==
LOC: HO.LAB 09:08
PROVIDERS: Internal Medicine Hypertension Specialist; PCP Physician Assistant; Visit Provider Physician Assistant
DX: N18.9 Chronic kidney disease, unspecified (principal)
CPT/HCPCS: 36415; 80048; 81003; 82570; 84156

== ENCOUNTER 2024-11-10 09:02 | Outpatient (AMB) | payer OTHER, SELFPAY ==
--- NOTE | 2024-11-10 09:19 | A.OFFPC_ITS ---
Vital Signs 11/10/24 09:20 Height 5 ft 11 in Weight 281 lb 4 oz BMI 39.2 BP 140/80 H Blood Pressure Location Lt brachial Position Sitting Pulse 56 Pulse Source Pulse Oximeter Temp 97.1 F Temp Source Temporal Artery Scan Pulse Oximetry (%) 96 Oxygen Delivery Method Room Air Intake Visit Reasons: Annual Exam- A1C needed Intake Note: Patient is here today for a physical. Financial Director Required: Yes Financial Director Language: [place] Name: Tripp (Spouse) Information Interpreted: non-clinical & clinical (pt decline shampoo technician service, prefer spouse to translate for him) Executive Creative Director: Present Accompanied by: Spouse Allergies Penicillins [PENICILLINS] Allergy (Severe, Verified 11/10/24 09:32) R[facility] Medication List - Last Reconciled 11/10/24 by Adan Reynaga PA-C acetaminophen ER (Tylenol Arthritis Pain) 650 mg PO Q8H 90 days albuterol sulfate 2.5 mg (3 mL) inhalation Q4-6H PRN albuterol sulfate 90 mcg/actuation (Ventolin HFA) 2 puffs inhalation Q6H PRN 30 days apixaban (Eliquis) 5 mg PO BID 90 days atorvastatin 10 mg PO DAILY blood sugar diagnostic (USDS Ultra Test strips) Test glucose level TID blood-glucose meter As directed blood-glucose sensor (FreeStyle Tigist 3 Sensor device) As directed blood-glucose,third rail installer,cont (FreeStyle Tigist 3 Lannon) As directed cane As directed cholecalciferol (vitamin D3) 25 mcg PO DAILY clotrimazole 1% 1 appl topical BID 30 days compr.stocking,knee,long,x-lrg As directed cyclobenzaprine 5 mg PO Q8H PRN [Diabetic shoes & 3 pair inserts as directed] digoxin 125 mcg PO DAILY famotidine 40 mg (2 x 20 mg) PO BID PRN furosemide (Lasix) 40 mg PO BID 90 days gabapentin 600 mg PO TID 30 days insulin aspart U-100 10 units (0.1 mL) subcut TID 30 days insulin glargine U-300 conc (Toujeo Max U-300 SoloStar) 84 units (0.28 mL) subcut DAILY 30 days lancets (ToolwiTouch Delica Plus Lancet) test 3 times per day lidocaine 5% (Lidoderm) 1 patch topical DAILY PRN 30 days MDD remove after 12 hours loperamide 2 mg PO BID PRN metoprolol succinate ER 12.5 mg (1/2 x 25 mg) PO BID miscellaneous medical supply 2 ea miscellaneous DAILY miscellaneous medical supply 2 ea miscellaneous DAILY 90 days pen needle, diabetic (BD Ultra-Fine Mara Pen Needle) As directed semaglutide (Ozempic) 1 mg (0.75 mL) subcut QWEEK 4 weeks tramadol 50 mg PO Q8H PRN 4 days Tobacco use date assessed: 11/10/24 Dental Screening Dental Screen Date: 11/10/24 Did you have a dental visit in the last 12 months?: No Did you have a dental problem in the last 6 months where you did not have access to dental care?: No Was dental information given to patient?: Patient has dentist HPI Annual Exam- A1C needed HPI Details Patient is a 58-YEAR-OLD MALE HERE TODAY FOR ROUTINE ANNUAL PHYSICAL.? Patient has a past medical history significant for morbid obesity, hypertension, ICD implanted, AFIB, obstructive sleep apnea. .. ? . ? FAIZAN:? Currently using CPAP nightly with good effect.? He reports he is sleeping well at night and his Blood pressure are well controlled here in the office. . Hyperlipidemia: Patient continues on statin therapy without any side effect. Most recent lipid panel showing appropriate total cholesterol and LDL. ? .. ? DM2:? Has lost follow-up with endocrinology as his providers left practice, now has PCP managing his type 2 diabetes. Most recent A1c acceptable 7.0. Continues on Ozempic 1 mg, Toujeo 84 units .? He admits to some dietary ind iscretion as of late. Today's A1c acceptable at 7.4 He does continue to wear lower extremity compression socks. .. AFib:? Patient continues to be followed by Cardiology.??Continues on anticoagulation without any overt signs of bleeding. Patient has recently gotten pacemaker placed and is interrogated quite often thought any cardiac events. ? Denies any overt signs of bleeding or palpitations. .. Lymphedema: Continues to have mild swelling in his lower extremities, needs new script for medical compression stockings to be sent to his DME supplier. COLORECTAL CANCER SCREENING: Last colonoscopy done in [place] [facility] 5 years ago . Vaccines: Up-to-date with COVID vaccine, pneumonia vaccine, case considering shingles vaccine, needs tetanus vaccine HE DECLINES ALL VACCINES TODAY Laboratory Tests 05/07/24 11/08/24 11:26 09:19 Creatinine 0.93 Random Glucose 95 Hemoglobin A1c % 7.0 H Calcium 8.8 PFSH Medical History Varicose veins of both lower extremities with inflammation PVD (peripheral vascular disease) Obesity, morbid, BMI 50 or higher Morbid obesity Obesity due to excess calories Screening for prostate cancer Diarrhea Tinea pedis of both feet Diabetic polyneuropathy associated with type 2 diabetes mellitus CKD stage 3 due to type 2 diabetes mellitus Asthma GERD (gastroesophageal reflux disease) History of cardiomyopathy FAIZAN (obstructive sleep apnea) Essential hypertension Chronic kidney disease, unspecified Neuropathy Surgical History History of surgery History of colonoscopy Presence of implantable cardioverter-defibrillator (ICD) Family History Father Cardiac disease Mother Cardiac disease Social History Housing: Apartment Are you a primary managed care provider to a significant other at home: No Alcohol intake: former Patient Tobacco Use Status: Former Tobacco user Tobacco use type: Cigarette e-Cigarette/Vaping Use: Never Used Second Hand Smoke Exposure: Yes service: No Current occupational status: disabled Cognitive needs: Yes (cane) Hearing needs: No Vision needs: Yes (glasses) Questionnaire PHQ-9 Over the last 2 weeks, how often have you been bothered by any of the following problems? 1. Little interest or pleasure in doing things: not at all 2. Feeling down, depressed, or hopeless: not at all 3. Trouble falling or staying asleep, or sleeping too much: not at all 4. Feeling tired or having little energy: not at all 5. Poor appetite or overeating: not at all 6. Feeling bad about yourself - or that you are a failure or have let yourself or your family down: not at all 7. Trouble concentrating on things, such as reading the newspaper or watching television: not at all 8. Moving or speaking so slowly that other people could have noticed. Or the opposite - being so fidgety or restless that you have been moving around a lot more than usual: not at all 9. Thoughts that you would be better off or of hurting yourself in some way: not at all Total score: 0 Depression Screening Interpretation: Negative Depression Screening Done: Yes 67044 - PHQ-9 Billing: Yes Source: Developed by Drs. Pedro Reid, Neeta Dorado, Jasper Bocanegra and colleagues, with an educational lonny from [employer]. Thrive Questionnaire Date Thrive assessed: 11/10/24 I am a: Patient What is your living situation today?: I have a steady place to live Within the past 12 months, did the food you bought not last and you didn't have the money to get more?: I choose not to answer this question Within the past 12 months, did you worry whether your food would run out before you got money to buy more?: I choose not to answer this question Do you have trouble paying for medicines?: No Do you have trouble getting transportation to medical appointments?: No Do you have trouble paying your heating and electricity bill?: No Do you have trouble taking care of your child, family member or friend?: No Do you have trouble with day-to-day activities such as bathing, preparing meals, shopping, managing finances, etc.?: I choose not to answer this question Are you currently unemployed and looking for a job?: No Are you interested in more education?: No Please select the resources that you would like help with: None Currently or been in a relationship where the following occur: I choose not to answer THRIVE Score: 0 AUDIT C Alcohol Use Questionnaire (AUDIT-C) 1. How often do you have a drink containing alcohol?: Never Total Score: 0 CAROLANN-7 AMB Questionnaire CAROLANN-7 Date CAROLANN - 7 assessed: 11/10/24 Feeling nervous, anxious, or on edge: 0 = Not at all Not being able to stop or control worryin = Not at all Worrying too much about different things: 0 = Not at all Trouble relaxin = Not at all Being so restless that it is hard to sit still: 0 = Not at all Becoming easily annoyed or irritable: 1 = Several days Feeling afraid as if something awful might happen: 0 = Not at all Total CAROLANN-7 score (0-4 normal; 5-9 mild; 10-14 moderate; 15-21 severe): 1 Source: Developed by Drs. Pedro Reid, Neeta Dorado, Jasper Bocanegra and colleagues, with an educational lonny from [employer]. Review of Systems Const Denies body aches, Denies chills, Denies excessive sweating, Denies fatigue, Denies fever(s) and Denies headache(s) Eyes Denies blurry vision ENT Denies dysphagia, Denies vertigo, Denies dizziness, Denies headache(s), Denies hearing loss and Denies tinnitus Card Denies chest pain, Denies chest pain with activity, Denies syncope, Denies irregular heart rhythm and Denies dyspnea Resp Denies chest congestion, Denies cough, Denies hemoptysis, Denies dyspnea and Denies wheezing GI Denies abdominal pain, Denies melena, Denies hematochezia, Denies coffee ground emesis, Denies dysphagia, Denies diarrhea, Denies nausea and Denies vomiting Denies difficulty urinating, Denies dysuria, Denies urinary frequency, Denies urinary hesitancy and Denies urinary urgency Musc Denies arthralgias, Denies limited range of motion, Denies muscle cramps and Denies muscle weakness Skin/Breast Denies rash and Denies skin ulcer Neuro Denies Abnormal speech present, Denies confusion, Denies vertigo, Denies dizziness, Denies syncope, Denies headache(s), Denies memory loss and Denies seizure-like activity Psych Denies anxiety, Denies confusion, Denies depression, Denies memory loss, Denies panic attacks and Denies paranoia Endo Denies excessive sweating, Denies fatigue, Denies flushing, Denies polydipsia and Denies polyuria Aller/Immun Denies wheezing Physical exam (Primary Care) Vital Signs: Last Vital Signs Temp 97.1 F 11/10/24 09:20 Pulse 56 11/10/24 09:20 BP 140/80 H 11/10/24 09:20 Pulse Ox 96 11/10/24 09:20 Oxygen Delivery Method Room Air 11/10/24 09:20 BMI result Body Mass Index 39.2 BMI Assessment/Plan discussion: High BMI High, discussed plan: lifestyle, weight reduction, dietary and physical activity Tobacco/Smoking Status: Tobacco use Status Tobacco use date assessed 11/10/24 11/10/24 09:27 Patient Tobacco Use Status Former Tobacco user 11/10/24 09:27 Tobacco use type Cigarette 11/10/24 09:27 e-Cigarette/Vaping Use Never Used 11/10/24 09:27 PHQ-9: PHQ-9 Score PHQ-9: Total score 0 11/10/24 09:34 Depression Screening Interpretation: Negative Thrive Assessment: Date of Thrive Assessment Date Thrive assessed 11/10/24 11/10/24 09:27 Currently or been in a relationship where the following occur: I choose not to answer Const General: cooperative, comfortable, no acute distress, alert and awake; No confusion Orientation/consciousness: oriented to person, oriented to place, patient oriented x3 and No confusion HENMT Head: Yes normocephalic Ears: external ears normal and TM's normal bilaterally Face and sinus: No sinus tenderness Mouth: Normal oral and palatal mucosa present and tongue normal Teeth and gingiva: dentition normal and gingiva normal Throat: Yes posterior oropharynx normal, Yes tonsils normal and Yes uvula midline Eyes Conjunctivae: conjunctivae normal Sclerae: sclerae normal Pupils: Equal, round and reactive pupils present EOM: EOMs intact bilaterally Direct Ophthalmoscopy: No no photophobia Neck Neck: Yes no lymphadenopathy, No tender and Yes no JVD Thyroid: Thyroid normal Carotids: no bruits Chest Chest palpation & inspection: no tenderness Resp Effort & Inspection: normal respiratory effort, no audible wheezes, not labored and no stridor Auscultation: no crackles, no rales, no rhonchi and no wheezes Cardio Jugular venous distension: no JVD Rate: regular rate, not bradycardic and not tachycardic Rhythm: regular rhythm Bruits: no carotid bruits Peripheral pulses: Peripheral pulses 2+ throughout GI Inspection: Yes normal to inspection, No abdominal wall ecchymosis and No visible herniation Palpation (GI): Soft to palpation, nontender, no guarding, not rigid and No hepatosplenomegaly present Auscultation: normoactive bowel sounds General: Yes no CVA tenderness Back/Spine/Pelvis Back: no CVA tenderness and No back tenderness Cervical Spine: cervical ROM normal Thoracic/Lumbar Spine: thoracic and lumbar spine normal to inspection, straight leg raise negative bilaterally, No thoraco-lumbar ROM limited and No lumbar spinal tenderness Skin Lesions: no lesions Rashes: no rashes Wounds: no wounds Neuro General: oriented to person, oriented to place, patient oriented x3, CN's II-XI intact bilaterally and No confusion Cranial nerves: Yes Equal, round and reactive pupils present and Yes Normal accommodation reflex present Cognition (Neuro): normal cognition Speech: No Abnormal speech present Gait exam (Neuro): Normal gait present Motor exam (neuro): 5/5 motor strength present throughout Extrem Right upper extremity: full ROM; no cyanosis Left upper extremity: full ROM; no cyanosis Right lower extremity: no edema Left lower extremity: no edema Psych Appearance: grossly normal Mental Status: mental status grossly normal Affect: normal affect Attitude: cooperative Thought process: Normal thought process present Results AMB Hemoglobin A1c AMB Hemoglobin A1c 7.4 % Last Edit by RYAN Vazquez on 11/10/24 09:31 Results Reviewed Results Reviewed: Laboratory Last Values Hgb A1c (Clinic) 7.4 % (4.0-6.0) H 11/10/24 09:18 Coding Level of Care Code Est Pt Prev Care 40-64y(00017) Diagnoses Annual physical exam Z00.00 Type 2 diabetes mellitus with hyperglycemia, with long-term current use of insulin E11.65; Z79.4 Diabetes mellitus laborer marine terminal insulin use: with laborer marine terminal use Longstanding persistent atrial fibrillation I48.11 Atrial fibrillation type: longstanding persistent Mixed hyperlipidemia E78.2 Hyperlipidemia type: mixed hyperlipidemia CKD stage 3 due to type 2 diabetes mellitus E11.22; N18.30 Vascular insufficiency of extremity I99.8 Additional Codes PHQ-9 - 81517 - PHQ-9 Billing: Yes ([id number]) Assessment & Plan Assessment & Plan (1) Annual physical exam: Code(s): Z00.00 - Encounter for general adult medical examination without abnormal findings Category: Medical Plan: As per HPI (2) Type 2 diabetes mellitus with hyperglycemia: Code(s): E11.65 - Type 2 diabetes mellitus with hyperglycemia Category: Medical Qualifiers: Diabetes mellitus senior care insulin use: with laborer marine terminal use Qualified Code(s): E11.65 - Type 2 diabetes mellitus with hyperglycemia; Z79.4 - laborer marine terminal (current) use of insulin Plan: Patient's type 2 diabetes suboptimally controlled with A1c is 7.4. He does admit to dietary indiscretion as of lately. Work on diabetic diet for now and keep antihyperglycemic medication regime the same.. Goal A1c is to remain below 7.0 (3) Afib: Code(s): I48.91 - Unspecified atrial fibrillation Category: Medical Qualifiers: Atrial fibrillation type: longstanding persistent Qualified Code(s): I48.11 - Longstanding persistent atrial fibrillation Plan: As per HPI. Continues to follow cardiology. Does have an ICD placed at gets interrogated quite often. (4) HLD (hyperlipidemia): Code(s): E78.5 - Hyperlipidemia, unspecified Category: Medical Qualifiers: Hyperlipidemia type: mixed hyperlipidemia Qualified Code(s): E78.2 - Mixed hyperlipidemia Plan: Patient's most recent lipid panel showing good control of his total cholesterol and LDL. He will continue on statin therapy with goal LDL to remain below 100. (5) CKD stage 3 due to type 2 diabetes mellitus: Code(s): E11.22 - Type 2 diabetes mellitus with diabetic chronic kidney disease; N18.30 - Chronic kidney disease, stage 3 unspecified Category: Medical Plan: Patient continues to follow Nephrology. Does have CKD secondary to his type 2 diabetes. Will continue to avoid any nephrotoxic medication. (6) Vascular insufficiency of extremity: Code(s): I99.8 - Other disorder of circulatory system Category: Medical Plan: Has chronic lower extremity trace edema to which he uses compression socks with good effect. Needs new script for compression socks. Orders: Orders AMB Hemoglobin A1c Today E11.65 - Type 2 diabetes mellitus with hyperglycemia, Z79.4 - laborer marine terminal (current) use of insulin Referrals Cologuard Test Z12.11 - Encounter for screening for malignant neoplasm of colon Medications: Refilled compr.stocking,knee,long,x-lrg As directed 2 ea 0RF I89.0 - Lymphedema, not elsewhere classified
[2024-11-10 09:20] VITALS: BP 140/80; PULSE 56; TEMP 36.2; O2SAT 96; BMI 39.2
--- OUTSIDE RECORDS SUMMARY | 2024-11-10 09:31 | XMS_ITS | Clinical Summary ---
Author Organization [facility] Address [address] [place] [address] Phone Care Team Providers Care Assurance Senior Name Role Phone Adan Reynaga Primary Care Provider [phone] Allergies Active Allergy Reactions Criticality Noted Date [...] 05/12/2014 Influenza Vaccine (Season Ended) 2025 Insurance [facility] ([id number]) [place] [address] ([id number]) Care Teams Assurance Senior Relationship Specialty Start Date End Date Adan Reynaga PA [address] [place] [address], [address] [place], [place] [phone] PCP - General Physician Doctor Of Naprapathic Medicine 03/15/21
== END 2024-11-10 09:48 | disposition home or self-care (01) ==
LOC: HO.HMCH 09:10
PROVIDERS: PCP Physician Assistant; Visit Provider Physician Assistant
DX: Z00.00 Encounter for general adult medical examination without abnormal findings (principal); E11.65 Type 2 diabetes mellitus with hyperglycemia; E11.22 Type 2 diabetes mellitus with diabetic chronic kidney disease; N18.30 Chronic kidney disease, stage 3 unspecified; Z79.4 Long term (current) use of insulin; I48.11 Longstanding persistent atrial fibrillation; E78.2 Mixed hyperlipidemia; I99.8 Other disorder of circulatory system

== ENCOUNTER → 2024-11-10 09:02 | Outpatient (BNVA) | payer OTHER, SELFPAY | PROVIDERS: PCP Physician Assistant; Visit Provider Physician Assistant | DX: Z00.00 Encounter for general adult medical examination without abnormal findings (principal); E66.01 Morbid (severe) obesity due to excess calories; G47.33 Obstructive sleep apnea (adult) (pediatric); E78.5 Hyperlipidemia, unspecified; E11.65 Type 2 diabetes mellitus with hyperglycemia; I48.11 Longstanding persistent atrial fibrillation; E78.2 Mixed hyperlipidemia; E11.22 Type 2 diabetes mellitus with diabetic chronic kidney disease; I12.9 Hypertensive chronic kidney disease with stage 1 through stage 4 chronic kidney disease, or unspecified chronic kidney disease; N18.30 Chronic kidney disease, stage 3 unspecified; I99.8 Other disorder of circulatory system; Z95.810 Presence of automatic (implantable) cardiac defibrillator; Z79.4 Long term (current) use of insulin; Z68.39 Body mass index [BMI] 39.0-39.9, adult | CPT/HCPCS: 83036; 96127; 99396 ==

== ENCOUNTER 2024-11-11 09:51 | Outpatient (AMB) | payer OTHER, MEDICAID, SELFPAY ==
[2024-11-11 09:57] VITALS: BP 92/60; PULSE 67; O2SAT 96; BMI 39.9
--- NOTE | 2024-11-11 09:57 | HO.NEPHOV_ITS ---
Vital Signs 11/11/24 09:57 Height 5 ft 11 in Weight 286 lb BMI 39.9 BP 92/60 Blood Pressure Location Lt brachial Position Sitting Pulse 67 Pulse Source Pulse Oximeter Pulse Oximetry (%) 96 Oxygen Delivery Method Room Air Intake Visit Reasons: Proteinuria/ Conf Mortuary Technician Required: No Mortuary Technician Services: Mortuary Technician Offered & Declined ( will translate ) Accompanied by: Spouse Allergies Penicillins [PENICILLINS] Allergy (Severe, Verified 11/11/24 10:00) RASH Medication List - Last Reconciled 11/11/24 by Demond Bansal MD acetaminophen ER (Tylenol Arthritis Pain) 650 mg PO Q8H 90 days albuterol sulfate 2.5 mg (3 mL) inhalation Q4-6H PRN albuterol sulfate 90 mcg/actuation (Ventolin HFA) 2 puffs inhalation Q6H PRN 30 days apixaban (Eliquis) 5 mg PO BID 90 days atorvastatin 10 mg PO DAILY blood sugar diagnostic ([employer] Ultra Test strips) Test glucose level TID blood-glucose meter As directed blood-glucose sensor (Sensory [employer] Tigist 3 Sensor device) As directed blood-glucose,auto glass worker,cont (FreeStyle Tigist 3 [place]) As directed cane As directed cholecalciferol (vitamin D3) 25 mcg PO DAILY clotrimazole 1% 1 appl topical BID 30 days compr.stocking,knee,long,x-lrg As directed cyclobenzaprine 5 mg PO Q8H PRN [Diabetic shoes & 3 pair inserts as directed] digoxin 125 mcg PO DAILY famotidine 40 mg (2 x 20 mg) PO BID PRN furosemide (Lasix) 40 mg PO BID 90 days gabapentin 600 mg PO TID 30 days insulin aspart U-100 10 units (0.1 mL) subcut TID 30 days insulin glargine U-300 conc (Toujeo Max U-300 SoloStar) 84 units (0.28 mL) subcut DAILY 30 days lancets (Windowfarmsuch Delica Plus Lancet) test 3 times per day lidocaine 5% (Lidoderm) 1 patch topical DAILY PRN 30 days MDD remove after 12 hours loperamide 2 mg PO BID PRN metoprolol succinate ER 25 mg PO DAILY miscellaneous medical supply 2 ea miscellaneous DAILY miscellaneous medical supply 2 ea miscellaneous DAILY 90 days pen needle, diabetic (BD Ultra-Fine Mara Pen Needle) As directed semaglutide (Ozempic) 1 mg (0.75 mL) subcut QWEEK 4 weeks tramadol 50 mg PO Q8H PRN 4 days HPI Comments Details: Middle aged man with obesity and diabetes mellitus with CKD is here for follow- up. In 2021 serum creatinine was 1.27. Overall is doing well. No new complaints today. No shortness of breath no urinary symptoms. No edema. He is compliant with all his medications. Mortuary Technician services was used 11/11/2024. Accompanied by his . No specific complaints today. He has been taking metoprolol 25 mg half a tablet in the morning. Blood pressure has been low. No lightheadedness. No urinary symptoms. He has gained some weight since previous visit [facility] Medical History Varicose veins of both lower extremities with inflammation PVD (peripheral vascular disease) Obesity, morbid, BMI 50 or higher Morbid obesity Obesity due to excess calories Screening for prostate cancer Diarrhea Tinea pedis of both feet Diabetic polyneuropathy associated with type 2 diabetes mellitus CKD stage 3 due to type 2 diabetes mellitus Asthma GERD (gastroesophageal reflux disease) History of cardiomyopathy FAIZAN (obstructive sleep apnea) Essential hypertension Chronic kidney disease, unspecified Neuropathy Surgical History History of surgery History of colonoscopy Presence of implantable cardioverter-defibrillator (ICD) Family History Father Cardiac disease Mother Cardiac disease Social History Housing: Apartment Are you a primary emergency care tech to a significant other at home: No Alcohol intake: former Patient Tobacco Use Status: Former Tobacco user Tobacco use type: Cigarette e-Cigarette/Vaping Use: Never Used Second Hand Smoke Exposure: Yes service: No Current occupational status: disabled Cognitive needs: Yes (cane) Hearing needs: No Vision needs: Yes (glasses) Physical Exam Vital Signs: Last Vital Signs Pulse 67 11/11/24 09:57 BP 92/60 11/11/24 09:57 Pulse Ox 96 11/11/24 09:57 Oxygen Delivery Method Room Air 11/11/24 09:57 BMI result Body Mass Index 39.9 Comfortable Neck supple no JVD. Lungs entry equal no rales. Heart S1-S2 heard no gallop or rub. Abdomen soft nontender. Neuro alert awake oriented. No asterixis. Extremities no edema. Results Reviewed Nephrology Results: Sodium 143 mmol/L (135-145) 11/08/24 Potassium 4.0 mmol/L (3.3-5.1) 11/08/24 Chloride 108 mmol/L (96-108) 11/08/24 Carbon Dioxide 28 mmol/L (22-29) 11/08/24 BUN 14 mg/dL (9-16) 11/08/24 Creatinine 0.93 mg/dL (0.5-1.4) 11/08/24 Calcium 8.8 mg/dL (8.4-10.2) 11/08/24 Urine Protein Negative mg/dL (Neg-Trace) 11/08/24 Urine Creatinine 100.84 mg/dL 11/08/24 Assessment & Plan Assessment & Plan (1) Chronic kidney disease, unspecified: Code(s): N18.9 - Chronic kidney disease, unspecified Category: Medical (2) Obese: Code(s): E66.9 - Obesity, unspecified Category: Medical Qualifiers: Body mass index: BMI 40.0-44.9 Obesity classification: adult class 3 (BMI >= 40) Obesity type: due to excess calories Serious obesity comorbidity presence: with serious comorbidity Qualified Code(s): E66.01 - Morbid (severe) obesity due to excess calories; Z68.41 - Body mass index [BMI] 40.0-44.9, adult (3) Type 2 diabetes mellitus with hyperglycemia: Code(s): E11.65 - Type 2 diabetes mellitus with hyperglycemia Category: Medical Qualifiers: Diabetes mellitus senior care insulin use: with senior care use Qualified Code(s): E11.65 - Type 2 diabetes mellitus with hyperglycemia; Z79.4 - FDC (current) use of insulin Plan Middle-aged man with CKD in a setting obesity and diabetes mellitus. Back in 2021 he sustained SALEEM. Peak serum creatinine was 1.6. Recent serum creatinine 1.0. This is probably his baseline. He probably has mild CKD/stage II. Goal is to slow the progression of renal disease. Hemoglobin A1c should be maintained as an 7%. We discussed weight loss. Blood pressure be maintained less than 130/80. He should stay on low-sodium diet. We will continue to monitor urine protein excretion and maximize SIMBA inhibition Continue to avoid nephrotoxic agents including NSAIDs and hypotension. Blood pressure was relatively low I have asked him to take metoprolol 25 mg extended release q.p.m. instead of q.a.m.. . Orders: Orders Basic Metabolic Panel 6 Months Demond Bansal MD N18.9 - Chronic kidney disease, unspecified Medications: Changed From metoprolol succinate ER 12.5 mg (1/2 x 25 mg) PO BID 90 tabs 1RF I48.11 - Longstanding persistent atrial fibrillation To metoprolol succinate ER 25 mg PO DAILY I48.11 - Longstanding persistent atrial fibrillation Adan Reynaga PA-C Coding Level of Care Code Est Pt Level 4 (13351) Diagnoses Chronic kidney disease, unspecified N18.9 Class 3 severe obesity due to excess calories with serious comorbidity and body mass index (BMI) of 40.0 to 44.9 in adult E66.01; Z68.41 Body mass index: BMI 40.0-44.9 Obesity classification: adult class 3 (BMI >= 40) Obesity type: due to excess calories Serious obesity comorbidity presence: with serious comorbidity Type 2 diabetes mellitus with hyperglycemia, with long-term current use of insulin E11.65; Z79.4 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
--- OUTSIDE RECORDS SUMMARY | 2024-11-11 11:10 | XMS_ITS | Clinical Summary ---
Author Organization [facility] Address [address] [place] [address] Phone Care Team Providers Care Land Appraiser Name Role Phone Adan Reynaga Primary Care Provider [phone] Allergies Active Allergy Reactions Criticality Noted Date [...] 05/12/2014 Influenza Vaccine (Season Ended) 2025 Insurance [facility] ([id number]) [place] [address] ([id number]) Care Teams Land Appraiser Relationship Specialty Start Date End Date Adan Reynaga PA [address] [place] [address], [address] [place], [place] [id number] PCP - General Physician Trauma Surgeon 03/15/21
== END 2024-11-11 10:15 | disposition home or self-care (01) ==
LOC: HO.HKA 09:51
PROVIDERS: PCP Physician Assistant; Visit Provider Internal Medicine Hypertension Specialist
DX: N18.9 Chronic kidney disease, unspecified (principal); E66.01 Morbid (severe) obesity due to excess calories; Z68.41 Body mass index [BMI] 40.0-44.9, adult; E11.65 Type 2 diabetes mellitus with hyperglycemia; Z79.4 Long term (current) use of insulin
CPT/HCPCS: 99214

== ENCOUNTER → 2024-11-11 09:51 | Outpatient (BNVA) | payer OTHER, SELFPAY | PROVIDERS: PCP Physician Assistant; Visit Provider Internal Medicine Hypertension Specialist | DX: E11.22 Type 2 diabetes mellitus with diabetic chronic kidney disease (principal); E11.65 Type 2 diabetes mellitus with hyperglycemia; N18.9 Chronic kidney disease, unspecified; E66.01 Morbid (severe) obesity due to excess calories; I48.11 Longstanding persistent atrial fibrillation; Z79.4 Long term (current) use of insulin; Z68.41 Body mass index [BMI] 40.0-44.9, adult; Z68.39 Body mass index [BMI] 39.0-39.9, adult | CPT/HCPCS: 99212 ==

== ENCOUNTER → 2024-11-12 23:59 | Outpatient (BNV) | payer OTHER, SELFPAY ==
--- NOTE | 2024-11-28 09:53 | A.OFFVIS_ITS ---
Intake Visit Reasons: Remote ICD check- Medtronic Allergies Penicillins (PENICILLINS) Allergy (Severe, Verified 11/11/24 10:00) RASH [facility] Medical History Varicose veins of both lower extremities with inflammation PVD (peripheral vascular disease) Obesity, morbid, BMI 50 or higher Morbid obesity Obesity due to excess calories Screening for prostate cancer Diarrhea Tinea pedis of both feet Diabetic polyneuropathy associated with type 2 diabetes mellitus CKD stage 3 due to type 2 diabetes mellitus Asthma GERD (gastroesophageal reflux disease) History of cardiomyopathy FAIZAN (obstructive sleep apnea) Essential hypertension Chronic kidney disease, unspecified Neuropathy Surgical History History of surgery History of colonoscopy Presence of implantable cardioverter-defibrillator (ICD) Family History Father Cardiac disease Mother Cardiac disease Social History Housing: Apartment Are you a primary pet care attendant to a significant other at home: No Alcohol intake: former Patient Tobacco Use Status: Former Tobacco user Tobacco use type: Cigarette e-Cigarette/Vaping Use: Never Used Second Hand Smoke Exposure: Yes service: No Current occupational status: disabled Cognitive needs: Yes (cane) Hearing needs: No Vision needs: Yes (glasses) Office Procedures Cardiac Device Check Cardiac Device Check Details: Date of service- 11/12/2024; based on impedance data and physiological variables, there is no evidence of worsening congestive heart failure. [id number] Cardiac Device Interrogation, cardio physiologic monitor Procedure code (CPT) selection complete Assessment & Plan Assessment & Plan (1) Presence of implantable cardioverter-defibrillator (ICD): Code(s): Z95.810 - Presence of automatic (implantable) cardiac defibrillator Category: Surgical (2) NICM (nonischemic cardiomyopathy): Code(s): I42.8 - Other cardiomyopathies Category: Medical Plan x Coding Level of Care Code Procedure Only Diagnoses Presence of implantable cardioverter-defibrillator (ICD) Z95.810 NICM (nonischemic cardiomyopathy) I42.8 CPT Codes Cardiac Device Check - Cardiac Device 15: [id number] Cardiac Device Interrogation, cardio physiologic monitor ([id number])
== END ==
PROVIDERS: PCP Physician Assistant; Visit Provider Internal Medicine
DX: I42.8 Other cardiomyopathies (principal); Z95.810 Presence of automatic (implantable) cardiac defibrillator
CPT/HCPCS: 93297

== ENCOUNTER → 2024-12-14 23:59 | Outpatient (BNV) | payer OTHER, SELFPAY ==
--- NOTE | 2024-12-26 18:37 | MHC.OFFVIS ---
Intake Visit Reasons: Remote ICD check- Medtronic Allergies Penicillins (PENICILLINS) Allergy (Severe, Verified 11/11/24 10:00) RASH [facility] Medical History Varicose veins of both lower extremities with inflammation PVD (peripheral vascular disease) Obesity, morbid, BMI 50 or higher Morbid obesity Obesity due to excess calories Screening for prostate cancer Diarrhea Tinea pedis of both feet Diabetic polyneuropathy associated with type 2 diabetes mellitus CKD stage 3 due to type 2 diabetes mellitus Asthma GERD (gastroesophageal reflux disease) History of cardiomyopathy FAIZAN (obstructive sleep apnea) Essential hypertension Chronic kidney disease, unspecified Neuropathy Surgical History History of surgery History of colonoscopy Presence of implantable cardioverter-defibrillator (ICD) Family History Father Cardiac disease Mother Cardiac disease Social History Housing: Apartment Are you a primary adult caregiver to a significant other at home: No Alcohol intake: former Patient Tobacco Use Status: Former Tobacco user Tobacco use type: Cigarette e-Cigarette/Vaping Use: Never Used Second Hand Smoke Exposure: Yes service: No Current occupational status: disabled Cognitive needs: Yes (cane) Hearing needs: No Vision needs: Yes (glasses) Office Procedures Cardiac Device Check Cardiac Device Check Details: Date of service- 12/14/2024; based on impedance data and physiological variables, there is no evidence of worsening congestive heart failure. [id number] Cardiac Device Interrogation, cardio physiologic monitor Procedure code (CPT) selection complete Assessment & Plan Assessment & Plan (1) ICD (implantable cardioverter-defibrillator) in place: Code(s): Z95.810 - Presence of automatic (implantable) cardiac defibrillator Category: Medical (2) NICM (nonischemic cardiomyopathy): Code(s): I42.8 - Other cardiomyopathies Category: Medical Plan x Coding Level of Care Code Procedure Only Diagnoses ICD (implantable cardioverter-defibrillator) in place Z95.810 NICM (nonischemic cardiomyopathy) I42.8 CPT Codes Cardiac Device Check - Cardiac Device 15: [id number] Cardiac Device Interrogation, cardio physiologic monitor ([id number])
== END ==
PROVIDERS: PCP Physician Assistant; Visit Provider Internal Medicine
DX: I42.8 Other cardiomyopathies (principal); Z95.810 Presence of automatic (implantable) cardiac defibrillator
CPT/HCPCS: 93297

== ENCOUNTER 2024-12-20 12:49 | Outpatient (AMB) | payer OTHER, SELFPAY ==
--- NOTE | 2024-12-20 13:20 | MHC.OFFVIS ---
Vital Signs 12/20/24 13:21 Height 5 ft 11 in Weight 271 lb 2.697 oz BMI 37.8 BP 112/60 Blood Pressure Location Lt brachial Position Sitting Pulse 67 Pulse Source Monitor Intake Visit Reasons: 1 yr w/ [employer] ck Pathology Secretary/Transcriptionist Required: Yes Pathology Secretary/Transcriptionist Services: Pathology Secretary/Transcriptionist Offered & Declined Accompanied by: Spouse Allergies Penicillins (PENICILLINS) Allergy (Severe, Verified 11/11/24 10:00) RASH Medication List - Last Reconciled 12/20/24 by Porfirio Engle MD albuterol sulfate 2.5 mg (3 mL) inhalation Q4-6H PRN albuterol sulfate 90 mcg/actuation (Ventolin HFA) 2 puffs inhalation Q6H PRN 30 days apixaban (Eliquis) 5 mg PO BID 90 days atorvastatin 10 mg PO DAILY blood sugar diagnostic ([employer] Ultra Test strips) Test glucose level TID blood-glucose meter As directed blood-glucose sensor (Door [employer]Style Tigist 3 Sensor device) As directed blood-glucose,chief human resources officer,cont (FreeStyle Tigist 3 [place]) As directed cane As directed cholecalciferol (vitamin D3) 25 mcg PO DAILY clotrimazole 1% 1 appl topical BID 30 days compr.stocking,knee,long,x-lrg As directed cyclobenzaprine 5 mg PO Q8H PRN [Diabetic shoes & 3 pair inserts as directed] digoxin 125 mcg PO DAILY famotidine 40 mg (2 x 20 mg) PO BID PRN furosemide (Lasix) 40 mg PO BID 90 days gabapentin 600 mg PO TID 30 days insulin aspart U-100 10 units (0.1 mL) subcut TID 30 days insulin glargine U-300 conc (Toujeo Max U-300 SoloStar) 84 units (0.28 mL) subcut DAILY 30 days lancets ([employer] Delica Plus Lancet) test 3 times per day lidocaine 5% (Lidoderm) 1 patch topical DAILY PRN 30 days MDD remove after 12 hours loperamide 2 mg PO BID PRN metoprolol succinate ER 25 mg PO DAILY miscellaneous medical supply 2 ea miscellaneous DAILY miscellaneous medical supply 2 ea miscellaneous DAILY 90 days pen needle, diabetic (BD Ultra-Fine Mara Pen Needle) As directed semaglutide (Ozempic) 1 mg (0.75 mL) subcut QWEEK 4 weeks tramadol 50 mg PO Q8H PRN 4 days HPI Comments Details: Dhaval returns for follow-up. He has a history of persistent atrial fibrillation. Also history of cardiomyopathy, but improved LVEF. He states that he feels fine. No complaints like angina or shortness of breath or palpitations or in fact anything cardiac sounding. Many comorbidities but getting along okay. [facility] Medical History Varicose veins of both lower extremities with inflammation PVD (peripheral vascular disease) Obesity, morbid, BMI 50 or higher Morbid obesity Obesity due to excess calories Screening for prostate cancer Diarrhea Tinea pedis of both feet Diabetic polyneuropathy associated with type 2 diabetes mellitus CKD stage 3 due to type 2 diabetes mellitus Asthma GERD (gastroesophageal reflux disease) History of cardiomyopathy FAIZAN (obstructive sleep apnea) Essential hypertension Chronic kidney disease, unspecified Neuropathy Surgical History History of surgery History of colonoscopy Presence of implantable cardioverter-defibrillator (ICD) Family History Father Cardiac disease Mother Cardiac disease Social History Housing: Apartment Are you a primary wild animal caretaker to a significant other at home: No Alcohol intake: former Patient Tobacco Use Status: Former Tobacco user Tobacco use type: Cigarette e-Cigarette/Vaping Use: Never Used Second Hand Smoke Exposure: Yes service: No Current occupational status: disabled Cognitive needs: Yes (cane) Hearing needs: No Vision needs: Yes (glasses) Review of Systems Const Denies weakness ENT Denies dizziness Card Denies chest pain, Denies chest pain with activity, Denies syncope, Denies rapid heart rate, Denies pedal edema, Denies edema, Denies leg edema, Denies lightheadedness, Denies palpitations, Denies dyspnea, Denies dyspnea on exertion and Denies orthopnea Resp Denies cough, Denies dyspnea and Denies dyspnea on exertion GI Denies hematochezia and Denies change in stool character Musc Denies abnormal gait, Denies muscle cramps, Denies muscle weakness, Denies numbness, Denies radiating pain into limb and Denies tingling Neuro Denies abnormal gait, Denies dizziness, Denies syncope, Denies numbness, Denies tingling and Denies weakness Endo Denies palpitations Physical Exam Vital Signs: Last Vital Signs Pulse 67 12/20/24 13:21 BP 112/60 12/20/24 13:21 BMI result Body Mass Index 37.8 Const General: comfortable and no acute distress Orientation/consciousness: patient oriented x3 HEENT Other: Unremarkable Head: Yes normal to inspection Neck Neck: Yes normal visual inspection Chest Chest palpation & inspection: normal inspection of the chest Resp Auscultation: clear to auscultation bilaterally Cardio Palpation: normal PMI Heart sounds: S1 normal heart sound present, S2 normal heart sound present, no gallops, no murmurs and no rubs GI Palpation (GI): Soft to palpation Back/Spine/Pelvis Other: unremarkable Skin General skin exam: no rashes or lesions noted Neuro General: patient oriented x3 Extrem General: Yes normal to inspection Psych Mental Status: mental status grossly normal Office Procedures Cardiac Device Check Cardiac Device Check Details: ICD interrogated today. Battery status more than 7 years. Normal lead parameters. Ventricular pacing 37%. No treated VT/VF. Some episodes of rapid rates noted, underlying atrial fibrillation. [id number] Cardiac Device Check, single lead implantable defibrillator Procedure code (CPT) selection complete Assessment & Plan Assessment & Plan (1) Persistent atrial fibrillation: Code(s): I48.19 - Other persistent atrial fibrillation Category: Medical Plan: He has persistent atrial fibrillation likely permanent. He does have some rapid rates on ICD interrogation. However, these are generally brief and last no more than a few hours. He is on low-dose beta-blockers but cannot increase dose because of low blood pressure issues. Recheck digoxin level. If level on lowish side, then possibly increase that dose. (2) NICM (nonischemic cardiomyopathy): Code(s): I42.8 - Other cardiomyopathies Category: Medical Plan: Previously, cardiac catheterization with normal coronaries. In the last echocardiogram, LVEF 50-55%. Moderately increased right ventricular size. Mildly depressed function. No symptoms or signs of congestive heart failure. (3) Hypotension arterial: Code(s): I95.9 - Hypotension, unspecified Category: Medical Plan: Stable. He was taken off lisinopril in the past. (4) Presence of implantable cardioverter-defibrillator (ICD): Code(s): Z95.810 - Presence of automatic (implantable) cardiac defibrillator Category: Surgical Plan: Follow remotely. Normal function. (5) FAIZAN on CPAP: Comment: HE IS A KNOWN CASE OF OBSTRUCTIVE SLEEP APNEA. IT IS WELL TREATED WITH THE USE OF CPAP, HE IS VERY COMPLIANT, HIS CPAP DEVICE IS 5 YEARS OLD , HE MAY NEED A NEW CPAP DEVICE. Code(s): G47.33 - Obstructive sleep apnea (adult) (pediatric); Z99.89 - Dependence on other enabling machines and devices Category: Medical Plan: Continue CPAP. Plan Discussion Notes I discussed with the patient the importance of continuing CPAP therapy for sleep apnea management. We also talked about the need for a digoxin test, emphasizing not to take the medication on the morning of the test. I advised monitoring for any cardiac symptoms and to seek medical attention if symptoms recur. Patient was informed and verbally consented to the use of an ambient scribe for clinic note documentation during this visit. Orders: Orders Digoxin Today I48.19 - Other persistent atrial fibrillation Basic Metabolic Panel Today I48.11 - Longstanding persistent atrial fibrillation CA echo transthoracic complete 6 Months I42.8 - Other cardiomyopathies Patient Instructions: - Continue using the CPAP machine every night. - Do not take digoxin on the morning of your next blood test. - Watch for any cardiac symptoms like chest pain or palpitations and contact your doctor if they occur. Coding Level of Care Code Est Pt Level 4 (56595) Complex EM visit Add On G2211 Diagnoses Persistent atrial fibrillation I48.19 NICM (nonischemic cardiomyopathy) I42.8 Hypotension arterial I95.9 Presence of implantable cardioverter-defibrillator (ICD) Z95.810 FAIZAN on CPAP G47.33; Z99.89 CPT Codes Cardiac Device Check - Cardiac Device 4: [id number] Cardiac Device Check, single lead implantable defibrillator ([id number])
[2024-12-20 13:21] VITALS: BP 112/60; PULSE 67; BMI 37.8
--- OUTSIDE RECORDS SUMMARY | 2024-12-20 13:46 | XMS_ITS | Clinical Summary ---
Author Organization [facility] Address [address] [place] [address] Phone Care Team Providers Care Carbon Coater Machine Operator Name Role Phone Adan Reynaga Primary Care Provider [phone] Allergies Active Allergy Reactions Criticality Noted Date [...] Colorectal Cancer Screening: Sigmoidoscopy 05/12/2014 Influenza Vaccine (#1) 2025 Insurance [facility] ([id number]) [place] [address] ([id number]) Care Teams Carbon Coater Machine Operator Relationship Specialty Start Date End Date Adan Reynaga PA [address] [place] [address], [address] [place], [place] [id number] PCP - General Physician Co Founder & Ceo 03/15/21
== END 2024-12-20 13:42 | disposition home or self-care (01) ==
LOC: HO.HCS 12:50
PROVIDERS: PCP Physician Assistant; Visit Provider Internal Medicine
DX: I48.19 Other persistent atrial fibrillation (principal); I42.8 Other cardiomyopathies; I95.9 Hypotension, unspecified; Z95.810 Presence of automatic (implantable) cardiac defibrillator; G47.33 Obstructive sleep apnea (adult) (pediatric); Z99.89 Dependence on other enabling machines and devices
CPT/HCPCS: 93010; 93282; 99214; G2211

== ENCOUNTER → 2024-12-20 12:49 | Outpatient (BNVA) | payer OTHER, SELFPAY | PROVIDERS: PCP Physician Assistant; Visit Provider Internal Medicine | DX: I48.11 Longstanding persistent atrial fibrillation (principal); I42.8 Other cardiomyopathies; I95.9 Hypotension, unspecified; Z95.810 Presence of automatic (implantable) cardiac defibrillator; G47.33 Obstructive sleep apnea (adult) (pediatric); Z99.89 Dependence on other enabling machines and devices | CPT/HCPCS: 93005; 99212 ==

== ENCOUNTER → 2025-01-15 23:59 | Outpatient (BNV) | payer OTHER, SELFPAY ==
--- NOTE | 2025-01-19 19:30 | A.OFFVIS_ITS ---
Intake Visit Reasons: Remote HF monitoring- Medtronic Allergies Penicillins (PENICILLINS) Allergy (Severe, Verified 11/11/24 10:00) RASH [facility] Medical History Varicose veins of both lower extremities with inflammation PVD (peripheral vascular disease) Obesity, morbid, BMI 50 or higher Morbid obesity Obesity due to excess calories Screening for prostate cancer Diarrhea Tinea pedis of both feet Diabetic polyneuropathy associated with type 2 diabetes mellitus CKD stage 3 due to type 2 diabetes mellitus Asthma GERD (gastroesophageal reflux disease) History of cardiomyopathy FAIZAN (obstructive sleep apnea) Essential hypertension Chronic kidney disease, unspecified Neuropathy Surgical History History of surgery History of colonoscopy Presence of implantable cardioverter-defibrillator (ICD) Family History Father Cardiac disease Mother Cardiac disease Social History Housing: Apartment Are you a primary skin care therapist to a significant other at home: No Alcohol intake: former Patient Tobacco Use Status: Former Tobacco user Tobacco use type: Cigarette e-Cigarette/Vaping Use: Never Used Second Hand Smoke Exposure: Yes service: No Current occupational status: disabled Cognitive needs: Yes (cane) Hearing needs: No Vision needs: Yes (glasses) Office Procedures Cardiac Device Check Cardiac Device Check Details: Date of service- 01/15/2025; based on impedance data and physiological variables, there is no evidence of worsening congestive heart failure. [id number] Cardiac Device Interrogation, cardio physiologic monitor Procedure code (CPT) selection complete Assessment & Plan Assessment & Plan (1) Presence of implantable cardioverter-defibrillator (ICD): Code(s): Z95.810 - Presence of automatic (implantable) cardiac defibrillator Category: Surgical (2) NICM (nonischemic cardiomyopathy): Code(s): I42.8 - Other cardiomyopathies Category: Medical Plan x Coding Level of Care Code Procedure Only Diagnoses Presence of implantable cardioverter-defibrillator (ICD) Z95.810 NICM (nonischemic cardiomyopathy) I42.8 CPT Codes Cardiac Device Check - Cardiac Device 15: [id number] Cardiac Device Interrogation, cardio physiologic monitor ([id number])
== END ==
PROVIDERS: PCP Physician Assistant; Visit Provider Internal Medicine
DX: I42.8 Other cardiomyopathies (principal); Z95.810 Presence of automatic (implantable) cardiac defibrillator
CPT/HCPCS: 93297

== ENCOUNTER → 2025-02-16 23:59 | Outpatient (BNV) | payer OTHER, SELFPAY ==
--- NOTE | 2025-02-24 20:46 | A.OFFVIS_ITS ---
Intake Visit Reasons: Remote HF monitoring- [employer] Allergies Penicillins (PENICILLINS) Allergy (Severe, Verified 11/11/24 10:00) [facility] FORMERLY [facility], 1928–1983 Medical History Varicose veins of both lower extremities with inflammation PVD (peripheral vascular disease) Obesity, morbid, BMI 50 or higher Morbid obesity Obesity due to excess calories Screening for prostate cancer Diarrhea Tinea pedis of both feet Diabetic polyneuropathy associated with type 2 diabetes mellitus CKD stage 3 due to type 2 diabetes mellitus Asthma GERD (gastroesophageal reflux disease) History of cardiomyopathy FAIZAN (obstructive sleep apnea) Essential hypertension Chronic kidney disease, unspecified Neuropathy Surgical History History of surgery History of colonoscopy Presence of implantable cardioverter-defibrillator (ICD) Family History Father Cardiac disease Mother Cardiac disease Social History Housing: Apartment Are you a primary college and career counselor to a significant other at home: No Alcohol intake: former Patient Tobacco Use Status: Former Tobacco user Tobacco use type: Cigarette e-Cigarette/Vaping Use: Never Used Second Hand Smoke Exposure: Yes service: No Current occupational status: disabled Cognitive needs: Yes (cane) Hearing needs: No Vision needs: Yes (glasses) Office Procedures Cardiac Device Check Cardiac Device Check Details: Date of service- 02/16/2025; based on impedance data and physiological variables, there is possible optivol fluid accumulation from Jan to Jan. [id number] Cardiac Device Interrogation, cardio physiologic monitor Procedure code (CPT) selection complete Assessment & Plan Assessment & Plan (1) ICD (implantable cardioverter-defibrillator) in place: Code(s): Z95.810 - Presence of automatic (implantable) cardiac defibrillator Category: Medical (2) NICM (nonischemic cardiomyopathy): Code(s): I42.8 - Other cardiomyopathies Category: Medical Plan x Coding Level of Care Code Procedure Only Diagnoses ICD (implantable cardioverter-defibrillator) in place Z95.810 NICM (nonischemic cardiomyopathy) I42.8 CPT Codes Cardiac Device Check - Cardiac Device 15: [id number] Cardiac Device Interroga tion, cardio physiologic monitor ([id number])
== END ==
PROVIDERS: PCP Physician Assistant; Visit Provider Internal Medicine
DX: I42.8 Other cardiomyopathies (principal); Z95.810 Presence of automatic (implantable) cardiac defibrillator
CPT/HCPCS: 93297

== ENCOUNTER 2025-03-15 09:19 | Outpatient (AMB) | payer OTHER, SELFPAY ==
--- NOTE | 2025-03-15 09:32 | MHC.PC.OV ---
Vital Signs 03/15/25 09:34 Height 5 ft 11 in Weight 272 lb 8 oz BMI 38.0 BP 120/78 Blood Pressure Location Lt brachial Position Sitting Pulse 59 Pulse Source Pulse Oximeter Temp 97.3 F Temp Source Temporal Artery Scan Pulse Oximetry (%) 98 Oxygen Delivery Method Room Air Intake Visit Reasons: 4 mnth f/u Intake Note: Patient is here to follow up on DM, PAfib, Chronic Pain Syndrome. Local Tanker Truck Driver Required: Yes Local Tanker Truck Driver Language: Technology Training Associate Name: Cameron Larson [id number] Information Interpreted: non-clinical & clinical Diagnostic Cardiac Sonographer: Not Required per policy Accompanied by: Self / Same As Patient Allergies Penicillins (PENICILLINS) Allergy (Severe, Verified 03/15/25 10:17) [facility] Medication List - Last Reconciled 03/15/25 by Adan Reynaga PA-C albuterol sulfate 2.5 mg (3 mL) inhalation Q4-6H PRN albuterol sulfate 90 mcg/actuation (Ventolin HFA) 2 puffs inhalation Q6H PRN 30 days apixaban (Eliquis) 5 mg PO BID 90 days atorvastatin 10 mg PO DAILY blood sugar diagnostic ([employer] Ultra Test strips) Test glucose level TID blood-glucose meter As directed cane As directed cholecalciferol (vitamin D3) 25 mcg PO DAILY clotrimazole 1% 1 appl topical BID 30 days compr.stocking,knee,long,x-lrg As directed cyclobenzaprine 5 mg PO Q8H PRN [Diabetic shoes & 3 pair inserts as directed] digoxin 125 mcg PO DAILY famotidine 40 mg (2 x 20 mg) PO BID PRN furosemide (Lasix) 40 mg PO BID 90 days gabapentin 600 mg PO TID 30 days insulin aspart U-100 10 units (0.1 mL) subcut TID 30 days insulin glargine U-300 conc (Toujeo Max U-300 SoloStar) 84 units (0.28 mL) subcut DAILY 30 days lancets ([employer] Delica Plus Lancet) test 3 times per day lidocaine 5% (Lidoderm) 1 patch topical DAILY PRN 30 days MDD remove after 12 hours loperamide 2 mg PO BID PRN metoprolol succinate ER 25 mg PO DAILY 90 days miscellaneous medical supply 2 ea miscellaneous DAILY miscellaneous medical supply 2 ea miscellaneous DAILY 90 days pen needle, diabetic (BD Ultra-Fine Mara Pen Needle) As directed semaglutide (Ozempic) 1 mg (0.75 mL) subcut QWEEK 4 weeks tramadol 50 mg PO Q8H PRN 4 days Tobacco use date assessed: 03/15/25 Dental Screening Dental Screen Date: 11/10/24 HPI 4 mnth f/u HPI Details Patient is a 58-YEAR-old male here today for follow-up visit? Patient has a past medical history significant for morbid obesity, hypertension, ICD implanted, AFIB, obstructive sleep apnea. ? . ? FIAZAN:? Currently using CPAP nightly with good effect.? He reports he is sleeping well at night and his Blood pressure are well controlled here in the office. . Hyperlipidemia: Patient continues on statin therapy without any side effect. Most recent lipid panel showing appropriate total cholesterol and LDL. ? .. ? DM2:? Patient's type 2 diabetes well managed at this time.. Most recent A1c acceptable 6.9. Continues on Ozempic 1 mg, Toujeo 84 units .? He admits to some dietary indiscretion as of late. He does continue to wear lower extremity compression socks. ---> patient interested in getting a Rollator walker to help him with activities of daily living like shopping to help reduce also his fall risk. Currently ambulating with a cane assistance .. AFib:? Patient continues to be followed by Cardiology.??Continues on anticoagulation without any overt signs of bleeding. Patient has recently gotten pacemaker placed and is interrogated quite often thought any cardiac events. ? Denies any overt signs of bleeding or palpitations. .. Lymphedema: Continues to have mild swelling in his lower extremities, needs new script for medical compression stockings to be sent to his DME supplier. Laboratory Tests 11/10/24 03/15/25 09:18 09:30 Hgb A1c (Clinic) 7.4 H 6.8 H PFSH Medical History Varicose veins of both lower extremities with inflammation PVD (peripheral vascular disease) Obesity, morbid, BMI 50 or higher Morbid obesity Obesity due to excess calories Screening for prostate cancer Diarrhea Tinea pedis of both feet Diabetic polyneuropathy associated with type 2 diabetes mellitus CKD stage 3 due to type 2 diabetes mellitus Asthma GERD (gastroesophageal reflux disease) History of cardiomyopathy FAIZAN (obstructive sleep apnea) Essential hypertension Chronic kidney disease, unspecified Neuropathy Surgical History History of surgery History of colonoscopy Presence of implantable cardioverter-defibrillator (ICD) Family History Father Cardiac disease Mother Cardiac disease Social History Housing: Apartment Are you a primary animal care specialist to a significant other at home: No Alcohol intake: former Patient Tobacco Use Status: Former Tobacco user Tobacco use type: Cigarette e-Cigarette/Vaping Use: Never Used Second Hand Smoke Exposure: Yes service: No Current occupational status: disabled Cognitive needs: Yes (cane) Hearing needs: No Vision needs: Yes (glasses) Questionnaire Thrive Questionnaire Date Thrive assessed: 11/10/24 I am a: Patient What is your living situation today?: I have a steady place to live Within the past 12 months, did the food you bought not last and you didn't have the money to get more?: I choose not to answer this question Within the past 12 months, did you worry whether your food would run out before you got money to buy more?: I choose not to answer this question Do you have trouble paying for medicines?: No Do you have trouble getting transportation to medical appointments?: No Do you have trouble paying your heating and electricity bill?: No Do you have trouble taking care of your child, family member or friend?: No Do you have trouble with day-to-day activities such as bathing, preparing meals, shopping, managing finances, etc.?: I choose not to answer this question Are you currently unemployed and looking for a job?: No Are you interested in more education?: No Please select the resources that you would like help with: None Currently or been in a relationship where the following occur: I choose not to answer THRIVE Score: 0 CAROLANN-7 AMB Questionnaire CAROLANN-7 Date CAROLANN - 7 assessed: 11/10/24 Source: Developed by Drs. Pedro Reid, Neeta BJapser Duenas and colleagues, with an educational lonny from [employer]. Review of Systems Const Denies headache(s) Eyes Denies loss of vision ENT Denies vertigo, Denies dizziness, Denies headache(s) and Denies sore throat Card Denies chest pain, Denies leg edema and Denies lightheadedness Resp Denies cough, Denies hemoptysis and Denies wheezing GI Denies abdominal pain, Denies melena, Denies constipation, Denies diarrhea and Denies vomiting Denies dysuria, Denies urinary frequency and Denies urinary urgency Musc Denies arthralgias, Denies joint swelling, Denies numbness and Denies tingling Neuro Denies Abnormal speech present, Denies behavioral changes, Denies vertigo, Denies dizziness, Denies headache(s), Denies loss of vision, Denies memory loss, Denies numbness and Denies tingling Psych Denies anxiety, Denies behavioral changes, Denies depression, Denies memory loss and Denies panic attacks Basil/Lymph Denies easy bleeding and Denies easy bruising Aller/Immun Denies wheezing Physical exam (Primary Care) Vital Signs: Last Vital Signs Temp 97.3 F 03/15/25 09:34 Pulse 59 03/15/25 09:34 BP 120/78 03/15/25 09:34 Pulse Ox 98 03/15/25 09:34 Oxygen Delivery Method Room Air 03/15/25 09:34 BMI result Body Mass Index 38.0 BMI Assessment/Plan discussion: High BMI High, discussed plan: lifestyle, weight reduction, dietary and physical activity Tobacco/Smoking Status: Tobacco use Status Tobacco use date assessed 03/15/25 03/15/25 09:43 Patient Tobacco Use Status Former Tobacco user 03/15/25 09:32 Tobacco use type Cigarette 03/15/25 09:32 e-Cigarette/Vaping Use Never Used 03/15/25 09:32 Thrive Assessment: Date of Thrive Assessment Date Thrive assessed 11/10/24 03/15/25 09:32 Currently or been in a relationship where the following occur: I choose not to answer Const General: healthy appearing, no acute distress, alert and awake Nutritional Appearance: well nourished Orientation/consciousness: oriented to person, oriented to place and oriented to time HENMT Ears: TM's normal bilaterally General nose exam: Normal nasal mucous membranes and turbinates present Eyes Conjunctivae: conjunctivae normal Sclerae: sclerae normal Pupils: Equal, round and reactive pupils present Neck Neck: Yes no lymphadenopathy and Yes no JVD Thyroid: Thyroid normal Carotids: no bruits Resp Effort & Inspection: normal respiratory effort and not tachypneic Auscultation: no crackles, no rales, no rhonchi and no wheezes Cardio Rate: regular rate Rhythm: regular rhythm Heart sounds: no murmurs and normal S1 and S2 GI Palpation (GI): Soft to palpation, nontender, no hepatomegaly and no splenomegaly Auscultation: normal bowel sounds Skin General skin exam: no rashes or lesions noted and dry skin Neuro General: oriented to person, oriented to place and oriented to time Cranial nerves: Yes Equal, round and reactive pupils present Speech: No Abnormal speech present Gait exam (Neuro): Normal gait present Motor exam (neuro): no tremor noted Extrem Right upper extremity: full ROM Left upper extremity: full ROM Right lower extremity: full ROM; no edema Left lower extremity: full ROM; no edema Psych Mental Status: mental status grossly normal Speech and movement: Normal speech and movement present Affect: normal affect Attitude: cooperative Thought process: Normal thought process present Results AMB Hemoglobin A1c AMB Hemoglobin A1c 6.8 % Last Edit by RYAN Vazquez on 03/15/25 09:46 Results Reviewed Results Reviewed: Laboratory Last Values Hgb A1c (Clinic) 6.8 % (4.0-6.0) H 03/15/25 09:30 Coding Level of Care Code Est Pt Level 4 (23559) Diagnoses Type 2 diabetes mellitus with hyperglycemia, with long-term current use of insulin E11.65; Z79.4 Diabetes mellitus [facility] insulin use: with [facility] use Longstanding persistent atrial fibrillation I48.11 Atrial fibrillation type: longstanding persistent Mixed hyperlipidemia E78.2 Hyperlipidemia type: mixed hyperlipidemia CKD stage 3 due to type 2 diabetes mellitus E11.22; N18.30 Diabetic polyneuropathy associated with type 2 diabetes mellitus E11.42 Class 2 obesity E66.812 Assessment & Plan Assessment & Plan (1) Type 2 diabetes mellitus with hyperglycemia: Code(s): E11.65 - Type 2 diabetes mellitus with hyperglycemia Category: Medical Qualifiers: Diabetes mellitus parts counterman insulin use: with [facility] use Qualified Code(s): E11.65 - Type 2 diabetes mellitus with hyperglycemia; Z79.4 - [facility] (current) use of insulin Plan: Patient's type 2 diabetes now well controlled with A1c today is 6.9. He reports he has been eating much better. Work on diabetic diet for now and keep antihyperglycemic medication regime the same.. Goal A1c is to remain below 7.0 (2) Afib: Code(s): I48.91 - Unspecified atrial fibrillation Category: Medical Qualifiers: Atrial fibrillation type: longstanding persistent Qualified Code(s): I48.11 - Longstanding persistent atrial fibrillation Plan: As per HPI. Continues to follow cardiology. Does have an ICD placed at gets interrogated quite often. (3) HLD (hyperlipidemia): Code(s): E78.5 - Hyperlipidemia, unspecified Category: Medical Qualifiers: Hyperlipidemia type: mixed hyperlipidemia Qualified Code(s): E78.2 - Mixed hyperlipidemia Plan: Patient's most recent lipid panel showing good control of his total cholesterol and LDL. He will continue on statin therapy with goal LDL to remain below 100. (4) CKD stage 3 due to type 2 diabetes mellitus: Code(s): E11.22 - Type 2 diabetes mellitus with diabetic chronic kidney disease; N18.30 - Chronic kidney disease, stage 3 unspecified Category: Medical Plan: Patient continues to follow Nephrology. Does have CKD secondary to his type 2 diabetes. Will continue to avoid any nephrotoxic medication. (5) Diabetic polyneuropathy associated with type 2 diabetes mellitus: Code(s): E11.42 - Type 2 diabetes mellitus with diabetic polyneuropathy Category: Medical Plan: Patient continues with gabapentin with decent affect on his bilateral lower extremity neuropathy. Continues to wear compression socks which has been helpful. He is asking for Rollator walker to help him with activities of daily living and to reduce his fall risk. Continues to use a cane for ambulation assistance (6) Class 2 obesity: Code(s): E66.812 - Obesity, class 2 Category: Medical Plan: Patient does understand his BMI is over 35 and will work on being more physically active and adapting to better eating habits to reduce his weight further. Orders: Orders AMB Hemoglobin A1c Today E11.65 - Type 2 diabetes mellitus with hyperglycemia, Z79.4 - M[facility] (current) use of insulin Medications: New walker (Ultra-Light Rollator misc) As directed 1 ea 0RF M47.816 - Spondylosis without myelopathy or radiculopathy, lumbar region Patient Instructions: Goal: A1c to remain below 7.0, LDL to be below 100. Blood pressure to remain below 140/90 Barriers: Adherence to physical activity and healthy eating habits
[2025-03-15 09:34] VITALS: BP 120/78; PULSE 59; TEMP 36.3; O2SAT 98; BMI 38.0
--- OUTSIDE RECORDS SUMMARY | 2025-03-15 10:24 | XMS_ITS | Clinical Summary ---
Author Organization [facility] Address [address] [place] [address] Phone Care Team Providers Care Beekeeper Name Role Phone Adan Reynaga Primary Care Provider [phone] Allergies Active Allergy Reactions Criticality Noted Date [...] Sigmoidoscopy 05/12/2014 Influenza Vaccine (#1) 2025 Insurance [facility] ([id number]) [place] [address] ([id number]) Care Teams Beekeeper Relationship Specialty Start Date End Date Adan Reynaga PA [address] [place] [address], [address] [place], [place] [id number] PCP - General Physician Electronic Warfare Technician 03/15/21
== END 2025-03-15 10:34 | disposition home or self-care (01) ==
LOC: HO.HMCH 09:20
PROVIDERS: PCP Physician Assistant; Visit Provider Physician Assistant
DX: E11.65 Type 2 diabetes mellitus with hyperglycemia (principal); E11.22 Type 2 diabetes mellitus with diabetic chronic kidney disease; N18.30 Chronic kidney disease, stage 3 unspecified; Z79.4 Long term (current) use of insulin; I48.11 Longstanding persistent atrial fibrillation; E11.42 Type 2 diabetes mellitus with diabetic polyneuropathy; E66.812 Obesity, class 2; E78.2 Mixed hyperlipidemia

== ENCOUNTER → 2025-03-15 09:19 | Outpatient (BNVA) | payer OTHER, SELFPAY | PROVIDERS: PCP Physician Assistant; Visit Provider Physician Assistant | DX: E11.65 Type 2 diabetes mellitus with hyperglycemia (principal); E11.22 Type 2 diabetes mellitus with diabetic chronic kidney disease; E11.42 Type 2 diabetes mellitus with diabetic polyneuropathy; N18.30 Chronic kidney disease, stage 3 unspecified; I48.11 Longstanding persistent atrial fibrillation; G47.33 Obstructive sleep apnea (adult) (pediatric); E78.5 Hyperlipidemia, unspecified; I48.91 Unspecified atrial fibrillation; E78.2 Mixed hyperlipidemia; E66.812 Obesity, class 2; M47.816 Spondylosis without myelopathy or radiculopathy, lumbar region; Z79.4 Long term (current) use of insulin; Z99.89 Dependence on other enabling machines and devices; Z79.899 Other long term (current) drug therapy; Z68.38 Body mass index [BMI] 38.0-38.9, adult | CPT/HCPCS: 83036; 99212 ==

== ENCOUNTER 2025-03-16 09:20 | Outpatient (REF) | payer OTHER, SELFPAY ==
[2025-03-16 10:26] LABS: Anion Gap 12 (12-20); Blood Urea Nitrogen 13 mg/dL (9-16); Calcium 8.5 mg/dL (8.4-10.2); Carbon Dioxide 25 mmol/L (22-29); Chloride 109 mmol/L (96-108); Estimated Glomerular Filt Rate > 60; Potassium 4.0 mmol/L (3.3-5.1); Sodium 142 mmol/L (135-145)
[2025-03-16 11:34] LABS: Digoxin 0.2 ng/mL (0.8-2.0)
== END 2025-03-16 09:21 | disposition home or self-care (01) ==
LOC: HO.LAB 09:20
PROVIDERS: Internal Medicine; PCP Physician Assistant; Visit Provider Physician Assistant
DX: I48.11 Longstanding persistent atrial fibrillation (principal)
CPT/HCPCS: 36415; 80048; 80162

== ENCOUNTER 2025-03-17 09:43 | Outpatient (AMB) | payer OTHER, SELFPAY ==
[2025-03-17 09:50] VITALS: BP 108/72; PULSE 76; O2SAT 99; BMI 38.7
--- NOTE | 2025-03-17 09:50 | MHC.OFFVIS ---
Vital Signs 03/17/25 09:50 Height 5 ft 11 in Weight 277 lb 12.519 oz BMI 38.7 BP 108/72 Blood Pressure Location Rt brachial Position Sitting Pulse 76 Pulse Source Pulse Oximeter Pulse Oximetry (%) 99 Oxygen Delivery Method Room Air Intake Visit Reasons: faizan Field Enumerator Required: Yes Field Enumerator Language: Senior Graduate Advisor Services: Field Enumerator Present Field Enumerator Name: Ruth Corbett LM Allergies Penicillins (PENICILLINS) Allergy (Severe, Verified 03/17/25 09:57) [facility] Medication List - Last Reconciled 03/17/25 by Paco Cagle MD albuterol sulfate 2.5 mg (3 mL) inhalation Q4-6H PRN albuterol sulfate 90 mcg/actuation (Ventolin HFA) 2 puffs inhalation Q6H PRN 30 days apixaban (Eliquis) 5 mg PO BID 90 days atorvastatin 10 mg PO DAILY blood sugar diagnostic ([employer] Ultra Test strips) Test glucose level TID blood-glucose meter As directed cane As directed cholecalciferol (vitamin D3) 25 mcg PO DAILY clotrimazole 1% 1 appl topical BID 30 days compr.stocking,knee,long,x-lrg As directed cyclobenzaprine 5 mg PO Q8H PRN [Diabetic shoes & 3 pair inserts as directed] digoxin 125 mcg PO DAILY famotidine 40 mg (2 x 20 mg) PO BID PRN furosemide (Lasix) 40 mg PO BID 90 days gabapentin 600 mg PO TID 30 days insulin aspart U-100 10 units (0.1 mL) subcut TID 30 days insulin glargine U-300 conc (Toujeo Max U-300 SoloStar) 84 units (0.28 mL) subcut DAILY 30 days lancets ([facility] [employer] Delica Plus Lancet) test 3 times per day lidocaine 5% (Lidoderm) 1 patch topical DAILY PRN 30 days MDD remove after 12 hours loperamide 2 mg PO BID PRN metoprolol succinate ER 25 mg PO DAILY 90 days miscellaneous medical supply 2 ea miscellaneous DAILY miscellaneous medical supply 2 ea miscellaneous DAILY 90 days pen needle, diabetic (BD Ultra-Fine Mara Pen Needle) As directed semaglutide (Ozempic) 1 mg (0.75 mL) subcut QWEEK 4 weeks tramadol 50 mg PO Q8H PRN 4 days walker (Ultra-Light Rollator misc) As directed Do you need a note to return to daycare/school/sports/work: No HPI HPI faizan: Details: This 58 years old gentleman with gross obesity and obstructive sleep apnea comes after 6 months for follow-up. He has been using his CPAP very regularly every night, there is a slight air leak but he has now taken care of it. Sleeps good has no daytime sleepiness. Weight remains up not able to lose much weight , currently his therapeutic regimen includes Ozempic therapy. [facility] Medical History Varicose veins of both lower extremities with inflammation PVD (peripheral vascular disease) Obesity, morbid, BMI 50 or higher Morbid obesity Obesity due to excess calories Screening for prostate cancer Diarrhea Tinea pedis of both feet Diabetic polyneuropathy associated with type 2 diabetes mellitus CKD stage 3 due to type 2 diabetes mellitus Asthma GERD (gastroesophageal reflux disease) History of cardiomyopathy FAIZAN (obstructive sleep apnea) Essential hypertension Chronic kidney disease, unspecified Neuropathy Surgical History History of surgery History of colonoscopy Presence of implantable cardioverter-defibrillator (ICD) Family History Father Cardiac disease Mother Cardiac disease Social History Housing: Apartment Are you a primary animal care attendant to a significant other at home: No Alcohol intake: former Patient Tobacco Use Status: Former Tobacco user Tobacco use type: Cigarette e-Cigarette/Vaping Use: Never Used Second Hand Smoke Exposure: Yes service: No Current occupational status: disabled Cognitive needs: Yes (cane) Hearing needs: No Vision needs: Yes (glasses) Review of Systems Const All systems reviewed & are unremarkable except as noted in HPI and below Eyes Reports no additional complaints ENT Reports no additional complaints Card Denies chest pain, Denies irregular heart rhythm and Denies leg edema Resp Denies cough and Denies wheezing GI Reports no additional complaints Reports no additional complaints Musc Reports back pain (mild) Skin/Breast Reports system reviewed and no additional complaints, except as documented Neuro Reports no additional complaints Aller/Immun Denies wheezing Physical Exam Vital Signs: Last Vital Signs Pulse 76 03/17/25 09:50 Pulse Ox 99 03/17/25 09:50 Oxygen Delivery Method Room Air 03/17/25 09:50 BMI result Body Mass Index 38.7 Const General: healthy appearing (Except for being overweight), comfortable, no acute distress, alert and awake Orientation/consciousness: patient oriented x3 HEENT Head: Yes normal to inspection General nose exam: No nasal polyps present and No nasal discharge present Face and sinus: Yes sinuses nontender Mouth: oropharynx normal Throat: Yes posterior oropharynx normal Eyes General: appearance normal, both eyes and all related structures Neck Neck: Yes normal visual inspection, Yes no lymphadenopathy, Yes trachea midline and Yes no JVD Thyroid: Thyroid normal Chest Chest palpation & inspection: normal inspection of the chest, normal palpation of entire chest wall and no tenderness Resp Effort & Inspection: normal respiratory effort Auscultation: clear to auscultation bilaterally, no rhonchi and no wheezes Cardio Palpation: normal PMI Rate: regular rate Rhythm: regular rhythm Heart sounds: no gallops and no murmurs GI Palpation (GI): Soft to palpation, Tenderness to palpation present (GI), No hepatosplenomegaly present and Palpable mass present Auscultation: normal bowel sounds Back/Spine/Pelvis Thoracic/Lumbar Spine: thoracic and lumbar spine normal to inspection Skin General skin exam: no rashes or lesions noted Neuro General: patient oriented x3 and no focal motor deficits Cranial nerves: Yes CN's II-XII intact bilaterally Extrem General: Yes normal to inspection, Yes no clubbing, cyanosis or edema and Yes no calf tenderness Psych Appearance: grossly normal and well kempt Speech and movement: Normal speech and movement present Results Reviewed Results Reviewed: Compliance report for the last 30 nights is reviewed and it shows that he has been using 100% of the nights, average use it per night 7 hours 38 minutes. He is on CPAP of 13 cm. There is some air leak residual AHI only 1.9 Assessment & Plan Assessment & Plan (1) Morbid obesity: Comment: Patient is a known case of morbid obesity. Talked about weight reduction. He has multiple problems including diabetes mellitus. He has had dietary instructions from the dietitian and is trying to adhere to reduced calories intake. Currently he is on treatment with Ozempic injection 1 mg Q 1 week. On this visit has gained about 5 lb of weight. Code(s): E66.01 - Morbid (severe) obesity due to excess calories Category: Medical Plan: Explained to him about his weight. He is simple minded, does not do much exercise. Will try to control his calories intake. (2) Asthma: Comment: History of mild intermittent bronchial asthma. However he denied any active symptoms at present. Code(s): J45.909 - Unspecified asthma, uncomplicated Category: Medical Plan: HFA 2 puffs q.6 hours p.r.n. or alternatively may use albuterol solution in the nebulizer q.6 hours p.r.n. (3) FAIZAN on CPAP: Comment: HE IS A KNOWN CASE OF OBSTRUCTIVE SLEEP APNEA. IT IS WELL TREATED WITH THE USE OF CPAP, HE IS VERY COMPLIANT, HIS CPAP DEVICE IS 5 YEARS OLD , HE MAY NEED A NEW CPAP DEVICE, BUT SO FAR IT IS WORKING GOOD . Code(s): G47.33 - Obstructive sleep apnea (adult) (pediatric); Z99.89 - Dependence on other enabling machines and devices Category: Medical Plan: COMMENDED FOR GOOD COMPLIANCE AND ADVISED TO KEEP ON USING THE CPAP EVERY NIGHT . Coding Level of Care Code Est Pt Level 3 (97679) Diagnoses Morbid obesity E66.01 Asthma J45.909 FAIZAN on CPAP G47.33; Z99.89
== END 2025-03-17 10:05 | disposition home or self-care (01) ==
LOC: HO.HPS 09:44
PROVIDERS: PCP Physician Assistant; Visit Provider Internal Medicine
DX: E66.01 Morbid (severe) obesity due to excess calories (principal); J45.909 Unspecified asthma, uncomplicated; G47.33 Obstructive sleep apnea (adult) (pediatric); Z99.89 Dependence on other enabling machines and devices
CPT/HCPCS: 99213

== ENCOUNTER → 2025-03-17 09:43 | Outpatient (BNVA) | payer OTHER, SELFPAY | PROVIDERS: PCP Physician Assistant; Visit Provider Internal Medicine | DX: G47.33 Obstructive sleep apnea (adult) (pediatric) (principal); J45.909 Unspecified asthma, uncomplicated; E66.01 Morbid (severe) obesity due to excess calories; Z99.89 Dependence on other enabling machines and devices; Z68.38 Body mass index [BMI] 38.0-38.9, adult | CPT/HCPCS: 99212 ==

== ENCOUNTER 2025-03-30 11:21 | Outpatient (AMB) | payer OTHER, SELFPAY ==
--- NOTE | 2025-03-30 11:35 | MHC.OFFVIS ---
Vital Signs 03/30/25 11:36 Height 5 ft 11 in Weight 275 lb BMI 38.4 Blood Pressure Location Lt brachial Position Sitting Oxygen Delivery Method Room Air Intake Visit Reasons: Other fecal abnormalities Intake Note: Patient new consult for fecal abnormalities, positive cologuard. 3rd Colonoscopy screening. The first 2 was in P.R. Patient denies any GI issues. Dental Technician Metal Required: No Accompanied by: Family/Other Allergies Penicillins (PENICILLINS) Allergy (Severe, Verified 03/30/25 11:35) RASH Medication List - Last Reconciled 03/30/25 by Alyson Lunsford CNP albuterol sulfate 2.5 mg (3 mL) inhalation Q4-6H PRN albuterol sulfate 90 mcg/actuation (Ventolin HFA) 2 puffs inhalation Q6H PRN 30 days apixaban (Eliquis) 5 mg PO BID 90 days atorvastatin 10 mg PO DAILY blood sugar diagnostic (PetMD Ultra Test strips) Test glucose level TID blood-glucose meter As directed cane As directed cholecalciferol (vitamin D3) 25 mcg PO DAILY clotrimazole 1% 1 appl topical BID 30 days compr.stocking,knee,long,x-lrg As directed cyclobenzaprine 5 mg PO Q8H PRN [Diabetic shoes & 3 pair inserts as directed] digoxin 125 mcg PO DAILY famotidine 40 mg (2 x 20 mg) PO BID PRN furosemide (Lasix) 40 mg PO BID 90 days gabapentin 600 mg PO TID 30 days insulin aspart U-100 10 units (0.1 mL) subcut TID 30 days insulin glargine U-300 conc (Toujeo Max U-300 SoloStar) 84 units (0.28 mL) subcut DAILY 30 days lancets (LvmaeTouch Delica Plus Lancet) test 3 times per day lidocaine 5% (Lidoderm) 1 patch topical DAILY PRN 30 days MDD remove after 12 hours loperamide 2 mg PO BID PRN metoprolol succinate ER 25 mg PO DAILY 90 days miscellaneous medical supply 2 ea miscellaneous DAILY miscellaneous medical supply 2 ea miscellaneous DAILY 90 days pen needle, diabetic (BD Ultra-Fine Mara Pen Needle) As directed semaglutide (Ozempic) 1 mg (0.75 mL) subcut QWEEK 4 weeks tramadol 50 mg PO Q8H PRN 4 days walker (Ultra-Light Rollator misc) As directed HPI HPI Other fecal abnormalities: Details: Patient is a 58-year-old male with PMH of obesity, asthma, FAIZAN, hypertension, CKDII. Referred by PCP for further evaluation of positive Cologuard. Dhaval presents after a positive Cologuard screening detected 12-06-2024. Patient is accompanied by his . He denies changes in bowel habits, reporting daily stools without issues of constipation or diarrhea. Occasionally experiences heartburn, which is triggered by certain foods but resolves spontaneously without need for medication, and does not report regurgitation or dysphagia. He has a history of diabetes managed with insulin therapies and semaglutide. Also has a cardiac device (defibrillator/pacemaker) in place for remote cardiac disease, with regular device checks; denies any cardiac or respiratory symptoms currently. Uses CPAP for sleep-related breathing disorder. Patient denies: fever/chills, n/v, appetite changes, regurgitation,dysphasia, unintentional wt loss, ab pain or melena/hematochezia. Social hx: -ETOH cessation 3 years ago, denies dependence -denies recreational drug use -non-smoker - family hx as below -denies personal hx of CA -tolerated anesthesia in the past without difficulty. [facility] Medical History (Updated 03/30/25 @ 12:15 by Alyson Lunsford CNP) Colon cancer screening Varicose veins of both lower extremities with inflammation PVD (peripheral vascular disease) Obesity, morbid, BMI 50 or higher Morbid obesity Obesity due to excess calories Screening for prostate cancer Diarrhea Tinea pedis of both feet Diabetic polyneuropathy associated with type 2 diabetes mellitus CKD stage 3 due to type 2 diabetes mellitus Asthma GERD (gastroesophageal reflux disease) History of cardiomyopathy FAIZAN (obstructive sleep apnea) Essential hypertension Chronic kidney disease, unspecified Neuropathy Surgical History History of surgery History of colonoscopy Presence of implantable cardioverter-defibrillator (ICD) Family History Father Cardiac disease Mother Cardiac disease Social History Housing: Apartment Are you a primary child care coordinator to a significant other at home: No Alcohol intake: former Patient Tobacco Use Status: Former Tobacco user Tobacco use type: Cigarette e-Cigarette/Vaping Use: Never Used Second Hand Smoke Exposure: Yes service: No Current occupational status: disabled Cognitive needs: Yes (cane) Hearing needs: No Vision needs: Yes (glasses) Review of Systems Const Reports as per [facility] ENT Reports as per [facility] Card Reports as per HPI Resp Reports as per HPI GI Reports as per [facility] Reports as per HPI Physical Exam Vital Signs: Oxygen Delivery Method Room Air 03/30/25 11:36 BMI result Body Mass Index 38.4 Const General: healthy appearing, no acute distress and well developed Nutritional Appearance: average body habitus Orientation/consciousness: patient oriented x3 HEENT Head: Yes normal to inspection, Yes normocephalic and Yes atraumatic Face and sinus: Yes normal facial exam Eyes General: appearance normal, both eyes and all related structures Neck Neck: Yes normal visual inspection Resp Effort & Inspection: normal respiratory effort, able to speak in complete sentences, no tracheal deviation and symmetric chest movement GI Inspection: Yes obesity Neuro General: patient oriented x3 Gait exam (Neuro): Normal gait present Psych Appearance: grossly normal Mental Status: mental status grossly normal Speech and movement: Normal speech and movement present Affect: normal affect Attitude: cooperative Thought process: Normal thought process present Thought content: Normal thought content present Insight: Good insight present (Psych) Judgement: Good judgement present (Psych) Assessment & Plan Assessment & Plan (1) Positive colorectal cancer screening using Cologuard test: Code(s): R19.5 - Other fecal abnormalities Category: Medical Plan: Positive stool DNA screening warrants colonoscopy to rule out premalignant or malignant colonic lesions. Additional Testing: Schedule and complete colonoscopy by May (within 3?6 mos of positive screen). Routine pre-procedure labs reviewed and stable; no evidence anemia, renal or hepatic dysfunction. Medication Management: Temporarily hold Eliquis, rapid/long-acting insulin, and semaglutide deb-procedurally; nurse to provide timing instructions pre-procedure. Lifestyle Recommendations: Commence prescribed Miralax split prep with 4 laxative tablets and 64 oz clear (non-red/blue/purple) Gatorade day prior to procedure; clear liquid diet only. Nothing by mouth 4 hrs prior to colonoscopy. Arrange transportation (no driving post-procedure due to sedation; daughter will assist). Follow-Up: Procedure scheduling as soon as possible, no later than May. Nurse will contact pt week prior for medication/precaution review. Plan Follow-up after colonoscopy or sooner as needed Time: I spent a total of 30 minutes on the date of encounter which includes: Preparing to see the patient (reviewed previous documentation, test results and medical history) Performing a medically appropriate exam and/or evaluation Ordering medications, tests, and procedures Documenting clinical information in the health record Orders: Referrals GI Procedure Notification R19.5 - Other fecal abnormalities, Z12.11 - Encounter for screening for malignant neoplasm of colon Medications: New bisacodyl Take per colonoscopy instructions 20 mg (4 x 5 mg) PO ONCE 4 tabs 0RF polyethylene glycol 3350 (Miralax) per colonoscopy prep instructions 238 grams PO ONCE 238 grams 0RF Coding Level of Care Code New Pt New Pt Level 3 (94812) Patient Type New Diagnoses Positive colorectal cancer screening using Cologuard test R19.5
[2025-03-30 11:36] VITALS: BMI 38.4
== END 2025-03-30 12:36 | disposition home or self-care (01) ==
LOC: HO.HGI 11:22
PROVIDERS: PCP Physician Assistant; Visit Provider Nurse Practitioner Family
DX: R19.5 Other fecal abnormalities (principal)
CPT/HCPCS: 99203

== ENCOUNTER → 2025-03-30 11:21 | Outpatient (BNVA) | payer OTHER, SELFPAY | PROVIDERS: PCP Physician Assistant; Visit Provider Nurse Practitioner Family | DX: Z01.818 Encounter for other preprocedural examination (principal); R19.5 Other fecal abnormalities | CPT/HCPCS: 99202 ==

== ENCOUNTER 2025-05-09 09:10 | Outpatient (REF) | payer OTHER, SELFPAY ==
[2025-05-09 10:26] LABS: Anion Gap 14 (12-20); Blood Urea Nitrogen 18 mg/dL (9-16); Calcium 8.6 mg/dL (8.4-10.2); Carbon Dioxide 21 mmol/L (22-29); Chloride 111 mmol/L (96-108); Estimated Glomerular Filt Rate > 60; Potassium 3.6 mmol/L (3.3-5.1); Sodium 142 mmol/L (135-145)
--- OUTSIDE RECORDS SUMMARY | 2025-05-09 10:48 | XMS_ITS | Clinical Summary ---
Author Organization [facility] Address [address] [place] [address] Phone Care Team Providers Care Computing Architect Name Role Phone Adan Reynaga Primary Care Provider [phone] Allergies Active Allergy Reactions Criticality Noted Date [...] Sigmoidoscopy 05/12/2014 Influenza Vaccine (#1) 2025 Insurance [facility] ([id number]) [place] [address] ([id number]) Care Teams Computing Architect Relationship Specialty Start Date End Date Adan Reynaga PA [address] [place] [address], [address] [place], [place] [id number] PCP - General Physician Research Pharmacist 03/15/21
== END 2025-05-09 09:11 | disposition home or self-care (01) ==
LOC: HO.LAB 09:10
PROVIDERS: PCP Physician Assistant; Visit Provider Internal Medicine Hypertension Specialist
DX: N18.9 Chronic kidney disease, unspecified (principal)
CPT/HCPCS: 36415; 80048

== ENCOUNTER 2025-05-12 10:03 | Outpatient (AMB) | payer OTHER, MEDICAID, SELFPAY ==
--- NOTE | 2025-05-12 10:05 | HO.NEPHOV_ITS ---
Vital Signs 05/12/25 10:06 Height 5 ft 11 in Weight 280 lb BMI 39.0 BP 96/58 L Blood Pressure Location Lt brachial Position Sitting Pulse 70 Pulse Source Pulse Oximeter Pulse Oximetry (%) 97 Oxygen Delivery Method Room Air Intake Visit Reasons: 6 MO FU Machine Etcher Required: No Machine Etcher Services: Machine Etcher Offered & Declined ( will translate ) Accompanied by: Spouse Allergies Penicillins (PENICILLINS) Allergy (Severe, Verified 05/12/25 10:08) RASH HPI Comments Details: Middle aged man with obesity and diabetes mellitus with CKD is here for follow- up. In 2021 serum creatinine was 1.27. Overall is doing well. No new complaints today. No shortness of breath no urinary symptoms. No edema. He is compliant with all his medications. Machine Etcher services was used 11/11/2024. Accompanied by his . No specific complaints today. He has been taking metoprolol 25 mg half a tablet in the morning. Blood pressure has been low. No lightheadedness. No urinary symptoms. He has gained some weight since previous visit 05/12/25 Overall doing well. Gained few pounds. No dyspnea PFSH Medical History (Updated 03/30/25 @ 12:15 by Alyson Lunsford CNP) Colon cancer screening Varicose veins of both lower extremities with inflammation PVD (peripheral vascular disease) Obesity, morbid, BMI 50 or higher Morbid obesity Obesity due to excess calories Screening for prostate cancer Diarrhea Tinea pedis of both feet Diabetic polyneuropathy associated with type 2 diabetes mellitus CKD stage 3 due to type 2 diabetes mellitus Asthma GERD (gastroesophageal reflux disease) History of cardiomyopathy FAIZAN (obstructive sleep apnea) Essential hypertension Chronic kidney disease, unspecified Neuropathy Surgical History History of surgery History of colonoscopy Presence of implantable cardioverter-defibrillator (ICD) Family History Father Cardiac disease Mother Cardiac disease Social History Housing: Apartment Are you a primary direct care specialist to a significant other at home: No Alcohol intake: former Patient Tobacco Use Status: Former Tobacco user Tobacco use type: Cigarette e-Cigarette/Vaping Use: Never Used Second Hand Smoke Exposure: Yes service: No Current occupational status: disabled Cognitive needs: Yes (cane) Hearing needs: No Vision needs: Yes (glasses) Physical Exam Vital Signs: Last Vital Signs Pulse 70 05/12/25 10:06 BP 96/58 L 05/12/25 10:06 Pulse Ox 97 05/12/25 10:06 Oxygen Delivery Method Room Air 05/12/25 10:06 BMI result Body Mass Index 39.0 Comfortable Neck supple no JVD. Lungs entry equal no rales. Heart S1-S2 heard no gallop or rub. Abdomen soft nontender. Neuro alert awake oriented. No asterixis. Extremities no edema. Results Reviewed Nephrology Results: Sodium, (135-145) 142 mmol/L 05/09/25 Potassium, (3.3-5.1) 3.6 mmol/L 05/09/25 Chloride, (96-108) 111 mmol/L H 05/09/25 Carbon Dioxide, (22-29) 21 mmol/L L 05/09/25 BUN, (9-16) 18 mg/dL H 05/09/25 Creatinine, (0.5-1.4) 1.05 mg/dL 05/09/25 Calcium, (8.4-10.2) 8.6 mg/dL 05/09/25 Assessment & Plan Assessment & Plan (1) Chronic kidney disease, unspecified: Code(s): N18.9 - Chronic kidney disease, unspecified Category: Medical (2) Obese: Code(s): E66.9 - Obesity, unspecified Category: Medical Qualifiers: Body mass index: BMI 40.0-44.9 Obesity classification: adult class 3 (BMI >= 40) Obesity type: due to excess calories Serious obesity comorbidity presence: with serious comorbidity Qualified Code(s): E66.01 - Morbid (severe) obesity due to excess calories; Z68.41 - Body mass index [BMI] 40.0-44.9, adult (3) Type 2 diabetes mellitus with hyperglycemia: Code(s): E11.65 - Type 2 diabetes mellitus with hyperglycemia Category: Medical Qualifiers: Diabetes mellitus technician terminal and repeater insulin use: with technician terminal and repeater use Qualified Code(s): E11.65 - Type 2 diabetes mellitus with hyperglycemia; 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 Back in 2021 he sustained SALEEM. Peak serum creatinine was 1.6. Recent serum creatinine 1.0. This is probably his baseline. He probably has mild CKD/stage II. Goal is to slow the progression of renal disease. Hemoglobin A1c should be maintained as an 7%. We discussed weight loss. Blood pressure be maintained less than 130/80. Blood pressure was relatively low but asymptomatic Avoid hypotension He should stay on low-sodium diet. We will continue to monitor urine protein excretion and maximize SIMBA inhibition Continue to avoid nephrotoxic agents including NSAIDs and hypotension. . Orders: Orders Basic Metabolic Panel 6 Months I10 - Essential (primary) hypertension Total Protein Urine Random 6 Months I10 - Essential (primary) hypertension Creatinine Urine 6 Months I10 - Essential (primary) hypertension UA and rflx microscopic 6 Months I10 - Essential (primary) hypertension Coding Level of Care Code Est Pt Level 3 (84075) Diagnoses Chronic kidney disease, unspecified N18.9 Class 3 severe obesity due to excess calories with serious comorbidity and body mass index (BMI) of 40.0 to 44.9 in adult E66.01; Z68.41 Body mass index: BMI 40.0-44.9 Obesity classification: adult class 3 (BMI >= 40) Obesity type: due to excess calories Serious obesity comorbidity presence: with serious comorbidity Type 2 diabetes mellitus with hyperglycemia, with long-term current use of insulin E11.65; Z79.4 Diabetes mellitus residential insulin use: with technician terminal and repeater use
[2025-05-12 10:06] VITALS: BP 96/58; PULSE 70; O2SAT 97; BMI 39.0
== END 2025-05-12 10:20 | disposition home or self-care (01) ==
LOC: HO.HKA 10:04
PROVIDERS: PCP Physician Assistant; Visit Provider Internal Medicine Hypertension Specialist
DX: N18.9 Chronic kidney disease, unspecified (principal); E66.01 Morbid (severe) obesity due to excess calories; Z68.41 Body mass index [BMI] 40.0-44.9, adult; E11.65 Type 2 diabetes mellitus with hyperglycemia; Z79.4 Long term (current) use of insulin
CPT/HCPCS: 99213

== ENCOUNTER → 2025-05-12 10:03 | Outpatient (BNVA) | payer OTHER, SELFPAY | PROVIDERS: PCP Physician Assistant; Visit Provider Internal Medicine Hypertension Specialist | DX: E11.22 Type 2 diabetes mellitus with diabetic chronic kidney disease (principal); E11.65 Type 2 diabetes mellitus with hyperglycemia; E66.01 Morbid (severe) obesity due to excess calories; Z68.41 Body mass index [BMI] 40.0-44.9, adult; N18.9 Chronic kidney disease, unspecified; Z79.4 Long term (current) use of insulin | CPT/HCPCS: 99212 ==

== ENCOUNTER → 2025-05-30 17:19 | Outpatient (BNV) | payer OTHER, SELFPAY | PROVIDERS: PCP Physician Assistant; Visit Provider Internal Medicine | DX: I42.8 Other cardiomyopathies (principal) | CPT/HCPCS: 93295 ==

== ENCOUNTER → 2025-05-31 08:32 | Outpatient (BNV) | payer OTHER, SELFPAY | PROVIDERS: PCP Physician Assistant; Visit Provider Internal Medicine | DX: Z45.02 Encounter for adjustment and management of automatic implantable cardiac defibrillator (principal) | CPT/HCPCS: 93297 ==

== ENCOUNTER → 2025-06-06 08:38 | Outpatient (REF) | payer OTHER, SELFPAY ==
--- NOTE | 2025-06-06 08:41 | CA_ITS ---
Transthoracic Echocardiogram Patient (Last, First, Middle): Dhaval Chinchilla R Gender: Male Date of : 05/12/1966 Age: 59 Procedure Date: 06/06/2025 Procedure Type: Transthoracic Echocardiogram Location: OP Height: 180.34 cm Weight: 127.01 kg BSA: 2.43 m2 Heart Rate: 97 bpm BP: 108 / 64 mmHg [employer] Operator: NIMA Referring MD: Porfirio Engle MD Symptoms: I42.8 - Other cardiomyopathies Study Quality: Technically Difficult w/Contrast ECG Rhythm: Ventriculary paced rhythm Conclusions: - The left ventricular systolic function is moderately decreased. The visually estimated ejection fraction is between 35-40%. - Moderately increased right ventricular cavity size. - Moderate biatrial enlargement. - No obvious valvular pathology seen on this study. Findings Procedure Information Contrast agent, definity, is being given per protocol without apparent complications. Left Ventricle Normal left ventricular cavity size. There is mildly increased left ventricular wall thickness. The left ventricular systolic function is moderately decreased. The visually estimated ejection fraction is between 35 40%. There is moderate global hypokinesis. Diastolic function is indeterminate on the basis of available data. There is moderate septal asymmetric hypertrophy. Right Ventricle Moderately increased right ventricular cavity size. There is normal right ventricular systolic function. There is a pacemaker wire seen in the right ventricle. Atria Moderate biatrial enlargement. Aortic Valve There is a normal trileaflet aortic valve. There is mild calcification of the aortic valve. There is no aortic valve stenosis. There is no aortic valve regurgitation. Mitral Valve There is mild mitral annular calcification. There is trace mitral valve regurgitation. There is no mitral valve stenosis. Pulmonic Valve The pulmonic valve is likely normal. Tricuspid Valve There is trace tricuspid valve regurgitation. There is no evidence of pulmonary hypertension. Great Vessels The asc aorta is normal in size. Venous The inferior vena cava is mildly dilated and collapses greater than 50% with inspiration. Pericardium/Pleural There is no evidence of pericardial effusion. Prior Study Comparison Changes noted compared to prior study dated: 08/23/2022. Decrease in LVEF. Recommendations, Care & Conclusions No obvious valvular pathology seen on this study. Measurements 2D Linear Measurements IVSd: 1.32 0.6-0.9/0.6-1.0 cm LVIDd: 5.05 3.9-5.3/4.2-5.9 cm LVIDd Index: 2.08 2.4-3.2/2.2-3.1 cm/m2 LVIDs: 3.61 2.0-3.6 cm LVPWd: 1.06 0.7-1.1 cm LA Diam: 4.10 2.7-3.8/3.0-4.0 cm LAIDs Index: 1.69 1.5-2.3 cm/m2 LV Mass: 292.64 67-162/88-224 g LV Mass Index: 120.43 43-95/49-115 g/m2 LVOT Diam: 2.50 3.0+(-)1.3 cm 2D Systolic Function EF 4C: 34.80 >55% EF 2C: 50.40 >55% EF BiP: 43.80 >55% Mitral Valve MV Pk E: 0.89 MV Decel Time: 213.00 E'Lateral: 13.20 E'Medial: 6.61 E/E' Med: 13.50 E/E' Lat: 6.80 PHT: 62.00 MVA PHT: 3.55 Decel [place]: 4.22 Aortic Valve AoV Pk Cruz: 1.10 AoV Mn Cruz: 0.77 AoV VTI: 0.22 AoV Pk Grad: 5.00 Aov Mn Grad: 3.00 RHONDA Cont.VTI: 3.58 LVOT LVOT Pk Cruz: 0.80 LVOT Mn Cruz: 0.55 LVOT VTI: 0.16 LVOT Pk Grad: 3.00 LVOT Mn Grad: 1.00 LVOT Diam: 2.50 LVOT Area: 4.91 Diastolic Function MV Pk E: 0.89 E'Medial: 6.61 E/E' Med: 13.50 E' Laterial: 13.20 E/E' Lat: 6.80 Right Ventricle TAPSE (mm): 20.20 TVS' Cruz: 14.10 Tricuspid Valve TR Pk Cruz: 1.96 TR Pk Grad: 15.00 RA Press: 8.00 RVSP: 23.00 Great Vessels Aorta Sinus of Valsalva: 4.17 2.0-3.5 cm Ao Asc: 3.80 2.1-3.4 cm Updated in Other Vendor System with Status of Final Porfirio Engle MD electronically signed on 06/07/2025 1:26:48 PM with status of Final
--- OUTSIDE RECORDS SUMMARY | 2025-06-06 08:42 | XMS_ITS | Clinical Summary ---
Author Organization [facility] Address [address] [place] [address] Phone Care Team Providers Care Water Operator Name Role Phone Adan Reynaga Primary Care Provider [phone] Allergies Active Allergy Reactions Criticality Noted Date [...] Due Date Last Done Comments Pneumococcal Vaccine: 50+ Ye ars (1 of 2 - PCV) 05/12/1984 Colorectal Cancer Screening: Annual FOBT 05/12/2014 Colorectal Cancer Screening: Colonoscopy 05/12/2014 Colorectal Cancer Screening: Sigmoidoscopy 05/12/2014 Influenza Vaccine (#1) 2025 Hepatitis B Vaccine Aged Out No longe r eligible based on patient's age to complete this topic Insurance [facility] ([id number]) [place] [address] ([id number]) Care Teams Water Operator Relationship Specialty Start Date End Date Adan Reynaga PA [address] [place] [address], [address] [place] [address] PCP - General Physician Bindery Machine Tender 03/15/21
== END ==
LOC: HO.CARD 08:38
PROVIDERS: PCP Physician Assistant; Visit Provider Internal Medicine
DX: I42.8 Other cardiomyopathies (principal)
CPT/HCPCS: 93306; Q9957

== ENCOUNTER → 2025-06-06 08:41 | Outpatient (BNV) | payer OTHER, SELFPAY | PROVIDERS: PCP Physician Assistant; Visit Provider Internal Medicine | DX: I51.7 Cardiomegaly (principal) | CPT/HCPCS: 93306 ==

== ENCOUNTER 2025-06-07 12:02 | Day surgery (SDC) | payer OTHER, SELFPAY ==
--- NOTE | 2025-06-01 10:29 | HO.ANESPROP2 ---
Documented by User: Richa Dominguez NP 06/01/25 10:48 HPI - Anesthesia Eval Consult details Narrative: 59 yr old male for colonoscopy Nonischemic cardiomyopathy/permanent afib/arterial hypotension: follows [facility] cardiology, stable at 12/2024 visit; Previously, cardiac catheterization with normal coronaries. Cardiac ICD: device check 05/08/25 Battery 7 yrs 1 month VS 62.0%, [employer] 38.0% Asthma: follows [facility] pulmo, last visit 03/2025, stable, prn albuterol only. FAIZAN: compliant with CPAP Anesthesia Pre-Procedure Meds Is the patient on any of the following meds?: GLP1/DPP4 PMFSH Active Problems Active Problems: All Active Problems (Updated 04/11/21 @ 15:26 by Yamila Mendez RN) Colon cancer screening (Acute) Class 2 obesity (Acute) Persistent atrial fibrillation (Acute) Positive colorectal cancer screening using Cologuard test (Acute) Annual physical exam (Acute) Lymphedema (Acute) Bilateral lower extremity edema (Acute) Varicose veins of both lower extremities with inflammation (Acute) ICD (implantable cardioverter-defibrillator) in place (Acute) Vascular insufficiency of extremity (Acute) Chronic pain syndrome (Acute) Chronic right SI joint pain (Acute) Spondylosis of lumbar region without myelopathy or radiculopathy (Acute) Sciatica of right side (Acute) Low back pain (Acute) Chronic kidney disease, unspecified (Acute) Low TSH level (Acute) Tinea pedis (Acute) Benign prostate hyperplasia (Acute) Obese (Acute) Pain, dental (Acute) Morbid obesity (Acute) FAIZAN on CPAP (Acute) Lower extremity edema (Acute) Knee osteoarthritis (Acute) HLD (hyperlipidemia) (Acute) Afib (Acute) Abnormal nuclear stress test (Acute) Asthma (Acute) Type 2 diabetes mellitus with hyperglycemia (Acute) NICM (nonischemic cardiomyopathy) (Acute) Hypotension arterial (Acute) Adult general medical exam (Acute) Obesity due to excess calories (Acute) Screening for prostate cancer (Acute) Tinea pedis of both feet (Acute) Diabetic polyneuropathy associated with type 2 diabetes mellitus (Acute) CKD stage 3 due to type 2 diabetes mellitus (Acute) FAIZAN (obstructive sleep apnea) (Acute) Essential hypertension (Acute) History of cardiomyopathy (Acute) Presence of implantable cardioverter-defibrillator (ICD) (Acute) Past Medical History Medical History Colon cancer screening Varicose veins of both lower extremities with inflammation PVD (peripheral vascular disease) Obesity, morbid, BMI 50 or higher Morbid obesity Obesity due to excess calories Screening for prostate cancer Diarrhea Tinea pedis of both feet Diabetic polyneuropathy associated with type 2 diabetes mellitus CKD stage 3 due to type 2 diabetes mellitus Asthma GERD (gastroesophageal reflux disease) History of cardiomyopathy FAIZAN (obstructive sleep apnea) Essential hypertension Chronic kidney disease, unspecified Neuropathy Family History Family History Father Cardiac disease Mother Cardiac disease Family history of problems with anesthesia: No Surgical History Surgical History History of surgery History of colonoscopy Presence of implantable cardioverter-defibrillator (ICD) History of Problems with Anesthesia: No Social History Social History Housing: Apartment Are you a primary health care technician to a significant other at home: No Alcohol intake: former Patient Tobacco Use Status: Former Tobacco user Tobacco use type: Cigarette e-Cigarette/Vaping Use: Never Used Second Hand Smoke Exposure: Yes Advance Directives: No Advance Directives Information Provided: Yes service: No Current occupational status: disabled Cognitive needs: Yes (cane) Hearing needs: No Vision needs: Yes (glasses) Meds Allergies Allergy/AdvReac Type Severity Reaction Status Date / Time Penicillins (PENICILLINS) Allergy Severe RASH Verified 06/07/25 12:18 Home Medications ?Medication ?Instructions ?Recorded ?Confirmed ?Last Taken ?Type cyclobenzaprine 5 mg tablet 5 mg PO Q8H PRN pain (scale score 12/25/22 06/07/25 Unknown History 7-10) loperamide 2 mg capsule 2 mg PO BID PRN loose stool 12/25/22 06/07/25 Unknown History insulin glargine U-300 conc 300 84 unit subcut BEDTIME 06/07/25 06/07/25 Unknown History unit/mL (3 mL) subcutaneous pen (Toujeo Max U-300 SoloStar) Exam Pertinent Lab Results Pertinent Lab Results: Laboratory Tests 05/07/24 05/09/25 11:26 09:30 WBC 7.2 RBC 5.04 Hgb 16.0 Hct 46.3 Plt Count 222 Sodium 142 Potassium 3.6 Chloride 111 H Carbon Dioxide 21 L BUN 18 H Creatinine 1.05 Narrative Narrative: ECHO 2022 Conclusions: - Normal left ventricular cavity size. There is mildly increased left ventricular wall thickness. The left ventricular systolic function is low normal. The visually estimated ejection fraction is between 50-55%. - The apex and apical anterior segments are hypokinetic. Wall motion can be due to RV pacing. - Moderately increased right ventricular cavity size. There is mildly decreased right ventricular systolic function. There is a pacemaker wire seen in the right ventricle. Findings Procedure Information Contrast agent, definity, is being given per protocol without apparent complications. The study quality is limited by patients body habitus. Left Ventricle Normal left ventricular cavity size. There is mildly increased left ventricular wall thickness. The left ventricular systolic function is low normal. The visually estimated ejection fraction is between 50-55%. There is evidence of regional wall motion abnormalities. Diastolic function is indeterminate on the basis of available data. Wall Motion Rest Echo Findings The apex and apical anterior segments are hypokinetic. Right Ventricle Moderately increased right ventricular cavity size. There is mildly decreased right ventricular systolic function. There is a pacemaker wire seen in the right ventricle. Assessment and Plan Assessment Anesthesia Assessment: Chart Reviewed Final Anesthetic Review Family History of Problems with Anesthesia: No History of Problems with Anesthesia: No Documented by User: Ev Dover MD 06/07/25 12:25 [facility] Past Medical History Medical History Colon cancer screening Varicose veins of both lower extremities with inflammation PVD (peripheral vascular disease) Obesity, morbid, BMI 50 or higher Morbid obesity Obesity due to excess calories Screening for prostate cancer Diarrhea Tinea pedis of both feet Diabetic polyneuropathy associated with type 2 diabetes mellitus CKD stage 3 due to type 2 diabetes mellitus Asthma GERD (gastroesophageal reflux disease) History of cardiomyopathy FAIZAN (obstructive sleep apnea) Essential hypertension Chronic kidney disease, unspecified Neuropathy Family History Family History Father Cardiac disease Mother Cardiac disease Surgical History Surgical History History of surgery History of colonoscopy Presence of implantable cardioverter-defibrillator (ICD) Social History Social History Housing: Apartment Are you a primary health care technician to a significant other at home: No Alcohol intake: former Patient Tobacco Use Status: Former Tobacco user Tobacco use type: Cigarette e-Cigarette/Vaping Use: Never Used Second Hand Smoke Exposure: Yes Advance Directives: No Advance Directives Information Provided: Yes service: No Current occupational status: disabled Cognitive needs: Yes (cane) Hearing needs: No Vision needs: Yes (glasses) Meds Allergies Allergy/AdvReac Type Severity Reaction Status Date / Time Penicillins (PENICILLINS) Allergy Severe RASH Verified 06/07/25 12:18 Home Medications ?Medication ?Instructions ?Recorded ?Confirmed ?Last Taken ?Type cyclobenzaprine 5 mg tablet 5 mg PO Q8H PRN pain (scale score 12/25/22 06/07/25 Unknown History 7-10) loperamide 2 mg capsule 2 mg PO BID PRN loose stool 12/25/22 06/07/25 Unknown History insulin glargine U-300 conc 300 84 unit subcut BEDTIME 06/07/25 06/07/25 Unknown History unit/mL (3 mL) subcutaneous pen (Toujeo Max U-300 SoloStar) Exam Airway Mallampati Class: III (facial hair) TM Dist: >3cm Neck ROM: Full Heart: afib Lungs: cta Assessment and Plan Assessment Anesthesia Assessment: Anesthesia Plan Discussed Final Anesthetic Review NPO: Yes ASA Class: III Final Preanesthetic Review: No Changes in Pt Med Stat, Meds/Allgs Chart Reviewed, Consent Obtained/Reviewed and Anes Risks/Benef Reviewed Patient Risk: Intermediate Procedure Risk: Low Anesthetic Plan Anesthetic Plan: MAC: Disposition: Standard PACU
[2025-06-07 12:21] VITALS: BMI 38.5
[2025-06-07 12:39] VITALS: BP 111/57; PULSE 74; RESP 16; TEMP 36.7; O2SAT 96
--- NOTE | 2025-06-07 12:43 | MHC.SHP ---
Pre-Procedural Eval Section A - 24 Hr Update-Section A only Date of Service: 06/07/25 Section B - Complete if H&P > 30 days Chief Complaint: positive cologuard Present Medications: see Short Stay Collaborative assessment Allergies: Allergies Allergy/AdvReac Type Severity Reaction Status Date / Time Penicillins (PENICILLINS) Allergy Severe RASH Verified 06/07/25 12:18 Review of Systems Review of Systems Comment: Ten point ROS negative Exam Exam Comment: Gen appear: No acute distress HEENT: no icterus Chest: No overt resp distress Abd: soft, nontender, nondistended Psych: Stable affect, answering questions appropriately Neuro: A/Ox3 noted to move all extremities spontaneously Ext: no peripheral edema Plan Diagnosis/Plan: Unchanged I have reviewed the history and physical and performed a pertinent physical examination on my patient. No changes have occurred unless specified. Time Spent With Patient Time: Total time managing care of this patient today ____ minutes.
[2025-06-07] MEDS: Lactated Ringers 1,000 ML 100 ML IVCONT (12:46)
[2025-06-07 12:51] LABS: Glucose, Whole Blood 128 mg/dL (60-115)
--- NOTE | 2025-06-07 13:34 | PC.NURSE ---
late entry 1315---dr vargas requested reading on yesterday's echo---neal ok with going into procedure before reading available.
[2025-06-07 13:55] VITALS: BP 116/67; PULSE 82; RESP 16; TEMP 36.7; O2SAT 96
--- NOTE | 2025-06-07 13:59 | HO.OPN-COLON ---
Colonoscopy Operative Note Operative Note Date of Service: 06/07/25 Narrative: Procedure: Colonoscopy Indication: Positive cologuard test Endoscopist: Naila Posadas MD Anesthesia Provider: Greg Shaw CRNA Anesthesia type: MAC Instrument: Olympus [id number] Consent: Indication, risks vs benefits, and alternatives were discussed with the patient who gave written informed consent to proceed. An lang interpreter was utilized to assist with the consent. EKG, pulse, pulse oximetry and blood pressure were monitored throughout the procedure. Please see anesthesia flowsheet. Procedure: The patient was brought to the procedure room and placed in the left lateral decubitus position. IV medications were administered by the anesthesia provider in attendance. A digital rectal exam was performed which was normal. A distal attachment cap was affixed to the tip of the colonoscope which was then inserted through the anus and advanced through the colon to the cecum at 80 cm,and terminal ileum. Appendiceal orifice and ileocecal valve were identified. Mucosa was carefully examined under high definition white light as the instrument was slowly withdrawn in a retrograde panoramic fashion. Retroflexion was performed in rectum. The procedure was not difficult. There were no immediate obvious complications. The quality of the prep was BBPS: 2+3+3 = adequate Withdrawal time 12 minutes. Limitations: No limitations. Findings: Mucosa: Normal to cecum and terminal ileum. Protruding lesions: 2 sessile polyp of size 2 mm in transverse colon. Cold snare polypectomy was performed. The polyps were completely removed and retrieved. Large internal hemorrhoids with stigmata of recent bleeding Excavated lesions: Mild to moderate diverticulosis of sigmoid colon. Impression: 1. Normal colon and terminal ileum mucosa 2. Total of 2 polyps removed 3. Diverticulosis 4. Internal hemorrhoids Recommendations: - Follow path results. - Repeat colonoscopy in 7 years if polyps are adenomas or 5 years if sessile serrated. - Hold anticoagulation x 24h. Okay to resume Eliquis tomorrow evening.
[2025-06-07 14:08] VITALS: BP 117/63; PULSE 82; RESP 16; TEMP 36.7; O2SAT 96
== END 2025-06-07 14:31 | disposition home or self-care (01) ==
PROVIDERS: PCP Physician Assistant; Visit Provider Internal Medicine
PROC: 0DJD8ZZ Inspection of Lower Intestinal Tract, Via Natural or Artificial Opening Endoscopic (ICD-10-PCS; CPT 45378; principal; 2025-06-07 14:00)
DX: R19.5 Other fecal abnormalities (principal); K64.8 Other hemorrhoids; E11.9 Type 2 diabetes mellitus without complications; D12.3 Benign neoplasm of transverse colon; K63.5 Polyp of colon
CPT/HCPCS: 45385; 82947; 88305

== ENCOUNTER → 2025-06-07 12:02 | Outpatient (BNV) | payer OTHER, SELFPAY | PROVIDERS: PCP Physician Assistant; Visit Provider Internal Medicine | DX: Z12.11 Encounter for screening for malignant neoplasm of colon (principal); R19.5 Other fecal abnormalities; K63.5 Polyp of colon; K57.30 Diverticulosis of large intestine without perforation or abscess without bleeding; K64.8 Other hemorrhoids | CPT/HCPCS: 45385 ==